=== PATIENT | male | born 1970 | race Caucasian/White ===

== ENCOUNTER 2017-10-09 09:07 | Inpatient (IN) | payer SELFPAY ==
[2017-10-09] MEDS ORDERED: Albuterol Sulfate 2.5 mg/0.5 ml Neb ONE ×3 (09:29)
--- NOTE | 2017-10-09 09:40 | RAD ---
CHEST 1 VIEW: Date: 10/09/17 HISTORY: Cough. Rhinorrhea. COMPARISON: None. FINDINGS: Cardiomegaly. Diminished lung volumes, likely due to poor inspiratory effort. No consolidation or mas ses. Small bilateral pleural effusions may be present. No pneumothorax or osseous abnormalities. IMPRESSION: 1. Cardiomegaly. 2. Diminished lung volumes, likely due to poor inspiratory effort. 3. Small bilateral pleural effusions. Continued surveillance. POS: [facility]
[2017-10-09 09:43] LABS: Actual Bicarbonate (HCO3a) 39.8 mEq/L (22-26); Base Excess (BEa) 8.3 mEq/L (0 (+/-) 2.5); CO2 Tension 89.5 mmHg (35.0-45.0); O2 Tension (PaO2) 50.9 mmHg (80.0-100.0); pH, Arterial 7.26 (7.35-7.45)
[2017-10-09 09:44] LABS: Analyzer IN Cardio ER; Calcium, Ionized 1.2 mmol/L (1.12-1.30); Hemoglobin (Hb) 16.7 g/dL (14.0-18.0)
[2017-10-09 09:45] LABS: ALV-art Gradient 143.815 (0-20); Puncture Site RRA
[2017-10-09 09:48] LABS: INR-International Normal Ratio 1.1; PTT 37.2 SEC (22.9-36.1)
[2017-10-09 09:55] LABS: #Basophils 0.1 thou/uL (0.0-0.2); #Eosinphils 0.1 thou/uL (0.0-0.7); #Lymphocytes 1.6 thou/uL (1.20-3.40); #Monocytes 0.9 thou/uL (0.11-0.59); #Neutrophils 12.4 thou/uL (1.40-6.50); %Basophils 0.5 % (0.0-1.0); %Eosinophils 0.3 % (0.0-10.0); %Lymphocytes 10.4 % (21.0-51.0); %Monocytes 6.3 % (0.0-10.0); %Neutrophils 82.4 % (42.0-75.0); Hemoglobin 17.6 g/dL (14.0-18.0); Mean Corpuscular HGB CONC 29.2 g/dL (32.0-36.0); Mean Corpuscular Hemoglobin 26.1 pg (27.0-31.0); Mean Corpuscular Volume 89.5 fl (80.0-94.0); Mean Platelet Volume 8.3 fL (7.4-10.4); Platelet Count 254 thou/uL (130-400); RBC Distribution Width 15.7 % (11.5-14.5); Red Blood Cell (RBC) Count 6.73 mill/uL (4.70-6.10)
[2017-10-09 10:10] LABS: CKMB 1.1 ng/mL (0-6.6); Troponin I 0.013 ng/mL (< 0.028)
[2017-10-09 10:15] LABS: Anion Gap 18 mmol/L (10-20); Carbon Dioxide 33 mmol/L (22-29); Chloride 94 mmol/L (98-107); Potassium 4.7 mmol/L (3.5-5.1); Sodium 140 mmol/L (136-145)
[2017-10-09] MEDS ORDERED: Rocuronium Bromide 50 MG/5 ML VIAL ONE (10:18)
[2017-10-09] MEDS ORDERED: Promethazine HCl 25 MG/ML VIAL ONE (10:34)
[2017-10-09] MEDS ORDERED: Propofol 1,000 MG/100 ML VIAL IV ONE ×3 (10:34→13:19)
[2017-10-09 10:41] LABS: ALT (SGPT) 27 U/L (8-55); AST (SGOT) 11 U/L (5-34); Alkaline Phosphatase 107 U/L (40-150); BUN (Urea Nitrogen) 13 mg/dL (8.9-20.6); Bilirubin, Total 0.9 mg/dL (0.2-1.2); CK (CPK) 35 U/L (30-200); Calc. Creatinine Clearance 0 mL/min (70-130); Calcium 9.7 mg/dL (7.8-10.44); Estimated GFR-MDRD 90; Globulin 5.2 g/dL (2.4-3.5); Glucose 197 mg/dL (70-105); Magnesium 2.3 mg/dL (1.6-2.6); Protein, Total 9.2 g/dL (6.0-8.3)
[2017-10-09 10:59] LABS: pH, Arterial 7.35 (7.35-7.45)
[2017-10-09 11:00] LABS: Base Excess (BEa) 7.4 mEq/L (0 (+/-) 2.5); CO2 Tension 67.1 mmHg (35.0-45.0); Calcium, Ionized 1.1 mmol/L (1.12-1.30); Hemoglobin (Hb) 16.4 g/dL (14.0-18.0)
[2017-10-09 11:01] LABS: ALV-art Gradient 278.925 (0-20); Analyzer IN Cardio ER; Puncture Site RRA
[2017-10-09] MEDS ORDERED: Azithromycin 500 MG, Admixture Fee 1 EACH in Sodium Chloride 0.9% 250 ML 250 ML IVPB SCH (11:15)
--- NOTE | 2017-10-09 11:24 | RAD ---
PORTABLE CHEST 1 VIEW: Date: 10/09/17 Time: 1039 hours HISTORY: Cough. Respiratory failure. FINDINGS/IMPRESSION: Comparison made with earlier exam at 0921 hours. There has been interval placement of an endotracheal tube with tip about 3.0 cm above the level of th e kvng. POS: [facility]
[2017-10-09] MEDS ORDERED: Fentanyl 100 MCG/2 ML VIAL ONE ×3 (11:29→11:34)
[2017-10-09] MEDS ORDERED: fentaNYL Citrate/PF 2,000 MCG in Sodium Chloride 0.9% 60 ML IV SCH (11:45)
[2017-10-09 12:06] LABS: Bilirubin Small (Negative); Blood, Urine Negative (Negative); Clarity CLOUDY (Clear); Glucose, Urine (Dipstick) Negative (Negative); Leukocyte Negative (Negative); Nitrite Negative (Negative); Protein, Urine (Dipstick) 300 mg/dL (Neg-Trace)
[2017-10-09 12:08] LABS: Bacteria/HPF None Seen HPF (None Seen); RBC/HPF 0-3 HPF (0-3); Squamous Epithelial 0-3 HPF (0-3); WBC/HPF 0-3 HPF (0-3)
[2017-10-09 12:09] LABS: Hyaline Casts/LPF 4-6 HYALINE CAST LPF (0-3 Hyaline); Pathc Cast-AUWi Flag 2.84 (0-2.49)
[2017-10-09 12:15] LABS: Amphetamine Not Detected (NotDetected); Barbiturates Screen Not Detected (NotDetected); Benzodiazepine Screen Not Detected (NotDetected); Cocaine Metabolite Screen Not Detected (NotDetected); Medtox Control Line Valid? VALID (VALID); Medtox Reader # READER 1; Methadone Not Detected (NotDetected); Methamphetamine Not Detected (NotDetected); Opiate Screen Not Detected (NotDetected); Oxycodone Screen Not Detected (NotDetected); Phencyclidine (PCP) Not Detected (NotDetected); THC/Cannabinoid Screen Not Detected (NotDetected); Tricyclic Screen Not Detected (NotDetected)
[2017-10-09 12:23] LABS: Troponin I 0.026 ng/mL (< 0.028)
[2017-10-09] MEDS ORDERED: Sedation Protocol FS ONE (12:35)
[2017-10-09] MEDS ORDERED: Dextrose 5% in Water 1,000 ML IV PRN (12:35)
[2017-10-09] MEDS ORDERED: Acetaminophen 650 MG Suppository PR PRN (12:35)
[2017-10-09] MEDS ORDERED: CCU Electrolyte Replacement 1 EACH FS ONE (12:35)
[2017-10-09] MEDS ORDERED: Ondansetron HCl/PF 4 MG/2 ML Vial IVP PRN (12:35)
[2017-10-09] MEDS ORDERED: cefTRIAXone\\ROCEPHIN 1 GM in Sodium Chloride 0.9% 100 ML IVPB SCH (12:35)
[2017-10-09] MEDS ORDERED: Dextrose 50% Abboject 50 ML SYRINGE SLOW IVP PRN (12:35)
[2017-10-09] MEDS: Sodium Chloride 0.9% 1,000 ML IV SCH ×2 (12:50→21:15)
[2017-10-09 13:00] LABS: Hemoglobin A1c 7.9 % (4.0-6.0)
[2017-10-09] MEDS ORDERED: Potassium Chloride 40 MEQ in Premix Bag 1 BAG IVPB PRN (13:31)
[2017-10-09] MEDS ORDERED: Magnesium Oxide 400 MG TAB PO PRN ×2 (13:31)
[2017-10-09] MEDS ORDERED: Potassium Chloride 40 MEQ in Sodium Chloride 0.9% 250 ML 250 ML IVPB PRN (13:31)
[2017-10-09] MEDS ORDERED: Potassium Phosphate 15 MMOL in Sodium Chloride 0.9% 250 ML 250 ML IV PRN (13:31)
[2017-10-09] MEDS ORDERED: Magnesium 2 GM/NS 0.9% 100 ML 2 GM in Premix Bag 1 BAG IVPB PRN (13:31)
[2017-10-09] MEDS ORDERED: Potassium Phosphate 12 MMOL in Sodium Chloride 0.9% 250 ML 250 ML IV PRN (13:31)
[2017-10-09] MEDS ORDERED: Potassium Phosphate 9 MMOL in Sodium Chloride 0.9% 100 ML IVPB PRN (13:31)
[2017-10-09] MEDS ORDERED: Potassium Chloride 20 MEQ TAB PO PRN (13:31)
[2017-10-09] MEDS ORDERED: FLU VACC QS2017-18 36 mo. & older 0.5 ML SYRINGE IM ONE (13:45)
--- NOTE | 2017-10-09 14:19 | HP ---
REASON FOR ADMISSION: Acute respiratory failure, possible pneumonia, sepsis, morbid obesity. HISTORY OF PRESENTING ILLNESS: Please note majority of this history is obtained by my talking to patient's , ER physician, ER records as patient is currently intubated. Per ER physician, patient on arrival had complained of shortness of breath and had coughing spells from the last 4 days. He had saturations of 50% on room air on arrival. He was wheezing badly. He was given 1 hour of nebs and was placed on BiPAP with saturations only marginally improving to 81%. He had ABG done on BiPAP, which showed pCO2 of 90 and pH of 7.26. Finally, a decision was made to intubate him. During intubation, patient has had thick yellowish green secretions which were filling up the ET tube and was vigorously suctioned by ER physician. Per family his , the patient has had an episode of flu-like illness a week back. He apparently recovered and had gone to work for 2 days. From last 4 days, patient has started coughing with headache and fever. 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 She also mentions that he has history of diabetes and has not been taking his medications. PAST MEDICAL AND SURGICAL HISTORY: History of diabetes mellitus type 2 diagnosed a year ago, not compliant with medications, cholecystectomy, appendectomy, knee surgery. CURRENT MEDICATIONS: None. ALLERGIES: No known drug allergies. PERSONAL HISTORY: Does not abuse alcohol or drugs. No history of smoking. Lives with his . FAMILY HISTORY: Mother at the age of 64 years from unknown cause. Father had unknown cancer and at the age of 76 years. REVIEW OF SYSTEMS: Cannot be obtained as the patient is currently intubated. PHYSICAL EXAMINATION: GENERAL: The patient is a 47-year-old male who is orally intubated with endotracheal tube up to 28 cm to the incisor. He has size 8 ET tube. He is currently on ventilator with 65% FiO2 and PEEP of 6, tidal volume of 600. VITAL SIGNS: Blood pressure 146/76, pulse 124 per minute, respiratory rate 24 per minute, saturating 100% on ventilator, temperature of 99.2 degrees Fahrenheit. NECK: Supple, no elevated JVD. EYES: Extraocular muscles intact. Pupils reacting to light. ORAL CAVITY: Mucous membranes are dry. There is mild congestion in the posterior pharynx. The patient is orally intubated. NECK: Supple. CARDIOVASCULAR SYSTEM: S1, S2 heard. Regular rhythm, tachycardic. RESPIRATORY SYSTEM: Air entry 1+ bilateral. Scattered rhonchi plus bilateral. ABDOMEN: Soft, bowel sounds heard. No tenderness, rigidity or guarding. EXTREMITIES: There is peripheral edema, 2+. No obvious gangrene or ulcerations seen. CENTRAL NERVOUS SYSTEM: No gross focal deficits seen. The patient is seen moving all 4 extremities. PSYCHIATRIC SYSTEM: Cannot be assessed as patient is currently sedated and is on the ventilator. IMAGING DATA AND LABORATORY DATA: EKG done shows sinus tachycardia at 114 beats per minute. He has incomplete RBBB. White count of 15, hemoglobin and hematocrit 17 and 60, platelet count 254, MCV is 89 with 82% neutrophils. PT/ INR within normal limits. Initial blood gas at 939 shows pH of 7.26 and pCO2 of 89 with pCO2 50. Repeat blood gas at almost 11:00 a.m. shows pH of 7.35, PCO2 of 67, and pO2 of 65. Serum bicarbonate 33. The BUN is 13, creatinine 0.9 , serum glucose 197. Hemoglobin A1c 7.9. First set of cardiac enzymes are negative. Liver enzymes within normal limits. Albumin is 4.0. Influenza A and B antigens are negative. Chest x-ray on arrival showed cardiomegaly with poor lung volumes. CLINICAL IMPRESSION AND PLAN: The patient will be admitted to ICU for acute respiratory failure with hypoxia and hypercarbia possible pneumonia with recent viral illness. We will obtain viral PCR. He will be on ceftriaxone and Zithromax. The patient is also morbidly obese and likely has sleep apnea with possible hypoventilation syndrome as well. He is also noncompliant with his diabetes and will be placed on Levemir 10 units subcutaneously twice daily. He will be on gentle IV hydration. The patient weighs nearly 479 pounds and likely will not be able to get a CAT scan due to his weight. Discussed with Dr. Moore for pulmonary consultation. CAYLA
[2017-10-09 15:04] LABS: HIV (1/2) Antibody/Antigen Non-Reactive (NonReactive); HIV 1/2 INDEX 0.08 S/CO (<1.00)
[2017-10-09] MEDS: Propofol 1,000 MG/100 ML VIAL IV PRN ×5 (15:38→23:03)
[2017-10-09] MEDS: Acetaminophen 325 MG TAB PO PRN (20:25)
[2017-10-09] MEDS: Famotidine/PF 20 mg/2ml Vial SLOW IVP SCH (20:25)
[2017-10-09] MEDS: Insulin Detemir 100 UNITS/ML 10 UNITS in Pre-Filled Syringe 1 EACH SC SCH (21:18)
[2017-10-10] MEDS: Propofol 1,000 MG/100 ML VIAL IV PRN ×4 (02:41→08:19)
--- NOTE | 2017-10-10 04:14 | CON ---
DATE OF CONSULTATION: 10/09/2017 HISTORY OF PRESENT ILLNESS: Mr. Hughes is a gentleman, who was transferred to the ICU, intubated fr om the emergency department. History is obtained from the and daughter. Apparently, he has a l elisa history of daytime hypersomnolence. When he sleeps, his daughter tells me he has one minute wu ods where he just does not breathe. He presents with 3-4 days of cough, chest congestion, and shortness of breath. This has progressed. He was intubated in the emergency room. He failed BiPAP, which not surprising given his size. He is too large for CT, I really do not think a CT angiogram add anything to his care after examining him. PAST MEDICAL HISTORY: Remarkable for; 1. Diabetes, he does not go to doctors. 2. Cholecystectomy. 3. Appendectomy. 4. History of knee surgery. SOCIAL HISTORY: He is a non-smoker, nondrinker. He does not use drugs. ALLERGIES: He has no drug allergies. MEDICATIONS: No medication prior to admission. FAMILY HISTORY: Positive for cancer. No history of lung disease at an early age. REVIEW OF SYSTEMS: Not obtainable. PHYSICAL EXAMINATION: GENERAL: He is sedated, he is a very large man, weighs 479 pounds. VITAL SIGNS: His temperature is 102 this evening, his respiratory rate is in the 20s, blood pressure 139/77. HEENT: Pupils are equal. Sclerae is anicteric. NECK: Supple. No lymphadenopathy. LUNGS: Remarkable for coarse wheezes diffusely. HEART: Regular rhythm. S1 and S2 are distant. ABDOMEN: Soft and nontender. EXTREMITIES: Without clubbing, cyanosis, or edema. LABORATORY DATA: White count 15, hemoglobin 17.6, platelets 254, hematocrit was 60. Sodium 140, pot assium 4.7, chloride 94, bicarbonate 33, BUN 13, creatinine 0.9, hemoglobin A1c 7.9. Blood gas: A p H 7.26, CO2 of 89, pO2 of 50. Second blood gas: A pH 7.35, CO2 of 67, PO2 of 65. IMPRESSION AND PLAN: 1. Acute respiratory failure. I reviewed his radiograph under underpenetrated film. There are no a lveolar infiltrates. He has poor inspiratory effort. I do not see any clear evidence for pneumonia, but I doubt that there is some component of pneumonia if this is not related to a viral illness. 2. Life threatening obesity. 3. Untreated sleep apnea. 4. Erythrocytosis secondary to untreated sleep apnea. If his hemoglobin does not start working its way down, we will need to phlebotomize him to a hematocrit of 50. 5. Chronic CO2 retention secondary to his untreated sleep apnea. 6. Hyperproteinemia and hyperglobulinemia. If this does normalize the serum protein, electrophoresi s needs to be ordered. 7. Diabetes, uncontrolled. I will be happy to follow with the other physicians caring for him. He is not going to be weanable for several days and likely be in the hospital several weeks. He may req uire tracheostomy to treat his sleep apnea successfully and immediately. Critical care time 40 minutes.
[2017-10-10] MEDS: Acetaminophen 325 MG TAB PO PRN ×2 (04:43→08:19)
[2017-10-10 05:06] LABS: #Lymphocytes 1.4 thou/uL (1.20-3.40); #Monocytes 0.6 thou/uL (0.11-0.59); #Neutrophils 7.9 thou/uL (1.40-6.50); %Basophils 0.1 % (0.0-1.0); %Eosinophils 0.3 % (0.0-10.0); %Lymphocytes 14.2 % (21.0-51.0); %Monocytes 5.8 % (0.0-10.0); %Neutrophils 79.6 % (42.0-75.0); Hemoglobin 15.3 g/dL (14.0-18.0); Mean Corpuscular HGB CONC 30.6 g/dL (32.0-36.0); Mean Corpuscular Hemoglobin 26.7 pg (27.0-31.0); Mean Corpuscular Volume 87.3 fl (80.0-94.0); Mean Platelet Volume 8.5 fL (7.4-10.4); Platelet Count 206 thou/uL (130-400); RBC Distribution Width 15.1 % (11.5-14.5); Red Blood Cell (RBC) Count 5.73 mill/uL (4.70-6.10); White Blood Cell (WBC) Count 9.9 thou/uL (4.8-10.8)
[2017-10-10 05:28] LABS: Anion Gap 11 mmol/L (10-20); BUN (Urea Nitrogen) 15 mg/dL (8.9-20.6); Calc. Creatinine Clearance 299 mL/min (70-130); Calcium 8.6 mg/dL (7.8-10.44); Carbon Dioxide 32 mmol/L (22-29); Chloride 98 mmol/L (98-107); Estimated GFR-MDRD 86; Glucose 180 mg/dL (70-105); Potassium 3.8 mmol/L (3.5-5.1); Sodium 137 mmol/L (136-145)
[2017-10-10 07:42] LABS: Actual Bicarbonate (HCO3a) 32.2 mEq/L (22-26); Base Excess (BEa) 7.3 mEq/L (0 (+/-) 2.5); CO2 Tension 45.9 mmHg (35.0-45.0); O2 Tension (PaO2) 50.5 mmHg (80.0-100.0); pH, Arterial 7.46 (7.35-7.45)
[2017-10-10 07:43] LABS: Calcium, Ionized 1.1 mmol/L (1.12-1.30); Hematocrit-ABG 54.3 % (42.0-52.0); Hemoglobin (Hb) 15.4 g/dL (14.0-18.0); Puncture Site RRA
[2017-10-10 07:44] LABS: ALV-art Gradient 355.575 (0-20)
[2017-10-10] MEDS: Enoxaparin Sodium 40 MG/0.4 ML SYRINGE SC SCH (08:19)
[2017-10-10] MEDS: Famotidine/PF 20 mg/2ml Vial SLOW IVP SCH (08:19)
[2017-10-10] MEDS: Sodium Chloride 0.9% 1,000 ML IV SCH ×2 (08:20→19:03)
[2017-10-10] MEDS: Insulin Detemir 100 UNITS/ML 10 UNITS in Pre-Filled Syringe 1 EACH SC SCH ×2 (08:47→21:14)
[2017-10-10] MEDS: cefTRIAXone\\ROCEPHIN 1 GM, Syringe 0.4 ML in Sterile Water 9.6 ML SLOW IVP SCH (11:37)
[2017-10-10] MEDS: Azithromycin 500 MG in Sodium Chloride 0.9% 250 ML 250 ML IVPB SCH (11:45)
[2017-10-10] MEDS: Enalaprilat Dihydrate 1.25 MG/ML VIAL SLOW IVP SCH ×2 (13:53→17:51)
[2017-10-10] MEDS ORDERED: Labetalol HCl 100 MG/20 ML VIAL SLOW IVP PRN (14:27)
--- NOTE | 2017-10-10 14:29 | PDOC.PN ---
- Subjective Encounter Start Date: 10/10/17 Encounter Start Time: 10:45 Subjective: pt intubated is able to follow commands - Objective Resuscitation Status: Resuscitation Status FULL:Full Resuscitation Vital Signs & Weight: Vital Signs (12 hours) Temp Pulse Resp BP Pulse Ox 10/10/17 13:55 95 182/95 H 10/10/17 13:53 180/99 H 10/10/17 12:00 18 10/10/17 10:18 89 171/71 H 10/10/17 10:00 98.4 F 23 H 10/10/17 08:00 100.9 F H 108 H 18 93 L 10/10/17 07:01 86 174/68 H 10/10/17 06:00 99.1 F 25 H 10/10/17 04:00 100.6 F H 25 H 10/10/17 02:49 85 25 H 92 L Weight Admit Weight 479 lb Weight 479 lb 1.032 oz Most Recent Monitor Data Heart Rate from ECG 98 NIBP 180/99 NIBP BP-Mean 119 Respiration from ECG 30 SpO2 94 I&O: 10/09/17 10/10/17 10/11/17 06:59 06:59 06:59 Intake Total 2769.7 Output Total 1305 350 Balance 1464.7 -350 Result Diagrams: 10/10/17 04:35 10/10/17 04:35 Additional Labs: Accuchecks 10/10/17 10/10/17 10/09/17 13:00 04:37 21:19 POC Glucose 141 H 157 H 171 H 10/09/17 18:12 POC Glucose 155 H Phys Exam - Physical Examination Respiratory: wheezing present (diminished breath sounds all over. mild exp wheezing noted) Cardiovascular: RRR Gastrointestinal: soft, non-tender Musculoskeletal: no edema Neurological: non-focal (pt intubated, moves all ext) Dx/Plan (1) Acute respiratory failure with hypoxia and hypercapnia Code(s): J96.01 - ACUTE RESPIRATORY FAILURE WITH HYPOXIA; J96.02 - ACUTE RESPIRATORY FAILURE WITH HYPERCAPNIA Status: Acute Plan: pt's resp panel was positive for rhino virus. pt is intubated (2) Hyperproteinemia Code(s): E88.09 - OTH DISORDERS OF PLASMA-PROTEIN METABOLISM, NEC Status: Acute Plan: will follow up on blood work in am if high will order spep and upep (3) Erythrocytosis Code(s): D75.1 - SECONDARY POLYCYTHEMIA Status: Acute Plan: ? from AMBERLY, pt will need outpatient sleep study. - Plan * .
[2017-10-10] MEDS: fentaNYL Citrate/PF 2,000 MCG in Sodium Chloride 0.9% 60 ML IV SCH (15:47)
[2017-10-10] MEDS: HumaLOG 300 UNITS/3 ML VIAL SC PRN ×2 (19:03→21:15)
--- NOTE | 2017-10-10 20:37 | PRG ---
DATE OF SERVICE: 10/10/2017 SUBJECTIVE: The patient was awaken. He was requiring more and more doses of sedatives, so we switch ed him to Versed drip and took him off propofol. OBJECTIVE: VITAL SIGNS: Heart rate 83, blood pressure 131/56, respiratory rate in the teens. LUNGS: Remarkable for improved wheezes compared to yesterday. HEART: Regular rhythm. ABDOMEN: Soft. LABORATORY DATA: His hemoglobin has come down from 17.6 g to 15.3 g. White count is 9.9. Intake and output is positive 1464. Sodium 137, potassium 3.8, chloride 98, bicarbonate 32, BUN 15, creatinine 0.94. pH 7.46, CO2 of 45, pO2 of 50. His ventilatory rate was decreased from 25-18 today. His FiO2 will be weaned as tolerated. Chest radiograph was not done today. IMPRESSION: Respiratory failure associated with asthmatic bronchitis and chronic obesity hypoventila tion syndrome as well as possible pneumonia. I doubt that he has thromboembolic disease. PLAN: Check chest radiograph in the morning. Continue with mechanical ventilation. At almost 500 p ounds, I do not think he will do well without a tracheostomy. His family again told me that he has 1 -minute periods of apnea when he sleeps. I am not sure we can get him to an adequate CPAP pressure t o control his sleep apnea and probably the safest and quickest recovery will be via tracheostomy in m y opinion. Critical care time was 30 minutes.
[2017-10-10] MEDS: Famotidine 40 MG/4 ML VIAL SLOW IVP SCH (21:12)
[2017-10-11] MEDS: Enalaprilat Dihydrate 1.25 MG/ML VIAL SLOW IVP SCH ×4 (00:20→17:30)
[2017-10-11] MEDS: fentaNYL Citrate/PF 2,000 MCG in Sodium Chloride 0.9% 60 ML IV SCH ×2 (02:08→19:43)
[2017-10-11 04:35] LABS: Band 5 % (5-11); Hemoglobin 14.8 g/dL (14.0-18.0); Lymphocytes 12 % (21-51); MDiff Complete? YES; Mean Corpuscular HGB CONC 30.2 g/dL (32.0-36.0); Mean Corpuscular Hemoglobin 26.5 pg (27.0-31.0); Mean Corpuscular Volume 87.7 fl (80.0-94.0); Mean Platelet Volume 8.5 fL (7.4-10.4); Monocytes 3 % (0-10); Neutrophil 80 % (42-75); PLT Morphology Comment Appears Adequate; Platelet Count 210 thou/uL (130-400); RBC Distribution Width 15.3 % (11.5-14.5); Red Blood Cell (RBC) Count 5.59 mill/uL (4.70-6.10)
[2017-10-11 04:57] LABS: Anion Gap 10 mmol/L (10-20); BUN (Urea Nitrogen) 19 mg/dL (8.9-20.6); Calc. Creatinine Clearance 350 mL/min (70-130); Calcium 8.6 mg/dL (7.8-10.44); Carbon Dioxide 33 mmol/L (22-29); Chloride 100 mmol/L (98-107); Estimated GFR-MDRD Greater than 90; Glucose 255 mg/dL (70-105); Sodium 139 mmol/L (136-145)
[2017-10-11] MEDS: HumaLOG 300 UNITS/3 ML VIAL SC PRN ×4 (05:18→21:19)
[2017-10-11] MEDS: Sodium Chloride 0.9% 1,000 ML IV SCH ×3 (06:02→16:11)
--- NOTE | 2017-10-11 08:15 | RAD ---
CHEST ONE VIEW: History: Respiratory distress. Ventilated patient. Comparison: 10-09-17 FINDINGS: Portable upright chest demonstrates endotracheal tube and a nasogastric tube. Evaluation of both tube s is limited due to under penetration. Heart is markedly enlarged. Pulmonary vessels are within jean marie l limits. There are reticular nodular opacities, without consolidation or mass. No pneumothorax or os seous abnormality. IMPRESSION: 1. Suboptimal evaluation of the endotracheal and nasogastric tube due to under penetration. 2. Enlarged cardiac silhouette. 3. Reticular nodular opacities. 4. Repeat radiograph can be performed to better evaluate the endotracheal and nasogastric tubes. POS: [facility]
[2017-10-11] MEDS: Insulin Detemir 100 UNITS/ML 10 UNITS in Pre-Filled Syringe 1 EACH SC SCH ×2 (09:28→21:18)
[2017-10-11] MEDS: Enoxaparin Sodium 40 MG/0.4 ML SYRINGE SC SCH (09:35)
[2017-10-11] MEDS: Famotidine 40 MG/4 ML VIAL SLOW IVP SCH ×2 (09:35→21:18)
[2017-10-11] MEDS: cefTRIAXone\\ROCEPHIN 1 GM, Syringe 0.4 ML in Sterile Water 9.6 ML SLOW IVP SCH (11:47)
[2017-10-11] MEDS: Azithromycin 500 MG in Sodium Chloride 0.9% 250 ML 250 ML IVPB SCH (11:47)
[2017-10-11 12:54] LABS: Actual Bicarbonate (HCO3a) 32.4 mEq/L (22-26); Base Excess (BEa) 6.3 mEq/L (0 (+/-) 2.5); CO2 Tension 52.2 mmHg (35.0-45.0); Hemoglobin (Hb) 14.6 g/dL (14.0-18.0); O2 Tension (PaO2) 53.1 mmHg (80.0-100.0); pH, Arterial 7.41 (7.35-7.45)
[2017-10-11 12:55] LABS: Calcium, Ionized 1.1 mmol/L (1.12-1.30); Puncture Site RRA
[2017-10-11] MEDS ORDERED: Sodium Bicarbonate Tab 325 MG TAB PER TUBE PRN (14:02)
[2017-10-11] MEDS ORDERED: Pancrelipase DR 12000 1 CAP FS PRN (14:02)
--- NOTE | 2017-10-11 15:13 | PDOC.PN ---
- Subjective Encounter Start Date: 10/11/17 Encounter Start Time: 11:00 Subjective: pt intubated and sedated - Objective Resuscitation Status: Resuscitation Status FULL:Full Resuscitation Vital Signs & Weight: Vital Signs (12 hours) Temp Pulse Resp BP 10/11/17 15:00 99.1 F 10/11/17 14:44 73 175/84 H 10/11/17 14:00 18 10/11/17 13:26 80 10/11/17 11:47 141/72 H 10/11/17 11:00 99.3 F 10/11/17 10:18 82 10/11/17 08:01 78 10/11/17 08:00 99.2 F 78 18 10/11/17 06:00 19 10/11/17 05:18 141/72 H 10/11/17 04:00 98.6 F 23 H Weight Admit Weight 479 lb Weight 477 lb 15.395 oz Most Recent Monitor Data Heart Rate from ECG 80 NIBP 158/68 NIBP BP-Mean 106 Respiration from ECG 11 SpO2 92 I&O: 10/10/17 10/11/17 10/12/17 06:59 06:59 06:59 Intake Total 2769.7 3694.5 119.6 Output Total 1305 1615 740 Balance 1464.7 2079.5 -620.4 Result Diagrams: 10/11/17 04:15 10/11/17 04:15 Additional Labs: Accuchecks 10/11/17 10/11/17 10/10/17 09:28 04:14 21:12 POC Glucose 255 H 234 H 210 H 10/10/17 18:46 POC Glucose 182 H Phys Exam - Physical Examination Respiratory: wheezing present Cardiovascular: RRR, no significant murmur Gastrointestinal: soft (large, bs x2) Musculoskeletal: edema present Deviation from normal: pt intubated Dx/Plan (1) Acute respiratory failure with hypoxia and hypercapnia Code(s): J96.01 - ACUTE RESPIRATORY FAILURE WITH HYPOXIA; J96.02 - ACUTE RESPIRATORY FAILURE WITH HYPERCAPNIA Status: Acute Plan: pt intubated cx indicated haemophilias influenza. continue abx for now pt on azithromycin and ceftriaxone (2) Hyperproteinemia Code(s): E88.09 - OTH DISORDERS OF PLASMA-PROTEIN METABOLISM, NEC Status: Acute Plan: will check cmp in am (3) Erythrocytosis Code(s): D75.1 - SECONDARY POLYCYTHEMIA Status: Acute Plan: continue to monitor most likely due to AMBERLY (4) Haemophilus infection Code(s): A49.2 - HEMOPHILUS INFLUENZAE INFECTION, UNSPECIFIED SITE Status: Acute Plan: pt's sputum came back positive for hamophalius influenza. will continue current abx (5) Morbid (severe) obesity due to excess calories Code(s): E66.01 - MORBID (SEVERE) OBESITY DUE TO EXCESS CALORIES Status: Acute - Plan * .
[2017-10-11] MEDS: Lorazepam 2 MG/ML VIAL SLOW IVP PRN ×2 (17:30→19:31)
--- NOTE | 2017-10-11 17:39 | PRG ---
DATE OF SERVICE: 10/11/2017 SUBJECTIVE: Mr. Sigifredo Hughes remains mechanically ventilated. I talked more with family about his functional level. 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 He just has problem sl eeping mainly. OBJECTIVE: VITAL SIGNS: His heart rate 80, respiratory rate is 18, oximetry is in the 90s, and blood pressure 1 75/84. LUNGS: Remarkable for coarse wheezes. HEART: Regular rhythm. ABDOMEN: Soft. LABORATORY DATA: Blood gas 7.2, CO2 is 52, pO2 is 53. Chest radiograph was underpenetrated; he probably has bilateral patchy infiltrates consistent with a pneumonia. IMPRESSION: 1. Respiratory failure. 2. Asthmatic bronchitis. 3. Probable pneumonia, community acquired. 4. Untreated severe sleep apnea. PLAN: Continue mechanical ventilation, steroids, and antimicrobial therapy.
[2017-10-12] MEDS: Enalaprilat Dihydrate 1.25 MG/ML VIAL SLOW IVP SCH ×5 (00:11→23:55)
[2017-10-12] MEDS: Lorazepam 2 MG/ML VIAL SLOW IVP PRN ×4 (01:59→19:54)
[2017-10-12] MEDS: HumaLOG 300 UNITS/3 ML VIAL SC PRN ×4 (04:23→21:20)
[2017-10-12 04:36] LABS: #Lymphocytes 0.9 thou/uL (1.20-3.40); #Monocytes 0.5 thou/uL (0.11-0.59); #Neutrophils 8.7 thou/uL (1.40-6.50); %Basophils 0.3 % (0.0-1.0); %Eosinophils 0.1 % (0.0-10.0); %Lymphocytes 9.2 % (21.0-51.0); %Monocytes 4.5 % (0.0-10.0); Mean Corpuscular Hemoglobin 26.5 pg (27.0-31.0); Mean Corpuscular Volume 88.1 fl (80.0-94.0); Mean Platelet Volume 8.8 fL (7.4-10.4); Platelet Count 204 thou/uL (130-400); RBC Distribution Width 15.2 % (11.5-14.5); Red Blood Cell (RBC) Count 5.67 mill/uL (4.70-6.10); White Blood Cell (WBC) Count 10.1 thou/uL (4.8-10.8)
[2017-10-12 04:48] LABS: ALT (SGPT) 19 U/L (8-55); AST (SGOT) 16 U/L (5-34); Albumin 3.1 g/dL (3.5-5.0); Alkaline Phosphatase 70 U/L (40-150); Anion Gap 11 mmol/L (10-20); BUN (Urea Nitrogen) 26 mg/dL (8.9-20.6); Bilirubin, Total 0.4 mg/dL (0.2-1.2); Calc. Creatinine Clearance 346 mL/min (70-130); Calcium 8.9 mg/dL (7.8-10.44); Carbon Dioxide 31 mmol/L (22-29); Chloride 102 mmol/L (98-107); Estimated GFR-MDRD Greater than 90; Glucose 315 mg/dL (70-105); Potassium 4.8 mmol/L (3.5-5.1); Protein, Total 7.1 g/dL (6.0-8.3); Sodium 139 mmol/L (136-145)
--- NOTE | 2017-10-12 07:56 | RAD ---
SINGLE VIEW OF THE CHEST: COMPARISON: 10/11/17. HISTORY: Ventilated patient with respiratory failure. FINDINGS: A single view of the chest shows an enlarged but stable cardiomediastinal silhouette. The endotrache al tube is unchanged in position. The NG tube cannot be followed completely secondary to under penet ration. There is obscurity of both hemidiaphragms which may represent small bilateral pleural effusi ons. IMPRESSION: Stable exam. POS: [facility]
[2017-10-12] MEDS: Famotidine 20 MG TAB PO SCH ×2 (08:51→21:19)
[2017-10-12] MEDS: Enoxaparin Sodium 40 MG/0.4 ML SYRINGE SC SCH (08:51)
[2017-10-12] MEDS: Insulin Detemir 100 UNITS/ML 10 UNITS in Pre-Filled Syringe 1 EACH SC SCH ×2 (08:51→21:19)
[2017-10-12] MEDS: Sodium Chloride 0.9% 1,000 ML IV SCH ×2 (08:52→21:18)
[2017-10-12] MEDS ORDERED: niCARdipine HCl 25 MG in Sodium Chloride 0.9% 250 ML 240 ML IVPB SCH (09:15)
--- NOTE | 2017-10-12 10:01 | PRG ---
DATE OF SERVICE: 10/12/2017 Sigifredo Hughes did well overnight. His blood pressure is elevated this morning. I have asked the nurses to start him on a Cardene drip. PHYSICAL EXAMINATION: VITAL SIGNS: Blood pressure 184/115, heart rate 75. GENERAL: He is more awake today, he wants to write notes. LUNGS: His lungs are remarkable for coarse wheezes diffusely. HEART: Regular rhythm. ABDOMEN: Soft. LABORATORY DATA: White count 10.1, hemoglobin 15, platelets 204,000. Sodium 139, potassium 4.8, chloride 102, bicarb 31, BUN 26, creatinine 0.81, glucose is 315. IMPRESSION: 1. Respiratory failure. 2. Asthmatic bronchitis. 3. Probable pneumonia. 4. Erythrocytosis on admission secondary to untreated sleep apnea and intravascular volume depletion. 5. Diabetes. PLAN: Continue slow weaning. We will try to avoid tracheostomy in this functional hardworking individual. Critical care time 35 min. MTDD
[2017-10-12] MEDS: Azithromycin 500 MG in Sodium Chloride 0.9% 250 ML 250 ML IVPB SCH (11:14)
[2017-10-12] MEDS: cefTRIAXone\\ROCEPHIN 1 GM, Syringe 0.4 ML in Sterile Water 9.6 ML SLOW IVP SCH (11:14)
--- NOTE | 2017-10-12 14:56 | PDOC.PN ---
- Subjective Encounter Start Date: 10/12/17 Encounter Start Time: 10:45 Subjective: pt up in bed intubated but arousable - Objective Resuscitation Status: Resuscitation Status FULL:Full Resuscitation Vital Signs & Weight: Vital Signs (12 hours) Temp Pulse Resp BP 10/12/17 13:43 72 10/12/17 12:00 25 H 10/12/17 11:14 153/76 H 10/12/17 11:00 99.2 F 10/12/17 10:00 24 H 10/12/17 09:50 77 10/12/17 08:00 98.3 F 77 22 H 10/12/17 07:32 77 10/12/17 07:00 98.3 F 10/12/17 06:00 24 H 10/12/17 05:05 153/76 H 10/12/17 04:00 98.9 F 18 Weight Admit Weight 479 lb Weight 481 lb 4.305 oz Most Recent Monitor Data Heart Rate from ECG 69 NIBP 147/84 NIBP BP-Mean 110 Respiration from ECG 23 SpO2 92 I&O: 10/11/17 10/12/17 10/13/17 06:59 06:59 06:59 Intake Total 3694.5 3608.3 60 Output Total 1615 2120 880 Balance 2079.5 1488.3 -820 Result Diagrams: 10/12/17 04:10 10/12/17 04:10 Additional Labs: Accuchecks 10/12/17 10/12/17 10/11/17 08:49 04:12 21:18 POC Glucose 278 H 260 H 252 H 10/11/17 15:51 POC Glucose 218 H Phys Exam - Physical Examination Neck: no nodes Respiratory: wheezing present (rhonchi all over lungs) Cardiovascular: RRR, no significant murmur Gastrointestinal: soft Neurological: non-focal Dx/Plan (1) Acute respiratory failure with hypoxia and hypercapnia Code(s): J96.01 - ACUTE RESPIRATORY FAILURE WITH HYPOXIA; J96.02 - ACUTE RESPIRATORY FAILURE WITH HYPERCAPNIA Status: Acute Plan: pt is intubated slow wean. Appreciate pulmonary's help (2) Hyperproteinemia Code(s): E88.09 - OTH DISORDERS OF PLASMA-PROTEIN METABOLISM, NEC Status: Acute Plan: pt's gloubin is mildly elevated. will continue to monitor (3) Erythrocytosis Code(s): D75.1 - SECONDARY POLYCYTHEMIA Status: Acute Plan: secondary to sleep apnea (4) Haemophilus infection Code(s): A49.2 - HEMOPHILUS INFLUENZAE INFECTION, UNSPECIFIED SITE Status: Acute Plan: continue current abx stated 10/10 (5) Morbid (severe) obesity due to excess calories Code(s): E66.01 - MORBID (SEVERE) OBESITY DUE TO EXCESS CALORIES Status: Acute Plan: will educated once pt has been extubated - Plan * .
[2017-10-13] MEDS: Lorazepam 2 MG/ML VIAL SLOW IVP PRN ×2 (02:08→18:39)
[2017-10-13] MEDS: fentaNYL Citrate/PF 2,000 MCG in Sodium Chloride 0.9% 60 ML IV SCH (03:57)
[2017-10-13] MEDS: Enalaprilat Dihydrate 1.25 MG/ML VIAL SLOW IVP SCH ×3 (05:45→17:06)
[2017-10-13] MEDS: HumaLOG 300 UNITS/3 ML VIAL SC PRN ×3 (05:46→21:45)
[2017-10-13 06:02] LABS: #Lymphocytes 0.8 thou/uL (1.20-3.40); #Monocytes 0.3 thou/uL (0.11-0.59); #Neutrophils 6.5 thou/uL (1.40-6.50); %Basophils 0.3 % (0.0-1.0); %Eosinophils 0.4 % (0.0-10.0); %Monocytes 3.9 % (0.0-10.0); %Neutrophils 85.3 % (42.0-75.0); Mean Corpuscular HGB CONC 29.6 g/dL (32.0-36.0); Mean Corpuscular Volume 87.9 fl (80.0-94.0); Platelet Count 190 thou/uL (130-400); RBC Distribution Width 14.9 % (11.5-14.5); Red Blood Cell (RBC) Count 5.78 mill/uL (4.70-6.10); White Blood Cell (WBC) Count 7.6 thou/uL (4.8-10.8)
[2017-10-13] MEDS: Sodium Chloride 0.9% 1,000 ML IV SCH ×2 (06:17→09:06)
[2017-10-13 06:23] LABS: Anion Gap 12 mmol/L (10-20); BUN (Urea Nitrogen) 27 mg/dL (8.9-20.6); Calc. Creatinine Clearance 363 mL/min (70-130); Carbon Dioxide 27 mmol/L (22-29); Chloride 101 mmol/L (98-107); Estimated GFR-MDRD Greater than 90; Glucose 357 mg/dL (70-105); Potassium 5.2 mmol/L (3.5-5.1); Sodium 135 mmol/L (136-145)
[2017-10-13 07:29] LABS: Actual Bicarbonate (HCO3a) 30.5 mEq/L (22-26); Base Excess (BEa) 4.3 mEq/L (0 (+/-) 2.5); CO2 Tension 52.4 mmHg (35.0-45.0); Calcium, Ionized 1.2 mmol/L (1.12-1.30); Hematocrit-ABG 49.5 % (42.0-52.0); Hemoglobin (Hb) 13.3 g/dL (14.0-18.0); O2 Tension (PaO2) 59.5 mmHg (80.0-100.0); pH, Arterial 7.38 (7.35-7.45)
[2017-10-13 07:30] LABS: Puncture Site LRA
--- NOTE | 2017-10-13 08:11 | RAD ---
PORTABLE CHEST 1 VIEW: Date: 10/13/17 Time: 0441 hours HISTORY: Respiratory failure. FINDINGS/IMPRESSION: No significant interval change is seen since the previous day's exam. POS: [facility]
[2017-10-13] MEDS: Insulin Detemir 100 UNITS/ML 10 UNITS in Pre-Filled Syringe 1 EACH SC SCH (09:04)
[2017-10-13] MEDS: Famotidine 20 MG TAB PO SCH ×2 (09:05→21:41)
[2017-10-13] MEDS: Enoxaparin Sodium 40 MG/0.4 ML SYRINGE SC SCH (09:07)
[2017-10-13] MEDS: Azithromycin 500 MG in Sodium Chloride 0.9% 250 ML 250 ML IVPB SCH (11:22)
[2017-10-13] MEDS: cefTRIAXone\\ROCEPHIN 1 GM, Syringe 0.4 ML in Sterile Water 9.6 ML SLOW IVP SCH (11:22)
[2017-10-13] MEDS ORDERED: Chloraseptic Spray 180 ml Bottle PO PRN (11:39)
[2017-10-13] MEDS ORDERED: Polyethylene Glycol 3350 17 GM Packet PER TUBE PRN (11:40)
[2017-10-13] MEDS ORDERED: Dextrose 5% in Water 1,000 ML IV PRN (11:41)
[2017-10-13] MEDS ORDERED: Dextrose 50% Abboject 50 ML SYRINGE SLOW IVP PRN (11:41)
--- NOTE | 2017-10-13 12:12 | PDOC.PN ---
- Subjective Encounter Start Date: 10/13/17 Encounter Start Time: 11:45 Subjective: pt intubated however awake - Objective Resuscitation Status: Resuscitation Status FULL:Full Resuscitation Vital Signs & Weight: Vital Signs (12 hours) Temp Pulse Resp BP Pulse Ox 10/13/17 11:22 148/88 H 10/13/17 10:48 75 148/88 H 10/13/17 10:45 85 26 H 92 L 10/13/17 10:00 35 H 10/13/17 08:00 98.4 F 70 26 H 10/13/17 07:00 98.4 F 70 142/78 H 10/13/17 06:53 69 22 H 92 L 10/13/17 06:00 24 H 10/13/17 05:45 161/97 H 10/13/17 04:40 63 142/88 H 10/13/17 04:00 98.5 F 24 H 10/13/17 02:00 23 H Weight Admit Weight 479 lb Weight 483 lb 0.525 oz Most Recent Monitor Data Heart Rate from ECG 75 NIBP 148/88 NIBP BP-Mean 103 Respiration from ECG 30 SpO2 93 I&O: 10/12/17 10/13/17 10/14/17 06:59 06:59 06:59 Intake Total 3608.3 4370.6 Output Total 2120 3815 1075 Balance 1488.3 555.6 -1075 Result Diagrams: 10/13/17 04:33 10/13/17 04:33 Additional Labs: Accuchecks 10/13/17 10/13/17 10/12/17 09:03 04:35 21:19 POC Glucose 331 H 298 H 280 H 10/12/17 15:21 POC Glucose 256 H Phys Exam - Physical Examination HEENT: PERRLA Neck: no nodes Respiratory: wheezing present (mild rhonchi) Cardiovascular: RRR, no significant murmur Gastrointestinal: soft, non-tender Neurological: non-focal Psychiatric: normal affect Dx/Plan (1) Acute respiratory failure with hypoxia and hypercapnia Code(s): J96.01 - ACUTE RESPIRATORY FAILURE WITH HYPOXIA; J96.02 - ACUTE RESPIRATORY FAILURE WITH HYPERCAPNIA Status: Acute Plan: pt is intubated, follows command, (2) Hyperproteinemia Code(s): E88.09 - OTH DISORDERS OF PLASMA-PROTEIN METABOLISM, NEC Status: Acute Plan: will get cmp in am (3) Erythrocytosis Code(s): D75.1 - SECONDARY POLYCYTHEMIA Status: Acute Plan: most likely due to AMBERLY (4) Haemophilus infection Code(s): A49.2 - HEMOPHILUS INFLUENZAE INFECTION, UNSPECIFIED SITE Status: Acute Plan: pt on ceftriaxone and azithromycin 10/10 day 4 (5) Morbid (severe) obesity due to excess calories Code(s): E66.01 - MORBID (SEVERE) OBESITY DUE TO EXCESS CALORIES Status: Acute - Plan * .
--- NOTE | 2017-10-13 16:01 | PRG ---
DATE OF SERVICE: 10/13/2017 SUBJECTIVE: Mr. Hughes is awake. He is in no distress. Hemodynamics have been stable. OBJECTIVE: VITAL SIGNS: Blood pressure 143/83, heart rate 67, respiratory rate 20, oximetry is 95. GENERAL: We had him down today with several changes made in the ventilator. We had him to a rate of 8, now to a rate is 6. His pressure support has been increased to 12. He probably needs to be a li ttle bit of reverse Trendelenburg to facilitate weaning given the size of his abdomen. LUNGS: Still remarkable for wheezes bilaterally, although these seem to be improving. HEART: Regular rhythm. ABDOMEN: Soft. He has no guarding or tenderness. LABORATORY DATA: Chest radiograph is unchanged, reviewed by me. White count 7.6, hemoglobin 15, platelets 190. Sodium 135, potassium 5.2, chloride 101, bicarbonate 27, BUN 27, creatinine 0.78, pO2 73, CO2 52, pO2 59. IMPRESSION: 1. Respiratory failure secondary to asthmatic bronchitis with probable pneumonia. 2. Untreated severe sleep apnea. We will continue weaning as tolerated. Continued to do daily bloo d gases and x-rays on him, hopefully this weekend he will reach a point were we can consider spontane ous breathing trial and extubation. CRITICAL CARE TIME: 30 minutes.
[2017-10-13] MEDS: Insulin Detemir 100 UNITS/ML 15 UNITS in Pre-Filled Syringe SC SCH (21:42)
[2017-10-14] MEDS: Enalaprilat Dihydrate 1.25 MG/ML VIAL SLOW IVP SCH ×4 (00:08→17:11)
[2017-10-14 04:59] LABS: #Lymphocytes 0.8 thou/uL (1.20-3.40); #Monocytes 0.4 thou/uL (0.11-0.59); #Neutrophils 5.9 thou/uL (1.40-6.50); %Eosinophils 0.5 % (0.0-10.0); %Lymphocytes 11.4 % (21.0-51.0); %Monocytes 5.5 % (0.0-10.0); %Neutrophils 82.6 % (42.0-75.0); Hemoglobin 15.8 g/dL (14.0-18.0); Mean Corpuscular HGB CONC 31.1 g/dL (32.0-36.0); Mean Corpuscular Hemoglobin 26.9 pg (27.0-31.0); Mean Corpuscular Volume 86.4 fl (80.0-94.0); Mean Platelet Volume 9.4 fL (7.4-10.4); Platelet Count 172 thou/uL (130-400); RBC Distribution Width 14.7 % (11.5-14.5); Red Blood Cell (RBC) Count 5.89 mill/uL (4.70-6.10); White Blood Cell (WBC) Count 7.2 thou/uL (4.8-10.8)
[2017-10-14 05:14] LABS: ALT (SGPT) 29 U/L (8-55); AST (SGOT) 15 U/L (5-34); Albumin 3.1 g/dL (3.5-5.0); Alkaline Phosphatase 68 U/L (40-150); Anion Gap 9 mmol/L (10-20); BUN (Urea Nitrogen) 27 mg/dL (8.9-20.6); Bilirubin, Total 0.6 mg/dL (0.2-1.2); Calc. Creatinine Clearance 349 mL/min (70-130); Calcium 9.2 mg/dL (7.8-10.44); Carbon Dioxide 31 mmol/L (22-29); Chloride 96 mmol/L (98-107); Estimated GFR-MDRD Greater than 90; Glucose 389 mg/dL (70-105); Potassium 5.1 mmol/L (3.5-5.1); Protein, Total 7.1 g/dL (6.0-8.3); Sodium 131 mmol/L (136-145)
[2017-10-14] MEDS: HumaLOG 300 UNITS/3 ML VIAL SC PRN ×4 (06:14→21:22)
[2017-10-14] MEDS: Sodium Chloride 0.9% 1,000 ML IV SCH (06:23)
[2017-10-14 06:54] LABS: Actual Bicarbonate (HCO3a) 31.1 mEq/L (22-26); Base Excess (BEa) 4.8 mEq/L (0 (+/-) 2.5); CO2 Tension 52.2 mmHg (35.0-45.0); O2 Tension (PaO2) 59.2 mmHg (80.0-100.0); pH, Arterial 7.39 (7.35-7.45)
[2017-10-14 06:55] LABS: Calcium, Ionized 1.3 mmol/L (1.12-1.30); Hematocrit-ABG 57.2 % (42.0-52.0); Hemoglobin (Hb) 15.9 g/dL (14.0-18.0); Puncture Site RRA
[2017-10-14] MEDS: Enoxaparin Sodium 40 MG/0.4 ML SYRINGE SC SCH (09:00)
[2017-10-14] MEDS: Famotidine 20 MG TAB PO SCH ×2 (09:00→21:21)
[2017-10-14] MEDS: Insulin Detemir 100 UNITS/ML 15 UNITS in Pre-Filled Syringe SC SCH ×2 (09:01→21:21)
--- NOTE | 2017-10-14 09:10 | RAD ---
CHEST 1 VIEW: HISTORY: Respiratory failure. COMPARISON: 10/13/17. FINDINGS: Cardiac silhouette remains magnified, enlarged, and partially obscured by dense patchy bilateral infi ltrates. Mediastinum is midline. Lines and tubes appear unchanged in position. Pulmonary vasculatu re remains engorged. monitor and storage bin tender leads overlie the chest. IMPRESSION: Pulmonary edema, cardiomegaly, and other findings are stable. POS: [facility]
[2017-10-14] MEDS ORDERED: Furosemide 40 MG/4 ML VIAL ONE (11:03)
[2017-10-14] MEDS ORDERED: Sodium Chloride 0.9% 1,000 ML IV SCH (11:03)
[2017-10-14] MEDS ORDERED: Furosemide 100 MG/10 ML VIAL SLOW IVP SCH (11:15)
[2017-10-14] MEDS: cefTRIAXone\\ROCEPHIN 1 GM, Syringe 0.4 ML in Sterile Water 9.6 ML SLOW IVP SCH (11:23)
[2017-10-14] MEDS: Azithromycin 500 MG in Sodium Chloride 0.9% 250 ML 250 ML IVPB SCH (11:23)
--- NOTE | 2017-10-14 14:34 | PDOC.PN ---
- Subjective Encounter Start Date: 10/14/17 Encounter Start Time: 11:00 Subjective: pt intubated but moves all ext - Objective Resuscitation Status: Resuscitation Status FULL:Full Resuscitation Vital Signs & Weight: Vital Signs (12 hours) Temp Pulse Resp BP Pulse Ox 10/14/17 12:05 74 21 H 94 L 10/14/17 12:00 98.4 F 90 L 10/14/17 11:23 177/101 H 10/14/17 11:04 74 10/14/17 10:37 65 175/93 H 10/14/17 10:00 21 H 10/14/17 08:00 98.1 F 73 28 H 97 10/14/17 06:44 64 152/90 H 10/14/17 06:13 140/80 10/14/17 06:00 20 10/14/17 04:00 98.3 F 23 H 10/14/17 02:58 64 140/80 Weight Admit Weight 479 lb Weight 483 lb 0.525 oz Most Recent Monitor Data Heart Rate from ECG 77 NIBP 159/95 NIBP BP-Mean 127 Respiration from ECG 18 SpO2 89 I&O: 10/13/17 10/14/17 10/15/17 06:59 06:59 06:59 Intake Total 4370.6 5572.0 Output Total 3815 5730 4550 Balance 555.6 -158.0 -4550 Result Diagrams: 10/14/17 04:30 10/14/17 04:30 Additional Labs: Accuchecks 10/14/17 10/13/17 10/13/17 10:35 21:45 15:07 POC Glucose 324 H 330 H 319 H Phys Exam - Physical Examination HEENT: PERRLA Neck: no nodes Respiratory: wheezing present Cardiovascular: RRR, no significant murmur Gastrointestinal: soft, non-tender Musculoskeletal: no edema, pulses present Neurological: non-focal Dx/Plan (1) Acute respiratory failure with hypoxia and hypercapnia Code(s): J96.01 - ACUTE RESPIRATORY FAILURE WITH HYPOXIA; J96.02 - ACUTE RESPIRATORY FAILURE WITH HYPERCAPNIA Status: Acute Plan: pt intubated, pulm following. possible extubation today (2) Hyperproteinemia Code(s): E88.09 - OTH DISORDERS OF PLASMA-PROTEIN METABOLISM, NEC Status: Acute Plan: continue to monitor (3) Erythrocytosis Code(s): D75.1 - SECONDARY POLYCYTHEMIA Status: Acute Plan: most likely due to lorenza (4) Haemophilus infection Code(s): A49.2 - HEMOPHILUS INFLUENZAE INFECTION, UNSPECIFIED SITE Status: Acute Plan: continue current tx (5) Morbid (severe) obesity due to excess calories Code(s): E66.01 - MORBID (SEVERE) OBESITY DUE TO EXCESS CALORIES Status: Acute (6) Diabetes mellitus Code(s): E11.9 - TYPE 2 DIABETES MELLITUS WITHOUT COMPLICATIONS Status: Acute Qualifiers: Diabetes mellitus type: type 2 Diabetes mellitus complication status: with hyperglycemia Diabetes mellitus terminal gauger insulin use: unspecified terminal gauger insulin use status Qualified Code(s): E11.65 - Type 2 diabetes mellitus with hyperglycemia Plan: pt has been non compliant, will check hbg alc, also increase insulin to 18units bid with high dose ss. pt on steroids which could cause sugars to be elevated - Plan * .
--- NOTE | 2017-10-14 20:53 | PRG ---
DATE OF SERVICE: 10/14/2017 Sigifredo Hughes did well overnight. He is awake and alert. This morning, he passed a leak test. He a lso has passed a spontaneous breathing trial. OBJECTIVE: LUNGS: Actually surprisingly clear today. HEART: Regular rhythm. ABDOMEN: Soft. I recommended dose of Lasix. When he began to diurese, we extubated him and he has done well post-ex tubation. I have recommended that we try BiPAP during the day while he is awake and we can adjust it and then when he goes to sleep tonight, we will put him on nocturnal BiPAP or CPAP. LABORATORY DATA: Today's labs are remarkable for white count 7.2, hemoglobin 15 grams, platelets 172. Sodium 131, pot assium 5.1, chloride 96, bicarbonate 31, BUN 27, creatinine 0.8. Chest radiograph is underpenetrated . IMPRESSION: 1. Asthmatic bronchitis with probable community-acquired pneumonia. 2. Respiratory failure. 3. Untreated sleep apnea. 4. Life-threatening obesity. PLAN: BiPAP at bedtime. Tomorrow, we will try to transition him up into a chair if he is strong enough and we have enough help in the unit. He is a big boy so we do not want him to fall. Critical care time 35 minutes.
[2017-10-14] MEDS ORDERED: Insulin Detemir 100 UNITS/ML 15 UNITS in Pre-Filled Syringe 1 EACH SC SCH (21:00)
[2017-10-14] MEDS ORDERED: Insulin Detemir 100 UNITS/ML 18 UNITS in Pre-Filled Syringe 1 EACH SC SCH (21:00)
[2017-10-15] MEDS: Enalaprilat Dihydrate 1.25 MG/ML VIAL SLOW IVP SCH ×4 (00:46→18:38)
[2017-10-15 04:05] LABS: #Lymphocytes 0.8 thou/uL (1.20-3.40); #Monocytes 0.5 thou/uL (0.11-0.59); #Neutrophils 7.1 thou/uL (1.40-6.50); %Eosinophils 0.6 % (0.0-10.0); %Lymphocytes 9.3 % (21.0-51.0); %Monocytes 6.4 % (0.0-10.0); %Neutrophils 83.7 % (42.0-75.0); Hemoglobin 17.3 g/dL (14.0-18.0); Mean Corpuscular HGB CONC 30.6 g/dL (32.0-36.0); Mean Corpuscular Hemoglobin 26.6 pg (27.0-31.0); Mean Corpuscular Volume 86.9 fl (80.0-94.0); Mean Platelet Volume 9.3 fL (7.4-10.4); Platelet Count 198 thou/uL (130-400); RBC Distribution Width 14.7 % (11.5-14.5); Red Blood Cell (RBC) Count 6.49 mill/uL (4.70-6.10); White Blood Cell (WBC) Count 8.5 thou/uL (4.8-10.8)
[2017-10-15 04:32] LABS: Anion Gap 11 mmol/L (10-20); BUN (Urea Nitrogen) 26 mg/dL (8.9-20.6); Calc. Creatinine Clearance 345 mL/min (70-130); Calcium 9.6 mg/dL (7.8-10.44); Carbon Dioxide 37 mmol/L (22-29); Chloride 96 mmol/L (98-107); Estimated GFR-MDRD Greater than 90; Glucose 233 mg/dL (70-105); Potassium 4.5 mmol/L (3.5-5.1); Sodium 139 mmol/L (136-145)
[2017-10-15] MEDS: HumaLOG 300 UNITS/3 ML VIAL SC PRN ×3 (05:26→18:47)
--- NOTE | 2017-10-15 08:49 | RAD ---
CHEST 1 VIEW: History Dyspnea. Followup. COMPARISON: 10/14/17. FINDINGS: Cardiac silhouette remains magnified and enlarged. Pulmonary vasculature remains markedly engorged w ith dense bilateral perihilar and bibasilar infiltrates similar in appearance to the previous exam. Mediastinum is midline. Endotracheal catheter and nasogastric tube are no longer visible. No eviden ce of pneumothorax. IMPRESSION: 1. Interval removal of the endotracheal catheter and nasogastric tube. 2. Congestive heart failure and other findings are otherwise stable. POS: SAHRA
[2017-10-15] MEDS: Metoprolol Tartrate 25 MG TAB PO SCH ×2 (09:02→22:00)
[2017-10-15] MEDS: Lisinopril 20 MG TAB PO SCH ×2 (09:03→22:00)
[2017-10-15] MEDS: Famotidine 20 MG TAB PO SCH ×2 (09:04→22:00)
[2017-10-15] MEDS: Enoxaparin Sodium 40 MG/0.4 ML SYRINGE SC SCH (09:05)
[2017-10-15] MEDS: Insulin Detemir 100 UNITS/ML 20 UNITS in Pre-Filled Syringe 1 EACH SC SCH ×2 (09:52→21:59)
[2017-10-15] MEDS ORDERED: Magnesium Citrate 300 ML BOT PO SCH (10:45)
--- NOTE | 2017-10-15 11:35 | PRG ---
DATE OF SERVICE: 10/15/2017 SUBJECTIVE: Sigifredo Hughes is doing extremely well. He is sitting up in a chair at the side of the bed. We had a conversation that lasted about 15 minutes about weight loss, dieting, Weight Watchers, Lili Isabel, etc. Also, discussed the apps on phones to help calorie count. I have also discussed eating frequently. He attends the 1 big meal in the evening with his job activity. I have explained to him that it is imperative that he lost weight from a life standpoint he has small children and that is the biggest reason. OBJECTIVE: VITAL SIGNS: Have been stable. I am amazed that how well he has done post extubation. He is afebrile. Blood pressure 132/73, heart rate is 85, respiratory rate is 18. LUNGS: Actually free of wheezes today. HEART: Regular rhythm. ABDOMEN: Soft. LABORATORY DATA: White count 8.5, hemoglobin 17.3, platelets 198. Sodium 139, potassium 4.5, chloride 96, bicarbonate 37, BUN 26, creatinine 0.8. IMPRESSION: 1. Untreated sleep apnea. 2. Asthmatic bronchitis. 3. Pneumonia. 4. Status post acute respiratory failure. 5. Erythrocytosis, on presentation, likely secondary to untreated sleep apnea. He had a negative 5 liter fluid balance yesterday as recorded, which probably accounts for his increase in hematocrit. We will recheck a CBC tomorrow. We will start physical therapy. His [place] will be removed. We switched to p.o. steroids and p.o. antibiotics. We will keep him in the ICU for CPAP titration. I will switch him from BIPAP to CPAP since he will have to pay ruiz. An auto-titrating BiPAP device is over $1000 and an auto-titrating CPAP device is just under 500, as I recall. This will work better for him financially and probably adequately treat his sleep apnea once we get him all then from a pressure standpoint. Critical care time 30 min. CAYLA
--- NOTE | 2017-10-15 13:54 | PDOC.PN ---
- Subjective Encounter Start Date: 10/15/17 Encounter Start Time: 10:45 Subjective: pt up in chair exubated yest. feels well - Objective Resuscitation Status: Resuscitation Status FULL:Full Resuscitation Vital Signs & Weight: Vital Signs (12 hours) Temp Pulse Resp BP Pulse Ox 10/15/17 11:25 132/73 10/15/17 11:00 97.9 F 10/15/17 10:27 78 20 10/15/17 09:03 132/73 10/15/17 08:00 97.8 F 81 24 H 93 L 10/15/17 07:16 80 16 10/15/17 05:25 176/91 H 10/15/17 04:18 62 94 L 10/15/17 04:00 97.6 F Weight Admit Weight 479 lb Weight 483 lb 0.525 oz Most Recent Monitor Data Heart Rate from ECG 89 NIBP 135/78 NIBP BP-Mean 94 Respiration from ECG 20 SpO2 94 I&O: 10/14/17 10/15/17 10/16/17 06:59 06:59 06:59 Intake Total 5572.0 3522 540 Output Total 5730 8600 865 Balance -158.0 -5078 -325 Result Diagrams: 10/15/17 03:36 10/15/17 03:36 Additional Labs: Accuchecks 10/14/17 10/14/17 21:22 17:35 POC Glucose 229 H 271 H Phys Exam - Physical Examination HEENT: PERRLA Neck: no nodes Respiratory: wheezing present Cardiovascular: RRR, no significant murmur Gastrointestinal: soft, non-tender Musculoskeletal: no edema, pulses present Neurological: non-focal Dx/Plan (1) Acute respiratory failure with hypoxia and hypercapnia Code(s): J96.01 - ACUTE RESPIRATORY FAILURE WITH HYPOXIA; J96.02 - ACUTE RESPIRATORY FAILURE WITH HYPERCAPNIA Status: Acute Plan: s/p exubated on oral abx. (2) Hyperproteinemia Code(s): E88.09 - OTH DISORDERS OF PLASMA-PROTEIN METABOLISM, NEC Status: Acute Plan: stable continue to monitor (3) Erythrocytosis Code(s): D75.1 - SECONDARY POLYCYTHEMIA Status: Acute Plan: stable will need outpatient sleep study (4) Haemophilus infection Code(s): A49.2 - HEMOPHILUS INFLUENZAE INFECTION, UNSPECIFIED SITE Status: Acute (5) Morbid (severe) obesity due to excess calories Code(s): E66.01 - MORBID (SEVERE) OBESITY DUE TO EXCESS CALORIES Status: Acute Plan: educated pt on diet and exercise (6) Diabetes mellitus Code(s): E11.9 - TYPE 2 DIABETES MELLITUS WITHOUT COMPLICATIONS Status: Acute Qualifiers: Diabetes mellitus type: type 2 Diabetes mellitus complication status: with hyperglycemia Diabetes mellitus fci insulin use: unspecified 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
[2017-10-15] MEDS: Cefdinir 300 MG CAP PO SCH (22:00)
[2017-10-16] MEDS: Enalaprilat Dihydrate 1.25 MG/ML VIAL SLOW IVP SCH ×2 (00:45→06:08)
[2017-10-16 05:56] LABS: Hemoglobin 16.4 g/dL (14.0-18.0); Mean Corpuscular HGB CONC 29.8 g/dL (32.0-36.0); Mean Corpuscular Hemoglobin 25.7 pg (27.0-31.0); Mean Corpuscular Volume 86.3 fl (80.0-94.0); Mean Platelet Volume 9.1 fL (7.4-10.4); Platelet Count 209 thou/uL (130-400); Red Blood Cell (RBC) Count 6.37 mill/uL (4.70-6.10); White Blood Cell (WBC) Count 9.7 thou/uL (4.8-10.8)
[2017-10-16 05:57] LABS: Band 3 % (5-11); Eosinophils 1 % (0-10); Lymphocytes 18 % (21-51); MDiff Complete? YES; Monocytes 7 % (0-10); Neutrophil 71 % (42-75); RBC Morphology Normal
[2017-10-16] MEDS: Cefdinir 300 MG CAP PO SCH ×2 (08:02→21:14)
[2017-10-16] MEDS: Enoxaparin Sodium 40 MG/0.4 ML SYRINGE SC SCH (08:20)
[2017-10-16] MEDS: Famotidine 20 MG TAB PO SCH ×2 (08:20→21:14)
[2017-10-16] MEDS: predniSONE 20 MG TAB PO SCH ×2 (08:24→08:26)
[2017-10-16] MEDS: Lisinopril 20 MG TAB PO SCH ×2 (08:25→21:14)
[2017-10-16] MEDS: Metoprolol Tartrate 25 MG TAB PO SCH ×2 (08:25→21:14)
[2017-10-16] MEDS: Insulin Detemir 100 UNITS/ML 20 UNITS in Pre-Filled Syringe 1 EACH SC SCH ×2 (09:08→21:16)
[2017-10-16] MEDS: HumaLOG 300 UNITS/3 ML VIAL SC PRN (11:57)
--- NOTE | 2017-10-16 12:18 | PRG ---
DATE OF SERVICE: 10/16/2017 Events of last night were reviewed. The plan per my discussion with the nursing staff yesterday and respiratory therapist was to place Mr. Hughes on CPAP to see if he would tolerate this since an auto titrating CPAP is much less expensive than an auto titrating BiPAP. He was tried on CPAP during the day, but then placed back on his BiPAP at night which really does not help me decide what pressure r zack is going to work for him, so we will do this again today and he will sleep on CPAP (not BiPAP to night). PHYSICAL EXAMINATION: LUNGS: His lungs are clear today. HEART: Regular rhythm. ABDOMEN: Abdomen is soft. He has made amazing progress. Once we can get him into an approximate pressure range and decide whet her or not he needs oxygen with his CPAP or we can prescribe auto CPAP, he can purchase the device fo r about 500 dollars and he can be discharged home.
--- NOTE | 2017-10-16 14:49 | PDOC.PN ---
- Subjective Encounter Start Date: 10/16/17 Encounter Start Time: 11:00 Subjective: pt up in chair no complains - Objective Resuscitation Status: Resuscitation Status FULL:Full Resuscitation Vital Signs & Weight: Vital Signs (12 hours) Temp Pulse Resp BP Pulse Ox 10/16/17 13:47 68 25 H 94 L 10/16/17 13:15 67 27 H 96 10/16/17 10:07 75 17 95 10/16/17 08:25 117/71 10/16/17 08:00 98.9 F 10/16/17 06:08 154/91 H 10/16/17 05:51 65 16 93 L 10/16/17 04:00 98.7 F Weight Admit Weight 479 lb Weight 483 lb 0.525 oz Most Recent Monitor Data Heart Rate from ECG 82 NIBP 115/84 NIBP BP-Mean 95 Respiration from ECG 26 SpO2 97 I&O: 10/15/17 10/16/17 10/17/17 06:59 06:59 06:59 Intake Total 3522 1720 320 Output Total 8600 2775 0 Balance -5078 -1055 320 Result Diagrams: 10/16/17 04:43 10/15/17 03:36 Additional Labs: Accuchecks 10/16/17 10/16/17 10/15/17 11:40 06:27 22:00 POC Glucose 201 H 163 H 198 H 10/15/17 10/15/17 18:33 11:06 POC Glucose 200 H 258 H Phys Exam - Physical Examination HEENT: PERRLA Neck: no nodes Respiratory: no wheezing Cardiovascular: RRR, no significant murmur Gastrointestinal: soft, non-tender Musculoskeletal: pulses present, edema present Neurological: non-focal, normal sensation Dx/Plan (1) Acute respiratory failure with hypoxia and hypercapnia Code(s): J96.01 - ACUTE RESPIRATORY FAILURE WITH HYPOXIA; J96.02 - ACUTE RESPIRATORY FAILURE WITH HYPERCAPNIA Status: Acute Plan: pt on 3-4L of oxygen exubated 10/14. (2) HTN (hypertension) Code(s): I10 - ESSENTIAL (PRIMARY) HYPERTENSION Status: Acute Plan: stable continue to monitor. (3) Erythrocytosis Code(s): D75.1 - SECONDARY POLYCYTHEMIA Status: Acute Plan: most likely due to lorenza. (4) Haemophilus infection Code(s): A49.2 - HEMOPHILUS INFLUENZAE INFECTION, UNSPECIFIED SITE Status: Acute Plan: pt on oral abx (5) Morbid (severe) obesity due to excess calories Code(s): E66.01 - MORBID (SEVERE) OBESITY DUE TO EXCESS CALORIES Status: Acute Plan: eduated on diet and exercise (6) Diabetes mellitus Code(s): E11.9 - TYPE 2 DIABETES MELLITUS WITHOUT COMPLICATIONS Status: Acute Qualifiers: Diabetes mellitus type: type 2 Diabetes mellitus complication status: with hyperglycemia Diabetes mellitus moth exterminator insulin use: unspecified prison insulin use status Qualified Code(s): E11.65 - Type 2 diabetes mellitus with hyperglycemia (7) Hyperproteinemia Code(s): E88.09 - OTH DISORDERS OF PLASMA-PROTEIN METABOLISM, NEC Status: Acute - Plan * .
[2017-10-17 06:23] LABS: Band 1 % (5-11); Eosinophils 2 % (0-10); Hemoglobin 16.4 g/dL (14.0-18.0); Lymphocytes 25 % (21-51); MDiff Complete? YES; Mean Corpuscular HGB CONC 29.5 g/dL (32.0-36.0); Mean Corpuscular Hemoglobin 25.7 pg (27.0-31.0); Monocytes 6 % (0-10); Myelocyte 1 % (0-0); Neutrophil 65 % (42-75); Platelet Count 212 thou/uL (130-400)
[2017-10-17] MEDS: Metoprolol Tartrate 25 MG TAB PO SCH ×2 (09:20→20:40)
[2017-10-17] MEDS: Lisinopril 20 MG TAB PO SCH ×2 (09:20→20:41)
[2017-10-17] MEDS: Famotidine 20 MG TAB PO SCH ×2 (09:20→20:40)
[2017-10-17] MEDS: predniSONE 20 MG TAB PO SCH (09:20)
[2017-10-17] MEDS: Cefdinir 300 MG CAP PO SCH ×2 (09:20→20:40)
[2017-10-17] MEDS: Enoxaparin Sodium 40 MG/0.4 ML SYRINGE SC SCH (09:21)
[2017-10-17] MEDS ORDERED: Clopidogrel Bisulfate 75 MG TAB ONE (09:26)
[2017-10-17] MEDS: Insulin Detemir 100 UNITS/ML 20 UNITS in Pre-Filled Syringe 1 EACH SC SCH ×2 (09:27→20:40)
[2017-10-17] MEDS: HumaLOG 300 UNITS/3 ML VIAL SC PRN ×3 (12:06→20:46)
--- NOTE | 2017-10-17 14:23 | PDOC.PN ---
- Subjective Encounter Start Date: 10/17/17 Encounter Start Time: 10:30 Subjective: pt up in bed feels well - Objective Resuscitation Status: Resuscitation Status FULL:Full Resuscitation Vital Signs & Weight: Vital Signs (12 hours) Temp Pulse Resp BP Pulse Ox 10/17/17 12:00 97.6 F 10/17/17 11:02 84 18 10/17/17 09:20 120/83 10/17/17 08:00 97.9 F 88 21 H 91 L 10/17/17 07:25 70 16 92 L 10/17/17 05:00 97.7 F 10/17/17 02:47 62 25 H 93 L 10/17/17 02:44 60 25 H 96 Weight Admit Weight 479 lb Weight 483 lb 0.525 oz Most Recent Monitor Data Heart Rate from ECG 88 NIBP 139/80 NIBP BP-Mean 106 Respiration from ECG 16 SpO2 86 I&O: 10/16/17 10/17/17 10/18/17 06:59 06:59 06:59 Intake Total 1720 900 540 Output Total 2775 1750 475 Balance -1055 -850 65 Result Diagrams: 10/17/17 05:42 10/15/17 03:36 Additional Labs: Accuchecks 10/17/17 10/16/17 10/16/17 06:28 21:14 17:36 POC Glucose 136 H 139 H 121 H Phys Exam - Physical Examination HEENT: PERRLA Neck: no nodes Respiratory: no wheezing, no rales Cardiovascular: RRR, no significant murmur Gastrointestinal: soft, non-tender Musculoskeletal: no edema, pulses present Neurological: non-focal, normal sensation Lymphatic: no nodes Psychiatric: normal affect Dx/Plan (1) Acute respiratory failure with hypoxia and hypercapnia Code(s): J96.01 - ACUTE RESPIRATORY FAILURE WITH HYPOXIA; J96.02 - ACUTE RESPIRATORY FAILURE WITH HYPERCAPNIA Status: Acute Plan: stable on abx day 04/06 pt being evaluated by pulmonary for cpap with most likely oxygen at home. (2) HTN (hypertension) Code(s): I10 - ESSENTIAL (PRIMARY) HYPERTENSION Status: Acute Plan: stable continue to monitor (3) Erythrocytosis Code(s): D75.1 - SECONDARY POLYCYTHEMIA Status: Acute Plan: pt most griffith has sleep apnea (4) Haemophilus infection Code(s): A49.2 - HEMOPHILUS INFLUENZAE INFECTION, UNSPECIFIED SITE Status: Acute Plan: on abx, resolving (5) Morbid (severe) obesity due to excess calories Code(s): E66.01 - MORBID (SEVERE) OBESITY DUE TO EXCESS CALORIES Status: Acute (6) Diabetes mellitus Code(s): E11.9 - TYPE 2 DIABETES MELLITUS WITHOUT COMPLICATIONS Status: Acute Qualifiers: Diabetes mellitus type: type 2 Diabetes mellitus complication status: with hyperglycemia Diabetes mellitus custodial insulin use: unspecified custodial insulin use status Qualified Code(s): E11.65 - Type 2 diabetes mellitus with hyperglycemia (7) Hyperproteinemia Code(s): E88.09 - [facility] DISORDERS OF PLASMA-PROTEIN METABOLISM, NEC Status: Acute - Plan * .
--- NOTE | 2017-10-17 14:38 | PRG ---
DATE OF SERVICE: 10/17/2017 SUBJECTIVE: Mr. Hughes did well yesterday on CPAP of 10. Last night because of hypoxemia, CPAP was turned up to 14. He does not like the higher pressures. Really I am not sure if he is having obstr uctive events on CPAP of 10, although his size would lead one to believe that he might be. I informed my staff that we need to titrate CPAP pressures based on obstructive events and not necess arily based on hypoxemia. We will try him again in bed after lunch with CPAP of 10 and oxygen titrated and see how he does when he takes a nap. OBJECTIVE: LUNGS: Clear today. CARDIOVASCULAR: Regular rhythm. ABDOMEN: Soft. LABORATORY DATA: White count 8, hemoglobin 16, and platelets 212,000. No new electrolytes. Intake and output is negative 850. IMPRESSION: 1. Severe sleep apnea. 2. Respiratory failure with asthmatic bronchitis and possible pneumonia, doing well post-extubation. 3. Life threatening obesity. He appears to be motivated to lose weight. 4. Diabetes. PLAN: Continue with CPAP adjustment trials eventually AutoPap plus or minus oxygen. The goal O2 sat when he is on CPAP can be between 88 and 90.
[2017-10-18 06:31] LABS: Band 6 % (5-11); Eosinophils 3 % (0-10); Hemoglobin 16.2 g/dL (14.0-18.0); Lymphocytes 21 % (21-51); MDiff Complete? YES; Mean Corpuscular HGB CONC 29.2 g/dL (32.0-36.0); Mean Corpuscular Hemoglobin 25.2 pg (27.0-31.0); Mean Corpuscular Volume 86.4 fl (80.0-94.0); Mean Platelet Volume 9.2 fL (7.4-10.4); Monocytes 4 % (0-10); Neutrophil 66 % (42-75); Platelet Count 205 thou/uL (130-400); Red Blood Cell (RBC) Count 6.41 mill/uL (4.70-6.10); White Blood Cell (WBC) Count 9.2 thou/uL (4.8-10.8)
[2017-10-18] MEDS: Lisinopril 20 MG TAB PO SCH ×2 (08:26→20:53)
[2017-10-18] MEDS: Cefdinir 300 MG CAP PO SCH (08:26)
[2017-10-18] MEDS: Famotidine 20 MG TAB PO SCH ×2 (08:26→20:52)
[2017-10-18] MEDS: Enoxaparin Sodium 40 MG/0.4 ML SYRINGE SC SCH (08:27)
[2017-10-18] MEDS: Metoprolol Tartrate 25 MG TAB PO SCH ×2 (08:27→20:52)
[2017-10-18] MEDS: predniSONE 20 MG TAB PO SCH (08:27)
[2017-10-18] MEDS: Insulin Detemir 100 UNITS/ML 20 UNITS in Pre-Filled Syringe 1 EACH SC SCH ×2 (09:23→20:52)
[2017-10-18] MEDS ORDERED: Sterile Water 10 ML VIAL IVP SCH (10:45)
[2017-10-18] MEDS ORDERED: Activase 2 MG VIAL CATH SCH ×2 (10:45→14:15)
[2017-10-18] MEDS: HumaLOG 300 UNITS/3 ML VIAL SC PRN (11:27)
[2017-10-18 12:17] LABS: Anion Gap 11 mmol/L (10-20); BUN (Urea Nitrogen) 21 mg/dL (8.9-20.6); Calc. Creatinine Clearance 332 mL/min (70-130); Calcium 9.1 mg/dL (7.8-10.44); Carbon Dioxide 31 mmol/L (22-29); Chloride 97 mmol/L (98-107); Estimated GFR-MDRD Greater than 90; Glucose 141 mg/dL (70-105); Potassium 4.3 mmol/L (3.5-5.1); Sodium 135 mmol/L (136-145)
--- NOTE | 2017-10-18 13:40 | ULT ---
BILATERAL LOWER EXTREMITY VENOUS DOPPLER ULTRASOUND: HISTORY: Right foot pain, right lower extremity pain, right ankle pain, and gout. TECHNIQUE: Rios scale ultrasound with color flow and spectral Doppler imaging of the deep venous systems of the lower extremities performed bilaterally. FINDINGS: There is good flow, compression, and augmentation, and augmentation of the common femoral, femoral, d eep femoral, popliteal, posterior tibial, and greater saphenous veins on either side. IMPRESSION: No evidence of deep vein thrombosis in either lower extremity. POS: SAHRA
--- NOTE | 2017-10-18 14:45 | PDOC.PN ---
- Subjective Encounter Start Date: 10/18/17 Encounter Start Time: 12:00 Subjective: pt up in bed complains of pain to his right foot - Objective Resuscitation Status: Resuscitation Status FULL:Full Resuscitation Vital Signs & Weight: Vital Signs (12 hours) Temp Pulse Resp BP Pulse Ox 10/18/17 08:26 120/79 10/18/17 08:00 97.3 F L 82 17 94 L 10/18/17 07:11 82 17 97 10/18/17 07:00 97.3 F L 10/18/17 05:00 98.5 F 10/18/17 03:17 66 16 95 10/18/17 03:14 65 30 H 96 Weight Admit Weight 479 lb Weight 459 lb 6 oz Most Recent Monitor Data Heart Rate from ECG 82 NIBP 157/86 NIBP BP-Mean 113 Respiration from ECG 19 SpO2 92 I&O: 10/17/17 10/18/17 10/19/17 06:59 06:59 06:59 Intake Total 900 1000 200 Output Total 1750 1275 0 Balance -850 -275 200 Result Diagrams: 10/18/17 04:53 10/18/17 11:40 Additional Labs: Accuchecks 10/18/17 10/18/17 10/17/17 11:11 06:43 20:46 POC Glucose 186 H 144 H 159 H 10/17/17 10/17/17 17:35 12:03 POC Glucose 159 H 187 H Phys Exam - Physical Examination HEENT: PERRLA Neck: no nodes Respiratory: no wheezing, no rales Cardiovascular: RRR, no significant murmur Gastrointestinal: soft, non-tender Musculoskeletal: edema present (pt's right toe is painful to touch and his right ankle.) Neurological: non-focal, normal sensation Dx/Plan (1) Acute respiratory failure with hypoxia and hypercapnia Code(s): J96.01 - ACUTE RESPIRATORY FAILURE WITH HYPOXIA; J96.02 - ACUTE RESPIRATORY FAILURE WITH HYPERCAPNIA Status: Acute Plan: pt on abx 10 days. will discontinue abx for now. pt is waiting for eval for autopap on discharge. pt may need oxygen and cpap when he goes home. dispo based on what pulmonary is able to do the study or his night use of oxygen and cpap. (2) HTN (hypertension) Code(s): I10 - ESSENTIAL (PRIMARY) HYPERTENSION Status: Acute Plan: sable (3) Haemophilus infection Code(s): A49.2 - HEMOPHILUS INFLUENZAE INFECTION, UNSPECIFIED SITE Status: Acute Plan: pt received 10 days of abx (4) Morbid (severe) obesity due to excess calories Code(s): E66.01 - MORBID (SEVERE) OBESITY DUE TO EXCESS CALORIES Status: Acute Plan: pt educated on weight loss (5) Diabetes mellitus Code(s): E11.9 - TYPE 2 DIABETES MELLITUS WITHOUT COMPLICATIONS Status: Acute Qualifiers: Diabetes mellitus type: type 2 Diabetes mellitus complication status: with hyperglycemia Diabetes mellitus usp insulin use: unspecified usp insulin use status Qualified Code(s): E11.65 - Type 2 diabetes mellitus with hyperglycemia Plan: pt has been educated on DM. will need help with insulin use. (6) Gout Code(s): M10.9 - GOUT, UNSPECIFIED Status: Acute Plan: lower ext dopplers negative for dvr, will start pt on ibuprofen for 3 days and check uric acid level in am. (7) Gout attack Code(s): M10.9 - GOUT, UNSPECIFIED Status: Acute - Plan * .
--- NOTE | 2017-10-18 15:12 | PRG ---
DATE OF SERVICE: 10/18/2017 SUBJECTIVE: Mr. Hughes was left on CPAP last night 10 cm of water pressure. I have not been able t o find any information whether or not he had obstructive events on CPAP. His O2 flow was at 28%. OBJECTIVE: LUNGS: Clear today. HEART: Regular rhythm. ABDOMEN: Soft. LABORATORY DATA: White count 9.2, hemoglobin 16.2, platelets 205,000. Sodium 135, potassium 4.3, chloride 97, bicarbonate 31, BUN 21, creatinine 0.81, glucose 141. IMPRESSION: 1. Sleep apnea. 2. Status post respiratory failure with pneumonia and asthmatic bronchitis. PLAN: Continue with CPAP. We will need an auto titrating device at discharge. Continue with antibi otics and prednisone. I think it would be prudent to get him off of insulin if possible onto a generic drug for treatment o f his diabetes while he can still be monitored in the hospital. He does not have type 1 diabetes. 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
[2017-10-18] MEDS: Ibuprofen 600 MG TAB PO SCH (16:07)
[2017-10-19] MEDS: Ibuprofen 600 MG TAB PO SCH ×4 (02:14→22:26)
[2017-10-19 05:30] LABS: Band 2 % (5-11); Hemoglobin 16.1 g/dL (14.0-18.0); Hypochromia SLIGHT = 6-15 cells (100X) (0-5/hpf); Lymphocytes 21 % (21-51); MDiff Complete? YES; Mean Corpuscular HGB CONC 30.9 g/dL (32.0-36.0); Mean Corpuscular Hemoglobin 26.7 pg (27.0-31.0); Mean Corpuscular Volume 86.5 fl (80.0-94.0); Mean Platelet Volume 9.3 fL (7.4-10.4); Monocytes 8 % (0-10); Neutrophil 69 % (42-75); PLT Morphology Comment Appears Adequate; Platelet Count 190 thou/uL (130-400); Red Blood Cell (RBC) Count 6.04 mill/uL (4.70-6.10); White Blood Cell (WBC) Count 8.6 thou/uL (4.8-10.8)
[2017-10-19] MEDS: predniSONE 20 MG TAB PO SCH (07:50)
[2017-10-19] MEDS: Enoxaparin Sodium 40 MG/0.4 ML SYRINGE SC SCH (08:21)
[2017-10-19] MEDS: Famotidine 20 MG TAB PO SCH ×2 (08:22→20:49)
[2017-10-19] MEDS: Insulin Detemir 100 UNITS/ML 20 UNITS in Pre-Filled Syringe 1 EACH SC SCH (08:22)
[2017-10-19] MEDS: Lisinopril 20 MG TAB PO SCH ×2 (08:25→20:49)
[2017-10-19] MEDS: Metoprolol Tartrate 25 MG TAB PO SCH ×2 (08:25→20:49)
[2017-10-19] MEDS ORDERED: Colchicine 0.6 MG TAB PO SCH (10:45)
[2017-10-19] MEDS ORDERED: metFORMIN 500 MG TAB PO SCH (10:45)
[2017-10-19 12:37] VITALS: BMI 58.5
[2017-10-19] MEDS: metFORMIN 500 MG TAB PO SCH (16:49)
--- NOTE | 2017-10-19 16:52 | PDOC.PN ---
- Subjective Encounter Start Date: 10/19/17 Encounter Start Time: 16:50 Pt seen for followup re: acute respiratory failure. Says he feels better. No chest pain, shortness of breath is better. - Objective Resuscitation Status: Resuscitation Status FULL:Full Resuscitation MAR Reviewed: Yes Vital Signs & Weight: Vital Signs (12 hours) Temp Pulse Pulse Pulse Resp BP BP 10/19/17 16:04 88 27 H 10/19/17 16:00 98.1 F 10/19/17 15:00 98 F 10/19/17 14:21 113 H 109 H 157/98 H 10/19/17 12:50 80 17 10/19/17 11:00 98.1 F 10/19/17 08:25 129/74 10/19/17 07:31 97.7 F 88 15 10/19/17 07:00 97.7 F 10/19/17 06:51 10/19/17 06:47 77 19 BP Pulse Ox 10/19/17 16:04 96 10/19/17 16:00 10/19/17 15:00 10/19/17 14:21 165/95 H 10/19/17 12:50 97 10/19/17 11:00 10/19/17 08:25 10/19/17 07:31 95 10/19/17 07:00 10/19/17 06:51 95 10/19/17 06:47 95 Weight Admit Weight 479 lb Weight 456 lb 2 oz Most Recent Monitor Data Heart Rate from ECG 82 NIBP 154/90 NIBP BP-Mean 105 Respiration from ECG 21 SpO2 100 I&O: 10/18/17 10/19/17 10/20/17 06:59 06:59 06:59 Intake Total 1000 1700 1340 Output Total 1275 6175 400 Balance -275 -9307 940 Result Diagrams: 10/20/17 04:06 10/18/17 11:40 Additional Labs: Accuchecks 10/19/17 10/19/17 10/18/17 10:57 06:02 21:00 POC Glucose 160 H 132 H 129 H 10/18/17 16:16 POC Glucose 129 H EKG Reviewed by me: Yes (Tele: NSR) Phys Exam - Physical Examination Morbid obesity HEENT: moist MMs Neck: supple Respiratory: clear to auscultation bilateral Cardiovascular: RRR Gastrointestinal: soft Neurological: moves all 4 limbs Psychiatric: normal affect Dx/Plan (1) Acute respiratory failure with hypoxia and hypercapnia Code(s): J96.01 - ACUTE RESPIRATORY FAILURE WITH HYPOXIA; J96.02 - ACUTE RESPIRATORY FAILURE WITH HYPERCAPNIA Status: Acute (2) Gout attack Code(s): M10.9 - GOUT, UNSPECIFIED Status: Acute (3) Haemophilus infection Code(s): A49.2 - HEMOPHILUS INFLUENZAE INFECTION, UNSPECIFIED SITE Status: Acute (4) Diabetes mellitus Code(s): E11.9 - TYPE 2 DIABETES MELLITUS WITHOUT COMPLICATIONS Status: Chronic Qualifiers: Diabetes mellitus type: type 2 Diabetes mellitus complication status: with hyperglycemia Diabetes mellitus terminal carman insulin use: unspecified terminal carman insulin use status Qualified Code(s): E11.65 - Type 2 diabetes mellitus with hyperglycemia (5) HTN (hypertension) Code(s): I10 - ESSENTIAL (PRIMARY) HYPERTENSION Status: Chronic (6) Morbid (severe) obesity due to excess calories Code(s): E66.01 - MORBID (SEVERE) OBESITY DUE TO EXCESS CALORIES Status: Chronic (7) Erythrocytosis Code(s): D75.1 - SECONDARY POLYCYTHEMIA Status: Chronic - Plan PT/OT, out of bed/ambulate, DVT proph w/SCDs * . Pt clinically improving, off of antibiotics. Colchicine for gout flare. On metformin for diabetes mellitus. Awaiting BiPAP for home use. Review of Systems - Review of Systems Respiratory: SOB with Excertion. negative: Cough, Dry, Shortness of Breath, Hemoptysis, Pleuritic Pain, Sputum, Wheezing Cardiovascular: negative: chest pain, palpitations, orthopnea, paroxysmal nocturnal dyspnea, edema, light headedness - Medications/Allergies Allergies/Adverse Reactions: Allergies Allergy/AdvReac Type Severity Reaction Status Date / Time No Known Allergies Allergy Unverified 10/09/17 11:05 Medications: Current Medications Acetaminophen (Tylenol) 650 mg PO Q4H PRN PRN Reason: Headache/Fever or Pain Last Admin: 10/10/17 08:19 Dose: 650 mg Acetaminophen (Tylenol) 650 mg [place] Q4H PRN PRN Reason: Headache/Fever or Pain Albuterol/Ipratropium (Duoneb) 3 ml NEB [id number] [facility] Last Admin: 10/19/17 16:04 Dose: 3 ml Lipase/Protease/Amylase (Merry Santiago [id number]) 1 cap FS .PER PROTOCOL PRN PRN Reason: TUBE OCCLUSION PROTOCOL Colchicine (Colcrys) 0.6 mg PO BID [facility] Dextrose/Water (Dextrose 50%) 25 gm SLOW IVP PRN PRN PRN Reason: Hypoglycemia Enoxaparin Sodium (Lovenox) 40 mg SC 0900 [facility] Last Admin: 10/19/17 08:21 Dose: 40 mg Famotidine (Pepcid) 20 mg PO Q12HR [facility] Last Admin: 10/19/17 08:22 Dose: 20 mg Glucagon (Glucagon) 1 mg IM PRN PRN PRN Reason: Hypoglycemia Potassium Chloride 40 meq/ (Sodium Chloride) 270 mls @ 135 mls/hr IVPB ASDIR PRN PRN Reason: FOR SERUM K+ 2.5 - 3.5 Potassium Chloride 40 meq/ (Device) 100 mls @ 50 mls/hr IVPB ASDIR PRN PRN Reason: FOR SERUM K+ 2.5 - 3.5 Magnesium Sulfate 1 gm/ Sodium (Chloride) 102 mls @ 102 mls/hr IV PRN PRN PRN Reason: MAG LEVEL 1.4 - 2.0 Magnesium Sulfate 2 gm/ Device 100 mls @ 100 mls/hr IVPB ASDIR PRN PRN Reason: MAGNESIUM < 1.4 Potassium Phosphate 9 mmol/ (Sodium Chloride) 103 mls @ 25.75 mls/hr IVPB ASDIR PRN PRN Reason: Phosphate 1.0-1.8 Potassium Phosphate 12 mmol/ (Sodium Chloride) 254 mls @ 63.5 mls/hr IV ASDIR PRN PRN Reason: Serum phosphate 0.5-0.9 Potassium Phosphate 15 mmol/ (Sodium Chloride) 255 mls @ 63.75 mls/hr IV ASDIR PRN PRN Reason: Serum Phos < 0.5 Nicardipine HCl 25 mg/ Sodium (Chloride) 260 mls @ 0 mls/hr IVPB INF BOBBY; Titrate PRN Reason: Protocol Last Admin: 10/15/17 11:08 Dose: 260 mls Dextrose/Water (D5w) 1,000 mls @ 0 mls/hr IV .Q0M PRN; As Directed PRN Reason: Hypoglycemia Ibuprofen (Motrin) 600 mg PO Q8H [facility] Stop: 10/21/17 14:46 Last Admin: 10/19/17 14:42 Dose: 600 mg Insulin Human Lispro (Humalog) 0 units SC .AGGRESSIVE SLIDING PRN PRN Reason: Aggressive Correctional Scale Last Admin: 10/18/17 11:27 Dose: 3 unit Labetalol HCl (Normodyne) 10 mg SLOW IVP Q4H PRN PRN Reason: SBP Greater Than 180 Lisinopril (Zestril) 20 mg PO BID [facility] Last Admin: 10/19/17 08:25 Dose: 20 mg Magnesium Oxide (Magnesium Oxide) 400 mg PO BIDPRN PRN PRN Reason: FOR SERUM MAG 1.4 - 2.0 Magnesium Oxide (Magnesium Oxide) 800 mg PO PRN PRN PRN Reason: FOR SERUM MAG < 1.4 Metformin [facility] (Glucophage) [facility] Last Admin: 10/19/17 16:49 Dose: 500 mg Metoprolol Tartrate (Lopressor) 25 mg PO BID [facility] Last Admin: 10/19/17 08:25 Dose: 25 mg Miscellaneous Medication (Phos-Nak) 1 pkt PO TIDPRN PRN PRN Reason: FOR PHOS LEVEL 1.0 - 1.8 Miscellaneous Medication (Phos-Nak) 2 pkt PO TIDPRN PRN PRN Reason: FOR PHOS LEVEL 0.5 - 1.0 Ondansetron HCl (Zofran) 4 mg IVP Q6H PRN PRN Reason: Nausea/Vomiting Phenol (Chloraseptic [place] 180 Ml Bot) 1 ml PO BIDPRN PRN PRN Reason: Sore Throat Polyethylene Glycol (Miralax) 17 gm PER TUBE DAILY PRN PRN Reason: Constipation Potassium Chloride (K-Dur) 40 meq PO ASDIR PRN PRN Reason: FOR SERUM K+ 2.5 - 3.5 Potassium Chloride (Klor-Con) 40 meq PER TUBE ASDIR PRN PRN Reason: FOR SERUM K+ 2.5-3.5 Prednisone (Prednisone) 10 mg PO [facility] Sodium Bicarbonate (Bicarbonate, Sodium) 650 mg PER TUBE .PER PROTOCOL PRN PRN Reason: ENTERAL TUBE OCCLUSION Sodium Chloride (Flush - Normal Saline) 10 ml IVF Q12HR [facility] Last Admin: 10/19/17 08:33 Dose: 10 ml Sodium Chloride (Flush - Normal Saline) 10 ml IVF PRN PRN PRN Reason: Saline Flush Last Admin: 10/13/17 17:06 Dose: 10 ml Sodium Chloride (Flush - Normal Saline) 10 ml IVF PRN PRN PRN Reason: Saline Flush
--- NOTE | 2017-10-19 19:28 | PRG ---
DATE OF SERVICE: 10/19/2017 SUBJECTIVE: Mr. Hughes did well overnight. His pressures were between 10 and 11 cm of water pressu re. He only required 28% oxygen. We most likely have to give him oxygen with CPAP at least initially. His room air sats are now up to 96. We may be able to watch him off oxygen tonight and see how he does. If he drops only into the high 80s, unable to get about without oxygen. OBJECTIVE: LUNGS: Clear. HEART: Regular rhythm. ABDOMEN: Soft. We have taken him off his insulin today and placed him on Glucophage. Goal needs to be get him home on a generic oral agent for his diabetes, decrease his steroid dosing t nabeel and continue to follow him in the ICU.
[2017-10-19] MEDS: Colchicine 0.6 MG TAB PO SCH (20:51)
[2017-10-20 04:24] LABS: Eosinophils 2 % (0-10); Lymphocytes 32 % (21-51); MDiff Complete? YES; Mean Corpuscular HGB CONC 31.3 g/dL (32.0-36.0); Mean Corpuscular Hemoglobin 26.9 pg (27.0-31.0); Mean Corpuscular Volume 85.7 fl (80.0-94.0); Mean Platelet Volume 9.7 fL (7.4-10.4); Monocytes 3 % (0-10); Neutrophil 63 % (42-75); PLT Morphology Comment Appears Adequate; Platelet Count 208 thou/uL (130-400); RBC Distribution Width 15.1 % (11.5-14.5); Red Blood Cell (RBC) Count 5.97 mill/uL (4.70-6.10); White Blood Cell (WBC) Count 9.7 thou/uL (4.8-10.8)
[2017-10-20] MEDS: Ibuprofen 600 MG TAB PO SCH ×3 (06:23→22:01)
[2017-10-20] MEDS: metFORMIN 500 MG TAB PO SCH ×2 (07:51→17:17)
[2017-10-20] MEDS: predniSONE 20 MG TAB PO SCH (07:52)
[2017-10-20] MEDS: Enoxaparin Sodium 40 MG/0.4 ML SYRINGE SC SCH (08:37)
[2017-10-20] MEDS: Metoprolol Tartrate 25 MG TAB PO SCH ×2 (08:38→20:31)
[2017-10-20] MEDS: Famotidine 20 MG TAB PO SCH ×2 (08:38→20:31)
[2017-10-20] MEDS: Lisinopril 20 MG TAB PO SCH ×2 (08:38→20:31)
[2017-10-20] MEDS: Colchicine 0.6 MG TAB PO SCH ×2 (08:51→20:09)
--- NOTE | 2017-10-20 13:36 | PRG ---
DATE OF SERVICE: 10/20/2017 SUBJECTIVE: Sigifredo Hughes did well last night. I was in the ICU seeing another critically ill patie nt, watched him while he was on a CPAP set at 10 cm of water pressure. He really had no complete obs tructive airways. He did have a few episodes where he snored, but this was brief. His sats were for the most part between 88% and 92%. The majority of his O2 sats over 90%. We mert nue to proceed forward without oxygen. I written a prescription today for an auto titrating CPAP set a pressure range from 8 to 12. His wif e will buy today (I have talked to [employer] and they have some widely use devices that the y going to sell him) and hopefully he will wear this tonight, we can document stability and discharge him tomorrow. OBJECTIVE: LUNGS: Clear. HEART: Regular rhythm. ABDOMEN: Soft. LABORATORY DATA: His hemoglobin is 16 grams, white count 9.7, platelets 208,000. Glucoses have been less than 160, I suspect decreasing the steroids, this helped. IMPRESSION AND PLAN: 1. Asthmatic bronchitis with pneumonia and respiratory failure, status post extubation, doing well. 2. Morbid obesity. 3. Untreated sleep apnea. 4. Erythrocytosis on presentation secondary to untreated sleep apnea. 4. Diabetes aggravated by steroids. He was taken off insulin 2 days ago and is now on metformin and actually has surprisingly good glucose control. His metformin is generic now, he should be able to pay for this as well as his CPAP and its supplies. Hopefully, we can discharge him home if he has a good night.
--- NOTE | 2017-10-20 15:47 | PDOC.PN ---
- Subjective Encounter Start Date: 10/20/17 Encounter Start Time: 10:00 Pt seen for followup re: acute respiratory failure. Feels better. Cough+. No fevers. - Objective Resuscitation Status: Resuscitation Status FULL:Full Resuscitation MAR Reviewed: Yes Vital Signs & Weight: Vital Signs (12 hours) Temp Pulse Resp BP Pulse Ox 10/20/17 12:48 85 24 H 96 10/20/17 11:00 97.7 F 10/20/17 08:38 129/74 10/20/17 08:00 98.5 F 94 18 97 10/20/17 07:40 94 L 10/20/17 07:38 78 20 94 L 10/20/17 04:00 98.1 F Weight Admit Weight 479 lb Weight 450 lb Most Recent Monitor Data Heart Rate from ECG 86 NIBP 118/76 NIBP BP-Mean 87 Respiration from ECG 27 SpO2 89 I&O: 10/19/17 10/20/17 10/21/17 06:59 06:59 06:59 Intake Total 1700 1880 750 Output Total 4775 1425 1000 Balance -3075 455 -250 Result Diagrams: 10/20/17 04:06 10/18/17 11:40 Additional Labs: Accuchecks 10/20/17 10/20/17 10/19/17 11:21 06:22 22:26 POC Glucose 145 H 121 H 112 H 10/19/17 16:48 POC Glucose 116 H EKG Reviewed by me: Yes (Tele: NSR) Phys Exam - Physical Examination Morbid obesity HEENT: moist MMs Neck: supple Respiratory: clear to auscultation bilateral Cardiovascular: RRR Gastrointestinal: soft Neurological: moves all 4 limbs Psychiatric: normal affect Dx/Plan (1) Acute respiratory failure with hypoxia and hypercapnia Code(s): J96.01 - ACUTE RESPIRATORY FAILURE WITH HYPOXIA; J96.02 - ACUTE RESPIRATORY FAILURE WITH HYPERCAPNIA Status: Acute (2) Gout attack Code(s): M10.9 - GOUT, UNSPECIFIED Status: Acute (3) Haemophilus infection Code(s): A49.2 - HEMOPHILUS INFLUENZAE INFECTION, UNSPECIFIED SITE Status: Acute (4) Diabetes mellitus Code(s): E11.9 - TYPE 2 DIABETES MELLITUS WITHOUT COMPLICATIONS Status: Chronic Qualifiers: Diabetes mellitus type: type 2 Diabetes mellitus complication status: with hyperglycemia Diabetes mellitus hot baller insulin use: unspecified mcc insulin use status Qualified Code(s): E11.65 - Type 2 diabetes mellitus with hyperglycemia (5) HTN (hypertension) Code(s): I10 - ESSENTIAL (PRIMARY) HYPERTENSION Status: Chronic (6) Morbid (severe) obesity due to excess calories Code(s): E66.01 - MORBID (SEVERE) OBESITY DUE TO EXCESS CALORIES Status: Chronic (7) Erythrocytosis Code(s): D75.1 - SECONDARY POLYCYTHEMIA Status: Chronic - Plan out of bed/ambulate * . Continue PRN oxygen, steroids. Continue metformin and lisinopril. Pt awaiting BiPAP machine for use at home. Review of Systems - Review of Systems Respiratory: negative: Cough, Dry, Shortness of Breath, Hemoptysis, SOB with Excertion, Pleuritic Pain, Sputum, Wheezing Cardiovascular: negative: chest pain, palpitations, orthopnea, paroxysmal nocturnal dyspnea, edema, light headedness - Medications/Allergies Allergies/Adverse Reactions: Allergies Allergy/AdvReac Type Severity Reaction Status Date / Time No Known Allergies Allergy Unverified 10/09/17 11:05 Medications: Current Medications Acetaminophen (Tylenol) 650 mg PO Q4H PRN PRN Reason: Headache/Fever or Pain Last Admin: 10/10/17 08:19 Dose: 650 mg Acetaminophen (Tylenol) 650 mg VA Q4H PRN PRN Reason: Headache/Fever or Pain Albuterol/Ipratropium (Duoneb) 3 ml NEB [id number] [facility] Last Admin: 10/20/17 12:48 Dose: 3 ml Lipase/Protease/Amylase (Merry Santiago [id number]) 1 cap FS .PER PROTOCOL PRN PRN Reason: TUBE OCCLUSION PROTOCOL Colchicine (Colcrys) 0.6 mg PO BID [facility] Last Admin: 10/20/17 08:51 Dose: Not Given Dextrose/Water (Dextrose 50%) 25 gm SLOW IVP PRN PRN PRN Reason: Hypoglycemia Enoxaparin Sodium (Lovenox) 40 mg SC 0900 [facility] Last Admin: 10/20/17 08:37 Dose: 40 mg Famotidine (Pepcid) 20 mg PO Q12HR [facility] Last Admin: 10/20/17 08:38 Dose: 20 mg Glucagon (Glucagon) 1 mg IM PRN PRN PRN Reason: Hypoglycemia Potassium Chloride 40 meq/ (Sodium Chloride) 270 mls @ 135 mls/hr IVPB ASDIR PRN PRN Reason: FOR SERUM K+ 2.5 - 3.5 Potassium Chloride 40 meq/ (Device) 100 mls @ 50 mls/hr IVPB ASDIR PRN PRN Reason: FOR SERUM K+ 2.5 - 3.5 Magnesium Sulfate 1 gm/ Sodium (Chloride) 102 mls @ 102 mls/hr IV PRN PRN PRN Reason: MAG LEVEL 1.4 - 2.0 Magnesium Sulfate 2 gm/ Device 100 mls @ 100 mls/hr IVPB ASDIR PRN PRN Reason: MAGNESIUM < 1.4 Potassium Phosphate 9 mmol/ (Sodium Chloride) 103 mls @ 25.75 mls/hr IVPB ASDIR PRN PRN Reason: Phosphate 1.0-1.8 Potassium Phosphate 12 mmol/ (Sodium Chloride) 254 mls @ 63.5 mls/hr IV ASDIR PRN PRN Reason: Serum phosphate 0.5-0.9 Potassium Phosphate 15 mmol/ (Sodium Chloride) 255 mls @ 63.75 mls/hr IV ASDIR PRN PRN Reason: Serum Phos < 0.5 Nicardipine HCl 25 mg/ Sodium (Chloride) 260 mls @ 0 mls/hr IVPB INF BOBBY; Titrate PRN Reason: Protocol Last Admin: 10/15/17 11:08 Dose: 260 mls Dextrose/Water (D5w) 1,000 mls @ 0 mls/hr IV .Q0M PRN; As Directed PRN Reason: Hypoglycemia Ibuprofen (Motrin) 600 mg PO Q8H [facility] Stop: 10/21/17 14:46 Last Admin: 10/20/17 13:59 Dose: 600 mg Insulin Human Lispro (Humalog) 0 units SC .AGGRESSIVE SLIDING PRN PRN Reason: Aggressive Correctional Scale Last Admin: 10/18/17 11:27 Dose: 3 unit Labetalol HCl (Normodyne) 10 mg SLOW IVP Q4H PRN PRN Reason: SBP Greater Than 180 Lisinopril (Zestril) 20 mg PO BID [facility] Last Admin: 10/20/17 08:38 Dose: 20 mg Magnesium Oxide (Magnesium Oxide) 400 mg PO BIDPRN PRN PRN Reason: FOR SERUM MAG 1.4 - 2.0 Magnesium Oxide (Magnesium Oxide) 800 mg PO PRN PRN PRN Reason: FOR SERUM MAG < 1.4 Metformin HCl (Glucophage) 500 mg PO BID[facility] Last Admin: 10/20/17 07:51 Dose: 500 mg Metoprolol Tartrate (Lopressor) 25 mg PO BID [facility] Last Admin: 10/20/17 08:38 Dose: 25 mg Miscellaneous Medication (Phos-Nak) 1 pkt PO TIDPRN PRN PRN Reason: FOR PHOS LEVEL 1.0 - 1.8 Miscellaneous Medication (Phos-Nak) 2 pkt PO TIDPRN PRN PRN Reason: FOR PHOS LEVEL 0.5 - 1.0 Ondansetron HCl (Zofran) 4 mg IVP Q6H PRN PRN Reason: Nausea/Vomiting Phenol (Chloraseptic [place] 180 Ml Bot) 1 ml PO BIDPRN PRN PRN Reason: Sore Throat Polyethylene Glycol (Miralax) 17 gm PER TUBE DAILY PRN PRN Reason: Constipation Potassium Chloride (K-Dur) 40 meq PO ASDIR PRN PRN Reason: FOR SERUM K+ 2.5 - 3.5 Potassium Chloride (Klor-Con) 40 meq PER TUBE ASDIR PRN PRN Reason: FOR SERUM K+ 2.5-3.5 Prednisone (Prednisone) 10 mg PO QAM-[facility] Last Admin: 10/20/17 07:52 Dose: 10 mg Sodium Bicarbonate (Bicarbonate, Sodium) 650 mg PER TUBE .PER PROTOCOL PRN PRN Reason: ENTERAL TUBE OCCLUSION Sodium Chloride (Flush - Normal Saline) 10 ml IVF Q12HR [facility] Last Admin: 10/20/17 08:51 Dose: 10 ml Sodium Chloride (Flush - Normal Saline) 10 ml IVF PRN PRN PRN Reason: Saline Flush Last Admin: 10/13/17 17:06 Dose: 10 ml Sodium Chloride (Flush - Normal Saline) 10 ml IVF PRN PRN PRN Reason: Saline Flush
[2017-10-21 05:54] LABS: Band 1 % (5-11); Hypochromia SLIGHT = 6-15 cells (100X) (0-5/hpf); Lymphocytes 32 % (21-51); MDiff Complete? YES; Mean Corpuscular HGB CONC 31.1 g/dL (32.0-36.0); Mean Corpuscular Hemoglobin 26.6 pg (27.0-31.0); Mean Corpuscular Volume 85.5 fl (80.0-94.0); Mean Platelet Volume 9.6 fL (7.4-10.4); Monocytes 3 % (0-10); Neutrophil 63 % (42-75); PLT Morphology Comment Appears Adequate; Platelet Count 206 thou/uL (130-400); RBC Distribution Width 15.2 % (11.5-14.5); Reactive Lymphocytes 1 % (0-10); Red Blood Cell (RBC) Count 6.01 mill/uL (4.70-6.10); White Blood Cell (WBC) Count 8.7 thou/uL (4.8-10.8)
[2017-10-21] MEDS: Ibuprofen 600 MG TAB PO SCH ×2 (07:38→14:10)
[2017-10-21] MEDS: Enoxaparin Sodium 40 MG/0.4 ML SYRINGE SC SCH (08:37)
[2017-10-21] MEDS: Famotidine 20 MG TAB PO SCH (08:38)
[2017-10-21] MEDS: predniSONE 20 MG TAB PO SCH (08:38)
[2017-10-21] MEDS: metFORMIN 500 MG TAB PO SCH (08:38)
[2017-10-21] MEDS: Lisinopril 20 MG TAB PO SCH (08:38)
[2017-10-21] MEDS: Metoprolol Tartrate 25 MG TAB PO SCH (08:38)
[2017-10-21] MEDS: Colchicine 0.6 MG TAB PO SCH (08:39)
[2017-10-21 08:40] VITALS: BP 167/86
--- NOTE | 2017-10-21 09:37 | PRG ---
DATE OF SERVICE: 10/21/2017 SUBJECTIVE: He is awake, alert, slept with home BiPAP machine last night and did well except for adrián e snoring. OBJECTIVE: VITAL SIGNS: Temperature 98.0, pulse 79, blood pressure 159/82. A 24 hour intake 1240, output 2110. HEENT: Unremarkable. NECK: No JVD. CHEST: Clear. CARDIAC: S1 and S2 regular. ABDOMEN: Soft. EXTREMITIES: No edema. LABORATORY DATA: White blood cell count 8.7, hematocrit 51.4, platelet count 206. ASSESSMENT: 1. Obstructive sleep apnea. 2. Morbid obesity. 3. Erythrocytosis secondary to obstructive sleep apnea. 4. Diabetes mellitus. PLAN: I have increased his BiPAP pressure to 15/8. He should be able to go home today if okay with the Hospitalist group. He can follow up with Dr. Moore as an outpatient in about a month. He is to bring his BiPAP machine to that appointment.
[2017-10-21 11:32] VITALS: TEMP 97.9
--- NOTE | 2017-10-21 13:57 | DIS ---
DATE OF ADMISSION: 10/09/2017 DATE OF DISCHARGE: 10/21/2017 PRIMARY CARE PROVIDER: [facility] [place]. DISCHARGE DIAGNOSES: 1. Acute on chronic hypoxic and hypercapnic respiratory failure. 2. Rhinovirus infection. 3. Haemophilus influenzae respiratory infection. 4. Obstructive sleep apnea syndrome. 5. Erythrocytosis secondary to obstructive sleep apnea syndrome. 6. Gout flare. 7. Suspected community-acquired pneumonia. 8. Asthmatic bronchitis, suspected. CONDITION OF PATIENT AT THE TIME OF DISCHARGE: Stable. I assessed Mr. Hughes on the day of discharge. He denies any chest pain or shortness of breath. He denies cough. Vital signs are stable. S1 and S2 are heard, regular. Lungs are clear to auscultati on bilaterally. HOSPITAL COURSE: Mr. Hughes is a pleasant 47-year-old gentleman who was admitted to [facility] on 10/09/2017 for acute hypoxic and hypercapnic respiratory failure, likely second librado to viral and bacterial infections. He was intubated on the day of admission. He was started on intravenous antibiotics. He was seen by pulmonology service, Dr. Moore. He was extubated on 018. He was started on BiPAP therapy. Arrangements were made for BiPAP machine at home. He was also started on colchicine for gout flare. He is improving clinically. Respiratory cultures grew Haemophilus influenzae. Respiratory virus panel was positive for rhinoviru s, negative for influenza. He does not have a primary care provider at this time and is planning to setup care with [facility]. A copy of this report is being sent to the clinic as well. DISCHARGE MEDICATIONS: Colchicine 0.6 mg 2 times a day, lisinopril 20 mg 2 times a day, metformin 50 0 mg 2 times a day, Medrol Dosepak as directed and Lopressor 25 mg 2 times a day. LABORATORY DATA: On 10/18/2017, he had sodium 135, potassium 4.3, carbon dioxide 31, blood urea nitr ogen 21, creatinine 0.81. On the day of discharge, he has white count 8700, hemoglobin 16, platelet count 206,000. He had a negative HIV antigen test during this hospitalization. Hemoglobin A1c was 7 .9. He was noncompliant with his diabetes medications in the past and has been started on metformin. DISCHARGE DISPOSITION: Home. TOTAL AMOUNT OF TIME SPENT COORDINATING THIS DISCHARGE: 38 minutes.
== END 2017-10-21 14:27 | disposition home or self-care (01) | DRG 208 ==
LOC: ERS 09:07 → CCU 11:04
PROVIDERS: ADMIT Internal Medicine; ATTEND Internal Medicine
PROC: 0BH17EZ Insertion of Endotracheal Airway into Trachea, Via Natural or Artificial Opening (ICD-10-PCS; principal; 2017-10-09)
PROC: 5A1945Z Respiratory Ventilation, 24-96 Consecutive Hours (ICD-10-PCS; 2017-10-09)
DX: J96.21 Acute and chronic respiratory failure with hypoxia (principal); J18.9 Pneumonia, unspecified organism; D75.1 Secondary polycythemia; E11.65 Type 2 diabetes mellitus with hyperglycemia; E66.2 Morbid (severe) obesity with alveolar hypoventilation; Z68.44 Body mass index [BMI] 60.0-69.9, adult; G47.33 Obstructive sleep apnea (adult) (pediatric); B34.8 Other viral infections of unspecified site; J45.909 Unspecified asthma, uncomplicated; J96.22 Acute and chronic respiratory failure with hypercapnia; M10.9 Gout, unspecified; Z91.14 Patient's other noncompliance with medication regimen; E88.09 Other disorders of plasma-protein metabolism, not elsewhere classified; R77.1 Abnormality of globulin; A49.2 Hemophilus influenzae infection, unspecified site
CPT/HCPCS: 31500; 36415; 36416; 51702; 71045; 80048; 80053; 80306; 81003; 81015; 82550; 82553; 82805; 83036; 83605; 83735; 83880; 84484; 84550; 85007; 85025; 85027; 85610; 85730; 87040; 87070; 87077; 87086; 87205; 87389; 87633; 93005; 93970; 94002; 94003; 94640; 94660; 96361; 96365; 96366; 96368; 96375; 96376; A4216; G8978-GP-CK; G8979-GP-CI; J0456; J0696; J1650; J1815; J1940; J2060; J2550; J2704; J2920; J2997; J3010; J7050; J7506; J7611; J7620

== ENCOUNTER 2018-08-21 14:54 | Emergency (ER) | payer SELFPAY ==
[2018-08-21 15:40] LABS: #Eosinphils 0.1 thou/uL (0.0-0.7); #Lymphocytes 2.1 thou/uL (1.20-3.40); #Monocytes 0.5 thou/uL (0.11-0.59); #Neutrophils 5.5 thou/uL (1.40-6.50); %Basophils 0.3 % (0.0-1.0); %Eosinophils 1.7 % (0.0-10.0); Hemoglobin 15.9 g/dL (14.0-18.0); Mean Corpuscular HGB CONC 30.8 g/dL (32.0-36.0); Mean Corpuscular Volume 87.9 fL (78.0-98.0); Mean Platelet Volume 8.5 fL (7.4-10.4); Platelet Count 219 thou/uL (130-400); RBC Distribution Width 14.1 % (11.5-14.5); Red Blood Cell (RBC) Count 5.87 mill/uL (4.70-6.10); White Blood Cell (WBC) Count 8.2 thou/uL (4.8-10.8)
--- NOTE | 2018-08-21 15:47 | RAD ---
PORTABLE CHEST ONE VIEW: 08/21/2018 3:26 p.m. HISTORY: Shortness of breath. COMPARISON: 10/15/2017 FINDINGS: The heart size is enlarged. The lungs are well expanded without focal areas of consolidation, pneumo thoraces, ramírez pulmonary edema, or pleural effusions. POS: [facility]
[2018-08-21 16:01] LABS: ALT (SGPT) 22 U/L (8-55); AST (SGOT) 9 U/L (5-34); Albumin 4.3 g/dL (3.5-5.0); Alkaline Phosphatase 128 U/L (40-150); Anion Gap 14 mmol/L (10-20); BUN (Urea Nitrogen) 13 mg/dL (8.9-20.6); Bilirubin, Total 0.5 mg/dL (0.2-1.2); CK (CPK) 78 U/L (30-200); Calc. Creatinine Clearance 0 mL/min (70-130); Calcium 9.8 mg/dL (7.8-10.44); Carbon Dioxide 32 mmol/L (22-29); Chloride 100 mmol/L (98-107); Estimated GFR-MDRD Greater than 90; Globulin 4.2 g/dL (2.4-3.5); Glucose 157 mg/dL (70-105); Potassium 4.7 mmol/L (3.5-5.1); Protein, Total 8.5 g/dL (6.0-8.3); Sodium 141 mmol/L (136-145)
== END 2018-08-21 16:40 | disposition home or self-care (01) ==
LOC: ERS 14:54
DX: J06.9 Acute upper respiratory infection, unspecified (principal); E11.9 Type 2 diabetes mellitus without complications; I10 Essential (primary) hypertension; Z79.84 Long term (current) use of oral hypoglycemic drugs; Z79.899 Other long term (current) drug therapy
CPT/HCPCS: 71045; 80053; 82550; 83880; 84484; 85025; 93005; 94760

== ENCOUNTER 2019-10-17 17:33 | Inpatient (IN) | payer BC, SELFPAY ==
--- NOTE | 2019-10-17 18:00 | RAD ---
XR Chest 1 View Portable HISTORY: Dyspnea COMPARISON: 08/21/2018 FINDINGS: The heart is enlarged. The lungs are expanded without lobar consolidation, pneumothoraces, ramírez pulmonary edema or large effusions. IMPRESSION: Cardiomegaly
[2019-10-17 18:07] LABS: #Eosinphils 0.1 thou/uL (0.0-0.7); #Lymphocytes 1.9 thou/uL (1.20-3.40); #Monocytes 0.6 thou/uL (0.11-0.59); #Neutrophils 5.8 thou/uL (1.40-6.50); %Basophils 0.6 % (0.0-1.0); %Eosinophils 1.5 % (0.0-10.0); %Lymphocytes 22.5 % (21.0-51.0); %Monocytes 7.3 % (0.0-10.0); %Neutrophils 68.1 % (42.0-75.0); Hemoglobin 17.2 g/dL (14.0-18.0); Mean Corpuscular HGB CONC 29.3 g/dL (32.0-36.0); Mean Corpuscular Hemoglobin 26.3 pg (27.0-31.0); Mean Corpuscular Volume 89.9 fL (78.0-98.0); Mean Platelet Volume 9.2 fL (7.4-10.4); Platelet Count 163 thou/uL (130-400); Red Blood Cell (RBC) Count 6.55 mill/uL (4.70-6.10); White Blood Cell (WBC) Count 8.5 thou/uL (4.8-10.8)
[2019-10-17 18:22] LABS: Anisocytosis SLIGHT = 6-15 cells (100X) (0-5/hpf); Giant Platelets SLIGHT; Hypochromia SLIGHT = 6-15 cells (100X) (0-5/hpf); Large Platelets SLIGHT; MDiff Complete? YES; Platelet Morphology Comment Appears Adequate; Polychromasia SLIGHT = 2-3 cells (100X) (0-2/hpf); Stomatocytes SLIGHT = 2-5 cells (100X) (0-1/hpf); Target Cells SLIGHT = 2-5 cells (100X) (0-1/hpf)
[2019-10-17 18:32] LABS: ALT (SGPT) 46 U/L (8-55); AST (SGOT) 11 U/L (5-34); Albumin 4.2 g/dL (3.5-5.0); Alkaline Phosphatase 101 U/L (40-110); BUN (Urea Nitrogen) 8 mg/dL (8.9-20.6); Bilirubin, Total 1.1 mg/dL (0.2-1.2); CK (CPK) 39 U/L (30-200); Calc. Creatinine Clearance 0 mL/min (70-130); Calcium 9.9 mg/dL (7.8-10.44); Estimated GFR-MDRD Greater than 90; Globulin 3.4 g/dL (2.4-3.5); Glucose 144 mg/dL (70-105); Protein, Total 7.6 g/dL (6.0-8.3)
[2019-10-17 18:43] LABS: Anion Gap 13 mmol/L (10-20); Carbon Dioxide 39 mmol/L (22-29); Chloride 94 mmol/L (98-107); Potassium 4.2 mmol/L (3.5-5.1); Sodium 142 mmol/L (136-145)
[2019-10-17] MEDS ORDERED: cefTRIAXone\\ROCEPHIN 1 GM VIAL ONE (19:09)
[2019-10-17] MEDS ORDERED: methylPREDNISolone Sod Succ/PF 125 MG/2 ML VIAL ONE (19:11)
[2019-10-17 19:47] LABS: Base Excess-Venous 7.8 mmol/L (-2.0 to 3.0); Bicarbonate (HCO3v) 37.2 mmol/L (22.0-28.0); CO2 Tension (PvCO2) 67.9 mmHg (40.0-50.0); Calcium, Ionized 0.98 mmol/L (See Comments:); Chloride 97 mmol/L (98-107); Hemoglobin - Calc 18.3 g/dL (14.0-18.0); Potassium 4.4 mmol/L (3.5-5.1); Sodium 140 mmol/L (138-145); T. Carbon Dioxide 39.2 mmol/L (22.0-28.0); vO2 Saturation-calc 98.6 % (60.0-85.0)
[2019-10-17] MEDS ORDERED: Azithromycin 500 MG VIAL ONE (20:10)
[2019-10-17] MEDS ORDERED: Enoxaparin Sodium 60 MG/0.6 ML SYRINGE ONE (20:43)
[2019-10-17] MEDS ORDERED: Enoxaparin Sodium 100 MG/ML SYRINGE ONE (20:43)
[2019-10-17 22:07] LABS: Troponin I 0.016 ng/mL (< 0.028)
[2019-10-18] MEDS ORDERED: Ondansetron ODT 4 MG TAB SL PRN (00:01)
[2019-10-18] MEDS ORDERED: Ondansetron PF 4 MG/2 ML Vial IVP PRN ×2 (00:01→00:37)
[2019-10-18] MEDS ORDERED: Acetaminophen 325 MG TAB PO PRN (00:01)
[2019-10-18] MEDS ORDERED: Dextrose 50% Abboject 50 ML SYRINGE SLOW IVP PRN (00:37)
[2019-10-18] MEDS ORDERED: Calcium Carbonate 500 MG ChewTAB PO PRN (00:37)
[2019-10-18] MEDS ORDERED: Ondansetron ODT 4 MG TAB PO PRN (00:37)
[2019-10-18] MEDS ORDERED: Dextrose 5% in Water 1,000 ML IV PRN (00:37)
[2019-10-18] MEDS ORDERED: HumaLOG 300 UNITS/3 ML VIAL SC PRN (00:37)
[2019-10-18] MEDS ORDERED: Furosemide 20 MG/2 ML VIAL SLOW IVP SCH (00:45)
[2019-10-18 01:03] VITALS: BMI 64.8
[2019-10-18 01:08] LABS: Cardiac Risk 3.7 (Less than 4.5)
[2019-10-18 01:57] LABS: Troponin I Less than 0.010 ng/mL (< 0.028)
--- NOTE | 2019-10-18 02:07 | PDOC.FPRHP ---
- History of Present Illness Chief Complaint: shortness of breath History of Present Illness: 49yo CM with h/o AMBERLY, DMII, HTN who presents for shortness of breath. Pt states was hospitalized 10/09/17 for sepsis 2/2 influenza requiring ICU stay. Was discharged with medications for HTN, DMII and CPAP for AMBERLY. States he took for a while, but has been off all medications and CPAP for at least a year. 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 No orthopnea. No CP, fever, chills, body aches. Endorses dry cough over this time. Also endorses burning epigastric pain, worse with PO intake, bloating, relieved with Alkaseltzer. Has had limited mobility over the past 3 days 2/2 acute illness and not going to work. No history of DVT/PE. ED Course: 2.5L NS, Azithro, Rocephin, solumedrol, lovenox 1mg/kg, duoneb x3. - Allergies/Adverse Reactions Allergies Allergy/AdvReac Type Severity Reaction Status Date / Time No Known Allergies Allergy Verified 10/18/19 01:23 - Home Medications Medication Instructions Recorded Confirmed Type No Known 10/18/19 10/18/19 History - History PMHx: AMBERLY, DMII, HTN. Hospitalization 09/2017 for acute respiratory failure 2/2 influenza and in ICU. PSHx: umbilical hernia repair, appy, R knee, L ankle. FHx: Dad with RA, no history of DVT/PE. Social: No Tob, drinks about 1 drink/year. No illicits. with 2 daughters. 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 - Review of Systems General: reports: weight/appetite/sleep changes (decreased), fatigue. denies: fever/chills Eyes: denies: vision changes ENT: denies: nasal congestion, rhinorrhea Respiratory: reports: cough, shortness of breath. denies: congestion Cardiovascular: reports: edema (BL LE). denies: chest pain, palpitation Gastrointestinal: reports: abdominal pain (epigastric burning). denies: nausea , vomiting, diarrhea, constipation Genitourinary: denies: incontinence, dysuria Skin: denies: rashes - Vital signs BP: 152/95 HR: 121-->117 RR: 28 Tmax: 99.3 Pox: 92% on 4L Wt: 229kg - Physical Exam Constitutional: awake, alert and oriented, well developed, other (morbidly obese. Mild respiratory distress with increased work of breathing. Desating to low 80s while talking. Talking in short sentences.) HEENT: conjunctiva clear, grossly normal vision, grossly normal hearing, MMM Neck: supple, trachea midline Heart: normal S1/S2, no murmurs/rubs/gallops, pulses present, other (1+ pitting edema to BL ankles. Difficult exam. Irregurally irregular HR) Lungs: CTAB, good air movement, no rales/rhonchi, no wheezing, other (Difficult exam, mild distress and increased work of breathing) Abdomen: soft, non-tender, bowel sounds present, no masses/distention, other ( well-healed appy scar and umbilical hernia repair scar) Musculoskeletal: normal structure, normal tone Neurological: no focal deficit Skin: no rash/lesions Psychiatric: normal mood and affect, good judgment and insight, intact recent and remote memory FMR H&P: Results - Labs Result Diagrams: 10/17/19 17:46 10/17/19 17:46 Lab results: WBC 8.5 thou/uL (4.8-10.8) 10/17/19 17:46 Hgb 17.2 g/dL (14.0-18.0) 10/17/19 17:46 Hct 58.9 % (42.0-52.0) H 10/17/19 17:46 MCV 89.9 fL (78.0-98.0) 10/17/19 17:46 Plt Count 163 thou/uL (130-400) 10/17/19 17:46 Neutrophils % 68.1 % (42.0-75.0) 10/17/19 17:46 VBG pCO2 67.9 mmHg (40.0-50.0) H* 10/17/19 19:45 VBG pO2 128.8 mmHg (35.0-45.0) H 10/17/19 19:45 Sodium 142 mmol/L (136-145) 10/17/19 17:46 Potassium 4.2 mmol/L (3.5-5.1) 10/17/19 17:46 Chloride 94 mmol/L (98-107) L 10/17/19 17:46 Carbon Dioxide 39 mmol/L (22-29) H 10/17/19 17:46 BUN 8 mg/dL (8.9-20.6) L 10/17/19 17:46 Creatinine 0.89 mg/dL (0.7-1.3) 10/17/19 17:46 Glucose 144 mg/dL (70-105) H 10/17/19 17:46 Lactic Acid 1.0 mmol/L (0.5-2.2) 10/17/19 18:39 Calcium 9.9 mg/dL (7.8-10.44) 10/17/19 17:46 Total Bilirubin 1.1 mg/dL (0.2-1.2) 10/17/19 17:46 AST 11 U/L (5-34) 10/17/19 17:46 ALT 46 U/L (8-55) 10/17/19 17:46 Alkaline Phosphatase 101 U/L (40-110) 10/17/19 17:46 Creatine Kinase 39 U/L (30-200) 10/17/19 17:46 B-Natriuretic Peptide 100.8 pg/mL (0-100) H 10/17/19 18:39 Serum Total Protein 7.6 g/dL (6.0-8.3) 10/17/19 17:46 Albumin 4.2 g/dL (3.5-5.0) 10/17/19 17:46 - EKG Interpretation EKG: Good R wave progression. Sawtooth pattern irregular rate. Some visible P waves. Appears to be aflutter vs afib vs sinus with PAC's. No acute ST or T wave changes. - Radiology Interpretation Chest x-ray Status: image reviewed by me (difficult exam 2/2 body habitus, cardiomegaly, no focal consolidation.), report reviewed by me (no acute CPP, cardiomegaly) FMR H&P: A/P - Problem List (1) Acute respiratory failure with hypoxia and hypercapnia Current Visit: Yes Status: Acute Code(s): J96.01 - ACUTE RESPIRATORY FAILURE WITH HYPOXIA; J96.02 - ACUTE RESPIRATORY FAILURE WITH HYPERCAPNIA (2) Morbid obesity Current Visit: Yes Status: Acute Code(s): E66.01 - MORBID (SEVERE) OBESITY DUE TO EXCESS CALORIES (3) Diabetes mellitus Current Visit: Yes Status: Chronic Code(s): E11.9 - TYPE 2 DIABETES MELLITUS WITHOUT COMPLICATIONS Qualifiers: Diabetes mellitus type: type 2 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 #Acute hypoxic and hypercapneic respiratory failure - Initial concern for sepsis in ED, given fluid bolus, Azithro and Rocephin and Solumedrol. Pt tachypneic and tachycardic. Afebrile. No focal consolidation on chest xray. Exam and history with low suspicion for infectious etiology. Will discontinue abx at this time. Monitor clinical status. - Procal ordered, flu neg - Elevated D-dimer to 0.82. Unable to obtain CTA 2/[address] bed unable to accommodate - Wells Score 6 - Concern in ED for PE, given Th Lovenox - Consulted Dr Moore, Pulm, rec cessation of th lovenox, doppler us, place on BiPAP and suspects Pickwickian. Apprec recs. - Will order BL LE US to r/o DVT - Admit to IMCU and place on BiPAP with settings of 15/10 with goal O2 of 88% - Slightly volume overloaded in ED, will give Lasix x1 dose, BNP borderline elevated at 100. Echo pending. #Suspected Acute on Chronic respiratory acidosis with metabolic compensation - VBG obtained at admission, pH 7.34, CO2 67.9 - unable to properly assess without ABG - Bicarb 39 #Aflutter vs Afib - suspected 2/2 underlying lung disease with acute hypoxic respiratory failure - will place on BiPAP and monitor rate - Consider Dilt gtt if sustained tachycardia - Will obtain Echo - Consider Cards consult in AM - BP stable - Repeat EKG in AM - will check TSH #Suspected GERD - epigastric burning pain, bloating, nausea - likely unrelated to acute respiratory failure - will given Pepcid BID #HTN - BP stable in ED, will monitor and add medications as warranted #DMII - no current medications, will check A1C - diabetic protocol with ACHS accuchecks - consider starting appropriate medications pending results - risk stratify with lipid panel #AMBERLY as well as suspected obesity hypoventilation syndrome - BIPAP currently, will transition to CPAP at night, will need home use #Morbid obesity - contributing to above problems, would likely benefit from OP bariatric surgery eval [facility] Code: Full Diet: NPO IVF: SL VTE: Lovenox Disposition/LOS: Admit to IMCU. Expected LOS <48hrs. FMR H&P: Upper Level - Pertinent history 49 year old morbidly obese male presents with a one week history of progressively worsening shortness of breath, along with a one week history of central abdominal pain. Patient denies nausea or vomiting. He denies associated chest pain. Patient states he is having bloating and discomfort in his abdomen. He came into the ED today after seeing his PCP who sent him over for further evaluation. Patient noted to be tachycardic and tachypneic on arrival. He remained afebrile. Patient states he has had a dry cough over the last week, but no congestion or rhinorrhea. Patient does endorse PND over the last week. Patient with PMH significant for DM, HTN, and AMBERLY, noncompliant on medications. He has not taken DM medication in over a year. He states that he has not used his CPAP in over 6 months due to mask discomfort. Patient denies history of tobacco, alcohol, or drug use. - Pertinent findings General: Alert and oriented x3. No acute distress. HEENT: MMM. Very large neck circumference. Card: Tachycardic, Irregularly irregular rhythm, no appreciable murmur Resp: CTA, no acute respiratory distress on 5L NC Abdom: Soft, non-distended, mildly TTP in epigastric region Skin: Venous stasis dermatitis bilateral lower extremities Ext: 1+ pitting edema bilateral lower extremities - Plan Date/Time: 10/18/19 0159 Melissa Rodriguez, have evaluated this patient and agree with findings/plan as outlined by international project engineer resident. Pertinent changes/additions are listed here. Acute hypoxic hypercapneic respiratory failure 2/2 obesity hypoventilation syndrome and untreated AMBERLY - VBG obtained in ED showed significant CO2 retention in the upper 60's - Patient satting upper 80's on 5L NC, no apparent respiratory distress - Morbidly obese with known AMBERLY - Dr. Moore with pulmonology consulted; appreciate recs - Will start patient on BiPAP with goal O2 85-90%, but no more than 92% - No evidence of infection or significant fluid overload - Will give a dose of lasix as patient does have 1+ pitting edema and was given 2.5L NS in ED due to concerns for sepsis - Admit to IMCU for further observation - Obtain ABG when off of BiPAP to assess baseline status - D-dimer elevated at 0.8, but unable to do CTA chest as patient too large for CT scanner. Patient's Well's score is 6 which is moderate risk; however, after speaking to pulmonolosit, this is likely chronic and not attributable to PE. Patient did get a dose of therapeutic lovenox in ED. Will hold therapeutic lovenox at this time, but will obtain bilateral venous dopplers to further investigate. If positive, can treat for PE's Suspected Acute on Chronic respiratory acidosis with metabolic compensation - VBG obtained at admission, pH 7.34, CO2 67.9 - Unable to properly assess without ABG - Bicarb 39 Tachycardia, suspect atrial flutter/afib - EKG difficult to interpret, but does appear to have sawtooth pattern and rhythm irregular on EKG and auscultation; Pwaves do appear present on some areas however, so this irregular rhythm may represent PAC's - Patient did get several duoneb treatments in ED for suspected COPD; will d/c duonebs at this time - Monitor HR; will not make any changes at this time unless HR stays above 120 bpm in which case we can consider dilt gtt if suspicion for afib/flutter high. Otherwise, consider BB. May be result of underlying pulmonary HTN - Will obtain echo Suspect pulmonary HTN - Patient with untreated AMBERLY - Will obtain echo to further evaluate - Importance of compliance with BiPAP discussed Untreated AMBERLY - Will ensure patient has BiPAP - Goal O2 sats as above - Importance of compliance discussed - Suspect pulmonary HTN - Obtain ABG when off of BiPAP HTN - Untreated - Monitor and add medications as necessary DM - Untreated - Will obtain labs, HgA1c - Hyperglycemia protocol - CC diet Morbid obesity - Contributing to obesity hypoventilation syndrome, AMBERLY, DM, and other comorbidities - Will risk stratify with TSH, HgA1c, and FLP DVT PPX: Lovenox Code Status: Full Dispo: Admit to IMCU. Anticipate LOS >48 hours.
[2019-10-18 03:59] LABS: #Eosinphils 0.1 thou/uL (0.0-0.7); #Lymphocytes 0.8 thou/uL (1.20-3.40); #Monocytes 0.1 thou/uL (0.11-0.59); #Neutrophils 8.2 thou/uL (1.40-6.50); %Basophils 0.3 % (0.0-1.0); %Eosinophils 0.5 % (0.0-10.0); %Lymphocytes 8.4 % (21.0-51.0); %Monocytes 0.9 % (0.0-10.0); %Neutrophils 89.8 % (42.0-75.0); Hemoglobin 16.7 g/dL (14.0-18.0); Mean Corpuscular HGB CONC 30.1 g/dL (32.0-36.0); Mean Corpuscular Hemoglobin 26.7 pg (27.0-31.0); Mean Corpuscular Volume 88.7 fL (78.0-98.0); Mean Platelet Volume 9.9 fL (7.4-10.4); Platelet Count 180 thou/uL (130-400); RBC Distribution Width 15.7 % (11.5-14.5); Red Blood Cell (RBC) Count 6.25 mill/uL (4.70-6.10); White Blood Cell (WBC) Count 9.1 thou/uL (4.8-10.8)
[2019-10-18 04:04] LABS: Hemoglobin A1c 8.6 % (4.0-6.0)
[2019-10-18 04:22] LABS: Anion Gap 13 mmol/L (10-20); BUN (Urea Nitrogen) 10 mg/dL (8.9-20.6); Calc. Creatinine Clearance 308 mL/min (70-130); Calcium 8.9 mg/dL (7.8-10.44); Carbon Dioxide 36 mmol/L (22-29); Chloride 96 mmol/L (98-107); Estimated GFR-MDRD 85; Glucose 257 mg/dL (70-105); Potassium 4.6 mmol/L (3.5-5.1); Sodium 140 mmol/L (136-145)
--- NOTE | 2019-10-18 05:53 | PDOC.FM ---
- Subjective Subjective: Pt states he is doing much better than he was last night when he came in to the hospital. He says he has a CPAP at home, but the strap broke on it a year ago and he never got it fixed, so he stopped wearing it. He says he slept much better last night than he has in a long time with the CPAP. He also states he had been told he had diabetes in the past, but that he did not have insurance and could not afford the blood draws so he stopped taking his medication about a year ago. He states he has insurance know and wants to starting taking care of himself better. - Objective MAR Reviewed: Yes Vital Signs & Weight: Vital Signs (12 hours) Temp Pulse Resp Pulse Ox 10/18/19 04:00 98.6 F 10/18/19 00:37 116 H 32 H 90 L 10/18/19 00:00 98.8 F Weight Weight 229.064 kg Most Recent Monitor Data Heart Rate from ECG 124 NIBP 141/82 NIBP BP-Mean 101 Respiration from ECG 34 SpO2 89 I&O: 10/16/19 10/17/19 10/18/19 06:59 06:59 06:59 Intake Total 200 Output Total 900 Balance -700 Result Diagrams: 10/18/19 03:25 10/18/19 03:25 EKG Reviewed by me: Yes (sinus tachy in the 120s) Phys Exam - Physical Examination Constitutional: NAD HEENT: moist MMs, sclera anicteric, oral pharynx no lesions Neck: no nodes, supple decreased breath sounds tachycardic Gastrointestinal: soft, non-tender, positive bowel sounds Musculoskeletal: no edema, pulses present Neurological: moves all 4 limbs Psychiatric: normal affect Skin: no rash, normal turgor Dx/Plan (1) Acute respiratory failure with hypoxia and hypercapnia Code(s): J96.01 - ACUTE RESPIRATORY FAILURE WITH HYPOXIA; J96.02 - ACUTE RESPIRATORY FAILURE WITH HYPERCAPNIA Status: Acute (2) Morbid obesity Code(s): E66.01 - MORBID (SEVERE) OBESITY DUE TO EXCESS CALORIES Status: Acute (3) Diabetes mellitus Code(s): E11.9 - TYPE 2 DIABETES MELLITUS WITHOUT COMPLICATIONS Status: Chronic Qualifiers: Diabetes mellitus type: type 2 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 mellitus long goods drier insulin use: unspecified long goods drier insulin use status Diabetes mellitus complication status : with hyperglycemia Qualified Code(s): E11.65 - Type 2 diabetes mellitus with hyperglycemia (4) HTN (hypertension) Code(s): I10 - ESSENTIAL (PRIMARY) HYPERTENSION Status: Chronic (5) GERD (gastroesophageal reflux disease) Code(s): K21.9 - GASTRO-ESOPHAGEAL REFLUX DISEASE WITHOUT ESOPHAGITIS Status: Acute (6) AMBERLY (obstructive sleep apnea) Code(s): G47.33 - OBSTRUCTIVE SLEEP APNEA (ADULT) (PEDIATRIC) Status: Acute - Plan Plan: 49yo CM with h/o HTN, DMII, and AMBERLY, noncompliant with tx presents for acute hypoxic and hypercapneic respiratory failure. 1. Acute hypoxic and hypercapneic respiratory failure Pt tachypneic and tachycardic but Afebrile. * No focal consolidation on chest xray. * Exam and history with low suspicion for infectious etiology. * Initial concern for sepsis in ED, given fluid bolus, Azithro and Rocephin and Solumedrol. * Will discontinue abx at this time * Procal & Flu: Neg * Elevated D-dimer to 0.82 * Unable to obtain CTA 2/[address] bed unable to accommodate * Wells Score 6 * Concern in ED for PE, given Th Lovenox * Consulted Dr Moore, Puljennifer, appreciate recs * Recomended Cessation of th lovenox, doppler us, place on BiPAP and suspects Pickwickian * BL LE US to r/o DVT: pending * BiPAP with settings of 15/10 with goal O2 of 88% * Slightly volume overloaded in ED, given Lasix x1 dose * BNP borderline elevated at 100 * Echo pending * Currently, net negative balance 2. Suspected Acute on Chronic respiratory acidosis with metabolic compensation VBG obtained at admission, pH 7.34, CO2 67.9 * Bicarb 39 unable to properly assess without ABG, but from VBG it looks like he is a chronic CO2 retainer 3. Aflutter Suspected 2/2 underlying lung disease with acute hypoxic respiratory failure * Placed on BiPAP and monitoring rate * Started Dilt gtt * Echo: pending * Consulted Cards, appreciate recs. * Repeat EKG this morning, due to patient receiving duonebs, steroids, and fluids * TSH: wnl 4. Suspected GERD epigastric burning pain, bloating, nausea * Likely unrelated to acute respiratory failure * On Pepcid BID 5. HTN BP stable in ED * Will monitor and add medications as warranted 6. DMII No current medications * A1C: 8.6% * Diabetic protocol with ACHS accuchecks * ASCVD: 5.6% * Starting Metformin 500 mg QHS 7. AMBERLY as well as suspected obesity hypoventilation syndrome BIPAP currently, will transition to CPAP at night, will need home use 8. Morbid obesity contributing to above problems, would likely benefit from OP bariatric surgery eval Code Status: Full Diet: NPO IVF: SL VTE: Lovenox [facility] Disposition/LOS: IMCU inpt, Expected LOS <48hrs. Started on digoxin. Awaiting ECHO and cards & pulm recs.
[2019-10-18] MEDS: HumaLOG 300 UNITS/3 ML VIAL SC PRN (06:40)
--- NOTE | 2019-10-18 08:19 | ULT ---
EXAM: Bilateral lower extremity venous Doppler HISTORY: Elevated d-dimer, hypoxic. FINDINGS: Grayscale, color-flow, Doppler evaluation, spectral analysis of the bilateral lower extremities venou s structures is performed with 2-D imaging. The bilateral common femoral, superficial femoral, popliteal, posterior tibial, proximal greater saphenous and profunda femoral veins are imaged. The superficial femoral vein in the left lower extremity is not well evaluated on grayscale imaging r elated to body habitus. This does limit evaluation for nonocclusive DVT, but where visualized, there does appear to be normal luminal compressibility, augmentation, and flow in the visualized deep venous structures of the left lower extremities. Normal in compressibility, flow, and augmentation in the visualized deep venous structures right lowe r extremity. IMPRESSION: 1. Limited evaluation for nonocclusive DVT in the left lower extremity due to difficulty in imaging o f the venous structures on grayscale imaging. However, no occlusive DVT is visualized in the visualized deep venous structures left lower extremity. 2. No evidence of a DVT involving the visualized deep venous structures right lower extremity.
[2019-10-18] MEDS: Famotidine 20 MG TAB PO SCH ×2 (08:29→21:48)
[2019-10-18] MEDS: Acetaminophen 325 MG TAB PO PRN (08:29)
[2019-10-18] MEDS: Aspirin 81 mg Enteric Coated Tablet PO SCH (08:29)
[2019-10-18] MEDS ORDERED: Diltiazem 125 MG in Sodium Chloride 0.9% 100 ML IVPB SCH (08:45)
[2019-10-18] MEDS ORDERED: Acetaminophen 325 MG TAB PO SCH (08:45)
[2019-10-18] MEDS ORDERED: Enoxaparin Sodium 40 MG/0.4 ML SYRINGE SC SCH (09:00)
[2019-10-18] MEDS ORDERED: Ibuprofen 600 MG TAB PO SCH (11:30)
[2019-10-18] MEDS ORDERED: Digoxin 0.25 MG TAB PO SCH (11:40)
[2019-10-18] MEDS ORDERED: Digoxin 0.5 MG/2 ML AMP ONE (12:06)
[2019-10-18] MEDS ORDERED: Digoxin 0.5 MG/2 ML AMP SLOW IVP SCH (12:15)
[2019-10-18] MEDS: Famotidine/PF 20 mg/2ml Vial SLOW IVP SCH ×2 (12:26→21:48)
--- NOTE | 2019-10-18 12:51 | PRG ---
DATE OF SERVICE: 10/18/2019 ADDENDUM: This is an addendum to the note of Dr. Rc Sainz. Mr. Hughes is a 49-year-old white male patient, who was admitted with respiratory distress. This is likely due to Pickwickian syndrome and obstructive sleep apnea. This morning, he is resting quietly in no acute distress. 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 Job ID: [id number]
--- NOTE | 2019-10-18 14:49 | CON ---
DATE OF CONSULTATION: HISTORY OF PRESENT ILLNESS: Sigifredo Hughes is a gentleman, whom I have seen in the past. He has sleep apnea and it has been probably a year and a half since I have seen him in the office. He was hospitalized in September of 2017, with asthmatic bronchitis and respiratory failure requiring mechanical ventilation. Surprisingly, did well with extubation. He has a history of diabetes, but says he has not been taking his metformin. His dog got into his CPAP mask, so he has had problems with a leak with that and tried to get one the day he was admitted to the hospital. He was admitted to the emergency room yesterday with complaints of shortness of breath. He had a positive D-dimer, but he gained probably pounds since he was last in the hospital; therefore, cannot get on the CAT scanner. A Doppler venogram done today was negative. He says he is feeling better. PAST MEDICAL HISTORY: 1. As mentioned, he was intubated in 2018, respiratory failure. 2. History of diabetes diagnosed in 2017. 3. Cholecystectomy. 4. Appendectomy. 5. History of knee surgery. SOCIAL HISTORY: He has little kids at home. Nonsmoker. Nondrinker. , has a supportive . ALLERGIES: HE HAS NO DRUG ALLERGIES. FAMILY HISTORY: Mother at 64 of an unknown cause. Father in 70s with malignancy. Had a little cold and cough lately. REVIEW OF SYSTEMS: Ten-point is otherwise negative. PHYSICAL EXAMINATION: VITAL SIGNS: Blood pressure 116/80, heart rate is 112, respiratory rate is 25. He is in sinus rhythm with . HEENT: Pupils are equal. Sclerae are anicteric. NECK: Supple. LUNGS: Remarkable for distant breath sounds. HEART: Regular rhythm. S1 and S2 are normal. ABDOMEN: Soft and nontender. EXTREMITIES: Without clubbing, cyanosis, or edema. He has stasis changes of both lower extremities. NEUROLOGIC: Nonfocal. LABORATORY DATA: Chest x-ray had no infiltrate. IMPRESSION: 1. Bronchitis. 2. History of asthmatic bronchitis, which may account for his resting tachycardia. 3. Untreated sleep apnea secondary to mask malfunction secondary to dog bite and holes in his mask. 4. Life-threatening obesity. We had a long discussion about calorie counting. 5. Diabetes . Blood sugars are elevated. Hemoglobin A1c was 8.6. PLAN: Nebulized treatments. Continue with BiPAP whenever he sleeps. Hopefully, he will be a candidate to go home within a few days. Job ID: [id number]
[2019-10-18] MEDS ORDERED: Metoprolol Tartrate 5 MG/5 ML VIAL IVP SCH (15:30)
--- NOTE | 2019-10-18 16:10 | CON ---
DATE OF CONSULTATION: 10/18/2019 REASON FOR CONSULTATION: Atrial fibrillation and atrial flutter. HISTORY OF PRESENT ILLNESS: Mr. Hughes is a 49-year-old gentleman with severe morbid obesity, admitted to the hospital with complaints of weakness and fatigue, found to be in atrial arrhythmia. The patient is not aware of his heart racing. He has noted increasing shortness of breath and some lower extremity edema. The patient is trying to lose weight. He weighs now over 500 pounds. He hopefully can lose some weight. He hopes to eventually have bariatric surgery. He does complain of weakness and fatigue. MEDICATIONS: Here: 1. Digoxin 0.25 mg a day. 2. Diltiazem apparently was given, it did not seem to make much difference. 3. Aspirin. 4. Enoxaparin. ALLERGIES: NONE KNOWN. 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 REVIEW OF SYSTEMS: CONSTITUTIONAL: Positive for weakness and fatigue. VISION: No changes. HEARING: No changes. PULMONARY: No cough or wheezing. GASTROINTESTINAL: No nausea, vomiting, or diarrhea. SKIN: No rashes. PHYSICAL EXAMINATION: GENERAL: This is a morbidly obese gentleman. He is 6 feet 2 inches, 505 pounds, BMI is 64.8. EYES: Sclerae nonicteric. MOUTH: Mucous membranes moist. NECK: Supple. No lymphadenopathy. LUNGS: Clear. CARDIAC: Irregular. No murmur, rub, or gallop. His heart sounds are very distant. ABDOMEN: Obese and nontender. EXTREMITIES: No clubbing or cyanosis. There is moderate chronic appearing edema, likely lymphedema. DIAGNOSTIC STUDIES: Echocardiogram showed normal left ventricular function with dilated right ventricle. EKG, some of it looks like atrial flutter, mostly it is atrial fibrillation with increased rate. ASSESSMENT: 1. Morbid obesity. 2. Obesity hypoventilation syndrome with increased pCO2. 3. Atrial arrhythmias secondary to obesity hypoventilation syndrome. PLAN: 1. We will give him a dose of metoprolol, some of the rhythm looks like it could be sinus tachycardia. 2. If he maintains atrial arrhythmias, consideration for cardioversion with transesophageal echo. 3. He is hopeful of trying to get a gastric bariatric surgery. Otherwise, prognosis is a very poor in his gentleman with morbid obesity, diabetes secondary to morbid obesity, obesity hypoventilation secondary to obesity, atrial arrhythmias, secondary to obesity. We will follow with you. Job ID: [id number]
[2019-10-18] MEDS ORDERED: metFORMIN XR 500 MG TAB PO SCH (21:00)
[2019-10-18] MEDS: Enoxaparin Sodium 60 MG/0.6 ML SYRINGE SC SCH (21:47)
[2019-10-18] MEDS: Enoxaparin Sodium 120 MG/0.8 ML SYRINGE SC SCH (21:47)
[2019-10-18] MEDS: Atorvastatin Calcium 20 MG TAB PO SCH (21:47)
--- NOTE | 2019-10-19 05:30 | PDOC.FM ---
- Subjective Subjective: Patient has no complaints this mornings. He is still requiring BIPAP at night. Heart rate was in 100s-120s overnight, has been fluctuating between sinus tachy and aflutter. Denies any chest pain/tightness or SOB. - Objective Vital Signs & Weight: Vital Signs (12 hours) Temp Pulse Resp Pulse Ox 10/19/19 03:46 97.7 F 10/18/19 23:46 97.5 F L 10/18/19 20:00 98.4 F 10/18/19 18:30 91 18 93 L Weight Weight 229.064 kg Most Recent Monitor Data Heart Rate from ECG 109 NIBP 166/91 NIBP BP-Mean 116 Respiration from ECG 28 SpO2 74 I&O: 10/17/19 10/18/19 10/19/19 06:59 06:59 06:59 Intake Total 200 480 Output Total 900 1600 Balance -700 -1120 Result Diagrams: 10/18/19 03:25 10/18/19 03:25 Phys Exam - Physical Examination Constitutional: NAD morbidly obese HEENT: moist MMs Neck: supple Respiratory: clear to auscultation bilateral Cardiovascular: RRR, no significant murmur Gastrointestinal: soft, positive bowel sounds Musculoskeletal: pulses present Neurological: moves all 4 limbs Psychiatric: A&O x 3 Skin: no rash, normal turgor Dx/Plan (1) Acute respiratory failure with hypoxia and hypercapnia Code(s): J96.01 - ACUTE RESPIRATORY FAILURE WITH HYPOXIA; J96.02 - ACUTE RESPIRATORY FAILURE WITH HYPERCAPNIA Status: Acute (2) Morbid obesity Code(s): E66.01 - MORBID (SEVERE) OBESITY DUE TO EXCESS CALORIES Status: Acute (3) AMBERLY (obstructive sleep apnea) Code(s): G47.33 - OBSTRUCTIVE SLEEP APNEA (ADULT) (PEDIATRIC) Status: Acute (4) Diabetes mellitus Code(s): E11.9 - TYPE 2 DIABETES MELLITUS WITHOUT COMPLICATIONS Status: Chronic Qualifiers: Diabetes mellitus type: type 2 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 1. Acute hypoxic and hypercapneic respiratory failure Pt tachypneic and tachycardic but Afebrile. * No focal consolidation on chest xray. * Exam and history with low suspicion for infectious etiology. * Initial concern for sepsis in ED, given fluid bolus, Azithro and Rocephin and Solumedrol. * Will discontinue abx at this time * Procal & Flu: Neg * Elevated D-dimer to 0.82 * Unable to obtain CTA 2/[address] bed unable to accommodate * Wells Score 6 * Concern in ED for PE, given Th Lovenox * Consulted Dr Moore Puljennifer, appreciate recs * Recomended Cessation of th lovenox, doppler us, place on BiPAP and suspects Pickwickian * BL LE US to r/o DVT: negative * BiPAP with settings of 15/10 with goal O2 of 88% * Slightly volume overloaded in ED, given Lasix x1 dose * BNP borderline elevated at 100 * Echo: EF 55-60%, moderate to severe left atrium dilation * Currently, net negative balance 2. Suspected Acute on Chronic respiratory acidosis with metabolic compensation VBG obtained at admission, pH 7.34, CO2 67.9 * Bicarb 39 unable to properly assess without ABG, but from VBG it looks like he is a chronic CO2 retainer 3. Aflutter Suspected 2/2 underlying lung disease with acute hypoxic respiratory failure * Placed on BiPAP and monitoring rate * Started Digoxin * Echo: EF 55-60%, moderate to severe left atrium dilation * Consulted Alphonso Bermudez, appreciate recs. * consider cardioversion with VIOLETTE, possibly on Monday * Repeat EKG this morning, due to patient receiving duonebs, steroids, and fluids * TSH: wnl * on Telemetry monitoring, rate has varied from 100s-130s in AFlutter 4. Suspected GERD epigastric burning pain, bloating, nausea * Likely unrelated to acute respiratory failure * On Pepcid BID 5. HTN BP stable in ED * Will monitor and add medications as warranted 6. DMII No current medications * A1C: 8.6% * Diabetic protocol with ACHS accuchecks * ASCVD: 5.6% * Starting Metformin 500 mg QHS, will increase dosing as tolerated 7. AMBERLY as well as suspected obesity hypoventilation syndrome BIPAP currently, will transition to CPAP at night, will need home use 8. Morbid obesity contributing to above problems, would likely benefit from OP bariatric surgery eval Code Status: Full Diet: NPO IVF: SL VTE: Lovenox [facility] Disposition/LOS: Stable, IMCU inpt. Continue digoxin. Cards & pulm consulted, appreciate recs. Anticipate discharge in <48 hours.
[2019-10-19] MEDS: HumaLOG 300 UNITS/3 ML VIAL SC PRN (06:25)
[2019-10-19] MEDS ORDERED: Metoprolol Tartrate 5 MG/5 ML VIAL IVP SCH (08:00)
[2019-10-19] MEDS: Aspirin 81 mg Enteric Coated Tablet PO SCH (08:28)
[2019-10-19] MEDS: Famotidine/PF 20 mg/2ml Vial SLOW IVP SCH ×2 (08:28→20:53)
[2019-10-19] MEDS: Famotidine 20 MG TAB PO SCH ×2 (08:28→20:52)
[2019-10-19] MEDS: metFORMIN 500 MG TAB PO SCH ×2 (08:29→20:52)
[2019-10-19] MEDS: Enoxaparin Sodium 120 MG/0.8 ML SYRINGE SC SCH ×2 (08:29→20:53)
[2019-10-19] MEDS: Enoxaparin Sodium 60 MG/0.6 ML SYRINGE SC SCH ×2 (08:29→20:52)
[2019-10-19] MEDS ORDERED: Digoxin 0.25 MG TAB PO SCH (09:00)
--- NOTE | 2019-10-19 09:11 | PRG ---
DATE OF SERVICE: 10/19/2019 SUBJECTIVE: Mr. Hughes is intermittently tachycardic. Some of the time, it looks like it is in sinus rhythm with PACs, some atrial fibrillation, some A flutter. OBJECTIVE: VITAL SIGNS: Blood pressure 150/80, pulse is variable as mentioned. LUNGS: Clear. CARDIAC: Irregular. ABDOMEN: Obese and nontender. EXTREMITIES: There is moderate chronic edema. ASSESSMENT: 1. Obesity hypoventilation with weight of 505 pounds. 2. Atrial arrhythmias. PLAN: 1. Rate control and anticoagulation. 2. Ultimately, he wishes to be considered for bariatric surgery. 3. 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 Ultimately, if he could lose some weight, he would benefit from atrial flutter ablation. Job ID: [id number]
[2019-10-19] MEDS: Metoprolol Tartrate 25 MG TAB PO SCH ×2 (09:23→20:54)
--- NOTE | 2019-10-19 11:57 | PRG ---
DATE OF SERVICE: 10/19/2019 SUBJECTIVE: The patient feels a little better today. He is having a headache. OBJECTIVE: VITAL SIGNS: His temperature is 97.2, pulse 111, blood pressure 147/71, O2 saturation 96% on 2 L. HEENT: Unremarkable. NECK: No JVD. LUNGS: Clear anteriorly. Some crackles at the bases posteriorly. CARDIAC: S1, S2. Regular. ABDOMEN: Soft. EXTREMITIES: Edematous. LABORATORY DATA: No labs were obtained today. ASSESSMENT: 1. This patient has obesity hypoventilation syndrome and sleep apnea. 2. Bronchitis. 3. Atrial flutter/atrial fibrillation. 4. Diabetes mellitus. PLAN: Most of his issues are chronic in nature. I do think he is a candidate for transfer out to the floor. Continue his own CPAP at night. He understands that he needs to lose a significant amount of weight. He may need home oxygen before discharge, that will need to be reassessed at that time. Job ID: [id number]
[2019-10-19] MEDS: Acetaminophen 325 MG TAB PO PRN ×2 (12:00→18:42)
[2019-10-19] MEDS: Atorvastatin Calcium 20 MG TAB PO SCH (20:52)
[2019-10-20] MEDS ORDERED: Ibuprofen 800 MG TAB PO SCH ×2 (04:00→15:30)
--- NOTE | 2019-10-20 06:03 | PDOC.FM ---
- Subjective Subjective: Patient states he is having some difficulty breathing this morning, also has cough and congestion. He has been using his CPAP overnight but has not been using supplemental oxygen this morning. With RT in room, O2 sat was checked and was initially 77%, patient placed back on 4L via N/C and breathing treatment with RT was initiated. Telemetry monitoring overnight showed predominantly AFlutter with avg rate in 110s bpm, is having some runs >120 bpm. - Objective MAR Reviewed: Yes Vital Signs & Weight: Vital Signs (12 hours) Temp Pulse Resp BP BP Pulse Ox 10/20/19 03:55 106 H 24 H 88 L 10/20/19 03:35 97.0 F L 18 184/99 H 95 10/20/19 00:00 84 136/104 H 10/19/19 19:45 94 L 10/19/19 18:31 98.3 F 111 H 20 139/94 H 92 L Weight Weight 229.064 kg Most Recent Monitor Data Heart Rate from ECG 84 NIBP 104/70 NIBP BP-Mean 81 Respiration from ECG 29 SpO2 84 I&O: 10/18/19 10/19/19 10/20/19 06:59 06:59 06:59 Intake Total 200 480 Output Total 900 1600 Balance -700 -1120 Result Diagrams: 10/18/19 03:25 10/18/19 03:25 Phys Exam - Physical Examination Constitutional: NAD morbidly obese HEENT: moist MMs Neck: no JVD, supple mild expiratory wheezing anteriorly, no rales or rhonchi noted Cardiovascular: no significant murmur tachycardic Gastrointestinal: soft, positive bowel sounds Musculoskeletal: pulses present Neurological: normal sensation, moves all 4 limbs Psychiatric: normal affect, A&O x 3 Skin: no rash Dx/Plan (1) Acute respiratory failure with hypoxia and hypercapnia Code(s): J96.01 - ACUTE RESPIRATORY FAILURE WITH HYPOXIA; J96.02 - ACUTE RESPIRATORY FAILURE WITH HYPERCAPNIA Status: Acute (2) Morbid obesity Code(s): E66.01 - MORBID (SEVERE) OBESITY DUE TO EXCESS CALORIES Status: Acute (3) AMBERLY (obstructive sleep apnea) Code(s): G47.33 - OBSTRUCTIVE SLEEP APNEA (ADULT) (PEDIATRIC) Status: Acute (4) Diabetes mellitus Code(s): E11.9 - TYPE 2 DIABETES MELLITUS WITHOUT COMPLICATIONS Status: Chronic Qualifiers: Diabetes mellitus type: type 2 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 1. Acute hypoxic and hypercapneic respiratory failure Pt tachypneic and tachycardic but Afebrile. * No focal consolidation on chest xray. * Exam and history with low suspicion for infectious etiology. * Initial concern for sepsis in ED, given fluid bolus, Azithro and Rocephin and Solumedrol. * Will discontinue abx at this time * Procal & Flu: Neg * Elevated D-dimer to 0.82 * Unable to obtain CTA 2/[address] bed unable to accommodate * Wells Score 6 * Concern in ED for PE, given Th Lovenox * Consulted Dr Moroe, Pulm, appreciate recs * Recomended doppler us, place on BiPAP and suspects Pickwickian * continue home CPAP, may require home O2 at discharge * Nebulizer treatments while awake * BL LE US to r/o DVT: negative * BiPAP with settings of 15/10 with goal O2 of 88%; CPAP use at night * Slightly volume overloaded in ED, given Lasix x1 dose * BNP borderline elevated at 100 * Echo: EF 55-60%, moderate to severe left atrium dilation * Currently, net negative balance 2. Suspected Acute on Chronic respiratory acidosis with metabolic compensation VBG obtained at admission, pH 7.34, CO2 67.9 * Bicarb 39 unable to properly assess without ABG, but from VBG it looks like he is a chronic CO2 retainer 3. Aflutter Suspected 2/2 underlying lung disease with acute hypoxic respiratory failure * Placed on BiPAP and monitoring rate * Started Digoxin--discontinued on 10/19 * Echo: EF 55-60%, moderate to severe left atrium dilation * Consulted Alphonso Bermudez, appreciate recs. * consider cardioversion with VIOLETTE, possibly on Monday * start Metoprolol and Cardizem, discontinue Digoxin * Repeat EKG this morning, due to patient receiving duonebs, steroids, and fluids * TSH: wnl * on Telemetry monitoring, rate has varied from 100s-130s in AFlutter vs periods of sinus tachycardia 4. Suspected GERD epigastric burning pain, bloating, nausea * Likely unrelated to acute respiratory failure * On Pepcid BID 5. HTN BP stable in ED * Will monitor and add medications as warranted 6. DMII No current medications * A1C: 8.6% * Diabetic protocol with ACHS accuchecks * ASCVD: 5.6% * Starting Metformin 500 mg QHS, will increase dosing as tolerated 7. AMBERLY as well as suspected obesity hypoventilation syndrome BIPAP currently, will transition to CPAP at night, will need home use 8. Morbid obesity contributing to above problems, would likely benefit from OP bariatric surgery eval Code Status: Full Diet: NPO IVF: SL VTE: Lovenox [facility] Disposition/LOS: Stable, admitted to inpatient on Telemetry unit. Cards & pulm consulted, appreciate recs. Anticipate discharge in <48 hours.
[2019-10-20] MEDS: Famotidine/PF 20 mg/2ml Vial SLOW IVP SCH ×2 (08:54→21:14)
[2019-10-20] MEDS: Metoprolol Tartrate 25 MG TAB PO SCH ×2 (08:58→21:14)
[2019-10-20] MEDS: Aspirin 81 mg Enteric Coated Tablet PO SCH (08:59)
[2019-10-20] MEDS: Famotidine 20 MG TAB PO SCH ×2 (08:59→21:13)
[2019-10-20] MEDS: metFORMIN 500 MG TAB PO SCH ×2 (08:59→21:13)
[2019-10-20] MEDS: Enoxaparin Sodium 120 MG/0.8 ML SYRINGE SC SCH ×2 (09:00→21:13)
[2019-10-20] MEDS: Enoxaparin Sodium 60 MG/0.6 ML SYRINGE SC SCH ×2 (09:00→21:13)
--- NOTE | 2019-10-20 11:27 | PDOC.CPN ---
- Subjective Date: 10/20/19 Time: 12:30 Interval history: Mr. Hughes is awake, sitting up on the side of the bed. "Had a rough night" per his report, did not sleep much. Had trouble with his CPAP, nebulizer orders , did not get some medications til 3 AM. He reports a cough, some congestion today. Denies chest pain or tightness. Feels SOB with movement. No overnight events on telemetry, remains AFlutter, rate 100-130. - Review of Systems General: reports: weight/appetite/sleep changes Respiratory: reports: cough, shortness of breath Cardiovascular: denies: chest pain, palpitation, edema, paroxysmal nocturnal dyspnea, orthopnea Gastrointestinal: denies: nausea, vomiting, diarrhea, constipation, abd pain, GI bleeding Musculoskeletal: denies: pain, tenderness, stiffness, swelling, arthritis/ arthralgias - Objective Allergies/Adverse Reactions: Allergies Allergy/AdvReac Type Severity Reaction Status Date / Time No Known Allergies Allergy Verified 10/18/19 01:23 Visit Medications: Current Medications Acetaminophen (Tylenol) 650 mg PO Q4H PRN PRN Reason: Headache/Fever/Mild Pain (1-3) Last Admin: 10/19/19 18:42 Dose: 650 mg Albuterol/Ipratropium (Duoneb) 3 ml NEB [id number] [facility] Last Admin: 10/20/19 03:55 Dose: 3 ml Aspirin (Ecotrin) 81 mg PO DAILY [facility] Last Admin: 10/20/19 08:59 Dose: 81 mg Atorvastatin Calcium (Lipitor) 20 mg PO HS [facility] Last Admin: 10/19/19 20:52 Dose: 20 mg Calcium Carbonate (Tums) 1,000 mg PO Q4H PRN PRN Reason: Heartburn or Indigestion Dextrose/Water (Dextrose 50%) 25 gm SLOW IVP PRN PRN PRN Reason: Hypoglycemia Diltiazem HCl (Cardizem Cd) 180 mg PO DAILY [facility] Last Admin: 10/20/19 08:59 Dose: 180 mg Enoxaparin Sodium (Lovenox) 120 mg SC 0900,2100 [facility] Last Admin: 10/20/19 09:00 Dose: 120 mg Enoxaparin Sodium (Lovenox) 60 mg SC 0900,2099 [facility] Last Admin: 10/20/19 09:00 Dose: 60 mg Famotidine (Pepcid) 20 mg PO BID [facility] Last Admin: 10/20/19 08:59 Dose: 20 mg Famotidine (Pepcid) 20 mg SLOW IVP Q12HR [facility] Last Admin: 10/20/19 08:54 Dose: Not Given Glucagon (Glucagon) 1 mg IM PRN PRN PRN Reason: Hypoglycemia Dextrose/Water (D5w) 1,000 mls @ 0 mls/hr IV .Q0M PRN PRN Reason: Hypoglycemia Insulin Human Lispro (Humalog) 0 units SC .MILD SLIDING SCALE PRN PRN Reason: Mild Correctional Scale Last Admin: 10/19/19 06:25 Dose: 2 units Insulin Human Lispro (Humalog) 0 units SC .BEDTIME SLIDING SC PRN PRN Reason: Bedtime Correctional Scale Metformin HCl (Glucophage) 500 mg PO BID [facility] Last Admin: 10/20/19 08:59 Dose: 500 mg Metoprolol Tartrate (Lopressor) 25 mg PO BID [facility] Last Admin: 10/20/19 08:58 Dose: 25 mg Ondansetron HCl (Zofran Odt) 4 mg PO Q6H PRN PRN Reason: Nausea/Vomiting Ondansetron HCl (Zofran) 4 mg IVP Q6H PRN PRN Reason: Nausea/Vomiting Sodium Chloride (Flush - Normal Saline) 10 ml IVF PRN PRN PRN Reason: Saline Flush Vital Signs & Weight: Vital Signs Temp Pulse Resp BP BP Pulse Ox 10/20/19 08:20 97.7 F 66 18 129/88 94 L 10/20/19 03:55 106 H 24 H 88 L 10/20/19 03:35 97.0 F L 18 184/99 H 95 10/20/19 00:00 84 136/104 H Weight 505 lb - CHADS-VASc Hypertension: 1 Diabetes mellitus: 1 Risk Score: 2 - Quality Measures Condition: Atrial Fibrillation/Flutter (hx or current) CV meds: Beta Merritt: Yes, CARMEN/ARB: No, Statin: Yes, ASA: Yes, Plavix/Effient/ Brilinta: No - Physical Exam General: alert & oriented x3, appears well, no apparent distress, other ( morbidly obese) HEENT: mucus membranes moist Neck: supple neck, no JVD/HJR, no bruit Cardiac: irregularly regular, tachycardia Lungs: normal breath sounds, no wheeze, rales, rhonchi Neuro: grossly intact Abdomen: active bowel sounds, soft (obese) Extremities: 1+ LE edema, other: (chronic venous stasis changes BLE) Skin: clear - Labs Result Diagrams: 10/18/19 03:25 10/18/19 03:25 Troponin/CKMB Troponin I Less than 0.010 ng/mL (< 0.028) 10/18/19 00:37 - Telemetry Supraventricular conduction: atrial flutter (80s-110s, up to 130 with ambulation ) - Assessment/Plan Assessment/Plan: 1. AFlutter/AFib 2. HTN 3. AMBERLY 4. Morbid Obesity Remains in AFlutter, rate 90-130. Plan is for OAC and rate control. Would benefit from AFlutter ablation, but currently exceeds weight limit. He is very motivated to lose weight, discussed dietary modification, increasing physical activity, outpatient referral for bariatric surgery.
[2019-10-20] MEDS: Acetaminophen 325 MG TAB PO PRN (14:41)
--- NOTE | 2019-10-20 15:42 | PRG ---
DATE OF SERVICE: 10/20/2019 SUBJECTIVE: Mr. Hughes is doing fine. He has questions about his cardiac status. OBJECTIVE: VITAL SIGNS: Temperature 98.0, pulse 84, respirations 18, O2 saturation 93% on 4 L, and blood pressure 120/88. HEENT: Unremarkable. NECK: No JVD. LUNGS: Clear, but distant breath sounds. CARDIAC: S1 and S2. Regular. ABDOMEN: Soft. EXTREMITIES: No edema. ASSESSMENT: 1. Morbid obesity. 2. Obstructive sleep apnea. 3. Atrial fibrillation/flutter. 4. Diabetes mellitus. PLAN: 1. Continue his own CPAP at night. Reassess oxygenation at time of discharge. 2. Further care of atrial fibrillation/flutter per Cardiology. Job ID: [id number]
--- NOTE | 2019-10-20 17:20 | PRG ---
DATE OF SERVICE: 10/19/2019 ADDENDUM: This is an addendum to the note of Dr. Mackenzie Pal. Mr. Hughes is sitting quietly in bed, in no distress. He had episodes of atrial fibrillation and flutter and has been seen in consultation by Dr. Sanchez. We appreciate his input. Because of the patient's body habitus, he is too large for flutter ablation. Dr. Sanchez recommends that we go with rate control and anticoagulation. This is being instituted. His blood pressure is back up, so now we can use diltiazem for rate control. In the event, Mr. Hughes is awake, alert, in no distress. He does have significant pulmonary hypertension from AMBERLY. Job ID: [id number]
--- NOTE | 2019-10-20 18:04 | PRG ---
DATE OF SERVICE: 10/20/2019 ADDENDUM: This is an addendum to the note of Dr. Mackenzie Pal. Mr. Hughes is still in atrial flutter with RVR around 110. We are adjusting his beta donna and calcium channel donna along with Dr. Sanchez. Job ID: [id number]
[2019-10-20] MEDS: Atorvastatin Calcium 20 MG TAB PO SCH (21:13)
[2019-10-21] MEDS: Ibuprofen 800 MG TAB PO PRN (02:08)
--- NOTE | 2019-10-21 05:50 | PDOC.FM ---
- Subjective Subjective: Patient doing well this morning. Reports that his breathing has improved with the cpap and oxygen during the day. Discussed that trying to organize for patient to have oxygen at home, patient agreeable with plan of care. Discussed that we are working with cardiology to maximize his treatment for aflutter, patient agreeable. - Objective Vital Signs & Weight: Vital Signs (12 hours) Temp Pulse Resp BP Pulse Ox 10/21/19 04:10 97.9 F 82 19 131/64 90 L 10/21/19 02:40 100 20 10/20/19 20:24 96 10/20/19 19:36 97.4 F L 103 H 20 135/96 H 96 10/20/19 19:04 74 16 94 L Weight Weight 229.064 kg Most Recent Monitor Data Heart Rate from ECG 84 NIBP 104/70 NIBP BP-Mean 81 Respiration from ECG 29 SpO2 84 I&O: 10/19/19 10/20/19 10/21/19 06:59 06:59 06:59 Intake Total 480 840 Output Total 1600 Balance -1120 840 Result Diagrams: 10/18/19 03:25 10/18/19 03:25 EKG Reviewed by me: Yes (aflutter, 80s-120s, high of 150s) Phys Exam - Physical Examination Constitutional: NAD HEENT: moist MMs, sclera anicteric Neck: supple, full ROM Respiratory: no wheezing, clear to auscultation bilateral Cardiovascular: no significant murmur, no rub tachycardic Gastrointestinal: soft, non-tender Musculoskeletal: pulses present Neurological: non-focal, moves all 4 limbs Psychiatric: normal affect, A&O x 3 Skin: normal turgor Deviation from normal: stasis dermatitis BLE Dx/Plan (1) Acute respiratory failure with hypoxia and hypercapnia Code(s): J96.01 - ACUTE RESPIRATORY FAILURE WITH HYPOXIA; J96.02 - ACUTE RESPIRATORY FAILURE WITH HYPERCAPNIA Status: Acute (2) GERD (gastroesophageal reflux disease) Code(s): K21.9 - GASTRO-ESOPHAGEAL REFLUX DISEASE WITHOUT ESOPHAGITIS Status: Chronic (3) Morbid obesity Code(s): E66.01 - MORBID (SEVERE) OBESITY DUE TO EXCESS CALORIES Status: Chronic (4) AMBERLY (obstructive sleep apnea) Code(s): G47.33 - OBSTRUCTIVE SLEEP APNEA (ADULT) (PEDIATRIC) Status: Chronic (5) Diabetes mellitus Code(s): E11.9 - TYPE 2 DIABETES MELLITUS WITHOUT COMPLICATIONS Status: Chronic Qualifiers: Diabetes mellitus type: type 2 Diabetes mellitus intermediate insulin use: 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 #Acute hypoxic and hypercapneic respiratory failure Pt tachypneic and tachycardic but Afebrile. -No focal consolidation on chest xray. -Exam and history with low suspicion for infectious etiology. -Initial concern for sepsis in ED, given fluid bolus, Azithro and Rocephin and Solumedrol. * Abx discontinued -Procal & Flu: Neg -Elevated D-dimer to 0.82 * Unable to obtain CTA 2/[address] bed unable to accommodate * Wells Score 6 * Concern in ED for PE, given Th Lovenox * Consulted Dr Moore Puljennifer, appreciate recs * Recommended doppler us, suspects Pickwickian * transitioned from BiPAP to home CPAP, will likely require home O2 at discharge; CM to help with this * Nebulizer treatments while awake * BL LE US to r/o DVT: negative * Slightly volume overloaded in ED, given Lasix x1 dose * BNP borderline elevated at 100 * Echo: EF 55-60%, moderate to severe left atrium dilation * Currently, net negative balance #Suspected Acute on Chronic respiratory acidosis with metabolic compensation VBG obtained at admission, pH 7.34, CO2 67.9 * Bicarb 39 * likely chronic CO2 retainer #Aflutter Suspected 2/2 underlying lung disease with acute hypoxic respiratory failure * Started Digoxin--discontinued on 10/19 * Echo: EF 55-60%, moderate to severe left atrium dilation * Consulted Alphonso Bermudez, appreciate recs. * consider cardioversion with VIOLETTE, patient is likely not candidate due to weight * started Metoprolol and Cardizem, continue * on therapeutic lovenox, will consider transition to eliquis if insurance covers it 2/2 necessity of requiring anticoagulation for aflutter * TSH: wnl * on Telemetry monitoring, rate has varied from 100s-130s in AFlutter vs periods of sinus tachycardia #Suspected GERD epigastric burning pain, bloating, nausea * Likely unrelated to acute respiratory failure * Pepcid BID #HTN BP stable * Will monitor and add medications as warranted #DMII No current medications * A1C: 8.6% * Diabetic protocol with ACHS accuchecks * ASCVD: 5.6% * Continue Metformin 500 mg BID, will increase dosing as tolerated #AMBERLY as well as suspected obesity hypoventilation syndrome -continue CPAP at night with O2 prn during the day, will need home use #Morbid obesity contributing to above problems, would likely benefit from OP bariatric surgery eval Code Status: Full Diet: CC IVF: SL VTE: Therapeutic Lovenox PCP: [facility] Disposition/LOS: Stable, admitted to inpatient on Telemetry unit. Cards & pulm consulted, appreciate recs. Possible transition to eliquis today insurance permitting Addendum - Attending - Attending Attestation Date/Time: 10/21/19 [id number] I personally evaluated the patient and discussed the management with Dr. Chappell I agree with the History, Examination, Assessment and Plan documented above with any addition or exceptions noted below. Patient with atrial fibrillation RX rate under CCB and BB adjustment. He is currently not candidate for cardioversion. Wiil convert to DOAC eliquis arrange home oxygen as well. 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 Patient should be evaluated for bariatric surgery as potential life saving prolonging procedure. Consider diamox in the future if Pulmonary agree as potential option for CO2 retention.
[2019-10-21] MEDS: Famotidine 20 MG TAB PO SCH ×2 (08:24→22:04)
[2019-10-21] MEDS: Aspirin 81 mg Enteric Coated Tablet PO SCH (08:24)
[2019-10-21] MEDS: Metoprolol Tartrate 25 MG TAB PO SCH (08:24)
[2019-10-21] MEDS: Famotidine/PF 20 mg/2ml Vial SLOW IVP SCH ×2 (08:24→22:05)
[2019-10-21] MEDS: Enoxaparin Sodium 60 MG/0.6 ML SYRINGE SC SCH (08:24)
[2019-10-21] MEDS: Enoxaparin Sodium 120 MG/0.8 ML SYRINGE SC SCH (08:24)
[2019-10-21] MEDS: metFORMIN 500 MG TAB PO SCH ×2 (08:24→22:05)
--- NOTE | 2019-10-21 08:59 | EKG ---
Test Reason : Blood Pressure : / mmHG Vent. Rate : 110 BPM Atrial Rate : 110 BPM P-R Int : 000 ms QRS Dur : 104 ms QT Int : 362 ms P-R-T Axes : 066 130 029 degrees QTc Int : 489 ms Atrial Flutter with variable A-V block Incomplete right bundle branch block Left posterior fascicular block Abnormal ECG Confirmed by MYRNA CHAVES ([id number]) on 10/21/2019 8:59:01 AM Referred By: TREMAINE Confirmed By:MYRNA CHAVES
--- NOTE | 2019-10-21 09:41 | PRG ---
DATE OF SERVICE: 10/21/2019 SUBJECTIVE: Mr. Hughes appears to be in atrial flutter the majority of the time. The rate is controlled at rest, but when he sits up, the rate goes to 130. The patient needs home oxygen as well. OBJECTIVE: LUNGS: Clear. CARDIAC: Irregular at times. Other times, tachycardic and regular. ABDOMEN: Obese and nontender. EXTREMITIES: Mild edema. ASSESSMENT: 1. Morbid obesity, weight of 505 pounds, BMI 64.8. 2. Atrial arrhythmias, mostly atrial flutter. PLAN: 1. We are trying to get home oxygen. 2. Increase beta-donna. 3. We will consult Electrophysiology. Ultimately, if the patient can lose some weight, he may be a candidate for atrial flutter ablation. Ultimately, we would like to consider him for bariatric surgery. Otherwise, the prognosis appears very poor in the next few years if he can maintain this weight. Job ID: [id number]
[2019-10-21] MEDS: Acetaminophen 325 MG TAB PO PRN (12:29)
--- NOTE | 2019-10-21 19:52 | PRG ---
DATE OF SERVICE: 10/21/2019 SUBJECTIVE: Mr. Hughes has no new complaints. OBJECTIVE: VITAL SIGNS: He is afebrile. Heart rate is in the 90s, respiratory rate is 20, oximetry is 96% on 4 L. His goal O2 saturation needs to be 88% to 92%, blood pressure 129/77. LUNGS: Clear. HEART: Regular rhythm. ABDOMEN: Soft. EXTREMITIES: Without asymmetry. Does have stasis changes. LABORATORY DATA: White count is 9.1, hemoglobin 16.7, platelets 180,000. Electrolytes have not been checked since the . IMPRESSION: 1. Life-threatening obesity. 2. Sleep apnea. 3. Bronchitis. 4. Obesity hypoventilation. 5. Diabetes, noncompliance with medication lately, seems more determined to be compliant. 6. His room air saturations are equal to or greater than 89%. Would not recommend sending him home with oxygen. We will follow. Job ID: [id number]
[2019-10-21] MEDS: Atorvastatin Calcium 20 MG TAB PO SCH (22:05)
[2019-10-21] MEDS: Apixaban 5 MG TAB PO SCH (22:05)
[2019-10-22 00:42] LABS: Hemoglobin 16.4 g/dL (14.0-18.0); Platelet Count 139 thou/uL (130-400)
--- NOTE | 2019-10-22 02:20 | CON ---
DATE OF CONSULTATION: 10/21/2019 HISTORY OF PRESENT ILLNESS: I am seeing Mr. 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 His problems are: 1. Newly found sustained atrial flutter. 2. Morbid obesity, currently 497 pounds. 3. History of hypertension. 4. Obstructive sleep apnea. 5. Hypoxia. 6. Preserved LVEF on 2D echo on 10/18/2019 at 55% with trace tricuspid regurgitation. ALLERGIES: NONE NOTED. MEDICATIONS: At home included none. SUBJECTIVE: Mr. Hughes was admitted on the to our facility with complaints of worsening dyspnea and PND. He denies fever or chills. He does have a dry cough. Some burning epigastric pain was noted. He had reduced oral intake loading, taking [place] for this. Past three days, he has limited mobility due to acute illness and hence he was hospitalized. In the ER, he was noted to be in acute respiratory distress and received IV antibiotics and Solu-Medrol. He was also noted to be in atrial flutter. 2D echo was obtained as above. Currently, he is comfortable in the bed. No PND or orthopnea at this time. Denies fever or chills. No chest pains. Rest of 12-point review of system otherwise unremarkable. PAST MEDICAL HISTORY: As above. Also, has history of hypertension and type 2 diabetes. SOCIAL HISTORY: The patient denies smoking, EtOH, or drug abuse. He is with two daughters. 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 FAMILY HISTORY: Significant for father with RA. No history of DVT. PAST SURGICAL HISTORY: Significant for umbilical hernia repair, appendectomy, right knee surgery, and left ankle surgery. OBJECTIVE DATA: VITAL SIGNS: Blood pressure is 129/77, heart rate 87, respiratory rate is 20, and temperature 97.5 degrees Fahrenheit. GENERAL: This is a morbidly obese man, in no apparent distress. NECK: Supple. Jugular veins not distended. CHEST: Coarse without crackles. HEART: Sounds are irregularly irregular. S1 and S2 variable. No murmur or gallop. ABDOMEN: Benign. Bowel sounds positive. EXTREMITIES: Lower extremity without edema, clubbing, or cyanosis. Pulses are adequate. NEUROLOGIC: The patient is nonfocal. MUSCULOSKELETAL: No joint swelling or deformity. SKIN: Without rash. DATABASE: EKG is reviewed, revealing an atrial flutter, rate of 120 beats per minute, variable AV conduction is seen. Atrial flutter appears to be typical isthmus dependent in morphology. LABORATORY DATA: White cell count is 9.1, hemoglobin 16.7, platelet count is 180. Sodium 140, potassium 4.6, BUN is 10, and creatinine 0.94. TSH 0.9975, in normal range. BMP is 100 on admission on the . Cardiac enzymes are negative x3. ASSESSMENT AND PLAN: Mr. Hughes is a 49-year-old man with history of morbid obesity, hypertension, diabetes, and sleep apnea, who is presenting with a newly found atrial flutter, which appears to be sustained and isthmus dependent in morphology. He is now on apixaban and also p.o. diltiazem with suction rate control. We discussed the mechanism of atrial flutter, potential treatment options. Restoring sinus rhythm would be a strong consideration for him, hence the ongoing symptoms. 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 We discussed the option of potential VIOLETTE guided cardioversion. Risks and benefits of this discussed. He will be scheduled for this. We also discussed potential ablation in the future either in our facility after significant weight loss or at an other facility in [place] or [place]. He prefers staying in [place]. We discussed the risk of stroke and the need for anticoagulation and potential need for antiarrhythmic agents, which could include Multaq or flecainide for rate control. He will likely need AV christo blocking agents as well. We will arrange for followup for this gentleman and we discussed with Dr. Sanchez about potential option for cardioversion. Job ID: [id number]
--- NOTE | 2019-10-22 05:46 | PDOC.FM ---
- Subjective Subjective: Patient doing well. Discussed plans for VIOLETTE and cardioversion today, patient agreeable. Denies any other complaints/concerns. - Objective Vital Signs & Weight: Vital Signs (12 hours) Temp Pulse Resp BP BP Pulse Ox 10/22/19 03:47 97.7 F 105 H 16 137/77 96 10/21/19 19:45 94 L 10/21/19 19:43 97.6 F 92 20 137/92 H 94 L 10/21/19 19:05 86 118 H 95 Weight Weight 225.798 kg Most Recent Monitor Data Heart Rate from ECG 84 NIBP 104/70 NIBP BP-Mean 81 Respiration from ECG 29 SpO2 84 I&O: 10/20/19 10/21/19 10/22/19 06:59 06:59 06:59 Intake Total 840 900 Balance 840 900 Result Diagrams: 10/22/19 00:36 10/18/19 03:25 EKG Reviewed by me: Yes (atrial flutter 90s-100s, max 130s) Phys Exam - Physical Examination Constitutional: NAD HEENT: moist MMs, sclera anicteric Neck: supple, full ROM Respiratory: no wheezing, clear to auscultation bilateral Cardiovascular: no significant murmur tachycardic Gastrointestinal: soft, non-tender Musculoskeletal: no edema, pulses present Neurological: non-focal, moves all 4 limbs Psychiatric: normal affect, A&O x 3 Skin: no rash, normal turgor Dx/Plan (1) Acute respiratory failure with hypoxia and hypercapnia Code(s): J96.01 - ACUTE RESPIRATORY FAILURE WITH HYPOXIA; J96.02 - ACUTE RESPIRATORY FAILURE WITH HYPERCAPNIA Status: Acute (2) GERD (gastroesophageal reflux disease) Code(s): K21.9 - GASTRO-ESOPHAGEAL REFLUX DISEASE WITHOUT ESOPHAGITIS Status: Chronic (3) Morbid obesity Code(s): E66.01 - MORBID (SEVERE) OBESITY DUE TO EXCESS CALORIES Status: Chronic (4) AMBERLY (obstructive sleep apnea) Code(s): G47.33 - OBSTRUCTIVE SLEEP APNEA (ADULT) (PEDIATRIC) Status: Chronic (5) Diabetes mellitus Code(s): E11.9 - TYPE 2 DIABETES MELLITUS WITHOUT COMPLICATIONS Status: Chronic Qualifiers: Diabetes mellitus type: type 2 Diabetes mellitus tank terminal gauger insulin use: unspecified nursing home insulin use status Diabetes mellitus complication status : with hyperglycemia Qualified Code(s): E11.65 - Type 2 diabetes mellitus with hyperglycemia (6) HTN (hypertension) Code(s): I10 - ESSENTIAL (PRIMARY) HYPERTENSION Status: Chronic Qualifiers: Hypertension type: essential hypertension Qualified Code(s): I10 - Essential (primary) hypertension - Plan Plan: Patient is a 49M with h/o HTN, DMII, and AMBERLY, noncompliant with tx admitted for acute hypoxic and hypercapneic respiratory failure. #Acute hypoxic and hypercapneic respiratory failure Pt tachypneic and tachycardic but Afebrile. -No focal consolidation on chest xray. -Exam and history with low suspicion for infectious etiology. -Initial concern for sepsis in ED, given fluid bolus, Azithro and Rocephin and Solumedrol. * Abx discontinued -Procal & Flu: Neg -Elevated D-dimer to 0.82 * Unable to obtain CTA 2/[address] bed unable to accommodate * Wells Score 6 * Concern in ED for PE, given Th Lovenox * Consulted Elizabeth Alvarez, appreciate recs * Recommended doppler us, suspects Pickwickian * transitioned from BiPAP to home CPAP, recommended against home O2 at discharge as he can maintain RA sats >89%; will consider walking trial * Nebulizer treatments while awake * BL LE US to r/o DVT: negative * Slightly volume overloaded in ED, given Lasix x1 dose * BNP borderline elevated at 100 * Echo: EF 55-60%, moderate to severe left atrium dilation * Currently, net negative balance #Suspected Acute on Chronic respiratory acidosis with metabolic compensation VBG obtained at admission, pH 7.34, CO2 67.9 * Bicarb 39 * likely chronic CO2 retainer #Aflutter Suspected 2/2 underlying lung disease with acute hypoxic respiratory failure * Started Digoxin--discontinued on 10/19 * Echo: EF 55-60%, moderate to severe left atrium dilation * Consulted Alphonso Bermudez, appreciate recs. * consider cardioversion with VIOLETTE, Dr. Michelle consulted on patient 10/21 and plans to perform this today * started Metoprolol and Cardizem, metoprolol dosage increased 10/21 which appears to have provided better rate control, continue * transitioned from therapeutic lovenox to eliquis on 10/21 * TSH: wnl * on Telemetry monitoring, rate has varied from 90s-100s with max in 130s in AFlutter #Suspected GERD epigastric burning pain, bloating, nausea * Likely unrelated to acute respiratory failure * Pepcid BID #HTN BP stable * Will monitor and add medications as warranted #DMII No current medications * A1C: 8.6% * Diabetic protocol with ACHS accuchecks * ASCVD: 5.6% * Continue Metformin 500 mg BID, will increase dosing as tolerated #AMBERLY as well as suspected obesity hypoventilation syndrome -continue CPAP at night with O2 prn during the day, will need home use #Morbid obesity contributing to above problems, would likely benefit from OP bariatric surgery eval Code Status: Full Diet: NPO IVF: SL VTE: Eliquis [facility] Disposition/LOS: Stable, admitted to inpatient on Telemetry unit. Cards, pulm, and EP consulted, appreciate recs. Plan for VIOLETTE with cardioversion today Addendum - Attending - Attending Attestation Date/Time: 10/22/19 7123 I personally evaluated the patient and discussed the management with Dr. Chappell I agree with the History, Examination, Assessment and Plan documented above with any addition or exceptions noted below. Patient for VIOLETTE cardioversion tomorrow at rest with oxygen at 4/L m will attempt to wean off daytime oxygen requirement. Goal keep oxygen saturation >88 % patient with known CO2 retainer.
[2019-10-22] MEDS: Famotidine 20 MG TAB PO SCH ×2 (08:44→21:18)
[2019-10-22] MEDS: metFORMIN 500 MG TAB PO SCH ×2 (08:45→21:18)
[2019-10-22] MEDS: Famotidine/PF 20 mg/2ml Vial SLOW IVP SCH ×2 (08:45→21:17)
[2019-10-22] MEDS: Apixaban 5 MG TAB PO SCH ×2 (08:45→21:18)
[2019-10-22] MEDS: Aspirin 81 mg Enteric Coated Tablet PO SCH (08:45)
--- NOTE | 2019-10-22 09:33 | PRG ---
DATE OF SERVICE: 10/22/2019 SUBJECTIVE: Mr. Hughes remains in atrial flutter. No chest pain or pressure. OBJECTIVE: VITAL SIGNS: Blood pressure 145/96 and pulse 116, it is regular. LUNGS: Clear. CARDIAC: Currently regular, but it is intermittently irregular. ABDOMEN: Obese and nontender. EXTREMITIES: No edema. ASSESSMENT: 1. Morbid obesity, 6 feet 2 inches, 493 pounds now, which is better than he came in. 2. 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 PLAN: 1. Transesophageal echo and cardioversion tomorrow. 2. 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 If he could lose another 30 pounds, he will be safe to proceed to a flutter ablation. 3. Subsequent to that, consideration for gastric sleeve surgery. Otherwise, the patient's prognosis long-term is very poor with this degree of obesity that is starting to affect the right side of his heart and also resulting in obesity hypoventilation, sleep apnea, and diabetes. Job ID: [id number]
--- NOTE | 2019-10-22 17:25 | PDOC.EP ---
- Subjective Date: 10/22/19 Time: 08:00 Interval History: follow up for atrial flutter. Feels fair today. no cardiac concerns today. - Review of Systems Constitutional: denies: chills, fever, malaise, sweats, weakness, other Respiratory: denies: cough, dry, hemoptysis, pleuritic pain, shortness of breath , SOB with excertion, sputum, wheezing, other Cardiology: denies: chest pain, edema, heart racing, light headedness, paroxysmal noc. dyspnea, orthopnea, palpitations, passing out, pleuritic pain, pressure, swelling, other Gastrointestinal: denies: abdominal pain, constipation, diarrhea, hematochezia, melena, nausea, vomitting, other - Objective Allergies/Adverse Reactions: Allergies Allergy/AdvReac Type Severity Reaction Status Date / Time No Known Allergies Allergy Verified 10/18/19 01:23 Current Medications Acetaminophen (Tylenol) 650 mg PO Q4H PRN PRN Reason: Headache/Fever/Mild Pain (1-3) Last Admin: 10/21/19 12:29 Dose: 650 mg Albuterol/Ipratropium (Duoneb) 3 ml NEB [id number] [facility] Last Admin: 10/22/19 14:35 Dose: 3 ml Apixaban (Eliquis) 5 mg PO BID [facility] Last Admin: 10/22/19 08:45 Dose: 5 mg Atorvastatin Calcium (Lipitor) 20 mg PO HS [facility] Last Admin: 10/21/19 22:05 Dose: 20 mg Calcium Carbonate (Tums) 1,000 mg PO Q4H PRN PRN Reason: Heartburn or Indigestion Dextrose/Water (Dextrose 50%) 25 gm SLOW IVP PRN PRN PRN Reason: Hypoglycemia Famotidine (Pepcid) 20 mg PO BID [facility] Last Admin: 10/22/19 08:44 Dose: 20 mg Famotidine (Pepcid) 20 mg SLOW IVP Q12HR [facility] Last Admin: 10/22/19 08:45 Dose: Not Given Glucagon (Glucagon) 1 mg IM PRN PRN PRN Reason: Hypoglycemia Dextrose/Water (D5w) 1,000 mls @ 0 mls/hr IV .Q0M PRN PRN Reason: Hypoglycemia Ibuprofen (Motrin) 800 mg PO Q6H PRN PRN Reason: Pain Last Admin: 10/21/19 02:08 Dose: 800 mg Insulin Human Lispro (Humalog) 0 units SC .MILD SLIDING SCALE PRN PRN Reason: Mild Correctional Scale Last Admin: 10/19/19 06:25 Dose: 2 units Insulin Human Lispro (Humalog) 0 units SC .BEDTIME SLIDING SC PRN PRN Reason: Bedtime Correctional Scale Metformin HCl (Glucophage) 500 mg PO BID [facility] Last Admin: 10/22/19 08:45 Dose: Not Given Metoprolol Succinate (Toprol Xl) 100 mg PO DAILY [facility] Last Admin: 10/22/19 08:45 Dose: 100 mg Ondansetron HCl (Zofran Odt) 4 mg PO Q6H PRN PRN Reason: Nausea/Vomiting Ondansetron HCl (Zofran) 4 mg IVP Q6H PRN PRN Reason: Nausea/Vomiting Sodium Chloride (Flush - Normal Saline) 10 ml IVF PRN PRN PRN Reason: Saline Flush Last Admin: 10/22/19 08:44 Dose: 10 ml Vital Signs & Weight: Vital Signs Temp Pulse Resp BP Pulse Ox 10/22/19 15:30 98.2 F 89 22 H 143/99 H 91 L 10/22/19 14:35 92 16 87 L 10/22/19 11:22 98.1 F 104 H 20 137/100 H 92 L 10/22/19 10:50 93 20 86 L 10/22/19 08:00 92 L 10/22/19 07:45 98.0 F 116 H 14 145/96 H 92 L 10/22/19 07:00 90 L 10/22/19 06:57 104 H 20 94 L Weight 493 lb 1.6 oz I/O: I/O 10/21/19 10/22/19 10/23/19 06:59 06:59 06:59 Intake Total 840 5048 Output Total 1300 Balance 840 748 - Quality Measures Condition: Atrial Fibrillation/Flutter (hx or current) CV meds: Eliquis: Yes - Physical Exam General: alert & oriented x3, appears well, no apparent distress, speech clear, affect appropriate HEENT: mucus membranes moist, normocephaly Neck: supple neck, midline trachea, no JVD/HJR, no masses, no bruit, no lymphadenopathy, no thromegaly Cardiology: no murmur. negative: regular rhythm Lungs: clear to auscultation, normal breath sounds, no wheeze, rales, rhonchi Neurology: cranial nerve 2-12 intact, sensory function intact, no lateralizing findings - Chadsvasc Risk factors Hypertension: 1 Diabetes mellitus: 1 Risk Score: 2 - Labs Result Diagrams: 10/22/19 00:36 10/18/19 03:25 - EKG Interpretation EKG shows: Typical atrial flutter - Assessment/Plan Assessment/Plan: 1. Atrial flutter - likely typical - plan for VIOLETTE guided CV conversion tomorrow with cardiology 2. CHADS2-VASC: </=2 HTN, DM - starting NOAC 2 PM 3. Morbid obesity - exceed CCL/EP lab table limit of 450lb. Consider ablation after weight loss 4. HTN 5. DM VIOLETTE/CV tomorrow with cardiology. On eliquis. Consider starting flecainide or multaq if symptomatic AF recurrence is seen.
--- NOTE | 2019-10-22 18:47 | PRG ---
DATE OF SERVICE: 10/22/2019 SUBJECTIVE: Sigifredo Hughes was evaluated. He was sleeping in a chair without his CPAP. His was asleep on the couch this afternoon. He is very nice and supportive. OBJECTIVE: VITAL SIGNS: He is afebrile. Heart rates in the 80s, respiratory rate is 22, oximetry is 91% on cannula, blood pressure 143/99. LUNGS: Clear. HEART: Regular rhythm. ABDOMEN: Soft. IMPRESSION AND PLAN: 1. Sleep apnea, marginally compliant with malfunctioning mask leading up to this admission. 2. Atrial flutter, being followed by Cardiology. 3. Morbid obesity with fluid retention as expected, which is improving. He is tentatively on the schedule for transesophageal echo and cardioversion tomorrow, too big for flutter ablation. When he gets to an acceptable weight, gastric sleeve would be life changing for him. He has gained 50 pounds since he was last seen by me. He probably would benefit from another CPAP titration at some point. Job ID: [id number]
[2019-10-22] MEDS: Atorvastatin Calcium 20 MG TAB PO SCH (21:18)
[2019-10-23 04:39] LABS: Calc. Creatinine Clearance 372 mL/min (70-130); Estimated GFR-MDRD Greater than 90
[2019-10-23 05:05] LABS: Hemoglobin 16.1 g/dL (14.0-18.0); Platelet Count 119 thou/uL (130-400)
--- NOTE | 2019-10-23 05:23 | PDOC.FM ---
- Subjective Subjective: Patient doing well this morning. Discussed plans for VIOLETTE/Cardioversion today, patient agreeable. Patient appears motivated to loose weight at this time. - Objective Vital Signs & Weight: Vital Signs (12 hours) Temp Pulse Resp BP BP Pulse Ox 10/23/19 04:00 97.1 F L 104 H 18 143/77 H 92 L 10/23/19 00:00 139/79 92 L 10/22/19 20:15 97.8 F 93 18 137/64 94 L 10/22/19 18:29 98 16 89 L Weight Weight 223.666 kg Most Recent Monitor Data Heart Rate from ECG 84 NIBP 104/70 NIBP BP-Mean 81 Respiration from ECG 29 SpO2 84 I&O: 10/21/19 10/22/19 10/23/19 06:59 06:59 06:59 Intake Total 840 2048 960 Output Total 1300 1400 Balance 840 931 -440 Result Diagrams: 10/23/19 03:49 10/23/19 03:49 EKG Reviewed by me: Yes (aflutter, 80s-100s; max 150s when walking) Phys Exam - Physical Examination Constitutional: NAD HEENT: moist MMs, sclera anicteric Neck: supple, full ROM Respiratory: no wheezing, clear to auscultation bilateral Cardiovascular: no significant murmur irregular rhythm Gastrointestinal: soft, positive bowel sounds Musculoskeletal: pulses present trace BLE edema Neurological: non-focal, moves all 4 limbs Psychiatric: normal affect, A&O x 3 Skin: normal turgor Deviation from normal: stasis dermatitis BLE Dx/Plan (1) Acute respiratory failure with hypoxia and hypercapnia Code(s): J96.01 - ACUTE RESPIRATORY FAILURE WITH HYPOXIA; J96.02 - ACUTE RESPIRATORY FAILURE WITH HYPERCAPNIA Status: Acute (2) GERD (gastroesophageal reflux disease) Code(s): K21.9 - GASTRO-ESOPHAGEAL REFLUX DISEASE WITHOUT ESOPHAGITIS Status: Chronic (3) Morbid obesity Code(s): E66.01 - MORBID (SEVERE) OBESITY DUE TO EXCESS CALORIES Status: Chronic (4) AMBERLY (obstructive sleep apnea) Code(s): G47.33 - OBSTRUCTIVE SLEEP APNEA (ADULT) (PEDIATRIC) Status: Chronic (5) Diabetes mellitus Code(s): E11.9 - TYPE 2 DIABETES MELLITUS WITHOUT COMPLICATIONS Status: Chronic Qualifiers: Diabetes mellitus type: type 2 Diabetes mellitus medical terminologist insulin use: unspecified medical terminologist insulin use status Diabetes mellitus complication status : with hyperglycemia Qualified Code(s): E11.65 - Type 2 diabetes mellitus with hyperglycemia (6) HTN (hypertension) Code(s): I10 - ESSENTIAL (PRIMARY) HYPERTENSION Status: Chronic Qualifiers: Hypertension type: essential hypertension Qualified Code(s): I10 - Essential (primary) hypertension - Plan Plan: Patient is a 49M with h/o HTN, DMII, and AMBERLY, noncompliant with tx admitted for acute hypoxic and hypercapneic respiratory failure. #Acute hypoxic and hypercapneic respiratory failure -Pt tachypneic and tachycardic but Afebrile on admission -No focal consolidation on chest xray. -Exam and history with low suspicion for infectious etiology. -Initial concern for sepsis in ED, given fluid bolus, Azithro and Rocephin and Solumedrol. * Abx discontinued -Procal & Flu: Neg -Elevated D-dimer to 0.82 * Unable to obtain CTA 2/[address] bed unable to accommodate * Wells Score 6 * Concern in ED for PE, given Th Lovenox * Consulted Elizabeth Alvarez, appreciate recs * Recommended doppler us, suspects Pickwickian * transitioned from BiPAP to home CPAP, recommended against home O2 at discharge as he can maintain RA sats >89%; * O2 titration/walking trial: per nursing patient would sat 85% on RA while sitting but would be able to maintain oxygenation ~88% while walking on RA * Nebulizer treatments while awake * Goal O2 is ~88% * BLE US to r/o DVT: negative * Slightly volume overloaded in ED, given Lasix x1 dose * BNP borderline elevated at 100 * Echo: EF 55-60%, moderate to severe left atrium dilation * Currently, net negative balance #Suspected Acute on Chronic respiratory acidosis with metabolic compensation VBG obtained at admission, pH 7.34, CO2 67.9 * Bicarb 39 * likely chronic CO2 retainer #Aflutter Suspected 2/2 underlying lung disease with acute hypoxic respiratory failure * Started Digoxin--discontinued on 10/19 * Echo: EF 55-60%, moderate to severe left atrium dilation * Consulted Alphonso Bermudez, appreciate recs. * consider cardioversion with VIOLETTE, Dr. Michelle consulted on patient 10/21 and plans to perform this today 10/23 * started Metoprolol and Cardizem, metoprolol dosage increased 10/21 which appears to have provided better rate control, continue * transitioned from therapeutic lovenox to eliquis on 10/21, continue * TSH: wnl * on Telemetry monitoring, rate has varied from 90s-100s with max in 130s in AFlutter #Suspected GERD epigastric burning pain, bloating, nausea * Likely unrelated to acute respiratory failure * Pepcid BID #HTN BP stable * Will monitor and add medications as warranted #DMII No current medications * A1C: 8.6% * Diabetic protocol with ACHS accuchecks * ASCVD: 5.6% * Continue Metformin 500 mg BID, will increase dosing as tolerated #AMBERLY as well as suspected obesity hypoventilation syndrome -continue CPAP at night with O2 prn during the day, will need home use #Morbid obesity contributing to above problems, would likely benefit from OP bariatric surgery eval Code Status: Full Diet: NPO IVF: SL VTE: Eliquis [facility] Disposition/LOS: Stable, admitted to inpatient on Telemetry unit. Cards, pulm, and EP consulted, appreciate recs. Plan for VIOLETTE with cardioversion today 10/23 Addendum - Attending - Attending Attestation Date/Time: 10/23/19 1230 I personally evaluated the patient and discussed the management with Dr. Chappell I agree with the History, Examination, Assessment and Plan documented above with any addition or exceptions noted below. Patient for VIOLETTE today O2 sat improved with ambulation will attempt to wean to room air doing daytime.
[2019-10-23] MEDS: Famotidine/PF 20 mg/2ml Vial SLOW IVP SCH ×2 (08:43→21:36)
[2019-10-23] MEDS: Famotidine 20 MG TAB PO SCH ×2 (08:44→21:36)
[2019-10-23] MEDS: metFORMIN 500 MG TAB PO SCH ×2 (08:45→21:36)
[2019-10-23] MEDS: Apixaban 5 MG TAB PO SCH ×2 (08:55→21:36)
[2019-10-23] MEDS ORDERED: PROPOFOL 200 MG/20 ML VIAL ONE (10:09)
--- NOTE | 2019-10-23 11:05 | PDOC.EP ---
- Subjective Date: 10/23/19 Time: 08:00 Interval History: NPO for VIOLETTE/Cv later today. remains on AF with variable rates. Feels fairly well overall. No cardiac complaints but eager to go for procedure today - Review of Systems Constitutional: denies: chills, fever, malaise, sweats, weakness, other Respiratory: denies: cough, dry, hemoptysis, pleuritic pain, shortness of breath , SOB with excertion, sputum, wheezing, other Cardiology: reports: heart racing, palpitations. denies: chest pain, edema, light headedness Gastrointestinal: reports: abdominal pain, constipation, diarrhea - Objective Allergies/Adverse Reactions: Allergies Allergy/AdvReac Type Severity Reaction Status Date / Time No Known Allergies Allergy Verified 10/18/19 01:23 Current Medications Acetaminophen (Tylenol) 650 mg PO Q4H PRN PRN Reason: Headache/Fever/Mild Pain (1-3) Last Admin: 10/21/19 12:29 Dose: 650 mg Albuterol/Ipratropium (Duoneb) 3 ml NEB [id number] [facility] Last Admin: 10/23/19 10:57 Dose: 3 ml Apixaban (Eliquis) 5 mg PO BID [facility] Last Admin: 10/22/19 21:18 Dose: 5 mg Atorvastatin Calcium (Lipitor) 20 mg PO HS [facility] Last Admin: 10/22/19 21:18 Dose: 20 mg Calcium Carbonate (Tums) 1,000 mg PO Q4H PRN PRN Reason: Heartburn or Indigestion Dextrose/Water (Dextrose 50%) 25 gm SLOW IVP PRN PRN PRN Reason: Hypoglycemia Famotidine (Pepcid) 20 mg PO BID [facility] Last Admin: 10/23/19 08:44 Dose: Not Given Famotidine (Pepcid) 20 mg SLOW IVP Q12HR [facility] Last Admin: 10/23/19 08:43 Dose: 20 mg Glucagon (Glucagon) 1 mg IM PRN PRN PRN Reason: Hypoglycemia Dextrose/Water (D5w) 1,000 mls @ 0 mls/hr IV .Q0M PRN PRN Reason: Hypoglycemia Ibuprofen (Motrin) 800 mg PO Q6H PRN PRN Reason: Pain Last Admin: 10/21/19 02:08 Dose: 800 mg Insulin Human Lispro (Humalog) 0 units SC .MILD SLIDING SCALE PRN PRN Reason: Mild Correctional Scale Last Admin: 10/19/19 06:25 Dose: 2 units Insulin Human Lispro (Humalog) 0 units SC .BEDTIME SLIDING SC PRN PRN Reason: Bedtime Correctional Scale Metformin HCl (Glucophage) 500 mg PO BID [facility] Last Admin: 10/23/19 08:45 Dose: Not Given Metoprolol Succinate (Toprol Xl) 100 mg PO DAILY [facility] Last Admin: 10/23/19 08:43 Dose: 100 mg Ondansetron HCl (Zofran Odt) 4 mg PO Q6H PRN PRN Reason: Nausea/Vomiting Ondansetron HCl (Zofran) 4 mg IVP Q6H PRN PRN Reason: Nausea/Vomiting Sodium Chloride (Flush - Normal Saline) 10 ml IVF PRN PRN PRN Reason: Saline Flush Last Admin: 10/22/19 08:44 Dose: 10 ml Vital Signs & Weight: Vital Signs Temp Pulse Resp BP BP Pulse Ox 10/23/19 10:57 97 15 100 10/23/19 08:49 82 18 94 L 10/23/19 08:30 98.2 F 104 H 16 180/103 H 95 10/23/19 04:00 97.1 F L 104 H 18 143/77 H 92 L 10/23/19 00:00 139/79 92 L Weight 488 lb 8 oz I/O: I/O 10/22/19 10/23/19 10/24/19 06:59 06:59 06:59 Intake Total 8431 1534 Output Total 6657 2900 Balance 743 -5880 - Quality Measures Condition: Atrial Fibrillation/Flutter (hx or current) CV meds: Eliquis: Yes - Physical Exam General: alert & oriented x3, appears well, no apparent distress, speech clear, affect appropriate HEENT: mucus membranes moist, normocephaly Neck: supple neck, midline trachea, no JVD/HJR, no masses, no bruit, no lymphadenopathy, no thromegaly Cardiology: PMI nondisplaced. negative: regular rate, regular rhythm Lungs: clear to auscultation, no wheeze, rales, rhonchi Neurology: cranial nerve 2-12 intact, sensory function intact, no lateralizing findings - Labs Result Diagrams: 10/23/19 03:49 10/23/19 03:49 - Assessment/Plan Assessment/Plan: 1. Atrial flutter - possibly typical - plan for VIOLETTE guided CV conversion tomorrow with cardiology 2. CHADS2-VASC: </=2 HTN, DM - starting Eliquis 5mg BID PM 3. Morbid obesity - exceed CCL/EP lab table limit of 450lb. Consider ablation after 40lb weight loss 4. HTN 5. DM VIOLETTE/CV today with cardiology. On eliquis. Consider starting flecainide or multaq if symptomatic AF recurrence is seen. Weight loss is necessary before any ablative therapy options can be considered locally.
--- NOTE | 2019-10-23 11:50 | PQF ---
DATE: 10-23-19 ATTN: DR. JEWEL ALEXIS Please exercise your independent, professional judgment in responding to the clarification form. Clinical indicators are provided on the bottom of this form for your review Please check appropriate box(s) to clarify if the following diagnosis has been ruled in or ruled out: PNEUMONIA [ ] Ruled in diagnosis [ ] Continue to treat [ ] Resolved [x] Ruled out diagnosis [ ] Other diagnosis [ ] Unable to determine In addition, please specify: Present on Admission (POA): [ ] Yes [ ] No [ ] Unable to determine For continuity of documentation, please document condition throughout progress notes and discharge summary. Thank You. CLINICAL INDICATORS - SIGNS / SYMPTOMS / LABS / RESULTS AND LOCATION IN MR: ER DX 10-17-19: PNEUMONIA, HYPOXIA H&P 10-17-19: ACUTE RESPIRATORY FAILURE WITH HYPOXIA AND HYPERCAPNIA, INITIAL CONCERN FOR SEPSIS IN ED, EXAM AND HISTORY WITH LOW SUSPICION FOR INFECTIOUS ETIOLOGY. WILL DISCONTINUE ABX AT THIS TIME. CXR 10-17-19: THE LUNGS ARE EXPANDED W/O LOBAR CONSOLIDATION, PNEUMOTHORACES, KIERSTEN PULMONARY EDEMA OR LARGE EFFUSIONS. RT ASSESSMENTS 10-18-19 TO 10-23-19: 4 L/NC, BIPAP RISK FACTORS / RESULTS AND LOCATION IN MR: ER NOTES 10-17-19: SOB, MORBID OBESITY, PAST ADMISSION FOR PNEUMONIA ONE YEAR AGO, PRESENTING FOR SON AND WORSENING COUGH OVER THE PAST WEEK TREATMENTS / RESULTS AND LOCATION IN MR: ER NOTES 10-17-19: AZITHROMYCIN IV, METHYLPREDNISOLONE SODIUM IV, ROCEPHIN IV, NS IVF ER NOTE 10-17-19: 4L NC (This form is maintained as a part of the permanent medical record) 2014 [email or web address]. All Rights Reserved CHAPINCITO [email or web address] Office: [phone] [facility]
[2019-10-23] MEDS ORDERED: Ketamine 50 MG/ML (10ML VIAL) ONE (12:31)
--- NOTE | 2019-10-23 14:01 | OP ---
DATE OF PROCEDURE: 10/23/2019 PROCEDURE PERFORMED: Transesophageal echocardiogram. INDICATION: A 49-year-old gentleman with typical atrial flutter. DESCRIPTION OF PROCEDURE: The patient was taken to the PACU. The patient was sedated by Anesthesiology. A transesophageal probe was placed into the distal esophagus and stomach. Echocardiographic images were obtained. The transesophageal probe was removed. FINDINGS: 1. [id number] decrease in left ventricular systolic function. 2. Biatrial enlargement. 3. Normal mitral and aortic valve. 4. Mild mitral regurgitation. 5. Mild tricuspid regurgitation. 6. No thrombus is noted in the left atrium and left atrial appendage. 7. Atherosclerotic debris in the descending aorta. IMPRESSION: No formed thrombus in the left atrium and left atrial appendage. Job ID: [id number]
[2019-10-23] MEDS: Acetaminophen 325 MG TAB PO PRN ×2 (17:09→21:35)
--- NOTE | 2019-10-23 20:06 | OP ---
DATE OF PROCEDURE: 10/23/19 SURGEON: William Sanchez M.D. INDICATIONS: Persistent atrial flutter. PROCEDURE: Cardioversion The patient is brought to the Post Cath area in the fasting state. Underwent transesophageal echo whi ch revealed no evidence of any intracardiac thrombi. He is extremely large and therefore, he was give n 200 joules of synchronized direct current energy and converted to sinus rhythm. CONCLUSIONS: Successful cardioversion.
[2019-10-23] MEDS: Atorvastatin Calcium 20 MG TAB PO SCH (21:36)
[2019-10-24] MEDS: Ibuprofen 800 MG TAB PO PRN ×2 (00:22→08:03)
--- NOTE | 2019-10-24 05:11 | PDOC.FM ---
- Subjective Subjective: Patient doing well this morning. Procedure went well yesterday. Discussed that he will likely be discharged home today, with f/u in the outpatient setting for bariatric surgery and cardiac monitoring. Patient agreeable with plan of care. - Objective Vital Signs & Weight: Vital Signs (12 hours) Temp Pulse Resp BP Pulse Ox 10/23/19 19:26 98.0 F 90 21 H 121/79 92 L 10/23/19 19:04 88 16 95 Weight Weight 221.58 kg Most Recent Monitor Data Heart Rate from ECG 84 NIBP 104/70 NIBP BP-Mean 81 Respiration from ECG 29 SpO2 84 I&O: 10/22/19 10/23/19 10/24/19 06:59 06:59 06:59 Intake Total 2048 1534 480 Output Total 1300 2900 1100 Balance 073 -3587 -461 Result Diagrams: 10/23/19 03:49 10/23/19 03:49 EKG Reviewed by me: Yes (sinus 80s-120s; aflutter periodically overnight) Phys Exam - Physical Examination Constitutional: NAD HEENT: moist MMs, sclera anicteric Neck: supple, full ROM Respiratory: no wheezing, clear to auscultation bilateral Cardiovascular: RRR, no significant murmur Gastrointestinal: soft, non-tender Musculoskeletal: pulses present trace edema Neurological: normal sensation, moves all 4 limbs Psychiatric: normal affect, A&O x 3 Skin: normal turgor Deviation from normal: stasis dermatitis BLE Dx/Plan (1) Acute respiratory failure with hypoxia and hypercapnia Code(s): J96.01 - ACUTE RESPIRATORY FAILURE WITH HYPOXIA; J96.02 - ACUTE RESPIRATORY FAILURE WITH HYPERCAPNIA Status: Acute (2) GERD (gastroesophageal reflux disease) Code(s): K21.9 - GASTRO-ESOPHAGEAL REFLUX DISEASE WITHOUT ESOPHAGITIS Status: Chronic (3) Morbid obesity Code(s): E66.01 - MORBID (SEVERE) OBESITY DUE TO EXCESS CALORIES Status: Chronic (4) AMBERLY (obstructive sleep apnea) Code(s): G47.33 - OBSTRUCTIVE SLEEP APNEA (ADULT) (PEDIATRIC) Status: Chronic (5) Diabetes mellitus Code(s): E11.9 - TYPE 2 DIABETES MELLITUS WITHOUT COMPLICATIONS Status: Chronic Qualifiers: Diabetes mellitus type: type 2 Diabetes mellitus assisted insulin use: unspecified 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 #Acute hypoxic and hypercapneic respiratory failure -Pt tachypneic and tachycardic but Afebrile on admission -No focal consolidation on chest xray. -Exam and history with low suspicion for infectious etiology. -Initial concern for sepsis in ED, given fluid bolus, Azithro and Rocephin and Solumedrol. * Abx discontinued -Procal & Flu: Neg -Elevated D-dimer to 0.82 * Unable to obtain CTA 2/[address] bed unable to accommodate * Wells Score 6 * Concern in ED for PE, given Th Lovenox * Consulted Elizabeth Alvarez, appreciate recs * Recommended doppler us, suspects Pickwickian * transitioned from BiPAP to home CPAP, recommended against home O2 at discharge as he can maintain RA sats >89% * O2 titration/walking trial: per nursing patient would sat 85% on RA while sitting but would be able to maintain oxygenation ~88% while walking on RA * Nebulizer treatments while awake * Goal O2 is ~88% * BLE US to r/o DVT: negative * Slightly volume overloaded in ED, given Lasix x1 dose * BNP borderline elevated at 100 * Echo: EF 55-60%, moderate to severe left atrium dilation * Currently, net negative balance #Suspected Acute on Chronic respiratory acidosis with metabolic compensation VBG obtained at admission, pH 7.34, CO2 67.9 * Bicarb 39 * likely chronic CO2 retainer #Aflutter, resolved Suspected 2/2 underlying lung disease with acute hypoxic respiratory failure * Started Digoxin--discontinued on 10/19 * Echo: EF 55-60%, moderate to severe left atrium dilation * Consulted Alphonso Bermudez, appreciate recs. * successful cardioversion with VIOLETTE 10/23; largely sinus rhythm overnight though did have periods of aflutter * started Metoprolol and Cardizem, metoprolol dosage increased 10/21 which appears to have provided better rate control, continue * transitioned from therapeutic lovenox to eliquis on 10/21, continue * TSH: wnl * on Telemetry monitoring #Suspected GERD epigastric burning pain, bloating, nausea * Likely unrelated to acute respiratory failure * Pepcid BID #HTN BP stable * Will monitor and add medications as warranted #DMII No current medications * A1C: 8.6% * Diabetic protocol with ACHS accuchecks * ASCVD: 5.6% * Continue Metformin 500 mg BID, will increase dosing as tolerated #AMBERLY as well as suspected obesity hypoventilation syndrome -continue CPAP at night with O2 prn during the day, will need home use #Morbid obesity contributing to above problems, would likely benefit from OP bariatric surgery eval Code Status: Full Diet: CC/HH IVF: SL VTE: Eliquis PCP: [facility] Disposition/LOS: Stable, admitted to inpatient on Telemetry unit. Cards, pulm, and EP consulted, appreciate recs. VIOLETTE with cardioversion successful 10/24. Likely d/c later today Addendum - Attending - Attending Attestation Date/Time: 10/24/19 1420 I personally evaluated the patient and discussed the management with Dr. Chappell I agree with the History, Examination, Assessment and Plan documented above with any addition or exceptions noted below.Patient doing well HR controlled is in and out NSR s/p cardioversion yesterday. Patient cleared for dismissal to home with close outpatient f/u. Patient currently motivated to continue to lose weight and desires bariatric surgery as available.
[2019-10-24] MEDS: Acetaminophen 325 MG TAB PO PRN (08:04)
[2019-10-24] MEDS: Famotidine 20 MG TAB PO SCH (08:04)
[2019-10-24] MEDS: metFORMIN 500 MG TAB PO SCH (08:04)
[2019-10-24] MEDS: Famotidine/PF 20 mg/2ml Vial SLOW IVP SCH (08:04)
[2019-10-24] MEDS: Apixaban 5 MG TAB PO SCH (08:04)
[2019-10-24 13:31] VITALS: BP 155/93; TEMP 97.5
--- NOTE | 2019-10-24 17:14 | PDOC.EP ---
- Subjective Date: 10/24/19 Time: 09:00 Interval History: A Flutter follow up. Feels well today. No cardiac complaints. - Review of Systems Constitutional: denies: chills, fever, malaise, sweats, weakness, other Respiratory: denies: cough, dry, hemoptysis, pleuritic pain, shortness of breath , SOB with excertion, sputum, wheezing, other Cardiology: denies: chest pain, edema, heart racing, light headedness, paroxysmal noc. dyspnea, orthopnea, palpitations, passing out, pleuritic pain, pressure, swelling, other Gastrointestinal: denies: abdominal pain, constipation, diarrhea, hematochezia, melena, nausea, vomitting, other - Objective Allergies/Adverse Reactions: Allergies Allergy/AdvReac Type Severity Reaction Status Date / Time No Known Allergies Allergy Verified 10/18/19 01:23 Current Medications Acetaminophen (Tylenol) 650 mg PO Q4H PRN PRN Reason: Headache/Fever/Mild Pain (1-3) Last Admin: 10/24/19 08:04 Dose: 650 mg Albuterol/Ipratropium (Duoneb) 3 ml NEB [id number] [facility] Last Admin: 10/24/19 14:32 Dose: 3 ml Apixaban (Eliquis) 5 mg PO BID [facility] Last Admin: 10/24/19 08:04 Dose: 5 mg Atorvastatin Calcium (Lipitor) 20 mg PO HS [facility] Last Admin: 10/23/19 21:36 Dose: 20 mg Calcium Carbonate (Tums) 1,000 mg PO Q4H PRN PRN Reason: Heartburn or Indigestion Dextrose/Water (Dextrose 50%) 25 gm SLOW IVP PRN PRN PRN Reason: Hypoglycemia Diltiazem HCl (Cardizem Cd) 180 mg PO DAILY [facility] Famotidine (Pepcid) 20 mg PO BID [facility] Last Admin: 10/24/19 08:04 Dose: 20 mg Famotidine (Pepcid) 20 mg SLOW IVP Q12HR [facility] Last Admin: 10/24/19 08:04 Dose: Not Given Glucagon (Glucagon) 1 mg IM PRN PRN PRN Reason: Hypoglycemia Dextrose/Water (D5w) 1,000 mls @ 0 mls/hr IV .Q0M PRN PRN Reason: Hypoglycemia Ibuprofen (Motrin) 800 mg PO Q6H PRN PRN Reason: Pain Last Admin: 10/24/19 08:03 Dose: 800 mg Insulin Human Lispro (Humalog) 0 units SC .MILD SLIDING SCALE PRN PRN Reason: Mild Correctional Scale Last Admin: 10/19/19 06:25 Dose: 2 units Insulin Human Lispro (Humalog) 0 units SC .BEDTIME SLIDING SC PRN PRN Reason: Bedtime Correctional Scale Metformin HCl (Glucophage) 500 mg PO BID [facility] Last Admin: 10/24/19 08:04 Dose: 500 mg Metoprolol Succinate (Toprol Xl) 100 mg PO DAILY [facility] Last Admin: 10/24/19 08:04 Dose: 100 mg Ondansetron HCl (Zofran Odt) 4 mg PO Q6H PRN PRN Reason: Nausea/Vomiting Ondansetron HCl (Zofran) 4 mg IVP Q6H PRN PRN Reason: Nausea/Vomiting Sodium Chloride (Flush - Normal Saline) 10 ml IVF PRN PRN PRN Reason: Saline Flush Last Admin: 10/23/19 21:39 Dose: 10 ml Vital Signs & Weight: Vital Signs Temp Pulse Pulse Pulse Pulse Resp BP 10/24/19 14:32 104 H 14 10/24/19 12:00 97.5 F L 96 20 10/24/19 11:13 101 H 99 84 142/96 H 10/24/19 10:31 97 14 10/24/19 08:00 98.0 F 90 18 10/24/19 07:36 83 18 BP BP BP BP Pulse Ox Pulse Ox Pulse Ox 10/24/19 14:32 100 10/24/19 12:00 155/93 H 96 10/24/19 11:13 176/106 H 142/102 H 85 L 87 L 10/24/19 10:31 98 10/24/19 08:00 131/68 87 L 10/24/19 07:36 94 L Pulse Ox 10/24/19 14:32 10/24/19 12:00 10/24/19 11:13 83 L 10/24/19 10:31 10/24/19 08:00 10/24/19 07:36 Weight 485 lb 14.4 oz I/O: I/O 10/23/19 10/24/19 10/25/19 06:59 06:59 06:59 Intake Total 1534 960 Output Total 2900 1100 Balance -1366 -140 - Quality Measures Condition: Atrial Fibrillation/Flutter (hx or current) - Physical Exam General: alert & oriented x3, appears well, no apparent distress, speech clear, affect appropriate HEENT: mucus membranes moist, normocephaly Neck: supple neck, midline trachea, no lymphadenopathy Cardiology: regular rate and rhythm, no murmur, S1/S2 Lungs: clear to auscultation, no wheeze, rales, rhonchi, decreased breath sounds Neurology: cranial nerve 2-12 intact, grossly intact, sensory function intact - Labs Result Diagrams: 10/23/19 03:49 10/23/19 03:49 - Assessment/Plan Assessment/Plan: 1. Atrial flutter - possibly typical - plan for VIOLETTE guided CV conversion tomorrow with cardiology 2. CHADS2-VASC: </=2 HTN, DM - changing to xarelto 20mg Q PM due to morbid obesity 3. Morbid obesity - exceed CCL/EP lab table limit of 450lb. Consider ablation after 40lb weight loss 4. HTN- moderately controlled 5. DM VIOLETTE/CV yesterday with cardiology. Frequent PACs seen. Consider multaq if recurrence of frequent PAcs are seen. Weight loss to under 450lbs is necessary before any ablative therapy options can be considered locally. On metoprolol 100mg QD and Diltiazem 180mg QD.
[2019-10-24] MEDS ORDERED: Rivaroxaban 10 MG TAB PO SCH (18:00)
[2019-10-24] MEDS ORDERED: Flecainide 50 MG TAB PO SCH (21:00)
--- NOTE | 2019-10-28 15:04 | DIS ---
DATE OF ADMISSION: 10/17/2019 DATE OF DISCHARGE: 10/24/2019 ADMITTING RESIDENT: Julius Sainz MD ADMITTING ATTENDING: Benny Bentley MD DISCHARGE RESIDENT: Amparo Chappell MD DISCHARGE ATTENDING: Jesus Tejeda MD CONSULTS: Cardiology (Dr. Sanchez), Pulmonology (Dr. Moore, Dr. Hughes), Electrophysiology (Dr. Michelle), dietitian, OT, PT. PROCEDURES: VIOLETTE and cardioversion from 10/23/2019. IMAGIN. Chest x-ray: Cardiomegaly. 2. Venogram: No occlusive DVT is visualized in the deep venous structures of the left lower extremity or right lower extremity. 3. Echocardiogram: EF 50% to 55%. The left atrium is moderately to severely dilated. No evidence of mitral regurgitation or mitral valve stenosis. Structurally normal aortic valve with no significant stenosis or regurgitation. Trace tricuspid regurgitation. 4. VIOLETTE: [id number] decreased left ventricular systolic function. Biatrial enlargement. Normal mitral and aortic valve. Mild mitral regurgitation. Mild tricuspid regurgitation. No thrombus is noted in the left atrium or left atrial appendage. Atherosclerotic debris in the descending aorta. PRIMARY DIAGNOSES: Acute hypoxic and hypercapnic respiratory failure likely due to Pickwickian syndrome, acute on chronic respiratory acidosis with metabolic compensation, atrial flutter s/p cardioversion. SECONDARY DIAGNOSES: Gastroesophageal reflux disease, hypertension, type 2 diabetes, obstructive sleep apnea, obesity hypoventilation syndrome, morbid obesity. DISCHARGE MEDICATIONS: 1. 20 mg atorvastatin p.o. at bedtime. 2. 180 mg diltiazem p.o. daily. 3. 500 mg metformin p.o. b.i.d. 4. 100 mg metoprolol succinate p.o. daily. 5. 20 mg Xarelto p.o. 1800 daily. Discontinued medications; 1. Acetaminophen p.r.n. 2. Apixaban 5 mg p.o. b.i.d. 3. 81 mg aspirin p.o. daily. 4. 1000 mg calcium carbonate. 5. 0.25 mg digoxin p.o. daily. 6. Lovenox. 7. Famotidine p.r.n. 8. Flecainide 100 mg. 9. Furosemide 20 mg. 10. Sliding scale insulin. 11. Ibuprofen p.r.n. 12. DuoNeb. 13. Zofran p.r.n. HISTORY OF PRESENT ILLNESS/HOSPITAL COURSE: The patient is a 49-year-old male with a past medical history of AMBERLY, type 2 diabetes, hypertension, who presented to the ED with shortness of breath. For his AMBERLY, he does have a CPAP at home, though it was recently destroyed by his dog and so he had not been using it. When he arrived, there was some concern for possible sepsis due to his tachypnea and tachycardia, however, there was no focal consolidation found on chest x-ray and exam and the history demonstrated low suspicion for an infectious etiology, so no antibiotics were continued. There was also some concern for a PE. However, due to the patient's body habitus, he would not be able to fit into the CT scanner for that imaging study , so it was recommended by Pulmonology to do a Doppler of his bilateral lower extremities, which demonstrated no DVT. The patient was admitted to the [facility] and placed on BiPAP for his respiratory status. He was also found to have aflutter and the cardiac team was consulted. Throughout the hospitalization, he was weaned off the BiPAP and eventually used his CPAP at night with some oxygen supplementation during the day. Cardiology tried different medication and ultimately decided for him to have diltiazem and metoprolol to control his rate and aflutter. There was an attempt with a VIOLETTE and cardioversion, which originally converted to sinus rhythm, but unfortunately lasted for only a few hours and then the patient ultimately converted back to aflutter. The ultimate goal for the patient is to have an ablation to care aflutter, but at this time, his weight does not allow him to fit into the table for the procedure. There have been many discussions with the patient on the importance of weight loss and following up with a bariatric surgeon outpatient for possible bariatric surgery. In the meantime, the patient was anticoagulated for the aflutter throughout the hospitalization and was sent home with anticoagulation. Although the patient was on oxygen throughout the hospitalization, it was determined by Pulmonology that he likely did not need much. He was sent home with a script for at-home oxygen with a recommendation to be on 1 L when he is sitting down. However, during a walking trial in the hospital, he was found to sat around 88% while walking and so we deemed O2 only necessary while at rest. The patient was not on any medications for type 2 diabetes when admitted to the hospital and on admission, he was found to have an A1c of 8.6, so he was started on metformin 500 mg b.i.d. It is expected that this to be titrated up on an outpatient basis. Before the patient was discharge, it was made certain that the patient has a new CPAP mask at home to use at night. The patient was evaluated on the day of discharge and found to be in stable condition. There were multiple conversations about his use of oxygen and when to use it at home as well as the importance of weight loss and following up with bariatric surgery outpatient. It was also discussed with the patient to follow up with a primary care physician for further monitoring of his respiratory status, heart rate and rhythm, and diabetes. DISPOSITION: Stable. DISCHARGE INSTRUCTIONS: 1. Location: Home. 2. Diet: Heart healthy, carb conscious. 3. Activity: As tolerated. 4. Follow up with [facility] within 7 days, Dr. Sanchez within 14 days, follow up with Dr. Michelle by calling office and scheduling an appointment, follow up with Dr. Moore by calling office and scheduling appointment, and with [facility] Patient to get his home oxygen. Job ID: [id number] [facility]
== END 2019-10-24 18:17 | disposition home or self-care (01) | DRG 189 ==
LOC: ERS 17:33 → IMCU/EMU 21:17 → 2NO 10-19 18:29
PROVIDERS: ADMIT Family Medicine; ATTEND Family Medicine
PROC: 5A2204Z Restoration of Cardiac Rhythm, Single (ICD-10-PCS; principal; 2019-10-17)
PROC: B24BZZ4 Ultrasonography of Heart with Aorta, Transesophageal (ICD-10-PCS; 2019-10-17)
DX: J96.21 Acute and chronic respiratory failure with hypoxia (principal); E66.2 Morbid (severe) obesity with alveolar hypoventilation; Z68.44 Body mass index [BMI] 60.0-69.9, adult; I48.92 Unspecified atrial flutter; E87.2 Acidosis; J96.22 Acute and chronic respiratory failure with hypercapnia; G47.33 Obstructive sleep apnea (adult) (pediatric); I10 Essential (primary) hypertension; E11.65 Type 2 diabetes mellitus with hyperglycemia; I34.0 Nonrheumatic mitral (valve) insufficiency; I07.1 Rheumatic tricuspid insufficiency; K21.9 Gastro-esophageal reflux disease without esophagitis; J40 Bronchitis, not specified as acute or chronic; Z79.82 Long term (current) use of aspirin; Z98.890 Other specified postprocedural states; Z90.49 Acquired absence of other specified parts of digestive tract; Z79.899 Other long term (current) drug therapy
CPT/HCPCS: 36415; 36416; 71045; 80048; 80053; 80061; 82330; 82550; 82565; 82803; 83036; 83605; 83880; 84145; 84443; 84484; 85014; 85018; 85025; 85049; 85379; 85520; 87804; 93005; 93010; 93306; 93312; 93970; 94640; 94660; 94760; 96361; 96365; 96367; 96372; 96375; J0456; J0696; J1160; J1650; J1940; J2704; J2930; J7620; S0028

== ENCOUNTER 2020-03-03 05:38 | Outpatient (CLI) | payer BC, OTHER ==
[2020-03-03 14:08] LABS: Hemoglobin 15.3 g/dL (14.0-18.0); Mean Corpuscular HGB CONC 31.6 g/dL (32.0-36.0); Mean Corpuscular Hemoglobin 28.7 pg (27.0-31.0); Mean Corpuscular Volume 90.8 fL (78.0-98.0); Mean Platelet Volume 9.1 fL (7.4-10.4); Platelet Count 172 thou/uL (130-400); RBC Distribution Width 15.2 % (11.5-14.5); Red Blood Cell (RBC) Count 5.35 mill/uL (4.70-6.10); White Blood Cell (WBC) Count 7.6 thou/uL (4.8-10.8)
[2020-03-03 14:09] LABS: INR-International Normal Ratio 1.3
[2020-03-03 14:10] LABS: PTT 36.9 sec (22.9-36.1)
[2020-03-03 14:49] LABS: Anion Gap 17 mmol/L (10-20); BUN (Urea Nitrogen) 17 mg/dL (8.9-20.6); Calc. Creatinine Clearance 0 mL/min (70-130); Calcium 9.1 mg/dL (7.8-10.44); Carbon Dioxide 30 mmol/L (22-29); Chloride 101 mmol/L (98-107); Estimated GFR-MDRD 79; Glucose 151 mg/dL (70-105); Potassium 4.9 mmol/L (3.5-5.1); Sodium 143 mmol/L (136-145)
--- NOTE | 2020-03-03 15:55 | EKG ---
Test Reason : Blood Pressure : / mmHG Vent. Rate : 080 BPM Atrial Rate : 080 BPM P-R Int : 174 ms QRS Dur : 108 ms QT Int : 402 ms P-R-T Axes : 024 107 042 degrees QTc Int : 463 ms Normal sinus rhythm Rightward axis Low voltage QRS Incomplete right bundle branch block Borderline ECG When compared with ECG of 18-OCT-2019 08:17, Previous ECG has undetermined rhythm, needs review Confirmed by MARCELLA NATH, SPrimitivo (4) on 03/03/2020 3:55:17 PM Referred By: [facility] Confirmed By:DR. Kaden NARANJO MD
[2020-03-04 12:46] LABS: SARS-CoV-2 MS2 Positive; SARS-CoV-2 N Gene Negative; SARS-CoV-2 S Gene Negative; SARS-CoV-2 orf1ab Negative
== END 2020-03-03 05:39 | disposition home or self-care (01) ==
LOC: LABBT 05:38
PROVIDERS: ATTEND Internal Medicine Cardiovascular Disease
DX: Z01.818 Encounter for other preprocedural examination (principal); Z11.59 Encounter for screening for other viral diseases; I48.91 Unspecified atrial fibrillation
CPT/HCPCS: 80048; 85027; 85610; 85730; 87635; 93005; 93010; U0003

== ENCOUNTER 2020-03-06 10:03 | Day surgery (SDC) | payer BC ==
[2020-03-02 15:39] VITALS: BMI 62.2
[2020-03-06] MEDS ORDERED: Ketamine 50 MG/ML (10ML VIAL) ONE (12:17)
[2020-03-06] MEDS ORDERED: PROPOFOL 20 ML ONE (12:17)
--- NOTE | 2020-03-06 18:18 | OP ---
DATE OF PROCEDURE: 03/06/2020 PROCEDURE PERFORMED: External cardioversion. I am seeing Mr. Hughes at our [facility] for a cardioversion as an outpatient. He has been well anticoagulated with Eliquis. Has been started on Multaq about a week ago. He actually had an EKG, had been in sinus rhythm on 03/03/2020, but now back in atrial flutter on this morning. DESCRIPTION OF PROCEDURE: The patient received propofol by Anesthesia specialist. After adequate level of sedation achieved, a synchronized 200-joule shock promptly converted the patient back to sinus rhythm. CONCLUSION: Successful cardioversion. PLAN: Continue Eliquis and Multaq. Strongly recommended weight loss hence over cathlab weight limit prior to considering pulmonary venous isolation. Job ID: [id number] [facility]
--- NOTE | 2020-03-07 19:47 | EKG ---
Test Reason : Blood Pressure : / mmHG Vent. Rate : 101 BPM Atrial Rate : 101 BPM P-R Int : 274 ms QRS Dur : 092 ms QT Int : 330 ms P-R-T Axes : 053 119 039 degrees QTc Int : 427 ms Sinus tachycardia with 1st degree A-V block Right axis deviation Incomplete right bundle branch block Possible Right ventricular hypertrophy Low voltage QRS Abnormal ECG When compared with ECG of 03-MAR-2020 09:37, RI interval has increased Non-specific change in ST segment in Inferior leads Nonspecific T wave abnormality now evident in Inferior leads Confirmed by MARCELLA NATH, SPrimitivo ([id number]) on 03/07/2020 7:46:44 PM Referred By: [facility] Confirmed By:DR. Kaden NARANJO MD
== END 2020-03-06 13:29 | disposition home or self-care (01) ==
LOC: CCL 10:03
PROVIDERS: ATTEND Internal Medicine Cardiovascular Disease
PROC: 5A2204Z Restoration of Cardiac Rhythm, Single (ICD-10-PCS; principal; 2020-03-06)
DX: I48.0 Paroxysmal atrial fibrillation (principal); I48.3 Typical atrial flutter; I10 Essential (primary) hypertension; E11.9 Type 2 diabetes mellitus without complications; E78.5 Hyperlipidemia, unspecified; E66.01 Morbid (severe) obesity due to excess calories; G47.30 Sleep apnea, unspecified; Z68.44 Body mass index [BMI] 60.0-69.9, adult; Z79.01 Long term (current) use of anticoagulants; Z79.4 Long term (current) use of insulin; Z79.899 Other long term (current) drug therapy
CPT/HCPCS: 92960; 93005; 93010; J2704

== ENCOUNTER 2020-07-19 13:23 | Inpatient (IN) | payer BC ==
--- NOTE | 2020-07-19 14:18 | RAD ---
EXAM: Chest one view: HISTORY: Dyspnea COMPARISON: 10/17/2019 FINDINGS: Poor inspiration with large body habitus. Heart size: Minimal cardiomegaly. Lungs: Bilateral vascular congestion with some increased scattered opacities in both lungs somewhat w orse than on 10/15/2017 possibly representing some worsening vascular congestion versus some developing minimal Covid pneumonia or other atypical pneumonia. No pleural effusion. IMPRESSION: Very poor inspiration with a large body habitus and minimal cardiomegaly. Minimally progressive vascular congestion and some alveolar and groundglass opacity type changes with possibilities including that of some developing edema and/or atypical pneumonia including Covid pneumonia.
[2020-07-19 14:24] LABS: Hemoglobin 15.8 g/dL (14.0-18.0); Mean Corpuscular HGB CONC 30.7 g/dL (32.0-36.0); Mean Corpuscular Hemoglobin 27.4 pg (27.0-31.0); Mean Corpuscular Volume 89.1 fL (78.0-98.0); RBC Distribution Width 17.1 % (11.5-14.5); Red Blood Cell (RBC) Count 5.79 mill/uL (4.70-6.10); White Blood Cell (WBC) Count 4.6 thou/uL (4.8-10.8)
[2020-07-19 14:25] LABS: #Lymphocytes 1.2 thou/uL (1.20-3.40); #Monocytes 0.5 thou/uL (0.11-0.59); #Neutrophils 2.8 thou/uL (1.40-6.50); %Basophils 0.4 % (0.0-1.0); %Eosinophils 0.7 % (0.0-10.0); %Lymphocytes 26.8 % (21.0-51.0); %Monocytes 10.7 % (0.0-10.0); %Neutrophils 61.4 % (42.0-75.0)
[2020-07-19 14:34] LABS: ALT (SGPT) 32 U/L (8-55); AST (SGOT) 25 U/L (5-34); Albumin 3.6 g/dL (3.5-5.0); Alkaline Phosphatase 84 U/L (40-110); Anion Gap 16 mmol/L (10-20); BUN (Urea Nitrogen) 19 mg/dL (8.9-20.6); Bilirubin, Total 0.4 mg/dL (0.2-1.2); Calc. Creatinine Clearance 0 mL/min (70-130); Calcium 8.1 mg/dL (7.8-10.44); Carbon Dioxide 35 mmol/L (22-29); Chloride 91 mmol/L (98-107); Globulin 3.5 g/dL (2.4-3.5); Glucose 103 mg/dL (70-105); Potassium 4.9 mmol/L (3.5-5.1); Protein, Total 7.1 g/dL (6.0-8.3); Sodium 137 mmol/L (136-145)
[2020-07-19] MEDS ORDERED: cefTRIAXone\\ROCEPHIN 2 GM VIAL ONE (14:35)
[2020-07-19] MEDS ORDERED: Azithromycin 500 MG VIAL ONE (14:37)
[2020-07-19 14:39] LABS: Hypochromia SLIGHT = 6-15 cells (100X) (0-5/hpf); MDiff Complete? YES; Mean Platelet Volume 9.9 fL (7.4-10.4); Platelet Count 100 thou/uL (130-400); Platelet Morphology Comment Appears Decreased; Polychromasia SLIGHT = 2-3 cells (100X) (0-2/hpf)
[2020-07-19 15:17] LABS: SARS-CoV-2 NAA Rapid Test Not Detected (NotDetected)
[2020-07-19 15:22] LABS: Actual Bicarbonate (HCO3a) 35.7 mEq/L (22-28); Analyzer IN Cardio ER; Base Excess (BEa) 2.7 mEq/L (-2.0 to +3.0); Calcium, Ionized (arterial) 1.15 mmol/L (1.12-1.30); Carboxyhemoglobin (COHb) 1.6 gm% (0.0-3.0); Hemoglobin (Hb) 16.1 g/dL (14.0-18.0); O2 Tension (PaO2), arterial 77.6 mmHg (80.0-100.0)
[2020-07-19] MEDS ORDERED: Ketamine 50 MG/ML (10ML VIAL) ONE (15:30)
[2020-07-19] MEDS ORDERED: Rocuronium Bromide 10 MG/ML (10ML VIAL) ONE (15:31)
[2020-07-19] MEDS ORDERED: Propofol 1,000 MG/100 ML VIAL IV ONE (15:53)
[2020-07-19] MEDS ORDERED: fentaNYL Citrate/PF 2,000 MCG in Sodium Chloride 0.9% 60 ML IV SCH (16:00)
--- NOTE | 2020-07-19 16:08 | PDOC.FPRHP ---
- History of Present Illness Chief Complaint: shortness of breath History of Present Illness: Pt is a 50 yo M with pmh of AMBERLY, DMII, HLD, Aflutter, HTN, GERD, Gout, mild pulmonary HTN, and venous stasis dermatitis b/l LE who present for SOB. He told the ED staff before intubation: "He had symptoms about a week. He has h ad a cough. Increasing shortness of breath. He was severely hypoxic in triage. He was 63 on room air. Uses a CPAP at night. He denies any fevers. He has had some chills. No nausea or vomiting. He was constipated for a few days and then took some [id number] laxatives. He then had some diarrhea. No abdominal pain. No increase in leg swelling. He denies any history of COPD. Does not use inhalers at home. Possibly had contact with people who had coronavirus. He is unsure if his kids were in contact with that at school." ED Course: Received 1L NS, for sedation Oyan, ketamine, 1 dose propofol, fentanyl for pain, azithromycin and rocephin - Allergies/Adverse Reactions Allergies Allergy/AdvReac Type Severity Reaction Status Date / Time No Known Allergies Allergy Verified 03/02/20 15:40 - Home Medications Medication Instructions Recorded Confirmed Type Rivaroxaban [Xarelto] 20 mg PO 1800 #30 tab 10/24/19 07/19/20 Rx Allopurinol 100 mg PO DAILY 03/02/20 07/19/20 History Atorvastatin Calcium [Lipitor] 10 mg PO HS 03/02/20 07/19/20 History Dronedarone HCl [Multaq] 400 mg PO BID 03/02/20 07/19/20 History Empagliflozin [Jardiance] 10 mg PO DAILY 03/02/20 07/19/20 History Ibuprofen [Advil] 200 mg PO Q8H PRN 03/02/20 07/19/20 History Metoprolol Succinate [Toprol XL] 1.5 tab PO DAILY 03/02/20 07/19/20 History metFORMIN [Glucophage] 1,000 mg PO BID 03/02/20 07/19/20 History Diltiazem HCl [Diltiazem ER 24 Hr] 180 mg PO DAILY 07/19/20 07/19/20 History Lisinopril 10 mg PO DAILY 07/19/20 07/19/20 History Nitroglycerin [Nitrostat] 0.4 mg SL Q5MIN PRN 07/19/20 07/19/20 History Terbinafine HCl 250 mg PO DAILY 07/19/20 07/19/20 History - History PMHx: AMBERLY, DMII, HLD, Aflutter, HTN, GERD, Gout PSHx: R knee arthoscopy, umbilical hernia repair, appendectomy FHx: mother & paternal grandfather/grandmother & maternal grandmoth er/grandfather: DM; HTN; father HTN Social: nonsmoker - Review of Systems ROS unobtainable: due to endotracheal tube - Vital signs BP: 148/92 HR: 56 RR: 18 Tmax: 101.8 Pox: 91% on Ventilator Wt: 218.18 kg - Physical Exam -Constitutional: Intubated and sedated HEENT: EOMI, no scleral icterus, MMM -HEENT: Conjunctival injection Neck: supple, trachea midline Heart: RRR, pulses present, no edema Lungs: no rales/rhonchi, no wheezing -Lungs: diminished breath sounds Abdomen: soft, non-tender -Abdomen: protuberant abdomen Musculoskeletal: normal structure, normal tone -Neurological: unable to assess due to intubation -Skin: significant blue-red discoloration of bilateral lower extremities without warmt Heme/Lymphatic: no unusual bruising or bleeding -Psychiatric: unable to assess FMR H&P: Results - Labs Result Diagrams: 07/20/20 04:10 07/20/20 04:10 Lab results: WBC 4.6 thou/uL (4.8-10.8) L 07/19/20 14:01 Hgb 15.8 g/dL (14.0-18.0) 07/19/20 14:01 Hct 51.6 % (42.0-52.0) 07/19/20 14:01 MCV 89.1 fL (78.0-98.0) 07/19/20 14:01 Plt Count 100 thou/uL (130-400) L 07/19/20 14:01 Neutrophils % 61.4 % (42.0-75.0) 07/19/20 14:01 Sodium 137 mmol/L (136-145) 07/19/20 14:01 Potassium 4.9 mmol/L (3.5-5.1) 07/19/20 14:01 Chloride 91 mmol/L (98-107) L 07/19/20 14:01 Carbon Dioxide 35 mmol/L (22-29) H 07/19/20 14:01 BUN 19 mg/dL (8.9-20.6) 07/19/20 14:01 Creatinine 1.06 mg/dL (0.7-1.3) 07/19/20 14:01 Glucose 103 mg/dL (70-105) 07/19/20 14:01 Lactic Acid 3.7 mmol/L (0.5-2.2) H 07/19/20 14:01 Calcium 8.1 mg/dL (7.8-10.44) 07/19/20 14:01 Total Bilirubin 0.4 mg/dL (0.2-1.2) 07/19/20 14:01 AST 25 U/L (5-34) 07/19/20 14:01 ALT 32 U/L (8-55) 07/19/20 14:01 Alkaline Phosphatase 84 U/L (40-110) 07/19/20 14:01 B-Natriuretic Peptide 72.8 pg/mL (0-100) 07/19/20 14:01 Serum Total Protein 7.1 g/dL (6.0-8.3) 07/19/20 14:01 Albumin 3.6 g/dL (3.5-5.0) 07/19/20 14:01 - EKG Interpretation EKG: ST depression in V1, QTc 450 FMR H&P: A/P - Problem List (1) COVID-19 Current Visit: No Status: Acute Code(s): U07.1 - COVID-19 (2) HLD (hyperlipidemia) Current Visit: No Status: Acute Code(s): E78.5 - HYPERLIPIDEMIA, UNSPECIFIED (3) Acute respiratory failure with hypoxia and hypercapnia Current Visit: No Status: Acute Code(s): J96.01 - ACUTE RESPIRATORY FAILURE WITH HYPOXIA; J96.02 - ACUTE RESPIRATORY FAILURE WITH HYPERCAPNIA (4) Gout Current Visit: No Status: Acute Code(s): M10.9 - GOUT, UNSPECIFIED (5) Diabetes mellitus Current Visit: No Status: Chronic Code(s): E11.9 - TYPE 2 DIABETES MELLITUS WITHOUT COMPLICATIONS Qualifiers: Diabetes mellitus type: type 2 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 use: unspecified alf insulin use status Diabetes mellitus complication status: with hyperglycemia Qualified Code(s): E11.65 - Type 2 diabetes mellitus with hyperglycemia (6) HTN (hypertension) Current Visit: No Status: Chronic Code(s): I10 - ESSENTIAL (PRIMARY) HYPERTENSION Qualifiers: Hypertension type: essential hypertension Qualified Code(s): I10 - Essential (primary) hypertension (7) Morbid obesity Current Visit: No Status: Chronic Code(s): E66.01 - MORBID (SEVERE) OBESITY DUE TO EXCESS CALORIES (8) AMBERLY (obstructive sleep apnea) Current Visit: No Status: Chronic Code(s): G47.33 - OBSTRUCTIVE SLEEP APNEA (ADULT) (PEDIATRIC) (9) Venous stasis dermatitis Current Visit: No Status: Acute Code(s): I87.2 - VENOUS INSUFFICIENCY (CHRONIC) (PERIPHERAL) (10) Pulmonary HTN Current Visit: No Status: Acute Code(s): I27.20 - PULMONARY HYPERTENSION, UNSPECIFIED - Plan Pt is a 50 yo M with pmh of AMBERLY, DMII, HLD, Aflutter, HTN, GERD, Gout, mild pulmonary HTN, and venous stasis dermatitis b/l LE who present for SOB. 1. Acute Hypoxic Respiratory Failure 2/2 COVID Currently on the vent, not on oxygen at home, satting 63% on RA when in ED * ED: Received Azithro & Rocephin, which we continued * CXR: Bilateral ground glass opacities, minimal cardiomegaly and vascular congestion * Consulted Pulm, Dr. Vega, 07/17, appreciate recs * Treat as a COVID case: Dexamethasone started, put in orders for conva lescent plasma and Remdesivir * LDH, CRP, Lactic Acid, Ddimer, and Ferritin ordered * ABG & CXR daily ordered * Rapid COVID: Negative * Flu ordered * ABG: pH: 7.16, CO2: 102.7 O2: 77.6 HCO3: 35.7 * Consider ordering PCR COVID tomorrow * LR @ 75 cc/h for insensible losses * BCx, UCx, and UA ordered * BNP: 72 2. DMII Will hold Metformin & Jardiance * ACHS Glucose Checks * Mild SSI * Currently NPO * A, Glucose: 103 3. Aflutter Continue home medications: Multaq & Cardizem * NSR on EKG with nonspecific ST changes * Trop: 0.015 * Will trend Trops * Cardiac monitoring 4. HTN Continue home medication: Lisinopril * Will continue to monitor 5. HLD * Will hold Atorvastatin for now * Will restart once he is extubated or has NG tube 6. Venous Stasis Dermatitis on B/l LE Bilateral lower extremities discolored, but no warmth * Will mmonitor 7. Gout Not on chronic medication * No concerns at this time, evaluated joints and they were normal * Will monitor 8. Mild Pulmonary HTN Per EMR records at clinic * Likely 2/2 to AMBERLY & Obesity Hypoventilation Syndrome * ECHO 10/09/19: EF 50-55% with left atrial dilation and trace tricuspid regurg * No mention of pulm HTN in ECHO, PAP not listed 9. AMBERLY Uses CPAP at night * Settings not known * Currently on Ventilator Code Status: Full IVF: LR @ 75 cc/h Lines: Underwood, 2 brachial IVs DVT PPx: Lovenox 40 BID GI PPx: Famotidine PCP: CARMINA Davidson Dispo: Admit to ICU. LOS > 48H. FMR H&P: Upper Level - Plan Date/Time: 07/19/20 [id number] I, Rc Sainz, have evaluated this patient and agree with findings/plan as outlined by internet sales representative resident. Pertinent changes/additions are listed here. Addendum - Attending - Attending Attestation Date/Time: 07/19/20 [id number] I personally evaluated the patient and discussed the management with Dr. Lo and Dr. Sainz. I agree with the History, Examination, Assessment and Plan documented above with any addition or exceptions noted below. The patient admits with acute hypoxic respiratory failure. XR shows infiltrates. Pt rapidly deteriorated in the ER, satting 60's upon arrival, getting oxygen via nasal cannula, then non rebreather, HFNC and bipap before intubation. Pt's inflammatory labs are elevated suggestive of covid pneumonia however rapid covid is negative. Will begin steroids, antibiotics. Repeat covid test tomorrow. Blood and urine cultures are pending. Vent mgmt per pulm. Consulting pulmonology.
[2020-07-19 16:14] LABS: CO2 Tension 102.7 mmHg (35.0-45.0); Puncture Site LRA; pH, Arterial 7.16 (7.35-7.45)
[2020-07-19 16:15] LABS: ALV-art Gradient 221.825 mmHg (0-20)
--- NOTE | 2020-07-19 16:35 | RAD ---
Portable frontal chest radiograph: 07/19/2020 COMPARISON: 07/19/2020 HISTORY: Evaluate chest following intubation FINDINGS: Detailed assessment of the chest is limited secondary to portable technique, shallow inspir ation, and body habitus. The cardiac silhouette is markedly enlarged. There is an endotracheal tube projecting over the tracheal air column, terminating at the level of the clavicles. There is extensiv e interstitial and alveolar opacity in the perihilar regions in bilateral lung bases as before. Increased density is seen in the right paratracheal region and bilateral hilar regions which may sign maxx underlying lymphadenopathy or airspace disease. IMPRESSION: No significant interval change aside from interval intubation. Findings within the lung p arenchyma may signify infectious pneumonitis, aspiration, and/or edema. Covid 19 infection is a possibility. Short-term follow-up imaging following treatment advised. If abnormalities persist, CT r ecommended.
[2020-07-19] MEDS ORDERED: Acetaminophen 325 MG Suppository PR PRN (16:52)
[2020-07-19] MEDS ORDERED: Electrolyte Replacement Protocol 1 EACH IVPB ONE (16:52)
[2020-07-19] MEDS ORDERED: Dextrose 5% in Water 1,000 ML IV PRN (16:52)
[2020-07-19] MEDS ORDERED: HumaLOG 300 UNITS/3 ML VIAL SC PRN (16:52)
[2020-07-19] MEDS ORDERED: Dextrose 50% Abboject 50 ML SYRINGE SLOW IVP PRN (16:52)
[2020-07-19] MEDS ORDERED: Bisacodyl 10 MG SUPP PR PRN (16:52)
[2020-07-19] MEDS ORDERED: Ventilator Sedation Protocol 1 EACH FS SCH (17:00)
[2020-07-19 17:07] LABS: Bacteria/HPF None Seen HPF (None Seen); Bilirubin Negative (Negative); Blood, Urine Negative (Negative); Clarity Clear (Clear); Glucose, Urine (Dipstick) Greater than 1000 mg/dL (Negative); Ketone, Urine 20 mg/dL (Negative); Leukocyte Negative Leu/uL (Negative); Nitrite Negative (Negative); Protein, Urine (Dipstick) 30 mg/dL (Neg-Trace); RBC/HPF 0-3 HPF (0-3); Specific Gravity, Urine 1.032 (1.002-1.036); Squamous Epithelial None Seen HPF (0-3); Urobilinogen Normal mg/dL (Less than 2); WBC/HPF 0-3 HPF (0-3); pH, Urine 6.5 (5.0-9.0)
--- NOTE | 2020-07-19 17:14 | RAD ---
Frontal radiograph chest: 07/19/2020 COMPARISON: 07/19/2020 HISTORY: Evaluate nasogastric tube FINDINGS: 2 images are provided. These images demonstrate a nasogastric tube curling over the neck. E ndotracheal tube terminates at the level clavicular heads. Extensive pulmonary parenchymal opacities are unchanged. IMPRESSION: Malpositioned nasogastric tube curling over the neck. Removal and repeat imaging advised following repeat nasogastric tube placement.
[2020-07-19] MEDS ORDERED: Fentanyl BOLUS 250 ML IVPB PRN (17:15)
[2020-07-19] MEDS ORDERED: Electrolyte Replacement Protocol FS PRN (17:15)
[2020-07-19] MEDS ORDERED: Propofol BOLUS 1,000 MG/100 ML VIAL IV PRN (17:15)
[2020-07-19] MEDS ORDERED: DISCONTINUE PREVIOUS NARCOTIC PAIN MEDICATIONS AND BENZODIAZEPINES FS SCH (17:15)
[2020-07-19] MEDS ORDERED: Morphine 2 MG/ML VIAL SLOW IVP PRN (17:15)
[2020-07-19 17:28] LABS: Lactic Acid 1.3 mmol/L (0.5-2.2)
[2020-07-19 17:33] LABS: Phosphorus 4.2 mg/dL (2.3-4.7)
[2020-07-19 17:35] LABS: CRP (Inflammatory) 3.53 mg/dL (= or < 0.5); Magnesium 2.4 mg/dL (1.6-2.6)
--- NOTE | 2020-07-19 17:37 | RAD ---
CHEST ONE VIEW PORTABLE: History: NG tube position adjustment. Comparison: 07-20-2020 FINDINGS: The NG tube has been pulled back and re-inserted and now extends into the stomach. Endotracheal tube remains in satisfactory location. There is evidence for cardiomegaly with bilateral alveolar and grou nd glass opacity changes and pleural effusion changes. IMPRESSION: 1. Cardiomegaly with bilateral vascular congestion and pleural effusions and bilateral alveolar and g round glass opacity changes throughout both lungs. 2. Endotracheal tube in satisfactory location. 3. The NG tube has been advanced and extends into the stomach in satisfactory location. POS: RRE
[2020-07-19 17:42] LABS: Troponin I 0.014 ng/mL (< 0.028)
[2020-07-19] MEDS ORDERED: Vecuronium 10 MG VIAL ONE (18:22)
[2020-07-19] MEDS: Lorazepam 2 MG/ML VIAL SLOW IVP PRN (18:26)
[2020-07-19] MEDS: Propofol 1,000 MG/100 ML VIAL IV PRN ×2 (18:27→21:16)
[2020-07-19] MEDS ORDERED: REMDESIVIR (EUA) 200 MG in Sodium Chloride 0.9% 250 ML 210 ML IV SCH (18:30)
[2020-07-19 18:33] LABS: Actual Bicarbonate (HCO3a) 31.1 mEq/L (22-28); Base Excess (BEa) 3.9 mEq/L (-2.0 to +3.0); CO2 Tension 56.8 mmHg (35.0-45.0); Calcium, Ionized (arterial) 1.04 mmol/L (1.12-1.30); Carboxyhemoglobin (COHb) 1.6 gm% (0.0-3.0); Hemoglobin (Hb) 15.1 g/dL (14.0-18.0); Potassium - ABG Lab 4.93 mmol/L (3.70-5.30); pH, Arterial 7.36 (7.35-7.45)
[2020-07-19 18:45] LABS: O2 Tension (PaO2), arterial 44.6 mmHg (80.0-100.0)
[2020-07-19 18:46] LABS: Puncture Site RBA
[2020-07-19 19:52] LABS: Actual Bicarbonate (HCO3a) 30.5 mEq/L (22-28); Base Excess (BEa) 3.1 mEq/L (-2.0 to +3.0); CO2 Tension 58.2 mmHg (35.0-45.0); Calcium, Ionized (arterial) 1.03 mmol/L (1.12-1.30); Carboxyhemoglobin (COHb) 1.7 gm% (0.0-3.0); Hemoglobin (Hb) 14.8 g/dL (14.0-18.0); Potassium - ABG Lab 4.62 mmol/L (3.70-5.30); pH, Arterial 7.34 (7.35-7.45)
[2020-07-19 19:53] LABS: O2 Tension (PaO2), arterial 46.9 mmHg (80.0-100.0)
[2020-07-19 19:54] LABS: Puncture Site RBA
[2020-07-19 20:49] LABS: Troponin I 0.023 ng/mL (< 0.028)
[2020-07-19] MEDS ORDERED: Dexamethasone 6 MG in Sodium Chloride 0.9% 50 ML IVPB SCH (21:00)
[2020-07-19] MEDS ORDERED: Enoxaparin Sodium 40 MG/0.4 ML SYRINGE SC SCH ×2 (21:00)
[2020-07-19] MEDS ORDERED: Famotidine/PF 20 mg/2ml Vial SLOW IVP SCH (21:00)
[2020-07-19] MEDS: Dronedarone HCl 400 MG TAB PO SCH (21:10)
[2020-07-19] MEDS: Enoxaparin Sodium 100 MG/ML SYRINGE SC SCH (21:10)
[2020-07-19] MEDS: Lactated Ringer's 1,000 ML IV SCH (21:12)
[2020-07-20] MEDS: Propofol 1,000 MG/100 ML VIAL IV PRN ×5 (01:08→19:53)
[2020-07-20] MEDS: fentaNYL Citrate/PF 2,000 MCG in Sodium Chloride 0.9% 60 ML IV SCH ×2 (01:34→14:33)
[2020-07-20 05:32] LABS: SARS-CoV-2 MS2 Positive; SARS-CoV-2 N Gene Negative; SARS-CoV-2 S Gene Negative; SARS-CoV-2 by NAA Not Detected (NotDetected); SARS-CoV-2 orf1ab Negative
[2020-07-20 06:04] LABS: Hemoglobin 14.4 g/dL (14.0-18.0); Mean Corpuscular HGB CONC 31.5 g/dL (32.0-36.0); Mean Corpuscular Hemoglobin 27.3 pg (27.0-31.0); Mean Corpuscular Volume 86.5 fL (78.0-98.0); Mean Platelet Volume 10.3 fL (7.4-10.4); Platelet Count 98 thou/uL (130-400); Red Blood Cell (RBC) Count 5.27 mill/uL (4.70-6.10); White Blood Cell (WBC) Count 3.3 thou/uL (4.8-10.8)
[2020-07-20 06:07] LABS: ALT (SGPT) 31 U/L (8-55); AST (SGOT) 27 U/L (5-34); Albumin 3.2 g/dL (3.5-5.0); Alkaline Phosphatase 72 U/L (40-110); Anion Gap 20 mmol/L (10-20); BUN (Urea Nitrogen) 26 mg/dL (8.9-20.6); Bilirubin, Total 0.6 mg/dL (0.2-1.2); Calc. Creatinine Clearance 186 mL/min (70-130); Calcium 7.6 mg/dL (7.8-10.44); Carbon Dioxide 25 mmol/L (22-29); Chloride 95 mmol/L (98-107); Globulin 3.2 g/dL (2.4-3.5); Glucose 131 mg/dL (70-105); Potassium 5.4 mmol/L (3.5-5.1); Protein, Total 6.4 g/dL (6.0-8.3); Sodium 135 mmol/L (136-145)
[2020-07-20 06:23] LABS: Band 51 % (5-11); Lymphocytes 12 % (21-51); MDiff Complete? YES; Metamyelocyte 2 % (0-0); Monocytes 7 % (0-10); Neutrophil 28 % (42-75); Nucleated RBC 2 % (0); Platelet Morphology Comment Appears Decreased
[2020-07-20] MEDS ORDERED: Mometasone 200 MCG/Formoterol 5 MCG 120 PUFF INHALER INH SCH (06:30)
--- NOTE | 2020-07-20 06:31 | PDOC.FM ---
- Subjective Subjective: Pt's covid swab resulted negative. Precautions discontinued. Intubated and vent settings @: RR18, PEEP 13, FIO2 100% more awake this morning and responds fully to commands and nods to answer questions. No known hx of LA or heart failure hx of pulmonary HTN 2/2 AMBERLY in chart. Tmax overnight 100.4 F. - Objective MAR Reviewed: Yes Vital Signs & Weight: Vital Signs (12 hours) Temp Pulse Resp BP Pulse Ox 07/20/20 06:00 28 H 07/20/20 04:00 28 H 07/20/20 02:42 60 106/61 88 L 07/20/20 02:00 28 H 07/20/20 00:00 28 H 07/19/20 22:21 61 118/67 07/19/20 20:00 100.4 F H 28 H 86 L 07/19/20 19:07 58 L 120/70 87 L Weight Weight 222.1 kg Most Recent Monitor Data Heart Rate from ECG 59 NIBP 112/61 NIBP BP-Mean 78 Respiration from ECG 28 SpO2 89 I&O: 07/18/20 07/19/20 07/20/20 06:59 06:59 06:59 Intake Total 1209 Output Total 330 Balance 879 Result Diagrams: 07/20/20 04:10 07/20/20 04:10 Phys Exam - Physical Examination intubated, lying supin, awakens to voice. HEENT: moist MMs, sclera anicteric Neck: supple Respiratory: no wheezing, no rales, no rhonchi, clear to auscultation bilateral Cardiovascular: no significant murmur, no rub bradycardia Gastrointestinal: soft, no distention, positive bowel sounds obese Musculoskeletal: pulses present negative ksenia sign- Pt denies pain. obese extremities. 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: unspecified jail insulin use status Diabetes mellitus complication status: with hyperglycemia Qualified Code(s): E11.65 - Type 2 diabetes yadira litus with hyperglycemia (5) HTN (hypertension) Code(s): I10 - ESSENTIAL (PRIMARY) HYPERTENSION Status: Chronic Qualifiers: Hypertension type: essential hypertension Qualified Code(s): I10 - Essential (primary) hypertension (6) Morbid obesity Code(s): E66.01 - MORBID (SEVERE) OBESITY DUE TO EXCESS CALORIES Status: Chronic (7) AMBERLY (obstructive sleep apnea) Code(s): G47.33 - OBSTRUCTIVE SLEEP APNEA (ADULT) (PEDIATRIC) Status: Chronic - Plan Plan: Pt is a 50 yo M with pmh of AMBERLY, DMII, HLD, Aflutter, HTN, GERD, Gout, mild pulmonary HTN, and venous stasis dermatitis b/l LE who present for SOB, intubated in ER due to hypoxia and admitted to CCU for bilateral PNA and pulm/critical care. consult 1. Acute Hypoxic Respiratory Failure 2/2 bilateral PNA of unknown organism satting 63% on RA when in ED, required intubation. Unknown cause of PNA. - ED: Received Azithro & Rocephin, CXR: Bilateral ground glass opacities, minimal cardiomegaly and vascular congestion - Consulted Pulm, Dr. Vega, 07/17, appreciate recs - LDH 323, CRP 3.53, D-dimer <0.2, and Ferritin 306 - ABG & CXR daily ordered - Rapid COVID: Negative. PCR repeat testing negative as well. D/c'd precautions and covid treatment. - Flu neg - overnight LR @ 75. BNP: 72. held IVFs this morning and gave one dose of IV 20 mg lasix due to volume overload as well. Will continue fluids if no change in a few hors. - BCx, UCx, and sputum ccx ordered - Negative HIV, legionella and S. pneumo antigens. - Antibiotics: azithromycin, rocephin, and levaquin - Steroids: solu-medrol 40 mg Q6H - Nebs: duonebs Q4H - anticoag: lovenox 100 mg BID and antiXa level to monitor 2. DMII Will hold Metformin & Jardiance - ACHS Glucose Checks - Mild SSI 3. Aflutter - Continue home medications: Multaq & Cardizem - NSR on EKG with nonspecific ST changes, Trops neg - will hold home xarelto as NPO and start lovenox. AntiXa level after 3rd dose. 4. HTN - hold home meds with lower BP on propofol - Will continue to monitor 5. HLD - Will hold Atorvastatin for now 6. Venous Stasis Dermatitis on B/l LE - Bilateral lower extremities discolored, but no warmth 7. Mild Pulmonary HTN - Per EMR records at clinic - Likely 2/ to AMBERLY & Obesity Hypoventilation Syndrome - ECHO 10/09/19: EF 50-55% with left atrial dilation and trace tricuspid regurg * No mention of pulm HTN in ECHO, PAP not listed 8. AMBERLY - Uses CPAP at night - aware on vent. Code Status: Full IVF: KVO and restart IVF @ 75 ml/hr unresponsive to lasix. DVT PPx: Lovenox 100 BID, anti X a level tonight pending. GI PPx: Protonix PCP: CARMINA Davidson Dispo: Admit to ICU. LOS > 48H.
[2020-07-20 07:07] LABS: Actual Bicarbonate (HCO3a) 23.6 mEq/L (22-28); Base Excess (BEa) 1.8 mEq/L (-2.0 to +3.0); CO2 Tension 29.4 mmHg (35.0-45.0); Calcium, Ionized (arterial) 1.03 mmol/L (1.12-1.30); Carboxyhemoglobin (COHb) 1.1 gm% (0.0-3.0); Hemoglobin (Hb) 14.9 g/dL (14.0-18.0); Potassium - ABG Lab 4.72 mmol/L (3.70-5.30); pH, Arterial 7.52 (7.35-7.45)
[2020-07-20 07:09] LABS: O2 Tension (PaO2), arterial 45.1 mmHg (80.0-100.0); Puncture Site RRA
[2020-07-20] MEDS: Pantoprazole 40 MG VIAL IVP SCH (07:59)
[2020-07-20] MEDS: Enoxaparin Sodium 100 MG/ML SYRINGE SC SCH ×2 (07:59→19:53)
[2020-07-20] MEDS: Dronedarone HCl 400 MG TAB PO SCH ×2 (07:59→19:54)
[2020-07-20 08:04] LABS: HIV (1/2) Antibody/Antigen Non-Reactive (NonReactive); HIV 1/2 INDEX 0.12 S/CO (<1.00)
--- NOTE | 2020-07-20 08:28 | RAD ---
PORTABLE CHEST: HISTORY: CCU followup on ventilator. COMPARISON: 07/19/2020. FINDINGS/IMPRESSION: Bilateral effusions. Left lung infiltrate obscures the left perihilar region and left lung base. Mi ld vascular engorgement. Similar to yesterday. POS: AGW
[2020-07-20] MEDS ORDERED: Lisinopril 10 MG TAB PO SCH (09:00)
[2020-07-20] MEDS ORDERED: Dexamethasone 6 MG in Sodium Chloride 0.9% 50 ML IVPB SCH (09:00)
[2020-07-20] MEDS ORDERED: Lactated Ringer's 1,000 ML IV SCH ×2 (09:05→18:00)
[2020-07-20] MEDS ORDERED: Furosemide 20 MG/2 ML VIAL SLOW IVP SCH (09:15)
[2020-07-20 09:36] LABS: Legionella Urinary Ag Negative (Negative); Strep pneumo Urine Ag NEGATIVE (NEGATIVE)
--- NOTE | 2020-07-20 10:39 | PRG ---
DATE OF SERVICE: 07/20/2020 Mr. Hughes is a very obese, but pleasant 50-year-old man, who presented with pneumonia-type symptoms. He has had negative COVID test x2. Chest x-ray shows bilateral effusions, a left lung infiltrate in the left parahilar region as well as in the left lung base. He also has some vascular engorgement suggesting an element of failure. In the event, he is intubated and is awake and alert at this time. We are covering him for pneumonia and possible pneumonia. He previously had an echo showing an EF of 55%. He also has a history of pulmonary hypertension. Continue antibiotics. Continue ventilatory support and follow with the intensive care doctors. May reduce IV fluids and give him a trial of Lasix to see if there is any improvement given the vascular engorgement on x-ray. Job ID: [id number]
[2020-07-20] MEDS: methylPREDNISolone Sod Succ 40 MG VIAL IVP SCH ×3 (12:29→23:39)
--- NOTE | 2020-07-20 12:44 | CON ---
DATE OF CONSULTATION: HISTORY OF PRESENT ILLNESS: The patient came to the ER yesterday at 1536 hours with progressive respiratory failure, hypoxemia, and has tried a noninvasive ventilation, high-flow etc. When he failed, intubated and transferred to the ICU. He is morbidly obese, 218 kg. His blood pressure was 116/62 when he arrived, sats were 63% on room air, respirations 20, pulse 52. He was severely hypoxic. X-ray shows a left-sided infiltrate. He was placed on bilevel ventilation last night, given steroids, neb treatments, Decadron. Two coronavirus tests have done, which are negative, though there was some history of exposure to someone with a virus. PAST MEDICAL HISTORY: Morbid obesity, COPD, sleep apnea, atrial fibrillation, severe deconditioning, previous multiple intubations. PAST SURGICAL HISTORY: Appendix, knee, cardioversion. SOCIAL HISTORY: No alcohol. No tobacco abuse. HOME MEDICATIONS: Include: 1. Metformin 1000 twice a day. 2. Xarelto 20 once a day. 3. Nitrostat 0.4. 4. . 5. Lisinopril 10. 6. Advil 200. 7. Jardiance 10. 8. Multaq 400. 9. Cardizem 180. 10. Atorvastatin. 11. Allopurinol. ALLERGIES: NONE. REVIEW OF SYSTEMS: Otherwise, negative. PHYSICAL EXAMINATION: GENERAL: He is awake, alert, responsive, on the vent. VITAL SIGNS: Maximum temperature of 100.4, pulse 58, blood pressure 110/60, respirations 18. CHEST: Bilateral rhonchi, crackles. CARDIAC: Normal S1, S2. No gallops. ABDOMEN: No masses. LABORATORY AND DIAGNOSTIC DATA: X-ray shows left-sided infiltrate. White count 3000, H and H 14 and 45, platelet count is 98,000, 28 segs, 51 bands. PO2 is only 45, pCO2 of 20, 100% FiO2 on bilevel, 100%, 13 PEEP. Creatinine 1.49. IMPRESSION: 1. Respiratory failure. 2. Left-sided pneumonia. 3. Two bran positive tests negative. 4. Morbid obesity. 5. Sleep apnea. 6. Atrial fibrillation. PLAN: He has been on anticoagulation, unlikely through a PE. He is on 3 different antibiotics. Culture sputum. High-dose steroids. Supportive care. He could benefit from bronchoscopy in the next 24 to 48 hours if he remains hypoxic with left-sided infiltrate, in case he has extensive mucus plugging. We will restart home cardiac medication. The patient has seen Dr. Moore in the past, we will notify him. This is a 45-minute critical care time. Job ID: [id number]
[2020-07-20] MEDS: cefTRIAXone\\ROCEPHIN 2 GM in Sodium Chloride 0.9% 100 ML IVPB SCH (14:44)
[2020-07-20] MEDS: Azithromycin 500 MG in Sodium Chloride 0.9% 250 ML 250 ML IVPB SCH (16:29)
[2020-07-20] MEDS: Lactated Ringer's 1,000 ML IV SCH (16:35)
[2020-07-20] MEDS ORDERED: REMDESIVIR (EUA) 100 MG in Sodium Chloride 0.9% 250 ML 230 ML IV SCH (18:00)
[2020-07-20] MEDS: HumaLOG 300 UNITS/3 ML VIAL SC PRN (18:18)
[2020-07-21] MEDS: Propofol 1,000 MG/100 ML VIAL IV PRN ×5 (00:18→20:21)
[2020-07-21] MEDS: fentaNYL Citrate/PF 2,000 MCG in Sodium Chloride 0.9% 60 ML IV SCH ×2 (04:18→17:33)
[2020-07-21] MEDS: methylPREDNISolone Sod Succ 40 MG VIAL IVP SCH ×4 (05:43→23:37)
[2020-07-21 05:48] LABS: ALT (SGPT) 31 U/L (8-55); AST (SGOT) 29 U/L (5-34); Albumin 3.2 g/dL (3.5-5.0); Alkaline Phosphatase 72 U/L (40-110); Anion Gap 17 mmol/L (10-20); BUN (Urea Nitrogen) 21 mg/dL (8.9-20.6); Bilirubin, Total 0.4 mg/dL (0.2-1.2); Calc. Creatinine Clearance 257 mL/min (70-130); Calcium 7.8 mg/dL (7.8-10.44); Carbon Dioxide 29 mmol/L (22-29); Chloride 95 mmol/L (98-107); Glucose 197 mg/dL (70-105); Potassium 4.6 mmol/L (3.5-5.1); Protein, Total 6.2 g/dL (6.0-8.3); Sodium 136 mmol/L (136-145)
[2020-07-21] MEDS: HumaLOG 300 UNITS/3 ML VIAL SC PRN ×3 (06:17→18:10)
[2020-07-21 06:18] LABS: Band 25 % (5-11); Hemoglobin 14.7 g/dL (14.0-18.0); Lymphocytes 12 % (21-51); MDiff Complete? YES; Mean Corpuscular HGB CONC 31.3 g/dL (32.0-36.0); Mean Corpuscular Hemoglobin 26.9 pg (27.0-31.0); Mean Platelet Volume 10.3 fL (7.4-10.4); Monocytes 8 % (0-10); Neutrophil 55 % (42-75); Platelet Count 89 thou/uL (130-400); Platelet Morphology Comment Appears Decreased; RBC Distribution Width 16.7 % (11.5-14.5); Red Blood Cell (RBC) Count 5.48 mill/uL (4.70-6.10); White Blood Cell (WBC) Count 4.2 thou/uL (4.8-10.8)
--- NOTE | 2020-07-21 07:14 | PDOC.FM ---
- Subjective Subjective: anxious this morning with wanting his mouth suctioned. provided pen and paper for pt to communicate. Pt showing improvement from yesterday. vent settings: FIO2 80%, RR 18, Peep 5 CXR shows improvement today had good UOP yesterday with 20 IV lasix. holding IVFs at this time. restarted home lisinopril - Objective MAR Reviewed: Yes Vital Signs & Weight: Vital Signs (12 hours) Pulse Resp BP Pulse Ox 07/21/20 06:00 18 07/21/20 04:00 18 07/21/20 02:38 51 L 18 91 L 07/21/20 02:37 91 L 07/21/20 02:34 53 L 120/60 07/21/20 02:00 18 07/21/20 00:00 18 07/20/20 22:25 66 22 H 91 L 07/20/20 22:21 82 144/83 H 07/20/20 22:00 18 07/20/20 20:00 18 92 L Weight Admit Weight 221.807 kg Weight 228.1 kg Most Recent Monitor Data Heart Rate from ECG 51 NIBP 140/64 NIBP BP-Mean 89 Respiration from ECG 18 SpO2 90 I&O: 07/20/20 07/21/20 07/22/20 06:59 06:59 06:59 Intake Total 1209 1802.1 Output Total 330 3435 Balance 879 -1632.9 Result Diagrams: 07/21/20 05:13 07/21/20 05:13 Phys Exam - Physical Examination anxious, intubated and awake HEENT: moist MMs, sclera anicteric Neck: no JVD, supple Respiratory: no wheezing, no rales, clear to auscultation bilateral diminished breath sounds Cardiovascular: RRR, no significant murmur, no rub Gastrointestinal: soft, no distention, positive bowel sounds obese abd Musculoskeletal: pulses present Neurological: moves all 4 limbs Skin: normal turgor Dx/Plan (1) Acute respiratory failure with hypoxia Code(s): J96.01 - ACUTE RESPIRATORY FAILURE WITH HYPOXIA Status: Acute (2) Bilateral pneumonia Code(s): J18.9 - PNEUMONIA, UNSPECIFIED ORGANISM Status: Acute (3) Pulmonary HTN Code(s): I27.20 - PULMONARY HYPERTENSION, UNSPECIFIED Status: Acute (4) Diabetes mellitus Code(s): E11.9 - TYPE 2 DIABETES MELLITUS WITHOUT COMPLICATIONS Status: Chronic Qualifiers: Diabetes mellitus type: type 2 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 mellitus ocean transportation intermediary insulin use: unspecified ocean transportation intermediary insulin use status Diabetes mellitus complication status: with hyperglycemia Qualified Code(s): E11.65 - Type 2 diabetes mellitus with hyperglycemia (5) HTN (hypertension) Code(s): I10 - ESSENTIAL (PRIMARY) HYPERTENSION Status: Chronic Qualifiers: Hypertension type: essential hypertension Qualified Code(s): I10 - Essenti al (primary) hypertension (6) Morbid obesity Code(s): E66.01 - MORBID (SEVERE) OBESITY DUE TO EXCESS CALORIES Status: Chronic (7) AMBERLY (obstructive sleep apnea) Code(s): G47.33 - OBSTRUCTIVE SLEEP APNEA (ADULT) (PEDIATRIC) Status: Chronic - Plan Plan: Pt is a 50 yo M with pmh of AMBERLY, DMII, HLD, Aflutter, HTN, GERD, Gout, mild pulmonary HTN, and venous stasis dermatitis b/l LE who present for SOB, intubated in ER due to hypoxia and admitted to CCU for bilateral PNA and pulm/critical care. consult 1. Acute Hypoxic Respiratory Failure 2/2 bilateral PNA of unknown organism satting 63% on RA when in ED, required intubation. Unknown cause of PNA. - ED: Received Azithro & Rocephin, CXR: Bilateral ground glass opacities, minimal cardiomegaly and vascular congestion - Consulted Pulm, Dr. Vega, 07/17: levaquin, azithro and rocephin, continue ventilation, start tube feeds. - LDH 323, CRP 3.53, D-dimer <0.2, and Ferritin 306 - ABG & CXR daily ordered - Rapid COVID: Negative. PCR repeat testing negative as well. D/c'd precautions and covid treatment. - Flu neg - overnight LR @ 75. BNP: 72. held IVFs gave one dose of IV 20 mg lasix 07/20 due to volume overload as well. KVO IV, no IVF hydration at this time. - BCx, UCx, and sputum ccx ordered. added resp viral panel. - Negative HIV, legionella and S. pneumo antigens. - Antibiotics: azithromycin, rocephin, and levaquin - Steroids: solu-medrol 40 mg Q6H - Nebs: duonebs Q4H - anticoag: lovenox 100 mg BID and antiXa level therapeutic 2. DMII Will hold Metformin & Jardiance - ACHS Glucose Checks - Mild SSI - goal 140-180 glucose 3. Aflutter - Continue home medications: Multaq & Cardizem - NSR on EKG with nonspecific ST changes, Trops neg - will hold home xarelto as NPO and start lovenox. AntiXa level therapeutic 4. HTN - restarted lisinopril - Will continue to monitor 5. HLD - Will hold Atorvastatin for now 6. Venous Stasis Dermatitis on B/l LE - Bilateral lower extremities discolored, but no warmth 7. Mild Pulmonary HTN - Per EMR records at clinic - Likely 2/2 to AMBERLY & Obesity Hypoventilation Syndrome - ECHO 10/09/19: EF 50-55% with left atrial dilation and trace tricuspid regurg * No mention of pulm HTN in ECHO, PAP not listed 8. AMBERLY - Uses CPAP at night - aware on vent. Code Status: Full IVF: KVO DVT PPx: Lovenox 100 BID, anti X a level therapeutic GI PPx: Protonix PCP: CARMINA Davidson Dispo: Admit to ICU. LOS > 48H.
[2020-07-21] MEDS: Dronedarone HCl 400 MG TAB PO SCH ×2 (08:09→20:22)
[2020-07-21] MEDS: Pantoprazole 40 MG VIAL IVP SCH (08:15)
[2020-07-21] MEDS ORDERED: Lisinopril 10 MG TAB PO SCH (09:00)
--- NOTE | 2020-07-21 09:27 | RAD ---
PORTABLE CHEST: Date: 07/21/2020 INDICATION: CCU follow-up, on ventilator. COMPARISON: 07/20/2020. FINDINGS: Cardiomegaly with prominent widening of the mediastinum. Vascular engorgement. Small effusions. Basil ar infiltrates appear to have improved when compared to films dating back to 07/19/2020. IMPRESSION: Prominent heart and mediastinum with mild vascular engorgement. POS: AGW
--- NOTE | 2020-07-21 10:33 | PRG ---
DATE OF SERVICE: 07/21/2020 Mr. Hughes is still on the ventilator, but is resting quietly. He is easily arousable, and when aroused, is awake and alert, in no distress. States that he is breathing easier. He was given Lasix yesterday for the possibility of heart failure. clinically improved after diuresing 3500 mL. His chest x-ray this morning does show improvement in the "infiltrates" suggesting that much is did in fact represent pulmonary congestion from heart failure. In the event, we will continue with reducing fluids and IV Lasix. Anticipate he may be coming off the ventilator in a day or two. Job ID: [id number]
[2020-07-21] MEDS: Enoxaparin Sodium 100 MG/ML SYRINGE SC SCH ×2 (12:07→20:21)
[2020-07-21] MEDS: cefTRIAXone\\ROCEPHIN 2 GM in Sodium Chloride 0.9% 100 ML IVPB SCH (14:13)
[2020-07-21] MEDS: Azithromycin 500 MG in Sodium Chloride 0.9% 250 ML 250 ML IVPB SCH (15:42)
--- NOTE | 2020-07-21 20:10 | PRG ---
DATE OF SERVICE: 07/21/2020 SUBJECTIVE: Mr. Hughes awakens and nods appropriately to questions. OBJECTIVE: VITAL SIGNS: Heart rates in the 50s, blood pressure 129/75, respiratory rate is 20, O2 saturations in the high 80s to low 90s. We decreased his ventilatory support today. His exhaled volumes were at times over 900 mL with bilevel support, so we switched him back to volume ventilation. LUNGS: Clear. HEART: Regular rhythm. ABDOMEN: Soft. LABORATORY DATA: White count 4.2, hemoglobin 14.7, platelets 89, 25% bands on his peripheral smear, 51% bands yesterday. Electrolytes are unremarkable. IMPRESSION: 1. Respiratory failure with ? pneumonia. His left shift would argue that he does have an infectious process. 2. History of diastolic heart failure. 3. Sleep apnea. Marginally compliant in the past. 4. Life-threatening obesity with a weight of 502 pounds. We will continue supportive care. Critical care time 30 min. Job ID: [id number] MTDD
[2020-07-21] MEDS: Lorazepam 2 MG/ML VIAL SLOW IVP PRN (20:22)
[2020-07-21 23:46] LABS: Actual Bicarbonate (HCO3a) 31.1 mEq/L (22-28); Base Excess (BEa) 3.8 mEq/L (-2.0 to +3.0); Calcium, Ionized (arterial) 1.11 mmol/L (1.12-1.30); Carboxyhemoglobin (COHb) 1.2 gm% (0.0-3.0); Hemoglobin (Hb) 15.9 g/dL (14.0-18.0); Potassium - ABG Lab 4.84 mmol/L (3.70-5.30); pH, Arterial 7.36 (7.35-7.45)
[2020-07-22] MEDS: Propofol 1,000 MG/100 ML VIAL IV PRN (00:39)
[2020-07-22 01:23] LABS: O2 Tension (PaO2), arterial 40.8 mmHg (80.0-100.0); Puncture Site RBA
[2020-07-22] MEDS: methylPREDNISolone Sod Succ 40 MG VIAL IVP SCH ×3 (05:29→17:38)
[2020-07-22 05:36] LABS: ALT (SGPT) 27 U/L (8-55); AST (SGOT) 25 U/L (5-34); Albumin 3.3 g/dL (3.5-5.0); Alkaline Phosphatase 74 U/L (40-110); Anion Gap 16 mmol/L (10-20); BUN (Urea Nitrogen) 20 mg/dL (8.9-20.6); Bilirubin, Total 0.6 mg/dL (0.2-1.2); Calc. Creatinine Clearance 345 mL/min (70-130); Calcium 8.3 mg/dL (7.8-10.44); Carbon Dioxide 29 mmol/L (22-29); Chloride 95 mmol/L (98-107); Globulin 3.4 g/dL (2.4-3.5); Glucose 228 mg/dL (70-105); Potassium 4.9 mmol/L (3.5-5.1); Protein, Total 6.7 g/dL (6.0-8.3); Sodium 135 mmol/L (136-145)
[2020-07-22 05:55] LABS: Band 36 % (5-11); Hemoglobin 15.7 g/dL (14.0-18.0); Lymphocytes 14 % (21-51); MDiff Complete? YES; Mean Corpuscular HGB CONC 30.1 g/dL (32.0-36.0); Mean Corpuscular Hemoglobin 26.5 pg (27.0-31.0); Mean Corpuscular Volume 87.9 fL (78.0-98.0); Mean Platelet Volume 11.1 fL (7.4-10.4); Monocytes 8 % (0-10); Neutrophil 42 % (42-75); Platelet Count 79 thou/uL (130-400); Platelet Morphology Comment Appears Decreased; RBC Distribution Width 17.1 % (11.5-14.5); Red Blood Cell (RBC) Count 5.93 mill/uL (4.70-6.10); White Blood Cell (WBC) Count 4.3 thou/uL (4.8-10.8)
[2020-07-22 06:20] LABS: Actual Bicarbonate (HCO3a) 27.4 mEq/L (22-28); Base Excess (BEa) 2.9 mEq/L (-2.0 to +3.0); CO2 Tension 41.4 mmHg (35.0-45.0); Calcium, Ionized (arterial) 1.12 mmol/L (1.12-1.30); Carboxyhemoglobin (COHb) 1.3 gm% (0.0-3.0); Hemoglobin (Hb) 16.2 g/dL (14.0-18.0); Potassium - ABG Lab 4.89 mmol/L (3.70-5.30); pH, Arterial 7.44 (7.35-7.45)
[2020-07-22] MEDS: fentaNYL Citrate/PF 2,000 MCG in Sodium Chloride 0.9% 60 ML IV SCH ×2 (06:21→17:37)
[2020-07-22 06:24] LABS: O2 Tension (PaO2), arterial 49.7 mmHg (80.0-100.0); Puncture Site RRA
[2020-07-22] MEDS: HumaLOG 300 UNITS/3 ML VIAL SC PRN ×2 (06:36→17:39)
--- NOTE | 2020-07-22 07:06 | PDOC.FM ---
- Subjective Subjective: no acute overnight events tube feeds started yesterday elevated accuchecks, restarted metformin this morning per tube BP's elevated, increased lisinopril today vent settings: FIO2 75%, 13 PEEP, 20 RR ABG: pH 7.44, bicarb 27, O2 49 and CO2 41 - Objective MAR Reviewed: Yes Vital Signs & Weight: Vital Signs (12 hours) Temp Pulse Resp BP Pulse Ox 07/22/20 06:32 57 L 128/80 07/22/20 06:31 62 20 92 L 07/22/20 06:00 22 H 07/22/20 04:00 98.2 F 20 07/22/20 02:26 44 L 20 88 L 07/22/20 02:23 46 L 131/79 88 L 07/22/20 02:00 20 07/22/20 00:00 98.3 F 20 07/21/20 22:27 54 L 126/73 07/21/20 22:24 89 20 88 L 07/21/20 22:00 20 07/21/20 20:00 99.3 F 23 H 92 L Weight Admit Weight 221.807 kg Weight 223.5 kg Most Recent Monitor Data Heart Rate from ECG 60 NIBP 132/78 NIBP BP-Mean 96 Respiration from ECG 20 SpO2 94 I&O: 07/21/20 07/22/20 07/23/20 06:59 06:59 06:59 Intake Total 1802.1 1829 Output Total 3435 2630 Balance -1632.9 -801 Result Diagrams: 07/22/20 04:40 07/22/20 04:40 Phys Exam - Physical Examination Constitutional: NAD intubated, awakens to physical exam and soft voice. HEENT: moist MMs, sclera anicteric Neck: supple Respiratory: no wheezing, no rales, no rhonchi, clear to auscultation bilateral Cardiovascular: no significant murmur bradycardia Gastrointestinal: soft Musculoskeletal: pulses present Neurological: moves all 4 limbs Skin: no rash, normal turgor Dx/Plan (1) Acute respiratory failure with hypoxia Code(s): J96.01 - ACUTE RESPIRATORY FAILURE WITH HYPOXIA Status: Acute (2) Bilateral pneumonia Code(s): J18.9 - PNEUMONIA, UNSPECIFIED ORGANISM Status: Acute (3) Pulmonary HTN Code(s): I27.20 - PULMONARY HYPERTENSION, UNSPECIFIED Status: Acute (4) Diabetes mellitus Code(s): E11.9 - TYPE 2 DIABETES MELLITUS WITHOUT COMPLICATIONS Status: Chronic Qualifiers: Diabetes mellitus type: type 2 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 insulin use: unspecified termite control service representative insulin use status Diabetes mellitus complication status: with hyperglycemia Qualified Code(s): E11.65 - Type 2 diabetes mellitus with hyperglycemia (5) HTN (hypertension) Code(s): I10 - ESSENTIAL (PRIMARY) HYPERTENSION Status: Chronic Qualifiers: Hypertension type: essential hypertension Qualified Code(s): I10 - Essential (primary) hypertension (6) Morbid obesity Code(s): E66.01 - MORBID (SEVERE) OBESITY DUE TO EXCESS CALORIES Status: Chronic (7) AMBERLY (obstructive sleep apnea) Code(s): G47.33 - OBSTRUCTIVE SLEEP APNEA (ADULT) (PEDIATRIC) Status: Chronic - Plan Plan: Pt is a 50 yo M with pmh of AMBERLY, DMII, HLD, Aflutter, HTN, GERD, Gout, mild pulmonary HTN, and venous stasis dermatitis b/l LE who present for SOB, intubated in ER due to hypoxia and admitted to CCU for bilateral PNA and pulm/critical care. consult 1. Acute Hypoxic Respiratory Failure 2/2 bilateral PNA of unknown organism satting 63% on RA when in ED, required intubation. Unknown cause of PNA. - ED: Received Azithro & Rocephin, CXR: Bilateral ground glass opacities, minimal cardiomegaly and vascular congestion - Consulted Pulm, Dr. Vega, 07/17: levaquin, azithro and rocephin, continue ventilation, start tube feeds. - LDH 323, CRP 3.53, D-dimer <0.2, and Ferritin 306 - ABG & CXR daily ordered - Rapid COVID: Negative. PCR repeat testing negative as well. D/c'd precautions and covid treatment. - Flu neg, RVP neg - overnight LR @ 75. BNP: 72. held IVFs gave one dose of IV 20 mg lasix 07/20 due to volume overload as well. KVO IV, no IVF hydration at this time. - BCx & UCx no growth at 48 hrs. Sputum ccx growing nml resp sae to date. - Negative HIV, legionella and S. pneumo antigens. - Antibiotics: azithromycin, rocephin, and levaquin - Steroids: solu-medrol 40 mg Q6H - Nebs: duonebs Q4H - anticoag: lovenox 100 mg BID and antiXa level therapeutic - Tube feeds started on 07/21. 2. DMII Will hold Jardiance - ACHS Glucose Checks - Mild SSI - goal 140-180 glucose - restarted home metformin 1000 mg BID 3. Aflutter - Continue home medications: Multaq & Cardizem - NSR on EKG with nonspecific ST changes, Trops neg - will hold home xarelto and start lovenox. AntiXa level therapeutic 4. HTN - restarted lisinopril, increased dose to 20 mg daily from 10 mg due to elevated BP's - Will continue to monitor closely 5. HLD - Will hold Atorvastatin for now 6. Venous Stasis Dermatitis on B/l LE - Bilateral lower extremities discolored, but no warmth 7. Mild Pulmonary HTN - Per EMR records at clinic - Likely 2/2 to AMBERLY & Obesity Hypoventilation Syndrome - ECHO 10/09/19: EF 50-55% with left atrial dilation and trace tricuspid regurg * No mention of pulm HTN in ECHO, PAP not listed 8. AMBERLY - Uses CPAP at night - aware on vent. Code Status: Full IVF: KVO DVT PPx: Lovenox 100 BID, anti X a level therapeutic GI PPx: Protonix PCP: CARMINA Davidson Dispo: Admit to ICU. LOS > 48H.
--- NOTE | 2020-07-22 07:50 | RAD ---
EXAM: Portable chest PROVIDED CLINICAL HISTORY: Respiratory insufficiency COMPARISON: 07/21/2020 FINDINGS: Significant interval change with respect to the prior examination is not apparent. Evaluation is [place] by patient body habitus. IMPRESSION: As above.
[2020-07-22] MEDS: Dronedarone HCl 400 MG TAB PO SCH ×2 (08:08→20:58)
[2020-07-22] MEDS: Lisinopril 20 MG TAB PO SCH (08:09)
[2020-07-22] MEDS: Enoxaparin Sodium 100 MG/ML SYRINGE SC SCH (08:10)
[2020-07-22] MEDS: Pantoprazole 40 MG VIAL IVP SCH (08:11)
[2020-07-22] MEDS: metFORMIN 500 MG TAB PO SCH ×2 (08:12→20:58)
[2020-07-22] MEDS ORDERED: Furosemide 40 MG/4 ML VIAL IVP SCH (09:02)
[2020-07-22] MEDS: Lorazepam 2 MG/ML VIAL SLOW IVP PRN ×2 (10:14→11:15)
--- NOTE | 2020-07-22 10:38 | PRG ---
DATE OF SERVICE: 07/22/2020 Mr. Hughes is still on the ventilator and appears to be quite comfortable. We are continuing to follow him with the Intensive Care Service. He seems to improve with IV Lasix, but there is also a possibility we need to consider a pulmonary embolus. However, right now, he is on therapeutic levels of Lovenox. We discussed with the intensive possibility of perhaps switching him to intravenous heparin, but we will await the results of the Lasix administration to see if his symptoms otherwise improve. Job ID: [id number]
--- NOTE | 2020-07-22 15:04 | PRG ---
DATE OF SERVICE: 07/22/2020 SUBJECTIVE: Mr. Hughes awakens easily. OBJECTIVE: VITAL SIGNS: Heart rate is in the 60s, blood pressure 116/66, respiratory rate is 20. He is on bilevel ventilation, started last night for desaturation. His exhaled tidal volumes are back up to 900, so I have decreased his high and low PEEP and his FiO2. Saturations of 88 to 92 were acceptable in my opinion. LUNGS: Clear anteriorly. HEART: Regular rhythm. ABDOMEN: Soft, nontender. LABORATORY DATA: He does not have COVID by testing. He still has a big left shift, 35% bands. White count is 4.3. Electrolytes are unremarkable. Glucose 228. He was on Xarelto prior to admission, so it is unlikely that he has thromboembolic disease. He is receiving Lovenox, but probably not fully anticoagulated given his weight with the dose of Lovenox he is receiving. Should at least increase that to 130 mg twice a day in my opinion and we might consider placing him on heparin drip, although this is fraught with its own problems. He will continue with empiric broad antimicrobial therapy. His chest radiograph has not shown any new or progressive infiltrates. He does have the pneumonia, it is likely behind his diaphragm or retrocardiac since we can only get AP films on him. Decreased his steroid dosing. He is sedated with Versed instead of propofol. He is on Protonix for GI prophylaxis. CRITICAL CARE TIME: 30 minutes. Job ID: [id number]
[2020-07-22] MEDS: cefTRIAXone\\ROCEPHIN 2 GM in Sodium Chloride 0.9% 100 ML IVPB SCH (15:41)
[2020-07-22] MEDS: Azithromycin 500 MG in Sodium Chloride 0.9% 250 ML 250 ML IVPB SCH (15:41)
[2020-07-22] MEDS: Enoxaparin Sodium 80 MG/0.8 ML SYRINGE SC SCH (20:59)
[2020-07-23] MEDS: methylPREDNISolone Sod Succ 40 MG VIAL IVP SCH ×5 (00:43→23:27)
[2020-07-23 04:52] LABS: ALT (SGPT) 28 U/L (8-55); AST (SGOT) 21 U/L (5-34); Albumin 3.2 g/dL (3.5-5.0); Alkaline Phosphatase 66 U/L (40-110); Anion Gap 13 mmol/L (10-20); BUN (Urea Nitrogen) 21 mg/dL (8.9-20.6); Bilirubin, Total 0.5 mg/dL (0.2-1.2); Calc. Creatinine Clearance 345 mL/min (70-130); Calcium 8.4 mg/dL (7.8-10.44); Carbon Dioxide 30 mmol/L (22-29); Chloride 96 mmol/L (98-107); Globulin 3.1 g/dL (2.4-3.5); Glucose 221 mg/dL (70-105); Potassium 4.7 mmol/L (3.5-5.1); Protein, Total 6.3 g/dL (6.0-8.3); Sodium 134 mmol/L (136-145)
[2020-07-23 05:16] LABS: Anisocytosis SLIGHT = 6-15 cells (100X) (0-5/hpf); Band 25 % (5-11); Hemoglobin 15.4 g/dL (14.0-18.0); Lymphocytes 4 % (21-51); MDiff Complete? YES; Mean Corpuscular HGB CONC 30.1 g/dL (32.0-36.0); Mean Corpuscular Hemoglobin 26.3 pg (27.0-31.0); Mean Corpuscular Volume 87.4 fL (78.0-98.0); Monocytes 7 % (0-10); Neutrophil 63 % (42-75); Platelet Count 80 thou/uL (130-400); Platelet Morphology Comment Appears Decreased; Reactive Lymphocytes 1 % (0-10); Red Blood Cell (RBC) Count 5.87 mill/uL (4.70-6.10); White Blood Cell (WBC) Count 5.2 thou/uL (4.8-10.8)
--- NOTE | 2020-07-23 05:58 | PDOC.FM ---
- Subjective Subjective: NAEO. Patient remains stable on the ventilator. Awake and alert & responds by nodding head to questions. Denies any pain this AM. - Objective MAR Reviewed: Yes Vital Signs & Weight: Vital Signs (12 hours) Temp Pulse Resp Pulse Ox 07/23/20 02:16 56 L 20 91 L 07/23/20 02:13 55 L 07/22/20 22:45 55 L 20 90 L 07/22/20 22:43 56 L 07/22/20 19:00 97.9 F 07/22/20 18:46 67 07/22/20 18:44 68 20 90 L 07/22/20 18:00 20 Weight Admit Weight 221.807 kg Weight 223.5 kg Most Recent Monitor Data Heart Rate from ECG 56 NIBP 157/83 NIBP BP-Mean 107 Respiration from ECG 20 SpO2 88 I&O: 07/21/20 07/22/20 07/23/20 06:59 06:59 06:59 Intake Total 1802.1 1829 1747 Output Total 3436 0810 2850 Balance -1632.9 -801 -1103 Result Diagrams: 07/23/20 03:58 07/23/20 03:58 Phys Exam - Physical Examination Constitutional: NAD remains intubated without sedation HEENT: moist MMs Neck: supple, full ROM Respiratory: no wheezing markedly distant breath sounds throughout 2/2 body habitus Cardiovascular: RRR, no significant murmur Gastrointestinal: soft, non-tender, positive bowel sounds Musculoskeletal: no edema Neurological: non-focal, moves all 4 limbs Psychiatric: normal affect Skin: no rash Dx/Plan (1) Acute respiratory failure with hypoxia Code(s): J96.01 - ACUTE RESPIRATORY FAILURE WITH HYPOXIA Status: Acute (2) Bilateral pneumonia Code(s): J18.9 - PNEUMONIA, UNSPECIFIED ORGANISM Status: Acute (3) HLD (hyperlipidemia) Code(s): E78.5 - HYPERLIPIDEMIA, UNSPECIFIED Status: Chronic (4) Pulmonary HTN Code(s): I27.20 - PULMONARY HYPERTENSION, UNSPECIFIED Status: Chronic (5) Diabetes mellitus Code(s): E11.9 - TYPE 2 DIABETES MELLITUS WITHOUT COMPLICATIONS Status: Chronic Qualifiers: Diabetes mellitus type: type 2 Diabetes mellitus halfway insulin use: unspecified lobsterman insulin use status Diabetes mellitus complication status: with hyperglycemia Qualified Code(s): E11.65 - Type 2 diabetes mellitus with hyperglycemia (6) GERD (gastroesophageal reflux disease) Code(s): K21.9 - GASTRO-ESOPHAGEAL REFLUX DISEASE WITHOUT ESOPHAGITIS Status: Chronic (7) HTN (hypertension) Code(s): I10 - ESSENTIAL (PRIMARY) HYPERTENSION Status: Chronic Qualifiers: Hypertension type: essential hypertension Qualified Code(s): I10 - Essential (primary) hypertension (8) Morbid (severe) obesity due to excess calories Code(s): E66.01 - MORBID (SEVERE) OBESITY DUE TO EXCESS CALORIES Status: Chronic (9) AMBERLY (obstructive sleep apnea) Code(s): G47.33 - OBSTRUCTIVE SLEEP APNEA (ADULT) (PEDIATRIC) Status: Chronic - Plan Plan: Pt is a 50 yo M with pmh of AMBERLY, DMII, HLD, Aflutter, HTN, GERD, Gout, mild pulmonary HTN, and venous stasis dermatitis b/l LE who present for SOB, intubated in ER due to hypoxia and admitted to CCU for bilateral PNA and pulm/critical care. 1. Acute Hypoxic Respiratory Failure 2/2 bilateral PNA of unknown organism satting 63% on RA when in ED, required intubation. Unknown cause of PNA. - Rapid COVID: Negative. PCR repeat testing negative as well. D/c'd precautions and covid treatment. - Flu neg, RVP neg - BCx & UCx no growth at 48 hrs. Sputum ccx growing nml resp sae to date. - Negative HIV, legionella and S. pneumo antigens. - CXR: initially showing Bilateral ground glass opacities, minimal cardiomegaly and vascular congestion with slight improvement today from yesterday. - Pulm, Dr. Vega, on board. Report that due to x-ray & ABG improvement today will possibly attempt CPAP trial tomorrow & maybe even extubation with Bipap. Continue IV levaquin, azithro and rocephin. Continue solu-medrol 40 mg Q6H & duonebs Q4H. - Continue ABG & CXR daily - Continue lovenox 130 mg BID per pulm recs. - Tube feeds started on 07/21. 2. DMII Will hold Jardiance due to risk of developing DKA in setting of acute illness. - ACHS Glucose Checks - Mild SSI w/ BOBBY lantus today but only 6U - goal 140-180 glucose - Continue home metformin 1000 mg BID yesterday 3. Aflutter - Continue home medications: Multaq & Cardizem - NSR on EKG with nonspecific ST changes, Trops neg - will hold home xarelto and start lovenox. AntiXa level therapeutic 4. HTN - Continue lisinopril at 20 mg daily today due to elevated BP's & will add low dose HCTZ today. - Will continue to monitor closely. Could be falsely elevated 2/2 wrist cuff. Will attempt to get large arm cuff if possible. 5. HLD - Will hold Atorvastatin for now 6. Venous Stasis Dermatitis on B/l LE - Bilateral lower extremities discolored, but no warmth 7. Mild Pulmonary HTN - Per EMR records at clinic - Likely 2/2 to AMBERLY & Obesity Hypoventilation Syndrome - ECHO 10/09/19: EF 50-55% with left atrial dilation and trace tricuspid regurg * No mention of pulm HTN in ECHO, PAP not listed 8. AMBERLY - Uses CPAP at night - aware on vent. Code Status: Full IVF: KVO DVT PPx: Lovenox 130 BID, anti X a level therapeutic GI PPx: Protonix PCP: CARMINA Davidson Dispo: Continue respiratory support in ICU per pulm recs with possible CPAP trial and/or extubation tomorrow pending clinical course. Addendum - Attending - Attending Attestation Date/Time: 07/23/20 [id number] I personally evaluated the patient and discussed the management with Dr. Toussaint. I agree with the History, Examination, Assessment and Plan documented above with any addition or exceptions noted below. The patient is awake on the vent. He tries to spell with his hands which are in restraints because he tries to pull his tube. Continue current care. Vent mgmt per pulm.
[2020-07-23] MEDS: HumaLOG 300 UNITS/3 ML VIAL SC PRN ×2 (06:16→18:23)
[2020-07-23 07:42] LABS: Actual Bicarbonate (HCO3a) 29.1 mEq/L (22-28); Base Excess (BEa) 2.9 mEq/L (-2.0 to +3.0); CO2 Tension 49.9 mmHg (35.0-45.0); Calcium, Ionized (arterial) 1.17 mmol/L (1.12-1.30); Carboxyhemoglobin (COHb) 1.2 gm% (0.0-3.0); Hemoglobin (Hb) 16.1 g/dL (14.0-18.0); Potassium - ABG Lab 4.77 mmol/L (3.70-5.30); pH, Arterial 7.38 (7.35-7.45)
[2020-07-23 07:43] LABS: Puncture Site RRA
[2020-07-23 07:44] LABS: ALV-art Gradient 341.075 mmHg (0-20)
--- NOTE | 2020-07-23 08:55 | RAD ---
SINGLE VIEW OF THE CHEST: COMPARISON: 07/22/2020. HISTORY: CCU ventilated patient with respiratory failure. FINDINGS: A single view of the chest shows an enlarged cardiomediastinal silhouette. The lines and tubes are u nchanged in position. It is difficult to completely see the NG tube secondary to poor penetration of the film. There is obscurity of the left hemidiaphragm which may be secondary to the patient's enla rged heart versus small left pleural effusion. Bilateral dependent atelectasis versus infiltrates is seen. IMPRESSION: 1. Cardiomegaly. 2. Bibasilar infiltrates versus atelectasis. 3. Possible left pleural effusion. POS: EAA
[2020-07-23] MEDS ORDERED: Insulin Glargine 6 UNITS in Pre-Filled Syringe 1 EACH SC SCH (09:00)
[2020-07-23] MEDS: Enoxaparin Sodium 80 MG/0.8 ML SYRINGE SC SCH ×2 (09:36→20:15)
[2020-07-23] MEDS: Hydrochlorothiazide 25 MG TAB PO SCH (09:43)
[2020-07-23] MEDS: Dronedarone HCl 400 MG TAB PO SCH ×2 (09:44→20:15)
[2020-07-23] MEDS: Lisinopril 20 MG TAB PO SCH (09:45)
[2020-07-23] MEDS: metFORMIN 500 MG TAB PO SCH ×2 (09:45→20:16)
[2020-07-23] MEDS: Pantoprazole 40 MG VIAL IVP SCH (09:45)
--- NOTE | 2020-07-23 10:01 | PRG ---
DATE OF SERVICE: 07/23/2020 SUBJECTIVE: Sigifredo Hughes is a morbidly obese gentleman, remains intubated in the vent, but he is awake, alert, and responsive. His x-ray actually looks better. OBJECTIVE: VITAL SIGNS: His temperature is 97. Pulse 57. He is on bilevel. Saturations are barely 88. CHEST: Anterior rhonchi. CARDIAC: Normal S1 and S2. No gallops. ABDOMEN: No masses. LABORATORY DATA: White count 5000, hemoglobin and hematocrit are 15 and 41, platelet count is 80. PO2 is 60, pCO2 is 49, pH is 7.38, rate of 20, 65% FiO2. Low PEEP of 12. Lytes are normal. IMPRESSION AND PLAN: Respiratory failure, morbid obesity, diastolic dysfunction, sleep apnea. The patient is awake, alert, and responsive. His x-ray is better. If possible, we could try CPAP tomorrow and maybe extubate him and put him on BiPAP. Continue supportive care. We will follow. Job ID: [id number]
[2020-07-23] MEDS: Lorazepam 2 MG/ML VIAL SLOW IVP PRN (12:54)
[2020-07-23] MEDS: fentaNYL Citrate/PF 2,000 MCG in Sodium Chloride 0.9% 60 ML IV SCH (14:47)
[2020-07-23] MEDS ORDERED: AcetaZOLAMIDE 250 MG TAB PER TUBE SCH (15:00)
[2020-07-23] MEDS ORDERED: Furosemide 40 MG/4 ML VIAL SLOW IVP SCH (15:00)
[2020-07-23] MEDS: cefTRIAXone\\ROCEPHIN 2 GM in Sodium Chloride 0.9% 100 ML IVPB SCH (15:12)
[2020-07-23] MEDS: Azithromycin 500 MG in Sodium Chloride 0.9% 250 ML 250 ML IVPB SCH (16:25)
[2020-07-24] MEDS: HumaLOG 300 UNITS/3 ML VIAL SC PRN ×5 (00:48→22:41)
[2020-07-24] MEDS: methylPREDNISolone Sod Succ 40 MG VIAL IVP SCH ×3 (05:11→17:03)
[2020-07-24 05:14] LABS: Band 5 % (5-11); Hemoglobin 15.9 g/dL (14.0-18.0); Lymphocytes 17 % (21-51); MDiff Complete? YES; Mean Corpuscular HGB CONC 31.3 g/dL (32.0-36.0); Mean Corpuscular Volume 86.3 fL (78.0-98.0); Mean Platelet Volume 11.6 fL (7.4-10.4); Monocytes 8 % (0-10); Neutrophil 69 % (42-75); Platelet Count 87 thou/uL (130-400); Platelet Morphology Comment Appears Decreased; Promyelocytes 1 % (0-0); RBC Distribution Width 16.6 % (11.5-14.5); RBC Morphology Normal; Red Blood Cell (RBC) Count 5.91 mill/uL (4.70-6.10); White Blood Cell (WBC) Count 5.1 thou/uL (4.8-10.8)
[2020-07-24 05:19] LABS: ALT (SGPT) 40 U/L (8-55); AST (SGOT) 18 U/L (5-34); Albumin 3.3 g/dL (3.5-5.0); Alkaline Phosphatase 69 U/L (40-110); Anion Gap 14 mmol/L (10-20); BUN (Urea Nitrogen) 21 mg/dL (8.9-20.6); Bilirubin, Total 0.6 mg/dL (0.2-1.2); Calc. Creatinine Clearance 310 mL/min (70-130); Calcium 8.8 mg/dL (7.8-10.44); Carbon Dioxide 30 mmol/L (22-29); Chloride 94 mmol/L (98-107); Globulin 3.3 g/dL (2.4-3.5); Glucose 241 mg/dL (70-105); Potassium 4.5 mmol/L (3.5-5.1); Protein, Total 6.6 g/dL (6.0-8.3); Sodium 133 mmol/L (136-145)
[2020-07-24 07:17] LABS: Actual Bicarbonate (HCO3a) 27.3 mEq/L (22-28); Base Excess (BEa) 2.2 mEq/L (-2.0 to +3.0); CO2 Tension 43.6 mmHg (35.0-45.0); Calcium, Ionized (arterial) 1.18 mmol/L (1.12-1.30); Carboxyhemoglobin (COHb) 0.6 gm% (0.0-3.0); Hemoglobin (Hb) 16.6 g/dL (14.0-18.0); O2 Tension (PaO2), arterial 65.5 mmHg (80.0-100.0); Potassium - ABG Lab 4.55 mmol/L (3.70-5.30); pH, Arterial 7.41 (7.35-7.45)
[2020-07-24 07:18] LABS: Puncture Site RRA
[2020-07-24] MEDS: Hydrochlorothiazide 25 MG TAB PO SCH (08:04)
[2020-07-24] MEDS: metFORMIN 500 MG TAB PO SCH ×2 (08:06→19:58)
[2020-07-24] MEDS: Lisinopril 20 MG TAB PO SCH (08:06)
[2020-07-24] MEDS: Enoxaparin Sodium 80 MG/0.8 ML SYRINGE SC SCH (08:06)
[2020-07-24] MEDS: Dronedarone HCl 400 MG TAB PO SCH ×2 (08:06→19:59)
[2020-07-24] MEDS: Pantoprazole 40 MG VIAL IVP SCH (08:07)
--- NOTE | 2020-07-24 08:20 | RAD ---
EXAM: Single view of the chest HISTORY: Ventilated patient with respiratory failure COMPARISON: 07/23/2020 FINDINGS: Single view of the chest shows an enlarged but stable cardiomediastinal silhouette. The li deena and tubes are unchanged in position. There is bilateral pulmonary vascular enlargement. Obscurity of the left hemidiaphragm may represent a pleural effusion and/or adjacent atelectasis. No acute osseous abnormality. IMPRESSION: Stable exam
--- NOTE | 2020-07-24 08:52 | PDOC.FM ---
- Subjective Subjective: NAEO. Remains stable on the vent. No complaints this AM. Diuresed well yesterday with additional IV lasix. - Objective MAR Reviewed: Yes Vital Signs & Weight: Vital Signs (12 hours) Temp Pulse Resp BP Pulse Ox 07/24/20 08:06 130/100 H 07/24/20 08:00 98.8 F 20 07/24/20 06:42 60 130/100 H 07/24/20 06:39 59 L 20 91 L 07/24/20 06:00 20 07/24/20 04:00 98.0 F 20 07/24/20 02:02 57 L 114/73 07/24/20 02:00 20 07/24/20 00:00 20 07/23/20 22:07 60 116/67 07/23/20 22:00 20 Weight Admit Weight 221.807 kg Weight 223.5 kg Most Recent Monitor Data Heart Rate from ECG 64 NIBP 127/85 NIBP BP-Mean 99 Respiration from ECG 18 SpO2 95 I&O: 07/23/20 07/24/20 07/25/20 06:59 06:59 06:59 Intake Total 1747 1824 120 Output Total 2915 7060 575 [facility] [place] -[phone] Result Diagrams: 07/24/20 03:54 07/24/20 03:54 Phys Exam - Physical Examination Constitutional: NAD remains intubated but not sedated HEENT: moist MMs Neck: supple Respiratory: no wheezing, clear to auscultation bilateral (in anterior chest only) Cardiovascular: RRR, no significant murmur Gastrointestinal: soft, non-tender Neurological: non-focal, moves all 4 limbs nods & respsonds appropriately to questioning Psychiatric: normal affect Skin: no rash Dx/Plan (1) Acute respiratory failure with hypoxia Code(s): J96.01 - ACUTE RESPIRATORY FAILURE WITH HYPOXIA Status: Acute (2) Bilateral pneumonia Code(s): J18.9 - PNEUMONIA, UNSPECIFIED ORGANISM Status: Acute (3) HLD (hyperlipidemia) Code(s): E78.5 - HYPERLIPIDEMIA, UNSPECIFIED Status: Chronic (4) Pulmonary HTN Code(s): I27.20 - PULMONARY HYPERTENSION, UNSPECIFIED Status: Chronic (5) Diabetes mellitus Code(s): E11.9 - TYPE 2 DIABETES MELLITUS WITHOUT COMPLICATIONS Status: Chronic Qualifiers: Diabetes mellitus type: type 2 Diabetes mellitus 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: unspecified prison insulin use status Diabetes mellitus complication status: with hyperglycemia Qualified Code(s): E11.65 - Type 2 diabetes mellitus with hyperglycemia (6) GERD (gastroesophageal reflux disease) Code(s): K21.9 - GASTRO-ESOPHAGEAL REFLUX DISEASE WITHOUT ESOPHAGITIS Status: Chronic (7) HTN (hypertension) Code(s): I10 - ESSENTIAL (PRIMARY) HYPERTENSION Status: Chronic Qualifiers: Hypertension type: essential hypertension Qualified Code(s): I10 - Essential (primary) hypertension (8) Morbid (severe) obesity due to excess calories Code(s): E66.01 - MORBID (SEVERE) OBESITY DUE TO EXCESS CALORIES Status: Chronic (9) AMBERLY (obstructive sleep apnea) Code(s): G47.33 - OBSTRUCTIVE SLEEP APNEA (ADULT) (PEDIATRIC) Status: Chronic - Plan Plan: Pt is a 50 yo M with pmh of AMBERLY, DMII, HLD, Aflutter, HTN, GERD, Gout, mild pulmonary HTN, and venous stasis dermatitis b/l LE who present for SOB, intubated in ER due to hypoxia and admitted to CCU for bilateral PNA and pulm/critical care. 1. Acute Hypoxic Respiratory Failure 2/2 bilateral PNA of unknown organism satting 63% on RA when in ED, required intubation. Unknown cause of PNA. - Rapid COVID: Negative. PCR repeat testing negative as well. D/c'd precautions and covid treatment. - Flu neg, RVP neg - BCx & UCx no growth at 48 hrs. Sputum ccx growing nml resp sae to date. - Negative HIV, legionella and S. pneumo antigens. - CXR: initially showing Bilateral ground glass opacities, minimal cardiomegaly and vascular congestion with slight improvement today from yesterday. - Pulmonology on board. Appreciate recs. Per pulm yesterday will possibly attempt CPAP trial today & maybe even extubation with Bipap. CXR stable but ABG slightly improved with a paO2 of 65 from 60 on essentially same vent setting as yesterday (FiO2 65%, Ps 14, PEEP 23-24, RR 20 & breathing with vent). s/p 40mg IV lasix yesterday which may have contributed some to his improvement as well since he had ~7060mL in UO & 60mg IV lasix on 07/22 which is what initiated the uptrend in his PaO2 yesterday. Will consider giving another dose again today. - Will continue IV levaquin, azithro and rocephin & solu-medrol 40 mg Q6H & duonebs Q4H. - Continue ABG & CXR daily - Continue lovenox 130 mg BID per pulm recs. - Tube feeds started on 07/21. 2. DMII Will continue to hold Jardiance due to risk of developing DKA in setting of acute illness. - ACHS Glucose Checks - Mild SSI w/ BOBBY lantus today but will increase to 14U QD since still not at goal & requiring SSI all day yesterday. - goal 140-180 glucose - Continue home metformin 1000 mg BID. 3. Aflutter - Continue home medications: Multaq & Cardizem - NSR on EKG with nonspecific ST changes, Trops neg - will hold home xarelto and start lovenox. Anti-Xa level remains therapeutic. 4. HTN - Continue lisinopril at 20 mg & 12.5mg HCTZ today now that patient has an arm cuff that fits. - Will continue to monitor closely & titrate meds PRN. 5. HLD - Will hold Atorvastatin for now 6. Venous Stasis Dermatitis on B/l LE - Bilateral lower extremities discolored, but no warmth 7. Mild Pulmonary HTN - Per EMR records at clinic - Likely 2/2 to AMBERLY & Obesity Hypoventilation Syndrome - ECHO 10/09/19: EF 50-55% with left atrial dilation and trace tricuspid regurg * No mention of pulm HTN in ECHO, PAP not listed 8. AMBERLY - Uses CPAP at night - aware on vent. 9. Metabolic acidosis: - Bicarb still 30 today. Continue diamox. Code Status: Full IVF: KVO DVT PPx: Lovenox 130 BID, anti X a level therapeutic GI PPx: Protonix PCP: CARMINA Davidson Dispo: Continue respiratory support in ICU per pulm recs with possible CPAP trial and/or extubation tomorrow pending clinical course/their recs. Addendum - Attending - Attending Attestation Date/Time: 07/24/20 [id number] I personally evaluated the patient and discussed the management with Dr. Toussaint. I agree with the History, Examination, Assessment and Plan documented above with any addition or exceptions noted below. Pt remains on the vent. He continues diuresis.
[2020-07-24] MEDS ORDERED: AcetaZOLAMIDE 250 MG TAB PER TUBE SCH (09:00)
[2020-07-24] MEDS ORDERED: Insulin Glargine 14 UNITS in Pre-Filled Syringe 1 EACH SC SCH (09:00)
[2020-07-24] MEDS ORDERED: Insulin Glargine 10 UNITS in Pre-Filled Syringe SC SCH (09:00)
[2020-07-24] MEDS ORDERED: Furosemide 40 MG/4 ML VIAL SLOW IVP SCH (09:30)
--- NOTE | 2020-07-24 09:42 | PRG ---
DATE OF SERVICE: 07/24/2020 35 minutes of critical care time. SUBJECTIVE: The patient remains intubated on mechanical ventilation. He is on bilevel mode. OBJECTIVE: VITAL SIGNS: Temperature 98.8, pulse 64, blood pressure 127/85, O2 saturation 95%. 24-hour intake 1824, output 7060. HEENT: Unremarkable. NECK: No adenopathy or JVD. LUNGS: Clear. CARDIAC: S1 and S2. Regular. ABDOMEN: Obese, soft, nontender. EXTREMITIES: Edematous. LABORATORY DATA: Sodium 133, potassium 4.5, chloride 94, CO2 of 30, BUN 21, creatinine 0.9, glucose 241. Of note, BUN and creatinine did not increase much despite over 5 L diuresis. White blood cell count 5.1, hematocrit 51, platelet count 87. PH of 7.41, pCO2 of 43, pO2 of 65 on bilevel rate 20, FiO2 65%. ASSESSMENT: 1. Acute respiratory failure secondary to diastolic dysfunction. 2. Morbid obesity. 3. Obstructive sleep apnea. 4. Profound volume overload. 5. Possible concurrent pneumonia. PLAN: 1. I will try to push diuretics again today. 2. Hold hydrochlorothiazide. He is already on acetazolamide. 3. Not weanable yet until we can get his FiO2 lower. 4. Continue antibiotics. Job ID: [id number]
[2020-07-24] MEDS: Lorazepam 2 MG/ML VIAL SLOW IVP PRN (10:10)
[2020-07-24 11:44] VITALS: BMI 68.7
[2020-07-24] MEDS: fentaNYL Citrate/PF 2,000 MCG in Sodium Chloride 0.9% 60 ML IV SCH (13:14)
[2020-07-24] MEDS: cefTRIAXone\\ROCEPHIN 2 GM in Sodium Chloride 0.9% 100 ML IVPB SCH (13:38)
[2020-07-24] MEDS: Azithromycin 500 MG in Sodium Chloride 0.9% 250 ML 250 ML IVPB SCH (14:26)
[2020-07-24] MEDS: Furosemide 40 MG/4 ML VIAL SLOW IVP SCH (19:59)
[2020-07-25] MEDS: methylPREDNISolone Sod Succ 40 MG VIAL IVP SCH ×4 (00:31→17:01)
[2020-07-25 05:53] LABS: ALT (SGPT) 44 U/L (8-55); AST (SGOT) 14 U/L (5-34); Albumin 3.5 g/dL (3.5-5.0); Alkaline Phosphatase 67 U/L (40-110); Anion Gap 14 mmol/L (10-20); BUN (Urea Nitrogen) 28 mg/dL (8.9-20.6); Bilirubin, Total 0.7 mg/dL (0.2-1.2); Calc. Creatinine Clearance 285 mL/min (70-130); Calcium 9.2 mg/dL (7.8-10.44); Carbon Dioxide 26 mmol/L (22-29); Chloride 94 mmol/L (98-107); Globulin 3.2 g/dL (2.4-3.5); Glucose 283 mg/dL (70-105); Potassium 4.3 mmol/L (3.5-5.1); Protein, Total 6.7 g/dL (6.0-8.3); Sodium 130 mmol/L (136-145)
[2020-07-25 05:55] LABS: Band 2 % (5-11); Lymphocytes 11 % (21-51); MDiff Complete? YES; Mean Corpuscular HGB CONC 30.8 g/dL (32.0-36.0); Mean Corpuscular Hemoglobin 26.2 pg (27.0-31.0); Mean Corpuscular Volume 84.9 fL (78.0-98.0); Mean Platelet Volume 11.4 fL (7.4-10.4); Monocytes 8 % (0-10); Neutrophil 79 % (42-75); Platelet Count 100 thou/uL (130-400); Platelet Morphology Comment Appears Decreased; RBC Distribution Width 16.2 % (11.5-14.5); RBC Morphology Normal; Red Blood Cell (RBC) Count 6.11 mill/uL (4.70-6.10); White Blood Cell (WBC) Count 4.9 thou/uL (4.8-10.8)
[2020-07-25] MEDS: HumaLOG 300 UNITS/3 ML VIAL SC PRN ×3 (06:46→16:24)
[2020-07-25 07:19] LABS: Actual Bicarbonate (HCO3a) 25.3 mEq/L (22-28); Analyzer IN Cardio ER; Base Excess (BEa) -0.9 mEq/L (-2.0 to +3.0); CO2 Tension 47.4 mmHg (35.0-45.0); Calcium, Ionized (arterial) 1.25 mmol/L (1.12-1.30); Carboxyhemoglobin (COHb) 0.8 gm% (0.0-3.0); O2 Tension (PaO2), arterial 60.7 mmHg (80.0-100.0); Potassium - ABG Lab 4.52 mmol/L (3.70-5.30); pH, Arterial 7.35 (7.35-7.45)
[2020-07-25 07:21] LABS: Puncture Site RRA
[2020-07-25] MEDS ORDERED: Insulin Glargine 20 UNITS in Pre-Filled Syringe 1 EACH SC SCH (07:30)
--- NOTE | 2020-07-25 07:32 | PDOC.FM ---
- Subjective Subjective: NAEO. Patient remains stable on the ventilator but is alert & oriented & answers questions with nodding and can write if given the means to do so. No complaints on exam this AM. - Objective MAR Reviewed: Yes Vital Signs & Weight: Vital Signs (12 hours) Temp Pulse Resp BP Pulse Ox 07/25/20 06:50 70 115/73 07/25/20 06:46 70 18 94 L 07/25/20 06:00 18 07/25/20 04:00 98.0 F 17 07/25/20 02:20 60 118/72 07/25/20 02:00 17 07/25/20 00:00 98.4 F 17 07/24/20 22:00 19 07/24/20 21:56 69 117/67 07/24/20 20:00 98.4 F 17 91 L Weight Admit Weight 221.807 kg Weight 223.5 kg Most Recent Monitor Data Heart Rate from ECG 67 NIBP 115/73 NIBP BP-Mean 87 Respiration from ECG 17 SpO2 94 I&O: 07/24/20 07/25/20 07/26/20 06:59 06:59 06:59 Intake Total 1824 1807 Output Total 7060 6659 [facility] -[phone] -[id number] Result Diagrams: 07/25/20 05:05 07/25/20 05:05 Radiology Reviewed by me: Yes (grossly unchanged B/L infiltrates) Phys Exam - Physical Examination Constitutional: NAD HEENT: moist MMs Neck: supple, full ROM Respiratory: no wheezing coarse & diminished breath sounds Cardiovascular: RRR, no significant murmur Gastrointestinal: soft, positive bowel sounds trace edema in B/L LEs Neurological: non-focal, moves all 4 limbs Deviation from normal: alert & responds to questions appropriately Skin: no rash Dx/Plan (1) Acute respiratory failure with hypoxia Code(s): J96.01 - ACUTE RESPIRATORY FAILURE WITH HYPOXIA Status: Acute (2) Bilateral pneumonia Code(s): J18.9 - PNEUMONIA, UNSPECIFIED ORGANISM Status: Acute (3) HLD (hyperlipidemia) Code(s): E78.5 - HYPERLIPIDEMIA, UNSPECIFIED Status: Chronic (4) Pulmonary HTN Code(s): I27.20 - PULMONARY HYPERTENSION, UNSPECIFIED Status: Chronic (5) Diabetes mellitus Code(s): E11.9 - TYPE 2 DIABETES MELLITUS WITHOUT COMPLICATIONS Status: Chronic Qualifiers: Diabetes mellitus type: type 2 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: unspecified intermediate card tender insulin use status Diabetes mellitus complication status: with hyperglycemia Qualified Code(s): E11.65 - Type 2 diabetes mellitus with hyperglycemia (6) GERD (gastroesophageal reflux disease) Code(s): K21.9 - GASTRO-ESOPHAGEAL REFLUX DISEASE WITHOUT ESOPHAGITIS Status: Chronic (7) HTN (hypertension) Code(s): I10 - ESSENTIAL (PRIMARY) HYPERTENSION Status: Chronic Qualifiers: Hypertension type: essential hypertension Qualified Code(s): I10 - Essential (primary) hypertension (8) Morbid (severe) obesity due to excess calories Code(s): E66.01 - MORBID (SEVERE) OBESITY DUE TO EXCESS CALORIES Status: Chronic (9) AMBERLY (obstructive sleep apnea) Code(s): G47.33 - OBSTRUCTIVE SLEEP APNEA (ADULT) (PEDIATRIC) Status: Chronic - Plan Plan: Pt is a 50 yo M with pmh of AMBERLY, DMII, HLD, Aflutter, HTN, GERD, Gout, mild pulmonary HTN, and venous stasis dermatitis b/l LE who present for SOB, intubated in ER due to hypoxia and admitted to CCU for bilateral PNA and pulm/critical care. 1. Acute Hypoxic Respiratory Failure 2/2 bilateral PNA of unknown organism satting 63% on RA when in ED, required intubation. Unknown cause of PNA. - Rapid COVID: Negative. PCR repeat testing negative as well. D/c'd precautions and covid treatment. - Flu neg, RVP neg - BCx & UCx no growth at 48 hrs. Sputum ccx growing nml resp sae to date. - Negative HIV, legionella and S. pneumo antigens. - CXR: initially showing Bilateral ground glass opacities, minimal cardiomegaly and vascular congestion with slight improvement today from yesterday. - Pulmonology on board. Appreciate recs. Per pulm yesterday FiO2 was still too high to attempt CPAP trial. CXR & ABG stable from yesterday but is down to an FiO2 of 55 this AM satting in the low to mid 90s. Recs for today still pending. - s/p IV lasix for the last 3 days with some improvement in his FiO2 requirements each day thereafter. Will continue 40mg IV BID per pulm. - Will continue IV levaquin, azithro and rocephin & solu-medrol 40 mg Q6H & duonebs Q4H. - Continue ABG & CXR daily - Continue lovenox 130 mg BID per pulm recs. - Tube feeds started on 07/21. 2. DMII Will continue to hold Jardiance due to risk of developing DKA in setting of acute illness. - ACHS Glucose Checks - Mild SSI w/ BOBBY lantus today but will increase to 20U QD since still not at goal & requiring SSI all day yesterday & already this AM. - goal 140-180 glucose - Continue home metformin 1000 mg BID. 3. Aflutter - Continue home medications: Multaq & Cardizem - NSR on EKG with nonspecific ST changes, Trops neg - will hold home xarelto and start lovenox. Anti-Xa level remains therapeutic. 4. HTN - Continue lisinopril at 20 mg & 12.5mg HCTZ today now that patient has an arm cuff that fits. - Will continue to monitor closely & titrate meds PRN. 5. HLD - Will hold Atorvastatin for now 6. Venous Stasis Dermatitis on B/L LE - Bilateral lower extremities discolored, but no warmth 7. Mild Pulmonary HTN - Per EMR records at clinic - Likely 2/2 to AMBERLY & Obesity Hypoventilation Syndrome - ECHO 10/09/19: EF 50-55% with left atrial dilation and trace tricuspid regurg * No mention of pulm HTN in ECHO, PAP not listed 8. AMBERLY - Uses CPAP at night - aware on vent. 9. Metabolic alkalosis: - Bicarb down to 26 today. Holding diamox. Code Status: Full IVF: KVO DVT PPx: Lovenox 130 BID, anti X a level therapeutic GI PPx: Protonix PCP: CARMINA Davidson Dispo: Continue respiratory support in ICU with possible CPAP trial and/or extubation with transition to BiPAP pending clinical course & pulm recs.
[2020-07-25] MEDS: Lisinopril 20 MG TAB PO SCH (08:45)
[2020-07-25] MEDS: metFORMIN 500 MG TAB PO SCH ×2 (08:45→20:31)
[2020-07-25] MEDS: Dronedarone HCl 400 MG TAB PO SCH ×2 (08:45→20:31)
[2020-07-25] MEDS: Furosemide 40 MG/4 ML VIAL SLOW IVP SCH ×2 (08:56→20:31)
[2020-07-25] MEDS: Pantoprazole 40 MG VIAL IVP SCH (08:56)
--- NOTE | 2020-07-25 09:16 | RAD ---
Supine frontal chest radiograph: 07/25/2020 COMPARISON: 07/24/2020 HISTORY: CCU patient, ventilated patient FINDINGS: Body habitus and shallow inspiration as well as supine technique limits detailed assessment . Endotracheal tube and nasogastric tube appear stable. Stable prominence of the cardiac silhouette. Hazy nonspecific stable perihilar densities are noted. IMPRESSION: Limited assessment of the chest, grossly unchanged
--- NOTE | 2020-07-25 13:46 | PRG ---
DATE OF SERVICE: 07/25/2020 Please see note from Dr. Nay Toussaint, for which I agree. The patient was seen, evaluated, discussed with the residents by bedside. This gentleman is here for respiratory failure and intubated in the ICU, pneumonia versus CHF versus probably little bit of both. Started on tube feeds. He is on Rocephin, azithromycin, and Levaquin. Appreciate Pulmonary's help. Unclear if he is potentially weanable at this point in time stable. Lungs are still extremely tight and he is still fairly edematous. Job ID: [id number]
[2020-07-25] MEDS: cefTRIAXone\\ROCEPHIN 2 GM in Sodium Chloride 0.9% 100 ML IVPB SCH (14:11)
[2020-07-25] MEDS: Azithromycin 500 MG in Sodium Chloride 0.9% 250 ML 250 ML IVPB SCH (14:47)
--- NOTE | 2020-07-25 15:34 | PRG ---
DATE OF SERVICE: 07/25/2020 OBJECTIVE: VITAL SIGNS: Heart rates in the 70s, blood pressure is 135/103, respiratory rates in the 20s, oximetry is 95%, slowly decrease his ventilatory support over the last few days. LUNGS: Remarkable for coarse equal breath sounds. HEART: Regular rhythm. ABDOMEN: Soft. Intake and outputs -4813. IMAGING: Chest radiograph is underpenetrated. Second view shows clear lung huff at its bases. LABORATORY DATA: White count 4.9, hemoglobin 16, platelets 100,000. Sodium 130, potassium 4.3, chloride 94, bicarb 26, BUN 20, creatinine 0.98. IMPRESSION: 1. Respiratory failure. 2. Sleep apnea. He reports that he is compliant with CPAP. 3. Diastolic heart failure. 4. ? coexistent pneumonia with a left shift on admission. 5. Diabetes. We will continue slow decrease of ventilatory support. Hopefully, he will be a candidate for weaning and extubation. 6. Strength had been an issue. 7. He is a hypoventilator but I think we will be able to extubate him without a tracheostomy. Critical care time 30 min. Job ID: [id number] [facility]ENTERFady
[2020-07-26] MEDS: methylPREDNISolone Sod Succ 40 MG VIAL IVP SCH ×3 (01:02→11:13)
[2020-07-26] MEDS: HumaLOG 300 UNITS/3 ML VIAL SC PRN ×5 (01:04→23:58)
[2020-07-26 04:55] LABS: Hemoglobin 16.9 g/dL (14.0-18.0); Mean Corpuscular HGB CONC 31.9 g/dL (32.0-36.0); Mean Corpuscular Hemoglobin 27.1 pg (27.0-31.0); Mean Corpuscular Volume 84.8 fL (78.0-98.0); Mean Platelet Volume 11.6 fL (7.4-10.4); Platelet Count 114 thou/uL (130-400); RBC Distribution Width 16.3 % (11.5-14.5); Red Blood Cell (RBC) Count 6.26 mill/uL (4.70-6.10); White Blood Cell (WBC) Count 6.8 thou/uL (4.8-10.8)
[2020-07-26 04:56] LABS: Lymphocytes 9 % (21-51); MDiff Complete? YES; Monocytes 6 % (0-10); Neutrophil 85 % (42-75); Platelet Morphology Comment Appears Decreased; RBC Morphology Normal
[2020-07-26 05:03] LABS: ALT (SGPT) 47 U/L (8-55); AST (SGOT) 13 U/L (5-34); Albumin 3.6 g/dL (3.5-5.0); Alkaline Phosphatase 69 U/L (40-110); Anion Gap 16 mmol/L (10-20); BUN (Urea Nitrogen) 42 mg/dL (8.9-20.6); Bilirubin, Total 0.6 mg/dL (0.2-1.2); Calc. Creatinine Clearance 245 mL/min (70-130); Calcium 9.5 mg/dL (7.8-10.44); Carbon Dioxide 25 mmol/L (22-29); Chloride 94 mmol/L (98-107); Globulin 3.4 g/dL (2.4-3.5); Glucose 301 mg/dL (70-105); Potassium 4.8 mmol/L (3.5-5.1); Sodium 130 mmol/L (136-145)
--- NOTE | 2020-07-26 06:00 | PDOC.FM ---
- Subjective Subjective: NAEO. Patient remains stable on the vent & continues to respond appropriately to questioning using nonverbal means of communication. Reports LLE pain on exam this AM. TTP on exam with no signifcant edema & chronic venous stasis changes in B/L LEs. - Objective MAR Reviewed: Yes Vital Signs & Weight: Vital Signs (12 hours) Temp Pulse Resp BP Pulse Ox 07/26/20 04:49 69 136/84 07/26/20 04:48 68 23 H 96 07/26/20 04:00 98.0 F 26 H 07/26/20 02:03 74 106/64 07/26/20 02:00 22 H 07/26/20 00:00 98.9 F 24 H 07/25/20 22:01 76 213/158 H 07/25/20 22:00 22 H 07/25/20 20:00 98.3 F 19 95 07/25/20 18:36 72 124/84 07/25/20 18:00 20 Weight Admit Weight 221.807 kg Weight 223.5 kg Most Recent Monitor Data Heart Rate from ECG 71 NIBP 129/76 NIBP BP-Mean 93 Respiration from ECG 18 SpO2 96 I&O: 07/24/20 07/25/20 07/26/20 06:59 06:59 06:59 Intake Total 1824 1807 1590 Output Total 7007 6615 2689 [facility]5236 -4813 -1765 Result Diagrams: 07/26/20 04:25 07/26/20 04:25 Radiology Reviewed by me: Yes (mild improvement of B/L diffuse infiltrates) Phys Exam - Physical Examination Constitutional: NAD HEENT: moist MMs Neck: supple, full ROM coarse breath sounds noted bilaterally with diffuse wheezing as well Cardiovascular: RRR, no significant murmur Gastrointestinal: soft, positive bowel sounds B/L LE chronic venous stasis changes with no marked edema TTP in left calf Neurological: non-focal, moves all 4 limbs alert & follows commands & responds to questioning appropriately by nonverbal means of communication Skin: no rash Dx/Plan (1) Acute respiratory failure with hypoxia Code(s): J96.01 - ACUTE RESPIRATORY FAILURE WITH HYPOXIA Status: Acute (2) Bilateral pneumonia Code(s): J18.9 - PNEUMONIA, UNSPECIFIED ORGANISM Status: Acute (3) HLD (hyperlipidemia) Code(s): E78.5 - HYPERLIPIDEMIA, UNSPECIFIED Status: Chronic (4) Pulmonary HTN Code(s): I27.20 - PULMONARY HYPERTENSION, UNSPECIFIED Status: Chronic (5) Diabetes mellitus Code(s): E11.9 - TYPE 2 DIABETES MELLITUS WITHOUT COMPLICATIONS Status: Chronic Qualifiers: Diabetes mellitus type: type 2 Diabetes mellitus fpc insulin use: unspecified 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 insulin 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 status Diabetes mellitus complication status: with hyperglycemia Qualified Code(s): E11.65 - Type 2 diabetes mellitus with hyperglycemia (6) GERD (gastroesophageal reflux disease) Code(s): K21.9 - GASTRO-ESOPHAGEAL REFLUX DISEASE WITHOUT ESOPHAGITIS Status: Chronic (7) HTN (hypertension) Code(s): I10 - ESSENTIAL (PRIMARY) HYPERTENSION Status: Chronic Qualifiers: Hypertension type: essential hypertension Qualified Code(s): I10 - Essential (primary) hypertension (8) Morbid (severe) obesity due to excess calories Code(s): E66.01 - MORBID (SEVERE) OBESITY DUE TO EXCESS CALORIES Status: Chr onic (9) AMBERLY (obstructive sleep apnea) Code(s): G47.33 - OBSTRUCTIVE SLEEP APNEA (ADULT) (PEDIATRIC) Status: Chronic - Plan Plan: Pt is a 50 yo M with pmh of AMBERLY, DMII, HLD, Aflutter, HTN, GERD, Gout, mild pulmonary HTN, and venous stasis dermatitis b/l LE who present for SOB, intubated in ER due to hypoxia and admitted to CCU for bilateral PNA and pulm/critical care. # Acute Hypoxic Respiratory Failure 2/2 bilateral PNA of unknown organism satting 63% on RA when in ED, required intubation. Unknown cause of PNA. - Rapid COVID: Negative. PCR repeat testing negative as well. D/c'd precautions and covid treatment. - Flu neg, RVP neg - BCx & UCx no growth at 48 hrs. Sputum ccx growing nml resp sae to date. - Negative HIV, legionella and S. pneumo antigens. - CXR: initially showing Bilateral ground glass opacities, minimal cardiomegaly and vascular congestion with slight improvement today from yesterday. - Pulmonology on board. Appreciate recs. Per pulm yesterday FiO2 was still too high to attempt CPAP trial. CXR slightly improved & ABG stable compared to yesterday. FiO2 of 50 this AM & maintaining sats in the low to mid 90s. - s/p IV lasix for the last 4 days with some improvement in his FiO2 requirements each day thereafter. Will continue 40mg IV BID per pulm. - Will continue IV levaquin, azithro and rocephin & solu-medrol 40 mg Q6H & duonebs Q4H. - Continue ABG & CXR daily - Continue tube feeds. # left calf pain - Of note, lovenox was dc'd on 07/24 2/2 thrombocytopenia. Patient endorsed LLE pain on exam this AM. Plts now back up to 114. Will obtain a stat B/L LE US this AM & resume anticoagulation today regardless of results. # DMII Will continue to hold Jardiance due to risk of developing DKA in setting of acute illness. - ACHS Glucose Checks - Mild SSI w/ BOBBY lantus today but will increase to 30U QD since still not at goal & BG levels 200-300s all day yesterday even with 20U. - goal 140-180 glucose - Continue home metformin 1000 mg BID. # Aflutter - Continue home medications: Multaq & Cardizem - NSR on EKG with nonspecific ST changes, Trops neg - will hold home xarelto and start lovenox. Anti-Xa level remains therapeutic. # HTN - Continue lisinopril at 20 mg QD. - Will continue to monitor closely & titrate meds PRN. # HLD - Will hold Atorvastatin for now # Venous Stasis Dermatitis on B/L LE - Bilateral lower extremities discolored, but no warmth # Mild Pulmonary HTN - Per EMR records at clinic - Likely 2/2 to AMBERLY & Obesity Hypoventilation Syndrome - ECHO 10/09/19: EF 50-55% with left atrial dilation and trace tricuspid regurg * No mention of pulm HTN in ECHO, PAP not listed # AMBERLY - Uses CPAP at night - aware on vent. # Metabolic alkalosis, resolved: - Bicarb 25 today. Code Status: Full IVF: KVO DVT PPx: None GI PPx: Protonix PCP: CARMINA Davidson Dispo: Continue weaning respiratory support per pulm recs.
[2020-07-26] MEDS ORDERED: HumaLOG 300 UNITS/3 ML VIAL SC PRN (07:17)
[2020-07-26] MEDS: Dronedarone HCl 400 MG TAB PO SCH ×2 (08:43→21:36)
[2020-07-26] MEDS: metFORMIN 500 MG TAB PO SCH ×2 (08:43→21:36)
[2020-07-26] MEDS: Pantoprazole 40 MG VIAL IVP SCH (08:44)
[2020-07-26] MEDS: Lisinopril 20 MG TAB PO SCH (08:44)
[2020-07-26] MEDS: Furosemide 40 MG/4 ML VIAL SLOW IVP SCH ×2 (08:44→21:36)
[2020-07-26] MEDS: Insulin Glargine 30 UNITS in Pre-Filled Syringe 1 EACH SC SCH (08:45)
--- NOTE | 2020-07-26 08:56 | RAD ---
PORTABLE CHEST 1 VIEW: Date: 07/26/2020 Time: 0419 hours HISTORY: Respiratory failure. FINDINGS/IMPRESSION: No significant interval change is seen since the previous day's exam. POS: PUJA
[2020-07-26] MEDS ORDERED: Enoxaparin Sodium 120 MG/0.8 ML SYRINGE SC SCH (09:00)
[2020-07-26] MEDS ORDERED: Enoxaparin Sodium 100 MG/ML SYRINGE SC SCH (09:00)
[2020-07-26] MEDS ORDERED: Enoxaparin Sodium 30 MG/0.3 ML SYRINGE SC SCH (09:00)
--- NOTE | 2020-07-26 09:20 | ULT ---
BILATERAL LOWER EXTREMITY VENOUS DOPPLER ULTRASOUND: Date: 07/26/2020 HISTORY: Bilateral lower extremity edema and left lower extremity pain. TECHNIQUE: Rios scale ultrasound with color flow and spectral Doppler imaging of the deep venous systems of the lower extremities was performed bilaterally. FINDINGS: There is good flow, compression, and augmentation noted in the deep veins of the lower extremities in cluding the common femoral, femoral, deep femoral, popliteal, posterior tibial, and greater saphenous veins on either side. IMPRESSION: No evidence of deep venous thrombosis in either lower extremity. POS: PUJA
--- NOTE | 2020-07-26 10:28 | PRG ---
DATE OF SERVICE: 07/26/2020 Please see the note from Dr. Nay Toussaint, for which I agree. The patient was seen, evaluated, discussed, and examined with the residents by bedside. The patient is still intubated. No major changes. FiO2 yesterday was decreased to 45%, but now back up to 50%. He was having some left calf pain, but ultrasound looks negative. He is back on Lovenox after couple days it was stopped because of low platelets, but his platelets are back up to normal today. Diabetes is a little bit out of control, so we are following that. Otherwise, continue vent support and antibiotics for presumed pneumonia, although may have a touch of volume overload in addition. Lungs today were still fairly tight. Job ID: [id number]
[2020-07-26] MEDS ORDERED: IBUPROFEN 200 MG PO PRN (13:46)
[2020-07-26] MEDS ORDERED: Ibuprofen 200 MG TAB PO PRN (13:55)
[2020-07-26] MEDS: cefTRIAXone\\ROCEPHIN 2 GM in Sodium Chloride 0.9% 100 ML IVPB SCH (14:08)
[2020-07-26] MEDS: Acetaminophen 500 MG TAB PO SCH ×3 (14:28→21:36)
--- NOTE | 2020-07-26 15:19 | PRG ---
DATE OF SERVICE: 07/26/2020 SUBJECTIVE: Mr. Hughes is afebrile, heart rate is 100, blood pressure 136/85, respiratory rates in the 20s. Had a long spontaneous breathing trial this morning, did well with that. OBJECTIVE: LUNGS: Clear. HEART: Regular rhythm. ABDOMEN: Soft. LABORATORY DATA: White count today is 6.8, hemoglobin 16.9. He had no left shift on peripheral smear. Electrolytes are unremarkable. BUN 42, creatinine 1.1, and glucose is 301. IMPRESSION: 1. Respiratory failure associated with diastolic heart failure plus or minus pneumonia. It is felt to be he is candidate for extubation. This has been done successfully. 2. Obesity hypoventilation syndrome. His is to bring in up his CPAP. Our goal O2 saturation will be 88% to 92%. 3. Life-threatening obesity. He is wonderfully pleasant patient. He is always very appreciative of care we give. Unfortunately, he has been able to lose weight that he needs to lose. It would be ideal if we could somehow get him qualify for gastric sleeve procedure in the future. Critical care time 30 min. Job ID: [id number] [facility]
[2020-07-26] MEDS: Rivaroxaban 10 MG TAB PO SCH (17:22)
[2020-07-26] MEDS: Atorvastatin Calcium 10 MG TAB PO SCH (21:36)
[2020-07-27 05:09] LABS: ALT (SGPT) 43 U/L (8-55); AST (SGOT) 10 U/L (5-34); Albumin 3.8 g/dL (3.5-5.0); Alkaline Phosphatase 70 U/L (40-110); Anion Gap 15 mmol/L (10-20); BUN (Urea Nitrogen) 42 mg/dL (8.9-20.6); Bilirubin, Total 0.8 mg/dL (0.2-1.2); Calc. Creatinine Clearance 297 mL/min (70-130); Calcium 9.6 mg/dL (7.8-10.44); Carbon Dioxide 29 mmol/L (22-29); Chloride 95 mmol/L (98-107); Globulin 3.4 g/dL (2.4-3.5); Glucose 190 mg/dL (70-105); Potassium 3.8 mmol/L (3.5-5.1); Protein, Total 7.2 g/dL (6.0-8.3); Sodium 135 mmol/L (136-145)
[2020-07-27] MEDS: Acetaminophen 500 MG TAB PO SCH ×3 (05:53→21:47)
[2020-07-27] MEDS: HumaLOG 300 UNITS/3 ML VIAL SC PRN (05:56)
--- NOTE | 2020-07-27 06:52 | PDOC.FM ---
- Subjective Subjective: Patient feeling well; on room air this AM. Has eaten and taken oral meds/liquids since extubation yesterday. Denies pain. Feels ready to ambulate. - Objective MAR Reviewed: Yes Vital Signs & Weight: Vital Signs (12 hours) Temp Pulse Resp Pulse Ox 07/27/20 04:00 97.9 F 07/27/20 02:19 83 21 H 95 07/27/20 00:00 97.6 F 07/26/20 22:24 97 20 98 07/26/20 20:00 98.5 F 96 Weight Admit Weight 221.807 kg Weight 223.5 kg Most Recent Monitor Data Heart Rate from ECG 84 NIBP 131/83 NIBP BP-Mean 99 Respiration from ECG 19 SpO2 94 I&O: 07/25/20 07/26/20 07/27/20 06:59 06:59 06:59 Intake Total 1807 2291.9 1220 Output Total 6620 3530 3690 [facility] -4813 -1238.1 -2470 Result Diagrams: 07/26/20 04:25 07/27/20 03:45 Phys Exam - Physical Examination Constitutional: NAD rhonchi bilaterally, difficult to auscultate due to body habitus Cardiovascular: RRR, no significant murmur Gastrointestinal: soft, non-tender Musculoskeletal: no edema, pulses present Psychiatric: normal affect, A&O x 3 Dx/Plan - Plan Plan: Pt is a 50 yo M with pmh of AMBERLY, DMII, HLD, Aflutter, HTN, GERD, Gout, mild pulmonary HTN, and venous stasis dermatitis b/l LE who present for SOB, intubated in ER due to hypoxia and admitted to CCU for bilateral PNA and pulm/critical care. # Acute Hypoxic Respiratory Failure 2/2 bilateral PNA of unknown organism - extubated 07/26 - Infectious workup negative thus far - Pulmonology on board. Appreciate recs. - s/p IV lasix for the last 4 days with some improvement in his FiO2 requirements each day thereafter. Will continue 40mg IV BID per pulm. - Levaquin d/c'd by pharmacy. Agree with this. Completed 7 day course. Will continue IV azithro and rocephin. - continue solu-medrol 40 mg Q6H & duonebs Q4H. Consider weaning of steroids. - Continue ABG & CXR daily - Stable from respiratory standpoint to transfer to medical floor. - continue home CPAP at night. Left calf pain - neg b/l LE doppler for DVT - continue home xarelto DMII Will continue to hold Jardiance due to risk of developing DKA in setting of acute illness. - ACHS Glucose Checks - Mild SSI for backup/correction dose - Scheduled lantus. Will schedule mealtime humalog dose 6 units TID-WM today. - goal 140-180 glucose - Continue home metformin 1000 mg BID. # Aflutter - Continue home medications: Multaq & Cardizem - home xarelto # HTN - Continue lisinopril at 20 mg QD. # HLD - Will hold Atorvastatin for now. # Venous Stasis Dermatitis on B/L LE - chronic # Mild Pulmonary HTN - Per EMR records at clinic - Likely 2/2 to AMBERLY & Obesity Hypoventilation Syndrome - ECHO 10/09/19: EF 50-55% with left atrial dilation and trace tricuspid regurg * No mention of pulm HTN in ECHO, PAP not listed # AMBERLY - continue home CPAP at night Code Status: Full IVF: KVO DVT PPx: home xarelto GI PPx: Protonix Diet: CC PCP: CARMINA Davidson Dispo: transfer to medical floor today. PT/OT today. Continue diuresis as this has helped the patient. Will gradually d/c antibiotics.
[2020-07-27] MEDS ORDERED: Enoxaparin Sodium 60 MG/0.6 ML SYRINGE SC SCH (09:00)
[2020-07-27] MEDS: Allopurinol 100 MG TAB PO SCH (09:50)
[2020-07-27] MEDS: metFORMIN 500 MG TAB PO SCH ×2 (09:50→21:46)
[2020-07-27] MEDS: Dronedarone HCl 400 MG TAB PO SCH ×2 (09:51→21:46)
[2020-07-27] MEDS: Lisinopril 20 MG TAB PO SCH (09:51)
[2020-07-27] MEDS: Furosemide 40 MG/4 ML VIAL SLOW IVP SCH (09:53)
[2020-07-27] MEDS: Insulin Glargine 30 UNITS in Pre-Filled Syringe 1 EACH SC SCH (09:53)
[2020-07-27] MEDS: HumaLOG 300 UNITS/3 ML VIAL SC SCH ×3 (09:54→18:14)
--- NOTE | 2020-07-27 10:55 | PRG ---
DATE OF SERVICE: 07/27/2020 Mr. Hughes is an extremely obese man, who was initially admitted with acute hypoxic respiratory failure likely secondary to heart failure versus the remote possibility of pneumonia. He was COVID negative. He has been extubated and is sitting quietly in bed, in no distress. Other than the above, no new or different changes, and we will continue to follow with Pulmonary Medicine. Job ID: [id number]
--- NOTE | 2020-07-27 13:16 | PRG ---
DATE OF SERVICE: 07/27/2020 SUBJECTIVE: Sigifredo Hughes is doing well. He is sitting on the side of the bed. OBJECTIVE: VITAL SIGNS: Heart rate is 92, respiratory rate is 20, blood pressure 165/97. LUNGS: Clear. HEART: Regular rhythm. ABDOMEN: Soft. He is a candidate for evaluation for weight loss surgery in the future in my opinion. I think this is the only way he gets very far down the road. He remembers talking me about calorie counting, but has not been doing that. He needs to be on 1000 calories a day given that he weighs over 500 pounds. He is stable to move to a medical bed. He can continue to sleep with his own CPAP. We will continue his anticoagulation with Xarelto. We have his glucoses continue to be monitored. This should get better now that he is off steroids. Job ID: [id number]
[2020-07-27] MEDS: Rivaroxaban 10 MG TAB PO SCH (18:16)
[2020-07-27] MEDS: Atorvastatin Calcium 10 MG TAB PO SCH (21:46)
[2020-07-28] MEDS ORDERED: Ondansetron ODT 4 MG TAB PO PRN (05:29)
[2020-07-28] MEDS: Calcium Carbonate 500 MG ChewTAB PO PRN ×2 (05:46→20:33)
[2020-07-28] MEDS: Acetaminophen 500 MG TAB PO SCH ×3 (05:46→20:34)
[2020-07-28] MEDS: Simethicone Chewable 80 MG TAB PO PRN ×2 (05:46→16:18)
[2020-07-28 06:02] LABS: Anion Gap 18 mmol/L (10-20); BUN (Urea Nitrogen) 61 mg/dL (8.9-20.6); Calc. Creatinine Clearance 90 mL/min (70-130); Calcium 9.2 mg/dL (7.8-10.44); Carbon Dioxide 27 mmol/L (22-29); Chloride 93 mmol/L (98-107); Glucose 160 mg/dL (70-105); Potassium 3.8 mmol/L (3.5-5.1); Sodium 134 mmol/L (136-145)
--- NOTE | 2020-07-28 06:59 | PDOC.FM ---
- Subjective Subjective: Patient complaining of abdominal pain & bloating last night per night team and this morning. Was given tums, zofran, simethicone. Says tums helped a little bit. Pain associated with burping. Otherwise, he is feeling okay. He felt somewhat dizzy when transferring to wheelchair to go to his new room this AM. BPs soft. - Objective MAR Reviewed: Yes Vital Signs & Weight: Vital Signs (12 hours) Temp Pulse Resp Pulse Ox 07/28/20 04:00 97.8 F 07/28/20 02:38 88 18 92 L 07/28/20 00:00 97.9 F 07/27/20 22:22 97 20 95 07/27/20 20:00 98.0 F 95 Weight Admit Weight 221.807 kg Weight 223.5 kg Most Recent Monitor Data Heart Rate from ECG 88 NIBP 84/60 NIBP BP-Mean 68 Respiration from ECG 9 SpO2 95 I&O: 07/26/20 07/27/20 07/28/20 06:59 06:59 06:59 Intake Total 2291.9 1220 980.3 Output Total 3530 3690 485 Balance -1238.1 -2470 495.3 Result Diagrams: 07/26/20 04:25 07/28/20 05:25 Phys Exam - Physical Examination Constitutional: NAD Respiratory: no wheezing difficult to auscultate, no adventitious sounds Cardiovascular: RRR, no significant murmur Gastrointestinal: soft marked epigastric tenderness Musculoskeletal: pulses present, edema present similar to yesterday Neurological: non-focal, moves all 4 limbs Psychiatric: normal affect, A&O x 3 Dx/Plan - Plan Plan: Pt is a 50 yo M with pmh of AMBERLY, DMII, HLD, Aflutter, HTN, GERD, Gout, mild pulmonary HTN, and venous stasis dermatitis b/l LE who present for SOB, intubated in ER due to hypoxia and admitted to CCU for bilateral PNA and pulm/critical care. # Acute Hypoxic Respiratory Failure 2/2 bilateral PNA of unknown organism - extubated 07/26 - Infectious workup negative thus far - Pulmonology on board. Appreciate recs. Discontinued steroids. - IV lasix discontinued; initially helped patient's O2 requirement. Now has FIONA, likely iatrogenic. - Completed levaquin, azithromycin, ceftriaxone x7 days. - continue home CPAP at night. FIONA, iatrogenic - giving 1L Bolus this AM, feeling dizzy, see event note below. DMII Continue to hold Jardiance due to risk of developing DKA in setting of acute illness. - ACHS Glucose Checks - Mild SSI for backup/correction dose - Scheduled lantus. Mealtime humalog dose 6 units TID-WM today. - goal 140-180 glucose - Continue home metformin 1000 mg BID. # A-flutter - Continue home medications: Multaq & Cardizem - home xarelto # HTN - Continue lisinopril at 20 mg QD. # HLD - Hold Atorvastatin # Venous Stasis Dermatitis on B/L LE - chronic, left calf pain present on admission now resolved. # Mild Pulmonary HTN - Per EMR records at clinic - Likely 2/2 to AMBERLY & Obesity Hypoventilation Syndrome - ECHO 10/09/19: EF 50-55% with left atrial dilation and trace tricuspid regurg * No mention of pulm HTN in ECHO, PAP not listed # AMBERLY - continue home CPAP at night Code Status: Full IVF: KVO DVT PPx: home xarelto GI PPx: Protonix Diet: CC PCP: CARMINA Davidson Dispo: Continue PT/OT. CM consult placed for rehab. Rehab discussed with patient, and he agrees with this plan. Inpatient, medical. EVENT: PAGED AT APPROX 09:30 AM Patient transferred to medical floor. Report given of patient w/ BP of 62/40 and worsened abdominal pain. Ordered 1L NS Bolus and GI cocktail. Instructed RN to call back immediately if not improving. Addendum - Attending - Attending Attestation Date/Time: 07/28/20 1300 I personally evaluated the patient and discussed the management with Dr. Cecilio raman. I agree with the History, Examination, Assessment and Plan documented above with any addition or exceptions noted below.
[2020-07-28] MEDS ORDERED: Lidocaine 2% Viscous Solution 10 ML, Aluminum & Magnesium Hydroxide 30 ML SSW SCH (09:30)
[2020-07-28] MEDS ORDERED: Sodium Chloride 0.9% 1,000 ML IV SCH ×2 (09:30→10:30)
--- NOTE | 2020-07-28 10:34 | PDOC.BPN ---
- Brief Progress Note Encounter Date: 07/28/20 Encounter Time: 10:30 RN called, pt BP 78/50 s/p 1 L NS. Pt still complaining of abd pain, headache. Denies chest pain, increased work of breathing. He feels better after the 1 L of NS. Has not received GI cocktail as it is being verified by pharmacy. PEx: unchanged, lungs clear, heart RRR, no murmur, epigastric tenderness, tenderness over old hernia scar, no erythema on abdomen. Orders: another liter NS, GI cocktail to be given, bedside stat glucose.
[2020-07-28] MEDS: Lisinopril 20 MG TAB PO SCH (10:43)
--- NOTE | 2020-07-28 11:23 | PDOC.BPN ---
- Brief Progress Note Encounter Date: 07/28/20 Encounter Time: 11:20 pt BP now 103/69. Feeling better. Abdominal pain improved w/ GI cocktail. Finish 1 L bolus. Will optimize meds for gastric comfort and encouraged patient to try oral diet.
[2020-07-28] MEDS: Allopurinol 100 MG TAB PO SCH (11:39)
[2020-07-28] MEDS: Insulin Glargine 30 UNITS in Pre-Filled Syringe 1 EACH SC SCH (11:40)
[2020-07-28] MEDS: Dronedarone HCl 400 MG TAB PO SCH ×2 (11:40→20:35)
[2020-07-28] MEDS: metFORMIN 500 MG TAB PO SCH ×3 (11:40→20:46)
[2020-07-28] MEDS: HumaLOG 300 UNITS/3 ML VIAL SC SCH ×2 (11:41→16:26)
--- NOTE | 2020-07-28 13:01 | PDOC.BPN ---
- Brief Progress Note From report, significant diuresis and now hypotensive. This resolved s/p fluid boluses. Patient is feeling better. Complete workup with TnI, EKG and lipase. He does not have an acute abdomen, but will monitor.
[2020-07-28] MEDS: Sodium Chloride 0.45% 1,000 ML IV SCH (16:21)
--- NOTE | 2020-07-28 16:32 | PRG ---
DATE OF SERVICE: 07/28/2020 SUBJECTIVE: Sigifredo Hughes said he had a drop in blood pressure this morning, led to some IV fluids. His blood pressure is back up now. I suspect he was just a little more over diuresed given that he is about 14 L negative since he came into the hospital. OBJECTIVE: LUNGS: Clear now heart. REGULAR: Regular rhythm. ABDOMEN: Soft and nontender. His nebulized treatments been switched to p.r.n. BUN 61. His creatinine is 3.09. His creatinine was yesterday 0.94. He probably should continue to be hydrated until his creatinine normalizes. His diuretics have been discontinued. Repeat lab work in the morning and reassess his renal function. Job ID: [id number]
[2020-07-28 16:33] LABS: Anion Gap 17 mmol/L (10-20); BUN (Urea Nitrogen) 65 mg/dL (8.9-20.6); Calc. Creatinine Clearance 81 mL/min (70-130); Calcium 8.5 mg/dL (7.8-10.44); Carbon Dioxide 23 mmol/L (22-29); Chloride 96 mmol/L (98-107); Glucose 119 mg/dL (70-105); Sodium 132 mmol/L (136-145)
[2020-07-28] MEDS: Rivaroxaban 10 MG TAB PO SCH (18:51)
[2020-07-28] MEDS ORDERED: Lactated Ringer's 500 ML IV SCH (19:30)
[2020-07-28 19:50] LABS: Bilirubin Negative (Negative); Blood, Urine 3+ (Negative); Clarity Extra Turbid (Clear); Glucose, Urine (Dipstick) Normal (Negative); Ketone, Urine Negative (Negative); Leukocyte 25 Leu/uL (Negative); Nitrite Negative (Negative); Protein, Urine (Dipstick) 70 mg/dL (Neg-Trace); RBC/HPF Greater than 50 HPF (0-3); Specific Gravity, Urine 1.031 (1.002-1.036); Squamous Epithelial None Seen HPF (0-3); Urobilinogen Normal mg/dL (Less than 2)
[2020-07-28 20:02] LABS: Bacteria/HPF Rare-Few HPF (None Seen); Calcium Oxalate Crystals 2+ HPF (None Seen)
[2020-07-28 20:03] LABS: Creatinine, Urine 273.73 mg/dL (63-166)
[2020-07-28] MEDS: Atorvastatin Calcium 10 MG TAB PO SCH (20:35)
[2020-07-29] MEDS: Sodium Chloride 0.45% 1,000 ML IV SCH ×2 (05:06→17:50)
[2020-07-29] MEDS: Acetaminophen 500 MG TAB PO SCH ×3 (05:07→21:17)
[2020-07-29] MEDS: Calcium Carbonate 500 MG ChewTAB PO PRN (05:15)
--- NOTE | 2020-07-29 06:07 | PDOC.FM ---
- Subjective Subjective: Patient feeling better this AM. Reports he did not eat anything at all yesterday and just drank water. He gets nauseous. Complains of hard snot in his sinuses. Perseverates on the fact that when the snot softens and loosens w/ water intake, he swallows it, then gets nauseous, and then his stomach hurts. He wonders if we can test the snot for something. Otherwise, BP stable overnight. - Objective MAR Reviewed: Yes Vital Signs & Weight: Vital Signs (12 hours) Temp Pulse Resp BP Pulse Ox 07/29/20 03:15 97.5 F L 91 20 119/80 94 L 07/28/20 23:23 98.2 F 88 18 109/67 93 L 07/28/20 20:00 94 L 07/28/20 19:18 98.2 F 83 20 143/87 H 94 L Weight Admit Weight 221.807 kg Weight 223.5 kg Most Recent Monitor Data Heart Rate from ECG 88 NIBP 84/60 NIBP BP-Mean 68 Respiration from ECG 9 SpO2 95 I&O: 07/27/20 07/28/20 07/29/20 06:59 06:59 06:59 Intake Total 1220 980.3 4350 Output Total 3690 485 1440 Balance -2470 495.3 2910 Result Diagrams: 07/26/20 04:25 07/29/20 08:09 Phys Exam - Physical Examination Constitutional: NAD Respiratory: no wheezing, clear to auscultation bilateral Cardiovascular: RRR, no significant murmur Gastrointestinal: soft, non-tender, no distention Psychiatric: A&O x 3 Deviation from normal: anxious affect, perseverates on details of his health Dx/Plan - Plan Plan: Pt is a 50 yo M with pmh of AMBERLY, DMII, HLD, Aflutter, HTN, GERD, Gout, mild pulmonary HTN, and venous stasis dermatitis b/l LE who present for SOB, intubated in ER due to hypoxia and admitted to CCU for bilateral PNA and pulm/critical care. # Acute Hypoxic Respiratory Failure 2/2 bilateral PNA of unknown organism - extubated 07/26 - Infectious workup negative thus far - Pulmonology on board. Appreciate recs. - Completed levaquin, azithromycin, ceftriaxone x7 days. - continue home CPAP at night. FIONA, iatrogenic - continue fluids, awaiting labs this AM. If Creatinine worsened, consider nephro consult. - UA indicative of infection, sent for culture. Possibly CAUTI. No muddy brown casts concerning for ATN. - FeUrea showing 5.9%, pre-renal etiology. Continue fluids. DMII Continue to hold Jardiance due to risk of developing DKA in setting of acute illness. - ACHS Glucose Checks - Mild SSI for backup/correction dose - Scheduled lantus. Mealtime humalog dose 6 units TID-WM today. - goal 140-180 glucose - Continue home metformin 1000 mg BID. # A-flutter - Continue home medications: Multaq & Cardizem - home xarelto # HTN - hold lisinopril due to FIONA and hypotension # HLD - Hold Atorvastatin # Venous Stasis Dermatitis on B/L LE # Mild Pulmonary HTN # AMBERLY - continue home CPAP at night Code Status: Full IVF: KVO DVT PPx: home xarelto GI PPx: Protonix Diet: CC PCP: CARMINA Davidson Dispo: Continue PT/OT. CM consult placed for rehab. Inpatient, medical. Addendum - Attending - Attending Attestation Date/Time: 07/29/20 1009 I personally evaluated the patient and discussed the management with Dr. Hernandez. I agree with the History, Examination, Assessment and Plan documented above with any addition or exceptions noted below. Improving creatinine. Hold fluids. Monitor for UTI symptoms and await UCx.
--- NOTE | 2020-07-29 07:11 | EKG ---
Test Reason : Blood Pressure : / mmHG Vent. Rate : 081 BPM Atrial Rate : 081 BPM P-R Int : 166 ms QRS Dur : 110 ms QT Int : 384 ms P-R-T Axes : 027 105 029 degrees QTc Int : 446 ms Normal sinus rhythm Incomplete right bundle branch block When compared with ECG of 19-JUL-2020 13:42, (Unconfirmed) No significant change was found Confirmed by DR. Jose Angel MOELLER ([id number]) on 07/29/2020 7:11:25 AM Referred By: BHARAT Duong Confirmed By:DR. Jose Angel MOELLER
[2020-07-29] MEDS ORDERED: Sodium Chloride 0.65% Nasal 44 ML BOT EA NARE PRN (08:38)
[2020-07-29 08:43] LABS: Chloride 82 mmol/L (98-107); Potassium 3.4 mmol/L (3.5-5.1)
[2020-07-29 08:47] LABS: Calcium 8.8 mg/dL (7.8-10.44)
[2020-07-29 09:07] LABS: Glucose 117 mg/dL (70-105); Sodium 132 mmol/L (136-145)
[2020-07-29 09:09] LABS: Anion Gap 19 mmol/L (10-20); Carbon Dioxide 20 mmol/L (22-29)
[2020-07-29 09:11] LABS: Calc. Creatinine Clearance 136 mL/min (70-130)
[2020-07-29 09:12] LABS: BUN (Urea Nitrogen) 57 mg/dL (8.9-20.6)
[2020-07-29] MEDS: Allopurinol 100 MG TAB PO SCH (10:06)
[2020-07-29] MEDS: Dronedarone HCl 400 MG TAB PO SCH ×2 (10:06→21:17)
[2020-07-29] MEDS: metFORMIN 500 MG TAB PO SCH ×2 (10:06→21:20)
[2020-07-29] MEDS: Insulin Glargine 30 UNITS in Pre-Filled Syringe 1 EACH SC SCH (10:06)
[2020-07-29] MEDS: HumaLOG 300 UNITS/3 ML VIAL SC SCH ×3 (10:07→17:07)
[2020-07-29] MEDS ORDERED: Potassium Chloride 20 MEQ TAB PO SCH (10:15)
[2020-07-29] MEDS: Ondansetron ODT 4 MG TAB PO SCH ×3 (12:26→23:11)
--- NOTE | 2020-07-29 15:40 | PRG ---
DATE OF SERVICE: 07/29/2020 SUBJECTIVE: Sigifredo Hughes has no new complaints. OBJECTIVE: VITAL SIGNS: He is afebrile, heart rate is 89, respiratory rate is 16, oximetry is 97% on room air, blood pressure 113/68. LUNGS: Clear. HEART: Regular rhythm. ABDOMEN: Soft. LABORATORY DATA: White count has not been repeated. His creatinine is down to 2.06. I will continue slow general hydration until his creatinine normalizes. Again, it is imperative that he lose weight as I have explained to him. We had multiple discussions about this in the past. Not optimistic he will be successful unless he has some type of weight loss procedure. Once his renal function normalizes, he could probably be discharged home. Job ID: [id number]
[2020-07-29] MEDS: Rivaroxaban 10 MG TAB PO SCH (17:04)
[2020-07-29] MEDS: Atorvastatin Calcium 10 MG TAB PO SCH (21:17)
[2020-07-30 05:29] LABS: Anion Gap 15 mmol/L (10-20); BUN (Urea Nitrogen) 27 mg/dL (8.9-20.6); Calc. Creatinine Clearance 307 mL/min (70-130); Calcium 9.5 mg/dL (7.8-10.44); Carbon Dioxide 26 mmol/L (22-29); Chloride 99 mmol/L (98-107); Glucose 114 mg/dL (70-105); Potassium 4.7 mmol/L (3.5-5.1); Sodium 135 mmol/L (136-145)
[2020-07-30] MEDS: Acetaminophen 500 MG TAB PO SCH (05:50)
[2020-07-30] MEDS: Ondansetron ODT 4 MG TAB PO SCH (05:50)
--- NOTE | 2020-07-30 07:11 | PDOC.FM ---
- Subjective Subjective: Patient feeling much better this AM. Continues to complains of postnasal drip. Ate decent amount yesterday. Metformin upsets his stomach. He asks when he can go home. Says he has been walking all around here lately. - Objective MAR Reviewed: Yes Vital Signs & Weight: Vital Signs (12 hours) Temp Pulse Resp BP Pulse Ox 07/30/20 03:20 97.9 F 83 18 97/64 93 L 07/29/20 23:12 98.0 F 89 18 123/80 92 L 07/29/20 20:05 94 L 07/29/20 19:31 97.6 F 89 16 115/74 94 L Weight Admit Weight 221.807 kg Weight 223.5 kg Most Recent Monitor Data Heart Rate from ECG 88 NIBP 84/60 NIBP BP-Mean 68 Respiration from ECG 9 SpO2 95 I&O: 07/29/20 07/30/20 07/31/20 06:59 06:59 06:59 Intake Total 4350 3475 Output Total 1440 5530 Balance 2909 -2054 Result Diagrams: 07/26/20 04:25 07/30/20 04:51 Phys Exam - Physical Examination Constitutional: NAD Respiratory: no wheezing, clear to auscultation bilateral Cardiovascular: RRR, no significant murmur Gastrointestinal: soft, non-tender Psychiatric: normal affect, A&O x 3 Dx/Plan - Plan Plan: Pt is a 50 yo M with pmh of AMBERLY, DMII, HLD, Aflutter, HTN, GERD, Gout, mild pulmonary HTN, and venous stasis dermatitis b/l LE who present for SOB, intubated in ER due to hypoxia and admitted to CCU for bilateral PNA and pulm/critical care. # Acute Hypoxic Respiratory Failure 2/2 bilateral PNA of unknown organism - extubated 07/26 - Infectious workup negative thus far - Pulmonology on board. Appreciate recs. - Completed levaquin, azithromycin, ceftriaxone x7 days. - continue home CPAP at night. FIONA, iatrogenic, resolved - stopped fluids, may resume lisinopril DMII - hold metformin, will send home on 500 XR BID - will discharge on home jardiance and lantus # A-flutter - Continue home medications: Multaq & Cardizem - home xarelto # HTN - resume HTN meds # HLD - Hold Atorvastatin # Venous Stasis Dermatitis on B/L LE # Mild Pulmonary HTN # AMBERLY - continue home CPAP at night Code Status: Full IVF: KVO DVT PPx: home xarelto GI PPx: Protonix Diet: CC PCP: CARMINA Davidson Dispo: Continue PT/OT. CM consult placed for rehab. However, pt reports he is walking very well and wants to go home. Will call PT and discuss. If okay for home with outpatient PT, will discharge today. Addendum - Attending - Attending Attestation Date/Time: 07/30/20 1030 I personally evaluated the patient and discussed the management with Dr. Hernandez. I agree with the History, Examination, Assessment and Plan documented above with any addition or exceptions noted below. Can go home pending PT eval. If he had hematuria with no infection I think possibly just 2/2 ATN but needs f/u.
[2020-07-30] MEDS ORDERED: Ondansetron ODT 4 MG TAB PO PRN ×2 (08:39→12:00)
[2020-07-30] MEDS: Dronedarone HCl 400 MG TAB PO SCH (08:49)
[2020-07-30] MEDS: Allopurinol 100 MG TAB PO SCH (08:49)
[2020-07-30] MEDS: Insulin Glargine 30 UNITS in Pre-Filled Syringe 1 EACH SC SCH (08:50)
--- NOTE | 2020-07-30 08:54 | PDOC.BPN ---
- Brief Progress Note Encounter Date: 07/30/20 Encounter Time: 08:40 Subjective: Pt is a 50 yo male with PMH significant for AMBERLY, atrial fibrillation, obesity hypoventilation syndrome, HTN, HLD, DMII who has been hospitalized for pneumonia of unknown etiology. He was initially intubated for acute hypoxic respiratory failure and has since been extubated not requiring oxygen. He also had an hypotension, FIONA likely secondary to pre-renal azotemia and corrected with fluids. Metformin, jardiance were discontinued and he has been on insulin. BG has been well controlled and has not needed all his doses of insulin. Today he is doing much better. He is tolerating a diet which was very reduced until yesterday evening. He ate just over half of dinner. He does complain of a headache with some sinus congestion. Of note, prior to this admission he has been working on lifestyle modifications for weight loss. He has been having a difficult time with this and was not super compliant with metformin as he thought it would cause kidney damage. He was supposed to be food journaling but has not done this prior to admission. He also was taking BG 3-4 times a day to see how foods will affect his BG. He has difficulty with exercise due to size. Objective: 98.2 p82 125/85 93% RA Skin: no lesion HEENT: normocephalic, sclera clear LE: no edema Neuro: CN II-XII intact Psych: insight, judgment intact Assessment: as below Recommendations/Plan: # DM II # Obesity - start metformin xr 500 mg daily in outpt setting as metformin 1000 mg big was causing GI upset. - continue daily BG at home - restart jardiance at home - discuss social work coordinator in outpt setting - could consider referral for bariatric surgery # Congestion - flonase, saline drops # Acute management per medicine team Follow up with me in outpatient within 7 days of discharge
[2020-07-30] MEDS ORDERED: Fluticasone Propionate Nasal Spray 16 gm Bottle NASAL SCH (09:00)
[2020-07-30] MEDS: Sodium Chloride 0.45% 1,000 ML IV SCH (10:21)
[2020-07-30] MEDS: HumaLOG 300 UNITS/3 ML VIAL SC SCH (10:21)
[2020-07-30 11:57] VITALS: BP 116/78; TEMP 97.9
--- NOTE | 2020-07-31 03:44 | DIS ---
DATE OF ADMISSION: 07/19/2020 DATE OF DISCHARGE: 07/30/2020 ADMITTING ATTENDING: Yanelis Singh MD DISCHARGE ATTENDING: Nico Hernandez MD RESIDENT: Lynsey Hernandez MD CONSULTATIONS: Pulmonology, Physical Therapy, Occupational Therapy. PROCEDURES: Daily chest x-rays while in the intensive care unit. Lower extremity venogram on 07/26/2020 showing no evidence for deep vein thrombosis. PRIMARY DIAGNOSES: 1. Acute hypoxic respiratory failure secondary to bilateral pneumonia, empirically treated. 2. Status post intubation x8 days. 3. Acute kidney injury, iatrogenic, resolved. 4. Hematuria, likely secondary to [place] trauma. SECONDARY DIAGNOSES: 1. Obstructive sleep apnea. 2. Type 2 diabetes. 3. Hyperlipidemia. 4. Atrial flutter. 5. Hypertension. 6. Gastroesophageal reflux disease. 7. Gout. 8. Mild pulmonary hypertension. 9. Venous stasis dermatitis, chronic. 10. Morbid obesity with BMI of 68. DISCHARGE MEDICATIONS: 1. Flonase nasal spray one spray daily. 2. Metformin 500 mg extended release p.o. twice daily. 3. Xarelto 20 mg p.o. daily. 4. Allopurinol 100 mg p.o. daily. 5. Dronedarone 400 mg p.o. twice daily. 6. Ibuprofen 200 mg p.o. q.8 hours p.r.n. 7. Jardiance 10 mg p.o. daily. 8. Atorvastatin 10 mg p.o. at bedtime. 9. Metoprolol succinate 1.5 tablets p.o. daily. 10. Terbinafine 250 mg p.o. daily. 11. Lisinopril 10 mg p.o. daily. 12. Diltiazem 180 mg p.o. daily. 13. Nitroglycerin 0.4 mg sublingual q.5 minutes p.r.n. Discontinued medications: Metformin 1000 mg p.o. twice daily. HISTORY OF PRESENT ILLNESS AND HOSPITAL COURSE: This 50-year-old male with multiple comorbidities, was admitted for shortness of breath. He was intubated in the ER. Prior to intubation, he stated his symptoms have been ongoing for about a week. Symptoms included cough, shortness of breath. The patient was hypoxic at 63% on room air. He does use a CPAP at night usually. The patient also was concerned about some left leg swelling on admission, but a Doppler ruled out DVT. The patient has not traveled, but his children go to school. He denies known exposure to sick contacts or anyone with coronavirus. The patient was given 1 L of normal saline, sedation and intubated in the emergency room along with azithromycin and Rocephin. While the patient was here in the hospital, he received a complete seven day course of triple antibiotic therapy consisting of Levaquin, azithromycin, and ceftriaxone. His infectious workup of his pneumonia was surprisingly negative. Lab results were negative for coronavirus and influenza. A more extensive respiratory viral panel was also negative. His urine culture and blood culture showed no growth at their final day of incubation. The patient received steroids while he was intubated. He was followed by Pulmonology and had serial chest x-rays. Initial chest x-ray did show cardiomegaly with bilateral vascular congestion and pleural effusions. He also had bilateral alveolar and ground-glass opacity in both lungs. Due to suspected pulmonary hypertension and heart failure with preserved ejection fraction on previous echo, the patient was diuresed while intubated. He began to improve with this along with antibiotic therapy. Unfortunately, after extubation an iatrogenic acute kidney injury was caused by the diuresis. The patient was then fluid resuscitated, and this resolved back to the patient's baseline. There was no evidence of acute tubular necrosis on repeat urinalysis. Repeat urine culture was also preliminarily negative. However, the urinalysis did show red blood cells were greater than 50, and calcium oxalate crystals. The patient had high glucose secondary to steroids, so he was given long-acting and short-acting insulin. However, when he was extubated and came off the steroids and moved to the general floor, his sugars improved remarkably. He was evaluated by Physical Therapy, who initially recommended rehab due to his ICU course. However, the patient was able to walk stairs on his last day of physical therapy, and physical therapy felt he would be safe to go home with outpatient PT. Pulmonology had multiple talks with the patient regarding gastric surgery to lose weight, as this will likely improve his long-term prognosis. DISCHARGE INSTRUCTIONS: Discharge location: Home. Activity: As tolerated. Diet: Diabetic diet and heart healthy. Follow up with primary care provider within 7 days. Recommend repeat urinalysis to see resolution of hematuria or further workup if needed. Job ID: [id number] MTDD
--- NOTE | 2020-08-01 14:26 | EKG ---
Test Reason : Blood Pressure : / mmHG Vent. Rate : 063 BPM Atrial Rate : 063 BPM P-R Int : 158 ms QRS Dur : 112 ms QT Int : 440 ms P-R-T Axes : 021 127 010 degrees QTc Int : 450 ms Normal sinus rhythm Incomplete right bundle branch block Possible Right ventricular hypertrophy Abnormal ECG Confirmed by PEPPER IBARRA DO ([id number]), newspaper photo editor ELEONORA CHENG ([id number]) on 08/01/2020 2:26:25 PM Referred By: Confirmed By:PEPPER IBARRA DO
== END 2020-07-30 15:22 | disposition home or self-care (01) | DRG 870 ==
LOC: ERS 13:23 → CCU 15:36 → SJJU 07-28 07:42
PROVIDERS: ADMIT Family Medicine; ATTEND Family Medicine
PROC: 0BH17EZ Insertion of Endotracheal Airway into Trachea, Via Natural or Artificial Opening (ICD-10-PCS; principal; 2020-07-19)
PROC: 5A1955Z Respiratory Ventilation, Greater than 96 Consecutive Hours (ICD-10-PCS; 2020-07-19)
PROC: 8E0ZXY6 Isolation (ICD-10-PCS; 2020-07-19)
DX: A41.9 Sepsis, unspecified organism (principal); J96.02 Acute respiratory failure with hypercapnia; J18.9 Pneumonia, unspecified organism; J96.01 Acute respiratory failure with hypoxia; Z68.44 Body mass index [BMI] 60.0-69.9, adult; J44.0 Chronic obstructive pulmonary disease with (acute) lower respiratory infection; I50.32 Chronic diastolic (congestive) heart failure; E87.3 Alkalosis; E66.2 Morbid (severe) obesity with alveolar hypoventilation; N17.9 Acute kidney failure, unspecified; Z20.828 Contact with and (suspected) exposure to other viral communicable diseases; R65.20 Severe sepsis without septic shock; K21.9 Gastro-esophageal reflux disease without esophagitis; M06.9 Rheumatoid arthritis, unspecified; I27.20 Pulmonary hypertension, unspecified; E11.65 Type 2 diabetes mellitus with hyperglycemia; I87.2 Venous insufficiency (chronic) (peripheral); I11.0 Hypertensive heart disease with heart failure; D69.6 Thrombocytopenia, unspecified; I48.91 Unspecified atrial fibrillation; Z99.89 Dependence on other enabling machines and devices; Z79.899 Other long term (current) drug therapy; Z90.49 Acquired absence of other specified parts of digestive tract; M10.9 Gout, unspecified; M25.562 Pain in left knee; Z79.01 Long term (current) use of anticoagulants; Z79.84 Long term (current) use of oral hypoglycemic drugs; Z83.3 Family history of diabetes mellitus; Z82.49 Family history of ischemic heart disease and other diseases of the circulatory system
CPT/HCPCS: 31500; 36415; 36416; 36600; 51702; 71045; 80048; 80053; 81001; 81003; 81015; 82533; 82570; 82728; 82805; 83605; 83615; 83690; 83735; 83880; 84100; 84145; 84484; 84540; 85007; 85025; 85027; 85379; 85520; 86140; 86850; 86900; 86901; 87040; 87070; 87086; 87205; 87389; 87449; 87633; 87635; 87804; 87899; 93005; 93010; 93970; 94002; 94003; 94640; 94660; 96365; 96366; 96367; 96368; 96375; 99292; C9113; J0456; J0696; J1100; J1650; J1815; J1940; J1956; J2060; J2250; J2704; J2920; J3010; J3490; J7050; J7620; Q0162; S0028; U0002; U0003

== ENCOUNTER 2021-06-08 13:15 | Inpatient (IN) | payer BC ==
[2021-06-08 14:01] LABS: #Basophils 0.1 thou/uL (0.0-0.2); #Eosinphils 0.1 thou/uL (0.0-0.7); #Lymphocytes 1.7 thou/uL (1.20-3.40); #Monocytes 0.6 thou/uL (0.11-0.59); %Basophils 0.7 % (0.0-1.0); %Eosinophils 1.5 % (0.0-10.0); %Lymphocytes 22.8 % (21.0-51.0); %Monocytes 7.9 % (0.0-10.0); %Neutrophils 67.1 % (42.0-75.0); Hemoglobin 17.6 g/dL (14.0-18.0); Mean Corpuscular HGB CONC 31.1 g/dL (32.0-36.0); Mean Corpuscular Hemoglobin 26.9 pg (27.0-31.0); Mean Corpuscular Volume 86.6 fL (78.0-98.0); Mean Platelet Volume 9.5 fL (7.4-10.4); Platelet Count 168 thou/uL (130-400); RBC Distribution Width 15.6 % (11.5-14.5); Red Blood Cell (RBC) Count 6.56 mill/uL (4.70-6.10); White Blood Cell (WBC) Count 7.4 thou/uL (4.8-10.8)
[2021-06-08 14:19] LABS: Alkaline Phosphatase 84 U/L (40-110); Anion Gap 16 mmol/L (10-20); BUN (Urea Nitrogen) 19 mg/dL (8.4-25.7); Bilirubin, Total 0.7 mg/dL (0.2-1.2); Calc. Creatinine Clearance 0 mL/min (70-130); Carbon Dioxide 29 mmol/L (22-29); Chloride 100 mmol/L (98-107); Globulin 3.8 g/dL (2.4-3.5); Glucose 149 mg/dL (70-105); Potassium 5.3 mmol/L (3.5-5.1); Protein, Total 7.8 g/dL (6.0-8.3); Sodium 140 mmol/L (136-145)
[2021-06-08 14:20] LABS: ALT (SGPT) 15 U/L (8-55); AST (SGOT) 14 U/L (5-34)
[2021-06-08 14:37] LABS: Actual Bicarbonate (HCO3a) 30.8 mEq/L (22-28); Analyzer IN Cardio ER; Base Excess (BEa) 3.6 mEq/L (-2.0 to +3.0); CO2 Tension 55.9 mmHg (35.0-45.0); Calcium, Ionized (arterial) 1.16 mmol/L (1.12-1.30); Carboxyhemoglobin (COHb) 2.1 gm% (0.0-3.0); Hemoglobin (Hb) 16.9 g/dL (14.0-18.0); pH, Arterial 7.36 (7.35-7.45)
[2021-06-08 14:38] LABS: O2 Tension (PaO2), arterial 48.5 mmHg (80.0-100.0)
[2021-06-08 14:39] LABS: ALV-art Gradient 31.355 mmHg (0-20); Puncture Site RRA
[2021-06-08] MEDS ORDERED: cefTRIAXone\\ROCEPHIN 1 GM VIAL ONE (15:16)
[2021-06-08] MEDS ORDERED: Azithromycin 500 MG VIAL ONE (15:16)
[2021-06-08] MEDS ORDERED: Dexamethasone 10 MG/ML VIAL ONE (15:17)
[2021-06-08 16:34] LABS: SARS-CoV-2 NAA Rapid Test Not Detected (NotDetected)
[2021-06-08] MEDS ORDERED: Acetaminophen 325 MG TAB PO PRN (17:38)
[2021-06-08] MEDS ORDERED: Dextrose 5% in Water 1,000 ML IV PRN (18:43)
[2021-06-08] MEDS ORDERED: Dextrose 50% Abboject 50 ML SYRINGE SLOW IVP PRN (18:43)
[2021-06-08] MEDS ORDERED: Nitroglycerin 0.4 MG TAB (25 Tab Bottle) SL PRN (19:21)
[2021-06-08 21:10] VITALS: BMI 61.4
[2021-06-08] MEDS: HumaLOG 300 UNITS/3 ML VIAL SC PRN (21:16)
[2021-06-08] MEDS: Dronedarone HCl 400 MG TAB PO SCH (21:22)
[2021-06-08] MEDS ORDERED: Dronedarone HCl 400 MG TAB PO SCH (22:30)
[2021-06-08] MEDS ORDERED: Albuterol 200 PUFF (6.7GM INHALER) INH SCH (22:45)
[2021-06-08] MEDS ORDERED: FLU VACC QS2021-22(6MOS UP)/PF 60 MCG/0.5 ML SYRINGE IM ONE (23:30)
[2021-06-08 23:33] LABS: Bacteria/HPF None Seen HPF (None Seen); Bilirubin Negative (Negative); Blood, Urine Negative (Negative); Clarity Clear (Clear); Glucose, Urine (Dipstick) Greater than 1000 mg/dL (Negative); Ketone, Urine Negative (Negative); Leukocyte Negative Leu/uL (Negative); Nitrite Negative (Negative); Protein, Urine (Dipstick) Negative (Neg-Trace); RBC/HPF 0-3 HPF (0-3); Specific Gravity, Urine 1.032 (1.002-1.036); Squamous Epithelial None Seen HPF (0-3); Urobilinogen Normal mg/dL (Less than 2); WBC/HPF 0-3 HPF (0-3); pH, Urine 5.5 (5.0-9.0)
[2021-06-09] MEDS: Albuterol 200 PUFF (6.7GM INHALER) INH SCH ×3 (01:01→14:00)
[2021-06-09] MEDS: HumaLOG 300 UNITS/3 ML VIAL SC PRN ×4 (05:55→20:04)
[2021-06-09 05:56] LABS: Anion Gap 13 mmol/L (10-20); BUN (Urea Nitrogen) 25 mg/dL (8.4-25.7); Calc. Creatinine Clearance 227 mL/min (70-130); Calcium 9.3 mg/dL (7.8-10.44); Carbon Dioxide 34 mmol/L (22-29); Chloride 97 mmol/L (98-107); Glucose 235 mg/dL (70-105); Potassium 5.4 mmol/L (3.5-5.1); Sodium 139 mmol/L (136-145)
[2021-06-09 06:02] LABS: #Lymphocytes 0.7 thou/uL (1.20-3.40); #Monocytes 0.3 thou/uL (0.11-0.59); #Neutrophils 6.9 thou/uL (1.40-6.50); %Basophils 0.1 % (0.0-1.0); %Eosinophils 0.3 % (0.0-10.0); %Lymphocytes 8.7 % (21.0-51.0); %Monocytes 3.3 % (0.0-10.0); %Neutrophils 87.5 % (42.0-75.0); Hemoglobin 17.5 g/dL (14.0-18.0); Mean Corpuscular HGB CONC 28.5 g/dL (32.0-36.0); Mean Corpuscular Hemoglobin 25.5 pg (27.0-31.0); Mean Corpuscular Volume 89.4 fL (78.0-98.0); Mean Platelet Volume 9.6 fL (7.4-10.4); Platelet Count 181 thou/uL (130-400); RBC Distribution Width 15.4 % (11.5-14.5); Red Blood Cell (RBC) Count 6.86 mill/uL (4.70-6.10); White Blood Cell (WBC) Count 7.9 thou/uL (4.8-10.8)
[2021-06-09] MEDS ORDERED: Allopurinol 100 MG TAB PO SCH (09:00)
[2021-06-09] MEDS: metFORMIN XR 500 MG TAB PO SCH ×2 (09:16→18:35)
[2021-06-09] MEDS: Dexamethasone 10 MG/ML VIAL SLOW IVP SCH (09:16)
[2021-06-09] MEDS: Dronedarone HCl 400 MG TAB PO SCH ×2 (09:17→19:55)
[2021-06-09] MEDS: Hydrochlorothiazide 25 MG TAB PO SCH (09:17)
[2021-06-09] MEDS: Lisinopril 10 MG TAB PO SCH (09:17)
[2021-06-09] MEDS: Rosuvastatin 5 MG TAB PO SCH (09:17)
[2021-06-09] MEDS: Empagliflozin 25 MG TAB PO SCH (09:44)
[2021-06-09 09:57] LABS: Polychromasia SLIGHT = 2-3 cells (100X) (0-2/hpf)
[2021-06-09 09:58] LABS: Platelet Morphology Comment Appears Adequate
[2021-06-09] MEDS ORDERED: Albuterol 200 PUFF (6.7GM INHALER) INH PRN (15:42)
[2021-06-09] MEDS ORDERED: Sodium Chloride 0.65% Nasal 44 ML BOT EA NARE PRN (16:52)
[2021-06-09] MEDS: cefTRIAXone\\ROCEPHIN 1 GM in Sodium Chloride 0.9% 100 ML IVPB SCH (17:54)
[2021-06-09] MEDS: Rivaroxaban 10 MG TAB PO SCH (17:55)
[2021-06-09] MEDS: Azithromycin 500 MG in Sodium Chloride 0.9% 250 ML 250 ML IVPB SCH (17:55)
[2021-06-10 05:29] LABS: #Lymphocytes 1.1 thou/uL (1.20-3.40); #Monocytes 0.5 thou/uL (0.11-0.59); #Neutrophils 7.3 thou/uL (1.40-6.50); %Eosinophils 0.2 % (0.0-10.0); %Lymphocytes 12.1 % (21.0-51.0); %Monocytes 5.8 % (0.0-10.0); %Neutrophils 81.9 % (42.0-75.0); Hemoglobin 16.7 g/dL (14.0-18.0); Mean Corpuscular HGB CONC 29.9 g/dL (32.0-36.0); Mean Corpuscular Hemoglobin 26.2 pg (27.0-31.0); Mean Corpuscular Volume 87.7 fL (78.0-98.0); Mean Platelet Volume 9.7 fL (7.4-10.4); Platelet Count 166 thou/uL (130-400); RBC Distribution Width 15.1 % (11.5-14.5); Red Blood Cell (RBC) Count 6.35 mill/uL (4.70-6.10); White Blood Cell (WBC) Count 8.9 thou/uL (4.8-10.8)
[2021-06-10] MEDS: HumaLOG 300 UNITS/3 ML VIAL SC PRN ×3 (05:47→16:48)
[2021-06-10 05:53] LABS: Anion Gap 13 mmol/L (10-20); BUN (Urea Nitrogen) 29 mg/dL (8.4-25.7); Calc. Creatinine Clearance 265 mL/min (70-130); Calcium 9.1 mg/dL (7.8-10.44); Carbon Dioxide 33 mmol/L (22-29); Chloride 96 mmol/L (98-107); Glucose 197 mg/dL (70-105); Potassium 4.6 mmol/L (3.5-5.1); Sodium 137 mmol/L (136-145)
[2021-06-10] MEDS: Lisinopril 10 MG TAB PO SCH (08:37)
[2021-06-10] MEDS: Empagliflozin 25 MG TAB PO SCH (08:38)
[2021-06-10] MEDS: Dronedarone HCl 400 MG TAB PO SCH ×2 (08:39→19:59)
[2021-06-10] MEDS: Rosuvastatin 5 MG TAB PO SCH (08:39)
[2021-06-10] MEDS: Hydrochlorothiazide 25 MG TAB PO SCH (08:39)
[2021-06-10] MEDS: Dexamethasone 10 MG/ML VIAL SLOW IVP SCH (08:40)
[2021-06-10] MEDS: metFORMIN XR 500 MG TAB PO SCH ×2 (08:40→16:24)
[2021-06-10] MEDS ORDERED: Benzonatate 100 MG CAP PO PRN (09:06)
[2021-06-10] MEDS ORDERED: Insulin Regular 300 UNITS/3 ML VIAL ONE (11:30)
[2021-06-10] MEDS: Rivaroxaban 10 MG TAB PO SCH (16:24)
[2021-06-10] MEDS: Azithromycin 500 MG in Sodium Chloride 0.9% 250 ML 250 ML IVPB SCH (16:24)
[2021-06-10] MEDS: cefTRIAXone\\ROCEPHIN 1 GM in Sodium Chloride 0.9% 100 ML IVPB SCH (16:27)
[2021-06-11 05:06] LABS: #Lymphocytes 1.1 thou/uL (1.20-3.40); #Monocytes 0.5 thou/uL (0.11-0.59); #Neutrophils 6.6 thou/uL (1.40-6.50); %Basophils 0.1 % (0.0-1.0); %Eosinophils 0.1 % (0.0-10.0); %Lymphocytes 13.5 % (21.0-51.0); %Monocytes 6.1 % (0.0-10.0); %Neutrophils 80.2 % (42.0-75.0); Hemoglobin 16.9 g/dL (14.0-18.0); Mean Corpuscular HGB CONC 30.2 g/dL (32.0-36.0); Mean Corpuscular Hemoglobin 26.3 pg (27.0-31.0); Mean Platelet Volume 9.8 fL (7.4-10.4); Platelet Count 162 thou/uL (130-400); Red Blood Cell (RBC) Count 6.43 mill/uL (4.70-6.10); White Blood Cell (WBC) Count 8.3 thou/uL (4.8-10.8)
[2021-06-11 05:41] LABS: Anion Gap 16 mmol/L (10-20); BUN (Urea Nitrogen) 28 mg/dL (8.4-25.7); Calc. Creatinine Clearance 288 mL/min (70-130); Calcium 9.6 mg/dL (7.8-10.44); Carbon Dioxide 32 mmol/L (22-29); Chloride 98 mmol/L (98-107); Glucose 188 mg/dL (70-105); Potassium 4.7 mmol/L (3.5-5.1); Sodium 141 mmol/L (136-145)
[2021-06-11] MEDS: HumaLOG 300 UNITS/3 ML VIAL SC PRN (06:03)
[2021-06-11] MEDS ORDERED: Dexamethasone 4 MG TAB PO SCH (08:00)
[2021-06-11] MEDS: metFORMIN XR 500 MG TAB PO SCH (08:51)
[2021-06-11] MEDS: Rosuvastatin 5 MG TAB PO SCH (08:52)
[2021-06-11] MEDS: Empagliflozin 25 MG TAB PO SCH (08:52)
[2021-06-11] MEDS: Lisinopril 10 MG TAB PO SCH (08:52)
[2021-06-11] MEDS: Dronedarone HCl 400 MG TAB PO SCH (08:53)
[2021-06-11] MEDS: Hydrochlorothiazide 25 MG TAB PO SCH (08:56)
[2021-06-11 12:04] VITALS: BP 136/89; TEMP 98.4
[2021-06-11] MEDS ORDERED: AMOXicillin 250 MG CAP PO SCH (15:00)
[2021-06-11] MEDS ORDERED: guaiFENesin ER 600 MG TAB PO SCH (21:00)
[2021-06-12] MEDS ORDERED: Azithromycin 250 MG TAB PO SCH (09:00)
== END 2021-06-11 14:19 | disposition home or self-care (01) | DRG 205 ==
LOC: ERS 13:15 → 2SW 15:21 → OBSVTOIN 15:30
PROVIDERS: ADMIT Family Medicine; ATTEND Family Medicine
PROC: 5A0935A Assistance with Respiratory Ventilation, Less than 24 Consecutive Hours, High Flow/Velocity Cannula (ICD-10-PCS; principal; 2021-06-08)
DX: E66.2 Morbid (severe) obesity with alveolar hypoventilation (principal); J96.21 Acute and chronic respiratory failure with hypoxia; J18.9 Pneumonia, unspecified organism; J96.22 Acute and chronic respiratory failure with hypercapnia; Z68.44 Body mass index [BMI] 60.0-69.9, adult; I48.92 Unspecified atrial flutter; I50.32 Chronic diastolic (congestive) heart failure; Z20.822 Contact with and (suspected) exposure to COVID-19; E78.5 Hyperlipidemia, unspecified; R79.89 Other specified abnormal findings of blood chemistry; I11.0 Hypertensive heart disease with heart failure; M10.9 Gout, unspecified; Z79.899 Other long term (current) drug therapy; Z79.01 Long term (current) use of anticoagulants; Z79.84 Long term (current) use of oral hypoglycemic drugs; Z90.49 Acquired absence of other specified parts of digestive tract; Z98.890 Other specified postprocedural states; Z83.3 Family history of diabetes mellitus; Z87.01 Personal history of pneumonia (recurrent)
CPT/HCPCS: 36415; 36416; 36600; 71045; 80048; 80053; 81001; 82805; 83605; 83880; 84145; 84484; 85025; 87040; 87086; 87633; 93005; 94640; J0456; J0696; J1100; J1815; J3490; J7050; J7620; J8540; U0002

== ENCOUNTER 2021-07-19 19:00 | Outpatient (CLI) | payer BC | END 2021-07-19 19:01 | disposition home or self-care (01) | LOC: SLEEPLAB 19:00 | PROVIDERS: ATTEND Internal Medicine Critical Care Medicine | DX: G47.33 Obstructive sleep apnea (adult) (pediatric) (principal); R06.83 Snoring; G47.00 Insomnia, unspecified; G47.10 Hypersomnia, unspecified; I10 Essential (primary) hypertension; R09.02 Hypoxemia | CPT/HCPCS: 95811 ==

== ENCOUNTER 2021-10-28 10:58 | Outpatient (CLI) | payer BC | END 2021-10-28 10:59 | disposition home or self-care (01) | LOC: DTY/OP 10:58 | PROVIDERS: ATTEND Specialist | DX: E66.01 Morbid (severe) obesity due to excess calories (principal) | CPT/HCPCS: 97802 ==

== ENCOUNTER 2022-07-09 12:01 | Emergency (ER) | payer BC ==
[~2022-07-09 12:01] MED LIST: Iopamidol-370 76% 500 ML 1 ML ONE
[2022-07-09 12:36] LABS: #Eosinphils 0.1 thou/uL (0.0-0.7); #Lymphocytes 1.8 thou/uL (1.20-3.40); #Monocytes 0.4 thou/uL (0.11-0.59); #Neutrophils 5.5 thou/uL (1.40-6.50); %Basophils 0.1 % (0.0-1.0); %Eosinophils 1.3 % (0.0-10.0); %Lymphocytes 22.6 % (21.0-51.0); %Monocytes 5.6 % (0.0-10.0); %Neutrophils 70.4 % (42.0-75.0); Hemoglobin 15.9 g/dL (14.0-18.0); Mean Corpuscular HGB CONC 33.4 g/dL (32.0-36.0); Mean Corpuscular Hemoglobin 29.3 pg (27.0-31.0); Mean Corpuscular Volume 87.6 fl (78.0-98.0); Mean Platelet Volume 8.7 fL (7.4-10.4); Platelet Count 174 10x3/uL (130-400); RBC Distribution Width 13.5 % (11.5-14.5); Red Blood Cell (RBC) Count 5.44 mill/uL (4.70-6.10); White Blood Cell (WBC) Count 7.8 10x3/uL (4.8-10.8)
[2022-07-09 12:59] LABS: ALT (SGPT) 20 U/L (8-55); AST (SGOT) 8 U/L (5-34); Albumin 4.1 g/dL (3.5-5.0); Alkaline Phosphatase 90 U/L (40-110); Anion Gap 12 mmol/L (10-20); BUN (Urea Nitrogen) 15 mg/dL (8.4-25.7); Bilirubin, Total 0.7 mg/dL (0.2-1.2); Calc. Creatinine Clearance 0 mL/min (70-130); Calcium 9.4 mg/dL (7.8-10.44); Carbon Dioxide 26 mmol/L (22-29); Chloride 105 mmol/L (98-107); Estimated GFR 94; Globulin 3.3 g/dL (2.4-3.5); Glucose 147 mg/dL (70-105); Lipase 36 U/L (8-78); Potassium 4.5 mmol/L (3.5-5.1); Protein, Total 7.4 g/dL (6.0-8.3); Sodium 138 mmol/L (136-145)
[2022-07-09] MEDS ORDERED: Ketorolac Tromethamine 30 MG/ML VIAL ONE (15:07)
== END 2022-07-09 15:40 | disposition home or self-care (01) ==
LOC: ERS 12:01
DX: R07.89 Other chest pain (principal); E11.9 Type 2 diabetes mellitus without complications; I10 Essential (primary) hypertension
CPT/HCPCS: 36415; 71275; 74174; 80053; 83690; 84484; 85025; 93005; 96374; J1885; Q9967

== ENCOUNTER 2024-05-15 10:20 | Emergency (ER) | payer BC ==
[2024-05-15] MEDS ORDERED: HYDROcodone/Acetaminophen 5/325 mg Tablet ONE ×2 (11:18→12:45)
== END 2024-05-15 12:46 | disposition home or self-care (01) ==
LOC: ERS 10:20
DX: S02.2XXA Fracture of nasal bones, initial encounter for closed fracture (principal); E11.9 Type 2 diabetes mellitus without complications; I10 Essential (primary) hypertension; I48.91 Unspecified atrial fibrillation; W22.8XXA Striking against or struck by other objects, initial encounter; Z79.84 Long term (current) use of oral hypoglycemic drugs; Z79.82 Long term (current) use of aspirin; Z79.899 Other long term (current) drug therapy
CPT/HCPCS: 70450; 70486; 72125

== ENCOUNTER 2024-08-13 09:11 | Emergency (ER) | payer BC ==
[2024-08-13 11:17] LABS: #Basophils 0.04 10x3/uL (0.0-0.2); %Basophils 0.5 % (0.0-1.0); %Eosinophils 3.6 % (0.0-10.0); %Lymphocytes 21.6 % (21.0-51.0); %Monocytes 7.1 % (0.0-10.0); %Neutrophils 66.1 % (42.0-75.0); Hematocrit 48.3 % (42.0-52.0); Hemoglobin 15.3 g/dL (14.0-18.0); Mean Corpuscular HGB CONC 31.7 g/dL (32.0-36.0); Mean Corpuscular Hemoglobin 27.5 pg (27.0-31.0); Mean Corpuscular Volume 86.7 fL (78.0-98.0); Mean Platelet Volume 10.6 fL (7.4-10.4); Platelet Count 211 10x3/uL (130-400); RBC Distribution Width 13.3 % (11.5-14.5); Red Blood Cell (RBC) Count 5.57 mill/uL (4.70-6.10)
[2024-08-13 12:16] LABS: ALT (SGPT) 19 U/L (8-55); AST (SGOT) 11 U/L (5-34); Albumin 3.6 g/dL (3.5-5.0); Alkaline Phosphatase 82 U/L (40-110); Anion Gap 13 mmol/L (10-20); BUN (Urea Nitrogen) 13 mg/dL (8.4-25.7); Bilirubin, Total 0.9 mg/dL (0.2-1.2); Calc. Creatinine Clearance 0 mL/min (70-130); Calcium 9.6 mg/dL (7.8-10.44); Carbon Dioxide 25 mmol/L (22-29); Chloride 103 mmol/L (98-107); Estimated GFR 104; Globulin 3.8 g/dL (2.4-3.5); Glucose 173 mg/dL (70-105); Potassium 4.2 mmol/L (3.5-5.1); Protein, Total 7.4 g/dL (6.0-8.3); Sodium 137 mmol/L (136-145); Uric Acid 5.2 mg/dL (3.5-7.2)
[2024-08-13] MEDS ORDERED: Indomethacin 25 mg Capsule PO SCH (12:30)
[2024-08-13] MEDS ORDERED: HYDROcodone/Acetaminophen 10/325 mg Tablet ONE (12:32)
== END 2024-08-13 13:48 | disposition home or self-care (01) ==
LOC: ERS 09:11
DX: M10.9 Gout, unspecified (principal); E11.9 Type 2 diabetes mellitus without complications; I10 Essential (primary) hypertension; I48.91 Unspecified atrial fibrillation; E78.5 Hyperlipidemia, unspecified; Z79.84 Long term (current) use of oral hypoglycemic drugs; Z79.4 Long term (current) use of insulin; Z79.899 Other long term (current) drug therapy
CPT/HCPCS: 36415; 80053; 84550; 85025; 86141